=== PATIENT | male | born 1950 | race Caucasian/White ===

== ENCOUNTER → 2017-11-30 | Outpatient (CLI) | payer OTHER ==
[~2017-11-30] MED LIST: ALBU3IS INH; ALBU90OI INH; ALLO300 PO; ALLOPURINOL PO; ASPI81CH PO; ASPI81EC; ASPI81EC PO; BACL10 PO; BACL20; CARV3.125 PO; CEPH500 PO; CHOL10002 PO; CLIN300 PO; CLOP75; CLOP75 PO; FENO145 PO; FENO160; FENO54 PO; FERR325 PO; FLUO10; FLUO10 PO; FLUO20 PO; FURO20 PO; FURO40 PO; Flomax0.4 MG PO; GEMF600 PO; HYDACE5 PO; HYDMOR2 PO; INSU100I6 SC; INSULANPEN; KETO10 PO; LEVEMIR FL100 UNIT/1 SC; Lacri-Lube S.O3.5 GM OD; Lasix40 MG PO; METF500; METF850 PO; METPRE4DP PO; MULVITMINF PO; Norco 10-325 T1 EACH PO; Norco 5-325 Ta1 EACH PO; OXYACE5T PO; POTCHL10ER PO; POTCHL20ER PO; PROM25 PO; RXHYDMOR2 PO; RXOXYACE PO; SPACER IH; SULTRIDS PO; TAMS.4ER PO; THEO300ER PO; THEO300ERA PO; TIZA4 PO; TRIM250 PO; VALS80; VALS80 PO; ZANAFLEX; Zofran Odt4 MG SL; Zovirax800 MG PO; [UNRECOGNIZED DRUG - OTHER]; [UNRECOGNIZED DRUG - REMARK] PO
[2017-11-30 22:43] LABS: Source, Urine Clean Catch
[2017-11-30 22:46] LABS: Bilirubin, Urine Neg (Neg); Blood, Urine 5+ (Neg); Glucose Qualitative, Urine Neg (Neg); Ketones, Urine Neg (Neg); Leukocyte Esterase, Urine 1+ (Neg); Nitrite, Urine Neg (Neg); Protein, Urine Neg (Neg); Urobilinogen, Urine 1+ (Normal)
[2017-11-30 22:51] LABS: Appearance, Urine Clear (Clear); Color, Urine Yellow (P-Yellow)
[2017-11-30 22:52] LABS: Bacteria Mod /hpf; Red Blood Cells, Urine 25-50 /hpf (0-2); Squamous Epithelial Cells Rare /hpf (Few); White Blood Cells, Urine 0-2 /hpf (0-5)
== END | disposition home or self-care (01) ==
LOC: EDSTATUS 15:24 → LAB RH 22:39
PROVIDERS: Family Medicine
DX: N20.2 Calculus of kidney with calculus of ureter (principal); M54.5 Low back pain
CPT/HCPCS: 81001; 87086

== ENCOUNTER 2017-12-02 05:22 | Emergency (ER) | payer OTHER ==
[~2017-12-02] VITALS: Ht 167.6 cm; Wt 99.8 kg
[~2017-12-02 05:22] MED LIST changes: -ALBU3IS INH; -Flomax0.4 MG PO; -Zofran Odt4 MG SL
[2017-12-02] MEDS ORDERED: ALBU3IS INH (05:54)
[2017-12-02 06:07] LABS: BASOPHILS ABSOLUTE AUTO 0.04 K/mm3 (0.00-0.23); BASOPHILS PERCENT AUTO 0 % (0-2); EOSINOPHILS ABSOLUTE AUTO 0.08 K/mm3 (0.00-0.68); EOSINOPHILS PERCENT AUTO 1 % (0-6); Hematocrit 44.8 % (37.0-53.0); Hemoglobin 14.7 g/dL (13.5-17.5); IMMATURE GRAN ABSOLUTE AUTO 0.03 K/mm3 (0.00-0.10); IMMATURE GRAN PERCENT AUTO 0 % (0-1); LYMPHOCYTES ABSOLUTE AUTO 1.88 K/mm3 (0.84-5.20); LYMPHOCYTES PERCENT AUTO 19 % (21-46); MONOCYTES ABSOLUTE AUTO 0.57 K/mm3 (0.16-1.47); MONOCYTES PERCENT AUTO 6 % (4-13); Mean Corpuscular HGB 30.5 pg (26.0-34.0); Mean Corpuscular HGB Conc 32.8 g/dL (31.5-36.5); Mean Corpuscular Volume 93 fL (80-100); Mean Platelet Volume 9.8 fL (9.1-12.4); NEUTROPHILS ABSOLUTE AUTO 7.07 K/mm3 (1.96-9.15); NEUTROPHILS PERCENT AUTO 73 % (41-73); Platelet Count 179 K/mm3 (150-400); RDW Coefficient Variation 14.9 % (11.7-14.2); RDW Standard Deviation 50.7 fL (35.1-46.3); Red Blood Cell Count 4.82 M/mm3 (4.30-5.90); White Blood Cell Count 9.67 K/mm3 (4.00-11.30)
[2017-12-02 06:26] LABS: Alanine Aminotransfer (ALT/SGP 51 U/L (12-78); Albumin/Globulin Ratio 1.1 (0.8-1.8); Alk Phos 59 U/L (50-136); Anion Gap 9 mmol/L (6-16); Aspartate Aminotrans (AST/SGOT 27 U/L (12-37); Bilirubin, Total 0.9 mg/dL (0.1-1.0); Blood Urea Nitrogen 23 mg/dL (8-24); Bun/Creatinine Ratio 25.7 (12.0-20.0); CO2, Blood 22 mmol/L (21-32); Calcium, Blood 9.1 mg/dL (8.5-10.1); Chloride, Blood 112 mmol/L (98-108); Globulin, Blood 3.5 g/dL (2.2-4.0); Glomerular Filtration Rate >60 (60-); Glucose, Blood 121 mg/dL (70-99); Potassium, Blood 4.1 mmol/L (3.5-5.5); Sodium, Blood 143 mmol/L (136-145); Total Protein, Blood 7.5 g/dL (6.4-8.2)
[2017-12-02] MEDS ORDERED: Norco 5-325 Ta1 EACH PO (08:37)
[2017-12-02] MEDS ORDERED: Flomax0.4 MG PO (08:56)
[2017-12-02] MEDS ORDERED: Zofran Odt4 MG SL (08:56)
== END 2017-12-02 09:12 | disposition home or self-care (01) ==
LOC: ER 05:22
PROVIDERS: Emergency Medicine
DX: N13.2 Hydronephrosis with renal and ureteral calculous obstruction (principal); I10 Essential (primary) hypertension; Z79.899 Other long term (current) drug therapy; Z79.82 Long term (current) use of aspirin; Z79.4 Long term (current) use of insulin; Z87.442 Personal history of urinary calculi; Z87.891 Personal history of nicotine dependence; Z86.73 Personal history of transient ischemic attack (TIA), and cerebral infarction without residual deficits
CPT/HCPCS: 36415; 74176; 80053; 83690; 85025; J1885; J2405; J7030

== ENCOUNTER → 2018-03-27 | Outpatient (CLI) | payer OTHER ==
[~2018-03-27] MED LIST changes: +ALBU3IS INH; +Flomax0.4 MG PO; +Zofran Odt4 MG SL
[2018-03-27 14:27] LABS: Bilirubin, Urine Neg (Neg); Blood, Urine 3+ (Neg); Glucose Qualitative, Urine Neg (Neg); Ketones, Urine Neg (Neg); Leukocyte Esterase, Urine 1+ (Neg); Nitrite, Urine Neg (Neg); Protein, Urine 2+ (Neg); Specific Gravity, Urine 1.025 (1.003-1.022); Urobilinogen, Urine 1+ (Normal)
[2018-03-27 14:54] LABS: Appearance, Urine Hazy (Clear); Color, Urine Yellow (P-Yellow)
[2018-03-27 14:55] LABS: Calcium Oxalate Crystals Few /hpf
[2018-03-27 14:57] LABS: Bacteria Rare /hpf; Mucus Light (0-Heavy); Squamous Epithelial Cells Few /hpf (Few)
== END ==
LOC: EDSTATUS 11:34 → LAB RH 14:15
PROVIDERS: Registered Nurse
DX: N39.0 Urinary tract infection, site not specified (principal)
CPT/HCPCS: 81001; 87086

== ENCOUNTER 2018-06-17 02:26 | Emergency (ER) | payer OTHER ==
[~2018-06-17] VITALS: Ht 175.3 cm; Wt 99.8 kg
[~2018-06-17 02:26] MED LIST changes: +ATOR20 PO; +LOSA50 PO; +ONDA4ODT MM; +Roxicodone5 MG PO
[2018-06-17 04:15] LABS: BASOPHILS ABSOLUTE AUTO 0.03 K/mm3 (0.00-0.23); BASOPHILS PERCENT AUTO 0 % (0-2); EOSINOPHILS ABSOLUTE AUTO 0.07 K/mm3 (0.00-0.68); EOSINOPHILS PERCENT AUTO 1 % (0-6); Hematocrit 41.4 % (37.0-53.0); Hemoglobin 13.7 g/dL (13.5-17.5); IMMATURE GRAN ABSOLUTE AUTO 0.03 K/mm3 (0.00-0.10); IMMATURE GRAN PERCENT AUTO 0 % (0-1); LYMPHOCYTES ABSOLUTE AUTO 1.96 K/mm3 (0.84-5.20); LYMPHOCYTES PERCENT AUTO 22 % (21-46); MONOCYTES ABSOLUTE AUTO 0.64 K/mm3 (0.16-1.47); MONOCYTES PERCENT AUTO 7 % (4-13); Mean Corpuscular HGB 30.9 pg (26.0-34.0); Mean Corpuscular HGB Conc 33.1 g/dL (31.5-36.5); Mean Corpuscular Volume 94 fL (80-100); Mean Platelet Volume 9.9 fL (9.1-12.4); NEUTROPHILS ABSOLUTE AUTO 6.26 K/mm3 (1.96-9.15); NEUTROPHILS PERCENT AUTO 70 % (41-73); Platelet Count 177 K/mm3 (150-400); RDW Coefficient Variation 13.9 % (11.7-14.2); RDW Standard Deviation 47.6 fL (35.1-46.3); Red Blood Cell Count 4.43 M/mm3 (4.30-5.90); White Blood Cell Count 8.99 K/mm3 (4.00-11.30)
[2018-06-17 04:34] LABS: Alanine Aminotransfer (ALT/SGP 33 U/L (12-78); Albumin, Blood 3.5 g/dL (3.4-5.0); Albumin/Globulin Ratio 0.9 (0.8-1.8); Alk Phos 66 U/L (50-136); Anion Gap 11 mmol/L (6-16); Aspartate Aminotrans (AST/SGOT 22 U/L (12-37); Bilirubin, Total 1.2 mg/dL (0.1-1.0); Blood Urea Nitrogen 21 mg/dL (8-24); Bun/Creatinine Ratio 22.2 (12.0-20.0); CO2, Blood 24 mmol/L (21-32); Calcium, Blood 8.7 mg/dL (8.5-10.1); Chloride, Blood 111 mmol/L (98-108); Creatinine, Blood 0.95 mg/dL (0.60-1.20); Globulin, Blood 3.8 g/dL (2.2-4.0); Glomerular Filtration Rate >60 (60-); Glucose, Blood 130 mg/dL (70-99); Potassium, Blood 3.5 mmol/L (3.5-5.5); Sodium, Blood 146 mmol/L (136-145); Total Protein, Blood 7.3 g/dL (6.4-8.2)
[2018-06-17 05:38] LABS: Source, Urine Clean Catch
[2018-06-17 05:40] LABS: Appearance, Urine Clear (Clear); Bilirubin, Urine Neg (Neg); Blood, Urine 5+ (Neg); Color, Urine Amber (P-Yellow); Glucose Qualitative, Urine Neg (Neg); Ketones, Urine 2+ (Neg); Leukocyte Esterase, Urine 1+ (Neg); Nitrite, Urine Neg (Neg); Protein, Urine 3+ (Neg); Specific Gravity, Urine 1.025 (1.003-1.022); Urobilinogen, Urine 2+ (Normal)
[2018-06-17 05:49] LABS: Bacteria Mod /hpf; Granular Casts Rare /lpf (0); Mucus Light (0-Heavy); Red Blood Cells, Urine 50-100 /hpf (0-2); Squamous Epithelial Cells Few /hpf (Few)
[2018-06-17] MEDS ORDERED: IBUP600 PO (06:15)
[2018-06-17] MEDS ORDERED: Percocet 7.5-31 EACH PO (06:15)
== END 2018-06-17 06:22 | disposition home or self-care (01) ==
LOC: ER 02:26
PROVIDERS: Emergency Medicine
DX: N23 Unspecified renal colic (principal); Z79.899 Other long term (current) drug therapy; Z79.82 Long term (current) use of aspirin; Z79.01 Long term (current) use of anticoagulants; Z79.4 Long term (current) use of insulin; I10 Essential (primary) hypertension; Z87.891 Personal history of nicotine dependence
CPT/HCPCS: 36415; 80053; 81001; 85025; 87077; 87086; 87186; 96374; 96375; 99284-25; J1170; J1885

== ENCOUNTER → 2018-10-17 | Outpatient (CLI) | payer OTHER ==
[~2018-10-17] MED LIST changes: +IBUP600 PO; +Percocet 7.5-31 EACH PO
[2018-10-25 07:11] LABS: BRUSHITE 3.81 ratio (0.00-3.00); CALCIUM OXALATE 7.58 ratio (0.00-6.00); CALCIUM, URINE 411.2 mg/24 hr (100.0-300.0); CALCIUM, URINE 51.4 mg/dL (Not Estab.); CHLORIDE URINE 81 (110-250); CITRIC ACID (CITRATE) 977 mg/L (Not Estab.); CITRIC ACID(CITRATE) 782 mg/24 hr (320-1240); CREATININE, URINE 1440.8 mg/24 hr (1000.0-2000.0); CREATININE, URINE 180.1 mg/dL (Not Estab.); MAGNESIUM, URINE 11.7 mg/dL (Not Estab.); MONOSODIUM URATE 2.87 ratio (0.00-4.00); OSMOLALITY, URINE 795 (300-900); SODIUM, URINE 67 (58-337); SODIUM, URINE 84 mmol/L (Not Estab.); STRUVITE 0.02 ratio (0.00-1.00); URIC ACID 5.45 ratio (0.00-1.20); URINE VOLUME 800 mL/24 hr (800-1800); URINE VOLUME (PRESERVATIVE) 800 mL/24 hr (800-1800)
== END | disposition home or self-care (01) ==
LOC: LAB RH 09:46 → EDSTATUS 11:34
PROVIDERS: Family Medicine
DX: N40.0 Benign prostatic hyperplasia without lower urinary tract symptoms (principal)
CPT/HCPCS: 81003; 82131; 82140; 82340; 82436; 82507; 82570; 83735; 83935; 83945; 84105; 84133; 84300; 84392; 84560

== ENCOUNTER 2020-09-28 08:01 | Emergency (ER) | payer OTHER ==
[~2020-09-28] VITALS: Ht 175.3 cm; Wt 95.2 kg
[2020-09-28 09:41] LABS: BASOPHILS ABSOLUTE AUTO 0.05 K/mm3 (0.00-0.23); BASOPHILS PERCENT AUTO 1 % (0-2); EOSINOPHILS ABSOLUTE AUTO 0.17 K/mm3 (0.00-0.68); EOSINOPHILS PERCENT AUTO 3 % (0-6); Hematocrit 43.4 % (37.0-53.0); Hemoglobin 14.9 g/dL (13.5-17.5); IMMATURE GRAN ABSOLUTE AUTO 0.02 K/mm3 (0.00-0.10); IMMATURE GRAN PERCENT AUTO 0 % (0-1); LYMPHOCYTES ABSOLUTE AUTO 2.02 K/mm3 (0.84-5.20); LYMPHOCYTES PERCENT AUTO 34 % (21-46); MONOCYTES ABSOLUTE AUTO 0.46 K/mm3 (0.16-1.47); MONOCYTES PERCENT AUTO 8 % (4-13); Mean Corpuscular HGB Conc 34.3 g/dL (31.5-36.5); Mean Corpuscular Volume 90 fL (80-100); Mean Platelet Volume 9.9 fL (9.1-12.4); NEUTROPHILS ABSOLUTE AUTO 3.19 K/mm3 (1.96-9.15); NEUTROPHILS PERCENT AUTO 54 % (41-73); Platelet Count 184 K/mm3 (150-400); RDW Coefficient Variation 14.2 % (11.7-14.2); RDW Standard Deviation 46.8 fL (35.1-46.3); White Blood Cell Count 5.91 K/mm3 (4.00-11.30)
[2020-09-28 09:55] LABS: Alanine Aminotransfer (ALT/SGP 58 U/L (12-78); Albumin, Blood 3.5 g/dL (3.4-5.0); Albumin/Globulin Ratio 1.1 (0.8-1.8); Alk Phos 65 U/L (50-136); Anion Gap 7 mmol/L (6-16); Aspartate Aminotrans (AST/SGOT 22 U/L (12-37); Bilirubin, Total 0.6 mg/dL (0.1-1.0); Blood Urea Nitrogen 20 mg/dL (8-24); Bun/Creatinine Ratio 32.6 (12.0-20.0); CO2, Blood 26 mmol/L (21-32); Calcium, Blood 8.7 mg/dL (8.5-10.1); Chloride, Blood 106 mmol/L (98-108); Creatinine, Blood 0.61 mg/dL (0.60-1.20); Globulin, Blood 3.3 g/dL (2.2-4.0); Glomerular Filtration Rate >60 (60-); Glucose, Blood 271 mg/dL (70-99); Potassium, Blood 3.9 mmol/L (3.5-5.5); Sodium, Blood 139 mmol/L (136-145); Total Protein, Blood 6.8 g/dL (6.4-8.2)
[2020-09-28] MEDS ORDERED: ALLOPURINOL100 M1 PO (10:07)
[2020-09-28] MEDS ORDERED: VALS80 PO (10:09)
[2020-09-28] MEDS ORDERED: Glucophage 850850 MG PO (10:09)
[2020-09-28] MEDS ORDERED: NYAMYC15 G1 TOP (10:09)
[2020-09-28] MEDS ORDERED: ERYT1OIN LEFTEYE (12:27)
== END 2020-09-28 12:49 | disposition home or self-care (01) ==
LOC: ER 08:01
PROVIDERS: Physician Assistant
DX: H10.9 Unspecified conjunctivitis (principal); Z79.82 Long term (current) use of aspirin; Z79.899 Other long term (current) drug therapy
CPT/HCPCS: 70450; 70481; 80053; 85025; 99284-25; A9270; J7030; Q9967

== ENCOUNTER 2020-10-01 11:31 | Emergency (ER) | payer OTHER ==
[~2020-10-01] VITALS: Ht 175.3 cm; Wt 95.2 kg
[~2020-10-01 11:31] MED LIST changes: +ALLOPURINOL100 M1 PO; +ERYT1OIN LEFTEYE; +Glucophage 850850 MG PO; +NYAMYC15 G1 TOP
[2020-10-01 12:43] LABS: BASOPHILS ABSOLUTE AUTO 0.04 K/mm3 (0.00-0.23); BASOPHILS PERCENT AUTO 1 % (0-2); EOSINOPHILS ABSOLUTE AUTO 0.14 K/mm3 (0.00-0.68); EOSINOPHILS PERCENT AUTO 2 % (0-6); Hematocrit 43.8 % (37.0-53.0); Hemoglobin 15.4 g/dL (13.5-17.5); IMMATURE GRAN ABSOLUTE AUTO 0.04 K/mm3 (0.00-0.10); IMMATURE GRAN PERCENT AUTO 1 % (0-1); LYMPHOCYTES ABSOLUTE AUTO 2.73 K/mm3 (0.84-5.20); LYMPHOCYTES PERCENT AUTO 39 % (21-46); MONOCYTES ABSOLUTE AUTO 0.48 K/mm3 (0.16-1.47); MONOCYTES PERCENT AUTO 7 % (4-13); Mean Corpuscular HGB 31.9 pg (26.0-34.0); Mean Corpuscular HGB Conc 35.2 g/dL (31.5-36.5); Mean Corpuscular Volume 91 fL (80-100); Mean Platelet Volume 10.1 fL (9.1-12.4); NEUTROPHILS ABSOLUTE AUTO 3.59 K/mm3 (1.96-9.15); NEUTROPHILS PERCENT AUTO 51 % (41-73); Platelet Count 206 K/mm3 (150-400); RDW Coefficient Variation 14.5 % (11.7-14.2); RDW Standard Deviation 48.2 fL (35.1-46.3); Red Blood Cell Count 4.83 M/mm3 (4.30-5.90); White Blood Cell Count 7.02 K/mm3 (4.00-11.30)
[2020-10-01 13:02] LABS: International Normalized Ratio 0.95; Prothrombin Time Results 10.2 Sec (9.7-11.5)
[2020-10-01 13:32] LABS: Alanine Aminotransfer (ALT/SGP 66 U/L (12-78); Albumin, Blood 3.5 g/dL (3.4-5.0); Alk Phos 71 U/L (50-136); Anion Gap 6 mmol/L (6-16); Aspartate Aminotrans (AST/SGOT 55 U/L (12-37); Bilirubin, Total 0.8 mg/dL (0.1-1.0); Blood Urea Nitrogen 18 mg/dL (8-24); Bun/Creatinine Ratio 27.7 (12.0-20.0); CO2, Blood 26 mmol/L (21-32); Calcium, Blood 8.6 mg/dL (8.5-10.1); Chloride, Blood 109 mmol/L (98-108); Creatinine, Blood 0.65 mg/dL (0.60-1.20); Globulin, Blood 3.5 g/dL (2.2-4.0); Glomerular Filtration Rate >60 (60-); Glucose, Blood 254 mg/dL (70-99); Potassium, Blood 4.7 mmol/L (3.5-5.5); Sodium, Blood 141 mmol/L (136-145)
== END 2020-10-01 15:37 | disposition home or self-care (01) ==
LOC: ER 11:31
PROVIDERS: Emergency Medicine
DX: H49.02 Third [oculomotor] nerve palsy, left eye (principal); I10 Essential (primary) hypertension; Z87.891 Personal history of nicotine dependence; Z79.4 Long term (current) use of insulin; Z79.899 Other long term (current) drug therapy
CPT/HCPCS: 36415; 70496; 70498; 80053; 85025; 85610; 85730; 99284-25; Q9967

== ENCOUNTER 2021-02-26 17:08 | Inpatient (IN) | payer OTHER ==
[~2021-02-26] VITALS: Ht 170.2 cm; Wt 83.5 kg
[~2021-02-26 17:08] MED LIST changes: +ALBU2.5V5 NEB; -ALBU3IS INH; -CHOL10002 PO; -MULVITMINF PO
[2021-02-26 18:06] LABS: BASOPHILS PERCENT AUTO 0 % (0-2); EOSINOPHILS ABSOLUTE AUTO 0.01 K/mm3 (0.00-0.68); EOSINOPHILS PERCENT AUTO 0 % (0-6); Hematocrit 40.7 % (37.0-53.0); Hemoglobin 13.8 g/dL (13.5-17.5); IMMATURE GRAN ABSOLUTE AUTO 0.02 K/mm3 (0.00-0.10); IMMATURE GRAN PERCENT AUTO 1 % (0-1); LYMPHOCYTES PERCENT AUTO 21 % (21-46); MONOCYTES ABSOLUTE AUTO 0.31 K/mm3 (0.16-1.47); MONOCYTES PERCENT AUTO 7 % (4-13); Mean Corpuscular HGB 29.9 pg (26.0-34.0); Mean Corpuscular HGB Conc 33.9 g/dL (31.5-36.5); Mean Corpuscular Volume 88 fL (80-100); NEUTROPHILS ABSOLUTE AUTO 2.96 K/mm3 (1.96-9.15); NEUTROPHILS PERCENT AUTO 71 % (41-73); Platelet Count 187 K/mm3 (150-400); RDW Coefficient Variation 13.6 % (11.7-14.2); Red Blood Cell Count 4.62 M/mm3 (4.30-5.90)
[2021-02-26 18:22] LABS: Alanine Aminotransfer (ALT/SGP 38 U/L (12-78); Albumin, Blood 2.8 g/dL (3.4-5.0); Albumin/Globulin Ratio 0.7 (0.8-1.8); Alk Phos 67 U/L (50-136); Anion Gap 10 mmol/L (6-16); Aspartate Aminotrans (AST/SGOT 38 U/L (12-37); Blood Urea Nitrogen 16 mg/dL (8-24); Bun/Creatinine Ratio 25.3 (12.0-20.0); CO2, Blood 22 mmol/L (21-32); Calcium, Blood 8.5 mg/dL (8.5-10.1); Chloride, Blood 109 mmol/L (98-108); Creatinine, Blood 0.63 mg/dL (0.60-1.20); Globulin, Blood 4.1 g/dL (2.2-4.0); Glomerular Filtration Rate >60 (60-); Glucose, Blood 254 mg/dL (70-99); Potassium, Blood 3.3 mmol/L (3.5-5.5); Sodium, Blood 141 mmol/L (136-145); Total Protein, Blood 6.9 g/dL (6.4-8.2); Troponin I 0.127 ng/mL (0.000-0.040)
[2021-02-27 06:40] LABS: Hematocrit 39.5 % (37.0-53.0); Hemoglobin 13.3 g/dL (13.5-17.5); Mean Corpuscular HGB 30.3 pg (26.0-34.0); Mean Corpuscular HGB Conc 33.7 g/dL (31.5-36.5); Mean Corpuscular Volume 90 fL (80-100); Mean Platelet Volume 10.3 fL (9.1-12.4); Platelet Count 203 K/mm3 (150-400); RDW Coefficient Variation 13.6 % (11.7-14.2); RDW Standard Deviation 45.2 fL (35.1-46.3); Red Blood Cell Count 4.39 M/mm3 (4.30-5.90); White Blood Cell Count 2.71 K/mm3 (4.00-11.30)
[2021-02-27 06:56] LABS: Anion Gap 8 mmol/L (6-16); Blood Urea Nitrogen 19 mg/dL (8-24); Bun/Creatinine Ratio 32.7 (12.0-20.0); CO2, Blood 22 mmol/L (21-32); Calcium, Blood 8.8 mg/dL (8.5-10.1); Chloride, Blood 110 mmol/L (98-108); Creatinine, Blood 0.58 mg/dL (0.60-1.20); Glomerular Filtration Rate >60 (60-); Glucose, Blood 341 mg/dL (70-99); Potassium, Blood 4.1 mmol/L (3.5-5.5); Sodium, Blood 140 mmol/L (136-145); Troponin I 0.051 ng/mL (0.000-0.040)
[2021-02-27 08:20] LABS: BAND PERCENT MAN 2 % (0-8); BASOPHILS PERCENT MAN 0 % (0-2); EOSINOPHILS PERCENT MAN 0 % (0-6); LYMPHOCYTES ABSOLUTE MAN 0.81 K/mm3 (0.84-5.20); LYMPHOCYTES PERCENT MAN 30 % (21-46); MONOCYTES PERCENT MAN 4 % (4-13); NEUTROPHILS ABSOLUTE MAN 1.78 K/mm3 (1.96-9.15); SEG NEUTROPHILS PERCENT MAN 64 % (41-73); TOTAL CELLS COUNTED 100
[2021-02-28 07:28] LABS: BASOPHILS ABSOLUTE AUTO 0.01 K/mm3 (0.00-0.23); BASOPHILS PERCENT AUTO 0 % (0-2); EOSINOPHILS ABSOLUTE AUTO 0.02 K/mm3 (0.00-0.68); EOSINOPHILS PERCENT AUTO 0 % (0-6); Hematocrit 43.5 % (37.0-53.0); Hemoglobin 14.1 g/dL (13.5-17.5); IMMATURE GRAN ABSOLUTE AUTO 0.05 K/mm3 (0.00-0.10); IMMATURE GRAN PERCENT AUTO 1 % (0-1); LYMPHOCYTES ABSOLUTE AUTO 1.03 K/mm3 (0.84-5.20); LYMPHOCYTES PERCENT AUTO 15 % (21-46); MONOCYTES ABSOLUTE AUTO 0.52 K/mm3 (0.16-1.47); MONOCYTES PERCENT AUTO 7 % (4-13); Mean Corpuscular HGB 29.4 pg (26.0-34.0); Mean Corpuscular HGB Conc 32.4 g/dL (31.5-36.5); Mean Corpuscular Volume 91 fL (80-100); Mean Platelet Volume 10.3 fL (9.1-12.4); NEUTROPHILS ABSOLUTE AUTO 5.39 K/mm3 (1.96-9.15); NEUTROPHILS PERCENT AUTO 77 % (41-73); Platelet Count 273 K/mm3 (150-400); RDW Coefficient Variation 13.5 % (11.7-14.2); RDW Standard Deviation 46.3 fL (35.1-46.3); Red Blood Cell Count 4.79 M/mm3 (4.30-5.90); White Blood Cell Count 7.02 K/mm3 (4.00-11.30)
[2021-02-28 07:32] LABS: Anion Gap 9 mmol/L (6-16); Blood Urea Nitrogen 26 mg/dL (8-24); Bun/Creatinine Ratio 43.5 (12.0-20.0); CO2, Blood 24 mmol/L (21-32); Calcium, Blood 8.9 mg/dL (8.5-10.1); Chloride, Blood 109 mmol/L (98-108); Glomerular Filtration Rate >60 (60-); Glucose, Blood 270 mg/dL (70-99); Magnesium, Blood 2.2 mg/dL (1.6-2.4); Potassium, Blood 3.7 mmol/L (3.5-5.5); Sodium, Blood 142 mmol/L (136-145)
[2021-02-28] MEDS ORDERED: BACLOFEN10 M4 PO (13:20)
[2021-02-28] MEDS ORDERED: TAMSULOSIN HCL0.4 M1 PO (13:23)
[2021-02-28] MEDS ORDERED: OMEGA-3 + VITA200 ML PO (13:26)
[2021-02-28] MEDS ORDERED: CENTRUM SILVER1 EAC2 PO (13:27)
[2021-02-28] MEDS ORDERED: VITAMIN D325 MC3 PO (13:27)
[2021-02-28 14:31] LABS: PCO2 Arterial 29.1 mmHg (35-45); PO2 Arterial 62.9 mmHg (80-100); pH Blood Arterial 7.47 (7.35-7.45)
--- NOTE | 2021-02-28 14:37 | NUR ---
Case Conference Note Spoke with Dr Garsia, ED RN, and [facility]. Discussed case and plan of care. Called and spoke with Pt's daughter Freida. Provided update, reviewed plan of care, and offered therapeutic listening. Freida reports Pt has been aspiration precautions since his stroke. Freida reports Pt does well on mechanical soft textures. Answered questions and continued therapeutic listening. Answered questions regarding reason for Pt not receiving his home medications. Discussed that Pt remains NPO and many of these medications are not available via IV. Freida is requesting that a waiver be signed by Pt allowing him to have mechanical soft foods. Suggested that his work of breathing and oxygen requirements may be contributing towards his ability to swallow safely. Continued therapeutic listening. Freida reports being under the impression that once Pt receives his full COVID regimen that he will be able to come home. Gentle education on trajectory and addresses some mis conceptions. freida expresses appreciation and reports no other concerns at this time. Freida appears to be struggling understanding Pt's current condition. Plan will be to continue supportive and therapeutic conversations. Palliative Care will remain available.
--- NOTE | 2021-02-28 17:00 | NUR ---
INITIAL ASSESSMENT: REPORT RECIEVED FROM ED RN. PT ARRIVED TO 227 VIA GURNEY AND WAS LIFTED TO THE BED. PT ALERT AND ORIENTED. GARBLED SPEECH, RIGHT SIDED WEAKNESS AND RIGHT HAND IS CONTRACTED- PT HAS A HISTORY OF A CVA 18 YEARS AGO PER DAUGHTER. HRR, SR IN THE 90S. LS DIM IN THE BASES, BIOX LOW 90S ON AIRVO 55L FIO2 85%. BT+. PPP. PT HAS SCATTERED SCRATCHES TO BLE. WOUND ON COCCYX, DAUGHTER STATES THIS IS CHRONIC, MEPLIEX PLACED AND PICTURES TAKEN. OTHER HISTORY OBTAINED VIA DAUGHTER OVER THE PHONE. PT REPOSITIONED TO THE RIGHT SIDE. CBG 313, 4 UNITS REGULAR INSULIN GIVEN PER LOW S/S. PT DENIES OTHER NEEDS AT THIS TIME. CALL LIGHT IN REACH. WILL CONTINUE TO MONITOR.
--- NOTE | 2021-02-28 19:18 | NUR ---
SUMMARY: PATIENT IS COVID POSITIVE ADMITTED TO 227 TODAY. OXYGEN SATURATIONS STABLE ON AIRVO 55L FIO2 85%. OTHER VSS. HISTORY OBTAINED VIA DAUGHTER, SHE IS HIS CAREGIVER. PT WAS REPOSITIONED TO RIGHT SIDE. NO ACUTE CHANGES THIS SHIFT. REPORT GIVEN TO NOC SHIFT RN.
[2021-03-01 05:10] LABS: BASOPHILS ABSOLUTE AUTO 0.02 K/mm3 (0.00-0.23); BASOPHILS PERCENT AUTO 0 % (0-2); EOSINOPHILS ABSOLUTE AUTO 0.02 K/mm3 (0.00-0.68); EOSINOPHILS PERCENT AUTO 0 % (0-6); Hematocrit 46.2 % (37.0-53.0); IMMATURE GRAN ABSOLUTE AUTO 0.05 K/mm3 (0.00-0.10); IMMATURE GRAN PERCENT AUTO 1 % (0-1); LYMPHOCYTES ABSOLUTE AUTO 0.72 K/mm3 (0.84-5.20); LYMPHOCYTES PERCENT AUTO 7 % (21-46); MONOCYTES ABSOLUTE AUTO 0.74 K/mm3 (0.16-1.47); MONOCYTES PERCENT AUTO 8 % (4-13); Mean Corpuscular HGB 29.5 pg (26.0-34.0); Mean Corpuscular HGB Conc 32.5 g/dL (31.5-36.5); Mean Corpuscular Volume 91 fL (80-100); Mean Platelet Volume 10.1 fL (9.1-12.4); NEUTROPHILS ABSOLUTE AUTO 8.33 K/mm3 (1.96-9.15); NEUTROPHILS PERCENT AUTO 84 % (41-73); Platelet Count 339 K/mm3 (150-400); RDW Coefficient Variation 13.5 % (11.7-14.2); RDW Standard Deviation 45.6 fL (35.1-46.3); Red Blood Cell Count 5.08 M/mm3 (4.30-5.90); White Blood Cell Count 9.88 K/mm3 (4.00-11.30)
--- NOTE | 2021-03-01 05:16 | NUR ---
shift summary pt did not rest much during night. alert, but not able to communicate effectively with staff. understands what is being said to him, but cant verbalize back, very difficult to understand d/t old stroke. tele nsr/sinus tach 99 at this time. sats >90% when on airvo 60L/95% fio2 + 15L nrb. pt is npo at this time per speech therapy d/t unsafe swallowing/high risk for aspiration. because pt is npo, we are doing q6 cbg's. requiring insuling should the patient need coverage. rn called daughter to help assist patient get comfortable, help with patients needs, help understand him, she expressed she is very concerned that he is not eating, and concerned that he is receiving insulin. rn told daughter that message will be relayed to day rn to pass to md and speech therapy/math tutor. daughter assisted patient to motorized wheelchair at about 0230, and pt seems to be more comfortable since that transition. vss. call light within reach, bed in lowest position. will continue to monitor.
[2021-03-01 05:48] LABS: Albumin, Blood 2.7 g/dL (3.4-5.0); Anion Gap 9 mmol/L (6-16); Blood Urea Nitrogen 30 mg/dL (8-24); Bun/Creatinine Ratio 52.2 (12.0-20.0); CO2, Blood 23 mmol/L (21-32); Calcium, Blood 8.9 mg/dL (8.5-10.1); Chloride, Blood 111 mmol/L (98-108); Creatinine, Blood 0.58 mg/dL (0.60-1.20); Glomerular Filtration Rate >60 (60-); Glucose, Blood 248 mg/dL (70-99); Magnesium, Blood 2.5 mg/dL (1.6-2.4); Potassium, Blood 3.3 mmol/L (3.5-5.5); Sodium, Blood 143 mmol/L (136-145)
--- NOTE | 2021-03-01 14:00 | NUR ---
UPDATE FAMILY UPDATED AT BEDSIDE. INFORMED PT CONTINUES TO REMOVE AIRVO AND NON-REBREATHER AND D/T THIS IS AT RISK FOR RAPIDLY DESATING. INFORMED FAMILY THE PT WILL NEED TO BE RESTRAINED PER PHYSICIAN VERBAL ORDERS D/T PT SAFETY. INFORMED FAMILY THAT PT HAS INCREASING OXYGEN REQUIRMENTS AND IS IN NEED OF CPAP OR BIPAP WHILE RESTRAINED AND WILL NEED PRECEDEX TO HELP CALM THE PATIENT WHILE ON CPAP D/T PT AGGITATION AND THAT THE PT WILL BE MOVED TO PCU 16 FOR D/T BECOMING ICU STATUS.FAMILY STATED UNDERSTANDING AT THIS TIME.
--- NOTE | 2021-03-01 14:00 | NUR ---
PT ARRIVAL TO PCU 16 (ICU STATUS) AT 1350. BEDSIDE REPORT FROM ERIC MORGAN. PT PLACED ON BIPAP, PRECEDEX INCREASED TO 0.4MCG/KG/HR. SOFT WRIST RESTRAINTS PLACED BILATERALLY. PULSES STRONG, LUNG SOUNDS CLEAR/DIMINISHED. RR 30-40. ABG BEING DRAWN IN APPROX 15MIN. SKIN INTACT, DRY. ABD SOFT. VILLANUEVA PLACED. URINE COLLECTED AND SENT TO LAB. PRN ATIVAN GIVEN FOR CONTINUED AGITATION. SEE ASSESSMENT.
[2021-03-01 14:19] LABS: Source, Urine Catheter
[2021-03-01 14:19] LABS: PCO2 Arterial 29.4 mmHg (35-45); PO2 Arterial 58.7 mmHg (80-100); pH Blood Arterial 7.47 (7.35-7.45)
--- NOTE | 2021-03-01 14:21 | NUR ---
REPORT GIVEN/PT TRANSFER/UPDATE PT TRANSFERRED TO ROOM PCU 16. NOW ICU STATUS. FAMILY AWARE OF PT TRANSFER AND NEED FOR RESTRAINTS/PRECEDEX/BIPAP.FAMILY AT BEDSIDE THIS AM. FAMILY AGGITATED WITH MILLER DISTILLERY. DETACHED PT'S RESTRAINTS WHILE THIS RN WAS NOT IN ROOM. STREET LIGHT INSPECTOR SPOKE WITH FAMILY REGARDING VISITING GUIDLINES AND ATTITUDE TOWARDS STAFF MEMBERS. PRECEDEX GTT STARTED PRIOR TO TRANSFER, SEE EHR. HYDRALAZINE GIVEN FOR HYPERTENSION, SEE EMAR. REPORT GIVEN TO EDDIE PEARL AT BEDSIDE. PT TRANSFERRED BY THIS RN AND 2 OTHER RN'S. PT TRANSFERRED WITH ALL BELONGINGS AND CHART.
[2021-03-01 14:33] LABS: Appearance, Urine Clear (Clear); Bilirubin, Urine Neg (Neg); Blood, Urine 1+ (Neg); Color, Urine Yellow (P-Yellow); Glucose Qualitative, Urine 4+ (Neg); Ketones, Urine 3+ (Neg); Leukocyte Esterase, Urine Neg (Neg); Nitrite, Urine Neg (Neg); Protein, Urine 3+ (Neg); Specific Gravity, Urine 1.015 (1.003-1.022); Urobilinogen, Urine 3+ (Normal)
[2021-03-01 14:52] LABS: Bacteria Not Seen /hpf; Red Blood Cells, Urine Rare /hpf (0-2); Squamous Epithelial Cells Rare /hpf (Few); White Blood Cells, Urine 0-2 /hpf (0-5)
--- NOTE | 2021-03-01 15:46 | NUR ---
Spiritual care visit conducted. Upon receiving a spiritual care referral, I visit patient. Patient is a bit aggitated when I went into the room, but calmed down quickly. He opened his eyes only a couple of times. I provide a calming presence and prayer. Patient responds well and shows signs of increased peace. I also contact patient's daughter, Freida, to check on her and let her know that I visited her father. She tells me that "this is rough, but we are getting along okay." I was mostly trying to establish any kind of therapeutic alliance with Freida but she gave short anwsers but was kind. I will continue to remain available to patient and family.
--- NOTE | 2021-03-01 18:55 | NUR ---
SHIFT SUMMARY PT RESTING COMFORTABLY, TOLERATING BIPAP 10/5/85%, SATS >90%. LUNG SOUNDS THE SAME. RR 25-32. SB-SR ON MONITOR. PRECEDEX INF AT 0.6MCG/KG/HR. CLINIMIX AND LIPIDS INF. CBG Q6, COVERAGE REQUIRED. BILATERAL SOFT WRIST RESTRAINTS SECURE. VILLANUEVA DRAINING ARCHIE/ORANGE URINE. POWERGLIDE TO VAUGHN, SITE WNL, DRESSING C/D/I. 20G TO LEFT WRIST, SITE WNL, DRESSING C/D/I. WILL REPORT TO ONCOMING SHIFT.
[2021-03-02 06:43] LABS: BASOPHILS ABSOLUTE AUTO 0.01 K/mm3 (0.00-0.23); BASOPHILS PERCENT AUTO 0 % (0-2); EOSINOPHILS ABSOLUTE AUTO 0.02 K/mm3 (0.00-0.68); EOSINOPHILS PERCENT AUTO 0 % (0-6); Hemoglobin 12.1 g/dL (13.5-17.5); IMMATURE GRAN ABSOLUTE AUTO 0.04 K/mm3 (0.00-0.10); IMMATURE GRAN PERCENT AUTO 1 % (0-1); LYMPHOCYTES ABSOLUTE AUTO 0.62 K/mm3 (0.84-5.20); LYMPHOCYTES PERCENT AUTO 9 % (21-46); MONOCYTES ABSOLUTE AUTO 0.37 K/mm3 (0.16-1.47); MONOCYTES PERCENT AUTO 5 % (4-13); Mean Corpuscular HGB Conc 32.7 g/dL (31.5-36.5); Mean Corpuscular Volume 92 fL (80-100); Mean Platelet Volume 9.9 fL (9.1-12.4); NEUTROPHILS ABSOLUTE AUTO 6.01 K/mm3 (1.96-9.15); NEUTROPHILS PERCENT AUTO 85 % (41-73); Platelet Count 292 K/mm3 (150-400); RDW Coefficient Variation 13.4 % (11.7-14.2); RDW Standard Deviation 45.7 fL (35.1-46.3); Red Blood Cell Count 4.04 M/mm3 (4.30-5.90); White Blood Cell Count 7.07 K/mm3 (4.00-11.30)
[2021-03-02 06:59] LABS: Alanine Aminotransfer (ALT/SGP 25 U/L (12-78); Albumin, Blood 2.1 g/dL (3.4-5.0); Albumin/Globulin Ratio 0.6 (0.8-1.8); Alk Phos 59 U/L (50-136); Anion Gap 8 mmol/L (6-16); Aspartate Aminotrans (AST/SGOT 16 U/L (12-37); Bilirubin, Total 0.6 mg/dL (0.1-1.0); Blood Urea Nitrogen 31 mg/dL (8-24); CO2, Blood 25 mmol/L (21-32); Calcium, Blood 7.8 mg/dL (8.5-10.1); Chloride, Blood 109 mmol/L (98-108); Creatinine, Blood 0.66 mg/dL (0.60-1.20); Globulin, Blood 3.5 g/dL (2.2-4.0); Glomerular Filtration Rate >60 (60-); Glucose, Blood 409 mg/dL (70-99); Magnesium, Blood 2.5 mg/dL (1.6-2.4); Phosphorus, Blood 3.9 mg/dL (2.5-4.9); Potassium, Blood 4.5 mmol/L (3.5-5.5); Sodium, Blood 142 mmol/L (136-145); Total Protein, Blood 5.6 g/dL (6.4-8.2)
--- NOTE | 2021-03-02 07:38 | NUR ---
SHIFT SUMMARY PT RESTED THROUGHOUT NIGHT, AROUSES TO VERBAL STIMULI, INITALLY ONLY MOANED AND DID NOT FOLLOW COMMANDS, PRECEDEX INFUSING FOR AGITATION AND BIPAP TOLERANCE, PRECEDEX TITRATED DOWN, PT NOW ABLE TO FOLLOW SOME COMMANDS AND NOD HEAD YES/NO TO QUESTIONS, ATTEMPTS TO VERBALLY COMMUNICATE BUT PT IS DIFFICULT TO UNDERSTAND, PT REMAINS DROWSY BUT TOLERATING CPAP. PT INITIALLY ON BIPAP SETTINGS 10/5 FiO2 85%, SETTINGS CHANGED PER RT TO CPAP 10 AND FiO2 TITRATED TO 70% THROUGHOUT NIGHT, RESPIRATORY RATE 25-30. MONITOR SHOWS SINUS RHYTHM WITH HR 60'S, HTN NOTED WITH SBP 140'S-150'S. PT NPO, IV NUTRITION WITH CLINIMIX AND FAT EMULSION, 1 BM THIS SHIFT. VILLANUEVA REMAINS IN PLACE WITH ORANGE TO ARCHIE OUTPUT. PRESSURE ULCER TO COCCYX, PT TURNED THROUGHOUT SHIFT, HEELS FLOATED ON PILLOWS. CBG TRENDING UP, REPORT GIVEN TO DAYSHIFT RN, UNABLE TO REPORT 0630 CBG OF 414 TO PROVIDER.
--- NOTE | 2021-03-02 13:14 | NUR ---
UPDATE: PT AGITATED, ATTEMPTING TO TAKE OFF CPAP MASK. PRECEDEX TITRATED UP TO 0.7MCG/KG/HR OF PRECEDEX. PT PLACED ON NONREABREATHER 15L/MIN. ORAL CARE PROVIDED. PT ABLE TO ANSWER YES/NO QUESTIONS. ABLE TO FOLLOW COMMANDS. SpO2 AT 92% RR 30'S.
--- NOTE | 2021-03-02 18:28 | NUR ---
SHIFT SUMMARY: SEE PREVIOUS NOTE. PT CONTINUES TO BE ON CPAP AT 10, FiO2 OF 40% , RR BETWEEN 20-40'S. ATTEMPTED TO TITRATE PRECEDEX, UNSUCCESSFUL DUE TO INCREASED AGITATION . PT IS ON 0.7MCG/KG/HR OF PRECEDEX, CONTINUES TO RESPOND TO VERBAL STIMULI. PT IS ABLE TO ANSWER YES/NO QUESTIONS. PT GIVEN ORAL EVERY 2-4HRS. PT PLACED ON ON NON-REABREATHER AT 15L/MIN FOR SHORT BREAKS DURING ORAL CARE. PT HAS BEEN IN IN SR WITH HR IN THE 60'S. BP ELEVATED, MEDS GIVEN PER EMAR. VILLANUEVA PATENT, DRAINING ARCHIE COLORED URINE TO GRAVITY, NO BM THIS SHIFT. PT GIVEN PRN ATIVAN NEEDED FOR AGITATION PER EMAR. WILL CONTINUE TO MONITOR PT UNTIL REPORT IS GIVEN TO ONCOMING SHIFT.
--- NOTE | 2021-03-03 07:23 | NUR ---
SHIFT SUMMARY PT REMAINS SEDATED THROUGHOUT SHIFT, CONTINUES TO HAVE PERIODS OF AGITATION AND ATTEMPTS TO PULL CPAP MASK OFF, PRN ATIVAN ADMINISTERED AND PRECEDEX TITRATED NECESSARY. PT CONTINUES TO NOD HEAD TO YES/NO QUESTIONS, FOLLOWS COMMANDS BUT IS DIFFICULT TO REDIRECT WHEN AGITATED. PT REMAINS ON CPAP, FiO2 INCREASED TO 75% THIS SHIFT. MONITOR SHOWS SINUS RHYTHM WITH HR 50'S-60'S, BP STABLE. PT NPO, IV NUTRITION WITH CLINIMIX AND FAT EMULSION. VILLANUEVA REMAINS IN PLACE WITH ADEQUATE OUTPUT. CONTRACTURE TO R ARM, PT MOVES ALL OTHER EXTREMETIES.
--- NOTE | 2021-03-03 07:30 | NUR ---
Assumed care of pt at 0700. Report received from Eve MORGAN.
--- NOTE | 2021-03-03 11:00 | NUR ---
Dr Maurer in room, states plan for patient to receive PICC line so he can receive CPN instead of TPN.
--- NOTE | 2021-03-03 11:15 | NUR ---
FiO2 decreased to 55%. SpO2 90% or greater.
--- NOTE | 2021-03-03 14:19 | NUR ---
Call placed to Dr Maurer to notify that pt cannot receive a PICC line today due to availability of PICC nurses. Provider states this is okay and plan to receive PICC line when PICC nurse is available.
--- NOTE | 2021-03-03 18:02 | NUR ---
SUMMARY At this time, pt is on 1 mcg/kg/hr precedex. Alert. Does not follow commands. Unabe to communicate needs. Pt is on V60 CPAP 8 cm H2O and 60% FiO2. RR 31. Lungs dim t/o. No cough noted this shift. SR per monitor, rate 60s. BP high normal. Recently increased precedex rate, will continue to reassess BP. Excellent urine output from simmons catheter today. No BM. Unable to get PICC line, so nutrition was not advanced to TPN. Update given to daughter, Freida, today. Will continue to closely monitor until care handoff and bedside report with oncoming RN.
--- NOTE | 2021-03-03 22:00 | NUR ---
ASSUMPTION OF CARE PT SEDATED, OPENS EYES TO VERBAL STIMULUS, FOLLOWS COMMANDS, PT CONTINUES TO HAVE PERIODS OF INCREASED AGITATION WHERE HE PULLS ON RESTRAINTS AND REACHES FOR CPAP MASK. PRECEDEX INF, SEE FLOWSHEET FOR RATES AND TITRATIONS. CPAP SETTINGS OF 8 AND FiO2 60%. MONITOR SHOWS SINUS RHYTHM WITH HR 60'S, PT HYPERTENSIVE, PRN HYDRALAZINE AVAILABLE. PT NPO, IV NUTRITION WITH CLINIMIX AND FAT EMULSION. VILLANUEVA REMAINS IN PLACE.
[2021-03-04 04:46] LABS: PCO2 Arterial 34.5 mmHg (35-45); PO2 Arterial 49.5 mmHg (80-100); pH Blood Arterial 7.45 (7.35-7.45)
--- NOTE | 2021-03-04 05:54 | NUR ---
SHIFT SUMMARY PT REMAINS ON CPAP AND SEDATED, ANXIETY AND AGITATION CONTINUE, PRECEDEX TITRATED TO 1.4mcg/kg/hr. PT WITH INCREASED WOB THROUGHOUT SHIFT, AM ABG SHOWED CRITICALLY LOW PaO2, RESULTS CALLED TO DR FLAHERTY, SETTINGS CHANGED TO CPAP 12 AND FiO2 95%. WOB IMPROVED AFTER CPAP SETTING CHANGES. MONITOR SHOWS SINUS RHYTHM WITH HR 50'S-60'S, BP STABLE. PT NPO, IV NUTRITION WITH CLINIMIX AND FAT EMULSION CONTINUE UNTIL PICC LINE CAN BE ESTABLISHED FOR TPN. NO BM THIS SHIFT. VILLANUEVA REMAINS IN PLACE.
[2021-03-04 06:28] LABS: BASOPHILS ABSOLUTE AUTO 0.01 K/mm3 (0.00-0.23); BASOPHILS PERCENT AUTO 0 % (0-2); EOSINOPHILS ABSOLUTE AUTO 0.13 K/mm3 (0.00-0.68); EOSINOPHILS PERCENT AUTO 2 % (0-6); Hematocrit 37.2 % (37.0-53.0); Hemoglobin 12.2 g/dL (13.5-17.5); IMMATURE GRAN ABSOLUTE AUTO 0.05 K/mm3 (0.00-0.10); IMMATURE GRAN PERCENT AUTO 1 % (0-1); LYMPHOCYTES PERCENT AUTO 8 % (21-46); MONOCYTES ABSOLUTE AUTO 0.41 K/mm3 (0.16-1.47); MONOCYTES PERCENT AUTO 6 % (4-13); Mean Corpuscular HGB 29.5 pg (26.0-34.0); Mean Corpuscular HGB Conc 32.8 g/dL (31.5-36.5); Mean Corpuscular Volume 90 fL (80-100); Mean Platelet Volume 10.3 fL (9.1-12.4); NEUTROPHILS ABSOLUTE AUTO 6.28 K/mm3 (1.96-9.15); NEUTROPHILS PERCENT AUTO 84 % (41-73); Platelet Count 302 K/mm3 (150-400); RDW Coefficient Variation 13.2 % (11.7-14.2); RDW Standard Deviation 43.3 fL (35.1-46.3); Red Blood Cell Count 4.14 M/mm3 (4.30-5.90); White Blood Cell Count 7.48 K/mm3 (4.00-11.30)
[2021-03-04 06:41] LABS: Alanine Aminotransfer (ALT/SGP 22 U/L (12-78); Albumin, Blood 1.9 g/dL (3.4-5.0); Albumin/Globulin Ratio 0.5 (0.8-1.8); Alk Phos 69 U/L (50-136); Anion Gap 7 mmol/L (6-16); Aspartate Aminotrans (AST/SGOT 19 U/L (12-37); Bilirubin, Total 0.6 mg/dL (0.1-1.0); Blood Urea Nitrogen 26 mg/dL (8-24); Bun/Creatinine Ratio 44.4 (12.0-20.0); CO2, Blood 25 mmol/L (21-32); Calcium, Blood 7.7 mg/dL (8.5-10.1); Chloride, Blood 114 mmol/L (98-108); Creatinine, Blood 0.59 mg/dL (0.60-1.20); Globulin, Blood 3.5 g/dL (2.2-4.0); Glomerular Filtration Rate >60 (60-); Glucose, Blood 239 mg/dL (70-99); Magnesium, Blood 2.3 mg/dL (1.6-2.4); Phosphorus, Blood 3.2 mg/dL (2.5-4.9); Potassium, Blood 3.8 mmol/L (3.5-5.5); Sodium, Blood 146 mmol/L (136-145); Total Protein, Blood 5.4 g/dL (6.4-8.2); Triglycerides 396 mg/dL (30-160)
--- NOTE | 2021-03-04 07:15 | NUR ---
Assumed care of pt at 0700, pt ICU status but presently in room PCU 16. Report received from Eve MORGAN.
--- NOTE | 2021-03-04 08:00 | NUR ---
Discussed AM ABG results with ICU resident Dr Rutherford. Discussed that action taken was increasing CPAP to from 8 to 12 and increasing FiO2 from 90-95%.
--- NOTE | 2021-03-04 18:19 | NUR ---
SUMMARY At this time, pt is responsive to verbal stimulus. Does not answer questions, follow commands, or verbalizes needs. Receiving precedex at 1.4 mcg/kg/hr. Dr Chan increased amount of ativan that patient can have. At this time, pt is on CPAP 12, with 60% FiO2. SpO2 93%. Lungs dim t/o. Dry, nonproductive cough noted. SR per monitor. Good output through simmons catheter. No BM this shift. ALENA nurse at bedside to place PICC line so pt's parenteral nutrition can be advanced.
--- NOTE | 2021-03-04 19:00 | NUR ---
REPORT RECEIVED-CARE ASSUMED. PT ON CPAP 12, 60%. SATS 92%. PRECEDEX INFUSING @ 1.4 MCG/KG/HR, CLINIMIX @ 100 ML/HR. CONTINUE ASSESSMENTS AND CARE.
--- NOTE | 2021-03-05 06:22 | NUR ---
END OF SHIFT NOTE PT REMAINS ON CPAP 12/60% OVERNIGHT. SHORT 2-3 MIN BRAKES TAKED Q2 HR FOR ORAL CARE-PT TOLERATED WELL. PT HAS A NON-PRODUCTIVE CONGESTED COUGH. BS: DECREASED T/O. HR REMAINED 55-65 OVERNIGHT, 1+ GENERLIZED PITTING EDEMA NOTED. VILLANUEVA WITH 1550ML OUT. PT REMAINED CALM FOR MOST THE NIGHT- ON PRECEDEX 1.4 MCG/KG/HR. 1 ATTEMPT MADE TO WEAN PRECEDEX-PT BECAME AGGITATED, PULLING AT RESTRAINT AND ATTEMPTING TO REMOVE CPAP MASK. Q2 TURNS DONE WITH PILLOW SUPPORT-NO CHANGE IN SKIN. CONTINUE ASSESSMENT AND CARE UNTIL REPORT OFF TO ONCOMING SHIFT RN.
--- NOTE | 2021-03-05 07:00 | NUR ---
Assumed care of pt at 0700. Report received from Grace MORGAN. Pt ICU status, currently in room PCU 16.
[2021-03-05 13:43] LABS: Anion Gap 7 mmol/L (6-16); Blood Urea Nitrogen 23 mg/dL (8-24); Bun/Creatinine Ratio 49.7 (12.0-20.0); CO2, Blood 24 mmol/L (21-32); Calcium, Blood 7.4 mg/dL (8.5-10.1); Chloride, Blood 112 mmol/L (98-108); Creatinine, Blood 0.46 mg/dL (0.60-1.20); Glomerular Filtration Rate >60 (60-); Glucose, Blood 210 mg/dL (70-99); Magnesium, Blood 1.9 mg/dL (1.6-2.4); Phosphorus, Blood 2.7 mg/dL (2.5-4.9); Sodium, Blood 143 mmol/L (136-145)
--- NOTE | 2021-03-05 17:09 | NUR ---
SUMMARY Overall, pt has improved this shift. Precedex remains at 1.4 mcg/kg/hr for anxiety management and CPAP tolerance. Pt remains in bilat soft wrist restraints to prevent removal of vital cords and lines and he desaturates doww to 70s without aid from CPAP. Pt is alert. Speech incomprehensible but he follows commands well and assists in activities like oral care. Lungs dim t/o. Dry, nonproductive cough noted. CPAP 12 with 35% FiO2. SpO2 92%. SB-SR per monitor. Intermittently goes in and out of bigeminy. Dr Maurer aware. Electrolytes checked- unremarkable. BP stable. Pt remains NPO. TPN started this shift through PICC line. Muir catheter in place, patent and draining clear, yellow urine. Will continue to closely monitor until care handoff and bedside report with oncoming RN.
--- NOTE | 2021-03-06 06:31 | NUR ---
END OF SHIFT NOTE PT REMAINS ON CPAP 12/ 50%, PRECEDEX GTT @ 1.4 OVERNIGHT. PT BECAME AGGITATED, X1 OVERNIGHT, WAS ABLE TO LOOSEN UP RESTRAINT AND REMOVED BIPAP. PLACED BACK ON. 1 MG ATIVAN GIVEN WITH IMPROVEMENT. PT DAUGHTER ZEV UPDATED OVERNIGHT. CONTINUE ASSESSMENTS AND CARE TILL REPORT OFF TO ONCOMING RN.
--- NOTE | 2021-03-06 18:10 | NUR ---
SHIFT SUMMARY PT ALERT AND FOLLOWS DIRECTIONS AT TIMES. RIGHT SIDED WEAKNESS NOTED PER HX. RIGHT ARM CONTRACTED, BUT GROSS MOVEMENT NOTED. O2 SATS HAVE REMAINED ABOVE 90% ON CPAP OF 12 AND 50% FIO2. PT DOES TEND TO MOVE HIS HEAD TO ATTEMPT TO PULL OFF CPAP AT TIMES. HR HAS BEEN NSR 60'S. BP STABLE. PT DENIES ANY PAIN. PT FREQUENTLY ASKS FOR WATER BUT EDUCATED ON ASPIRATION PRECAUTIONS. ORAL CARE PROVIDED Q2H. WRIST RESTRAINTS IN PLACE TO KEEP CPAP IN PLACE. VILLANUEVA PATENT AND DRAINING. TPN INFUSING PER ORDERS. PRECEDEX AT 1.4. WILL CONTINUE TO MONITOR AND REPORT TO ONCOMING RN.
[2021-03-07 04:19] LABS: BASOPHILS ABSOLUTE AUTO 0.01 K/mm3 (0.00-0.23); BASOPHILS PERCENT AUTO 0 % (0-2); EOSINOPHILS ABSOLUTE AUTO 0.04 K/mm3 (0.00-0.68); EOSINOPHILS PERCENT AUTO 1 % (0-6); Hematocrit 36.9 % (37.0-53.0); Hemoglobin 12.4 g/dL (13.5-17.5); IMMATURE GRAN ABSOLUTE AUTO 0.08 K/mm3 (0.00-0.10); IMMATURE GRAN PERCENT AUTO 1 % (0-1); LYMPHOCYTES ABSOLUTE AUTO 0.62 K/mm3 (0.84-5.20); LYMPHOCYTES PERCENT AUTO 7 % (21-46); MONOCYTES ABSOLUTE AUTO 0.79 K/mm3 (0.16-1.47); MONOCYTES PERCENT AUTO 9 % (4-13); Mean Corpuscular HGB 29.6 pg (26.0-34.0); Mean Corpuscular HGB Conc 33.6 g/dL (31.5-36.5); Mean Corpuscular Volume 88 fL (80-100); Mean Platelet Volume 10.4 fL (9.1-12.4); NEUTROPHILS ABSOLUTE AUTO 6.87 K/mm3 (1.96-9.15); NEUTROPHILS PERCENT AUTO 82 % (41-73); Platelet Count 290 K/mm3 (150-400); RDW Coefficient Variation 13.3 % (11.7-14.2); RDW Standard Deviation 42.8 fL (35.1-46.3); Red Blood Cell Count 4.19 M/mm3 (4.30-5.90); White Blood Cell Count 8.41 K/mm3 (4.00-11.30)
[2021-03-07 04:36] LABS: Anion Gap 4 mmol/L (6-16); Blood Urea Nitrogen 22 mg/dL (8-24); Bun/Creatinine Ratio 47.5 (12.0-20.0); CO2, Blood 27 mmol/L (21-32); Chloride, Blood 109 mmol/L (98-108); Creatinine, Blood 0.46 mg/dL (0.60-1.20); Glomerular Filtration Rate >60 (60-); Glucose, Blood 335 mg/dL (70-99); Potassium, Blood 3.8 mmol/L (3.5-5.5); Sodium, Blood 140 mmol/L (136-145)
--- NOTE | 2021-03-07 07:21 | NUR ---
SHIFT SUMMARY PATIENT FOUND TO BE A&0X2-3, FOLLOWING COMMANDS WITH R SIDE FLACID FROM PREVIOUS STROKE. COMPLIANT WITH CARE FROM START OF SHIFT SO WAS ABLE TO GET RESTRAINTS OFF. WEANED 02 TO AIRVO 50L, 70% FROM THE BIPAP AND SATING IN MID 90'S ALL SHIFT. BECAME MUCH MORE PLESANT AFTER THIS TRANSITION PATIENT GREATLY HATED THE MASK. NSR. NPO. [id number] AND ORAL CARE. NO ACUTE CONCERNS AT THIS TIME. REPORT HANDED OFF TO MITCHELL MORGAN.
--- NOTE | 2021-03-07 18:04 | NUR ---
SHIFT SUMMARY PT ALERT, BUT DIFFICULT TO UNDERSTAND. SPEECH IS GARBLED. PT AGITATED THIS AFTERNOON AND WOULD NOT KEEP HIS AIRVO OR CPAP ON. WRIST RESTRAINT PLACED TO LEFT WRIST. PRECEDEX TITRATED UP TO 0.7 AT THIS TIME. 02 SATS REMAIN ABOVE 90% ON CPAP OF 12 AND 50% FIO2 AT THIS TIME. HR SB 50'S. BP STABLE. PT SHOWS NO SIGNS OF PAIN. ORAL CARE PROVIDED Q2H. PT REPOSITIONED Q2H. TPN INFUSING PER ORDERS. WILL CONTINUE TO MONITOR AND REPORT TO ONCOMING RN.
--- NOTE | 2021-03-07 20:00 | NUR ---
PT IN LEFT WRIST RESTRAINT. PT FOLLOWS INSTRUCTIONS, AND IS ABLE TO SHAKE HIS HEAD YES/NO TO QUESTIONS ASKED. PT HAS GARBLED SPEECH, AND IS CURRENTLY WEARING A FACE MASK CPAP - SATS WNL. PT IN COVID ISOLATION PRECAUTIONS. TPN INFUSING WITHOUT DIFFICULTY TO L ARM PICC. PT HAS HYPO BT'S - PT IS NPO. PRECEDEX AT 1.2MG AT THE BEGINNING OF THIS SHIFT. PT'S RIGHT ARM IS CONTRACTED. PT HAS A PAST HISTORY OF A CVA - BRAIN STEM PER DAY SHIFT REPORT.
--- NOTE | 2021-03-08 01:01 | NUR ---
PT REFUSED HIS SUPPOSITORY - HE KEEPS SHAKING HIS HEAD NO - EDUCATED ON WHEN HE HAD HIS LAST BM - BUT KEEPS SHAKING HIS HEAD NO. HELD SUPPOSITORY.
[2021-03-08 04:16] LABS: BASOPHILS ABSOLUTE AUTO 0.01 K/mm3 (0.00-0.23); BASOPHILS PERCENT AUTO 0 % (0-2); EOSINOPHILS ABSOLUTE AUTO 0.04 K/mm3 (0.00-0.68); EOSINOPHILS PERCENT AUTO 1 % (0-6); Hematocrit 37.1 % (37.0-53.0); Hemoglobin 12.3 g/dL (13.5-17.5); IMMATURE GRAN PERCENT AUTO 2 % (0-1); LYMPHOCYTES ABSOLUTE AUTO 0.74 K/mm3 (0.84-5.20); LYMPHOCYTES PERCENT AUTO 11 % (21-46); MONOCYTES ABSOLUTE AUTO 0.62 K/mm3 (0.16-1.47); MONOCYTES PERCENT AUTO 10 % (4-13); Mean Corpuscular HGB 29.6 pg (26.0-34.0); Mean Corpuscular HGB Conc 33.2 g/dL (31.5-36.5); Mean Corpuscular Volume 89 fL (80-100); Mean Platelet Volume 10.6 fL (9.1-12.4); NEUTROPHILS ABSOLUTE AUTO 5.01 K/mm3 (1.96-9.15); NEUTROPHILS PERCENT AUTO 77 % (41-73); Platelet Count 281 K/mm3 (150-400); RDW Coefficient Variation 13.4 % (11.7-14.2); RDW Standard Deviation 43.3 fL (35.1-46.3); Red Blood Cell Count 4.16 M/mm3 (4.30-5.90); White Blood Cell Count 6.52 K/mm3 (4.00-11.30)
[2021-03-08 04:36] LABS: Anion Gap 3 mmol/L (6-16); Blood Urea Nitrogen 21 mg/dL (8-24); Bun/Creatinine Ratio 43.1 (12.0-20.0); CO2, Blood 28 mmol/L (21-32); Calcium, Blood 7.6 mg/dL (8.5-10.1); Chloride, Blood 108 mmol/L (98-108); Creatinine, Blood 0.49 mg/dL (0.60-1.20); Glomerular Filtration Rate >60 (60-); Glucose, Blood 346 mg/dL (70-99); Potassium, Blood 4.1 mmol/L (3.5-5.5); Sodium, Blood 139 mmol/L (136-145)
--- NOTE | 2021-03-08 06:36 | NUR ---
SHIFT SUMMARY - NO ACUTE CHANGES THIS SHIFT. PT SLEPT THROUGHOUT MOST OF THE NIGHT WITH HIS CPAP IN PLACE. PT WAS ABLE TO MAKE HIS NEEDS KNOWN, BY POINTING TO WHICH SIDE HE WANTED TO BE REPOSITIONED, AND REQUESTING WATER/ORAL CARE. SATS HAVE REMAINED STABLE ON CURRENT CPAP SETTINGS. HEART RATE HAS REMAINED STABLE IN MID 50'S THROUGHOUT THE NIGHT. PT IS NPO. PT CONTINUES IN LEFT WRIST RESTRAINT. CALL LIGHT WITHIN REACH. BED IN LOW POSITION.
--- NOTE | 2021-03-08 18:32 | NUR ---
SHIFT SUMMARY PATIENT ALERT TO SELF. THERE WAS A PATTERN OF PATIENT SLEEPING AND THEN WAKING UP AND APPEARING AGITATED. PATIENT HAS INCOHERANT SPEACH AND BECOMES FRUSTRATED W/ INABILITY TO COMMUNICATE. SBP RANGED FROM 126-173; SBP ABOVE 160 WAS TREATED PER EMAR ORDERS. PATIENT WAS ON AIRVO THIS AFTERNOON AT 55L, 70% FIO2 AND WAS TAPERED TO 55L 65% FIO2; SATURATIONS REMAINED IN MID 90'S. PATIENT IS NOW CPAP 12 @ 70% FIO2 AND SATURATIONS ARE 92%. UPON ATTENDS CHANGE AT APPROX. 1730; THIS NURSE ALONG W/ XIOMARA RN CLEANED WOUND ON COCCYX AND APPLIED MEPILEX DRESSING. JEFF PIC LINE IS INFUSING CPN AT 75ML/HR, PRECIDEX AT 1.4 PER ORDERS; WAS GIVEN ATIVAN X 1 AND WAS EFFECTIVE.
[2021-03-09 04:15] LABS: BASOPHILS ABSOLUTE AUTO 0.02 K/mm3 (0.00-0.23); BASOPHILS PERCENT AUTO 0 % (0-2); EOSINOPHILS ABSOLUTE AUTO 0.03 K/mm3 (0.00-0.68); EOSINOPHILS PERCENT AUTO 0 % (0-6); Hematocrit 36.8 % (37.0-53.0); Hemoglobin 12.1 g/dL (13.5-17.5); IMMATURE GRAN ABSOLUTE AUTO 0.14 K/mm3 (0.00-0.10); IMMATURE GRAN PERCENT AUTO 2 % (0-1); LYMPHOCYTES PERCENT AUTO 14 % (21-46); MONOCYTES ABSOLUTE AUTO 0.89 K/mm3 (0.16-1.47); MONOCYTES PERCENT AUTO 11 % (4-13); Mean Corpuscular HGB 29.2 pg (26.0-34.0); Mean Corpuscular HGB Conc 32.9 g/dL (31.5-36.5); Mean Corpuscular Volume 89 fL (80-100); Mean Platelet Volume 10.6 fL (9.1-12.4); NEUTROPHILS ABSOLUTE AUTO 5.88 K/mm3 (1.96-9.15); NEUTROPHILS PERCENT AUTO 73 % (41-73); Platelet Count 293 K/mm3 (150-400); RDW Coefficient Variation 13.6 % (11.7-14.2); RDW Standard Deviation 43.7 fL (35.1-46.3); Red Blood Cell Count 4.15 M/mm3 (4.30-5.90); White Blood Cell Count 8.06 K/mm3 (4.00-11.30)
[2021-03-09 04:32] LABS: Anion Gap 4 mmol/L (6-16); Blood Urea Nitrogen 21 mg/dL (8-24); Bun/Creatinine Ratio 44.3 (12.0-20.0); CO2, Blood 26 mmol/L (21-32); Calcium, Blood 7.7 mg/dL (8.5-10.1); Chloride, Blood 109 mmol/L (98-108); Creatinine, Blood 0.47 mg/dL (0.60-1.20); Glomerular Filtration Rate >60 (60-); Glucose, Blood 223 mg/dL (70-99); Potassium, Blood 3.6 mmol/L (3.5-5.5); Sodium, Blood 139 mmol/L (136-145); Triglycerides 328 mg/dL (30-160)
--- NOTE | 2021-03-09 06:25 | NUR ---
shift summary pt rested well through night. alert and oriented, but has very garbled speech - unable to clearly make needs known to staff. multiple attempts made to understand patient with some success, communication board somewhat helpful when pt attempts to use it. when pt not able to make needs known, pt agitation increases. precedex running at 1.4, plus prn ativan. pt was on cpap with facemask for half of the night @ 12/65%, but then pt took a break and was placed on airvo at 55l/80%. sats are 93% at this time. tele nsr, no evidence of chest pain. rate 74 at this time. simmons in place, draininig to gravity, anny care performed - 400ml uop. no bm. turned patient q2 hrs. changed sacral mepilex with wound cleanser/healer and skin barrier cream. previous mepilex that was changed appeared to have less drainage compared to dayshifts drainage report. l wrist restraint remains in place, still necessary for protecting patient and lines/tubing. cbg q6 hrs - 316 and 214 with humulin coverage. no evidence of pain noted. vss. call light within reach, bed in lowest position. will continue to monitor.
--- NOTE | 2021-03-09 15:50 | NUR ---
CARE NOTE PATIENT REMAINS ALERT TO SELF. HE HAS BEEN SLEEPING FOR MAJORITY OF SHIFT BUT WILL WAKE UPON VERBAL STIMULI OR DURING Q2 TURNS. SPEECH IS GARBBLED AND INCOHERANT. PATIENT BECOMES FRUSTRATED WITH INABILITY TO COMMUNICATE. THIS NURSE HAS TRIED PICTURES COMMUNICATION TOOL AND PATIENT SEEMED FRUSTRATED. IN AM, PATIENT WAS ON AIRVO AT 55L, 70% FIO2 AND WAS NOT TOLERATING WELL, SPO2 DROPPED TO 86% SO THIS NURSE PUT CPAP BACK ON, SETTINGS AT 12, 70% FIO2, SPO2 WAS BACK TO LOW/MID 90'S. DURING BED BATH/ORAL CARE PATIENT PUT BACK ON AIRVO 55L AT 70% FIO2; PATIENT TOLERATED WELL FOR APPROX. 1 HOUR AND THEN SATURATIONS WOULD BE BACK DOWN TO 86-88% SO PATIENT NOW ON CPAP SETTINGS ARE 12 AT 55% FIO2 AND SATURATIONS REMAIN 93-95%.
--- NOTE | 2021-03-09 18:39 | NUR ---
CARE NOTE/SHIFT SUMMARY PT WAS DESATURATING TO 87% SPO2 AT APPROX 1830 WELL BECOMING INCREASINGLY AGITATED. THIS NURSE TITRATED FIO2 FROM 45% TO 55%; PT NOW SATURATING AT 91% SPO2. THIS NURSE ALSO TITRATED PRECIDEX FROM 1.2 TO 1.4. PT RESTING NOW BUT AWAKES TO VERBAL STIMULI. THIS NURSE TRIED OTHER COMFORT MEASURES PRIOR TO TITRATING PRECIDEX SUCH REORIENTING WELL OXYGEN TITRATION. VITAL SIGNS REMAIN STABLE W/ EXCEPTION OF RR REMAINING AT 26. PATIENT REMAINS ON CPAP 12, FIO2 @ 55%. CALL LIGHT IS IN REACH. WILL CONTINUE TO MONITOR.
[2021-03-10 03:48] LABS: BASOPHILS ABSOLUTE AUTO 0.02 K/mm3 (0.00-0.23); BASOPHILS PERCENT AUTO 0 % (0-2); EOSINOPHILS ABSOLUTE AUTO 0.03 K/mm3 (0.00-0.68); EOSINOPHILS PERCENT AUTO 0 % (0-6); Hematocrit 35.2 % (37.0-53.0); Hemoglobin 11.6 g/dL (13.5-17.5); IMMATURE GRAN ABSOLUTE AUTO 0.09 K/mm3 (0.00-0.10); IMMATURE GRAN PERCENT AUTO 1 % (0-1); LYMPHOCYTES ABSOLUTE AUTO 1.11 K/mm3 (0.84-5.20); LYMPHOCYTES PERCENT AUTO 15 % (21-46); MONOCYTES ABSOLUTE AUTO 0.77 K/mm3 (0.16-1.47); MONOCYTES PERCENT AUTO 11 % (4-13); Mean Corpuscular HGB 29.4 pg (26.0-34.0); Mean Corpuscular Volume 89 fL (80-100); Mean Platelet Volume 10.6 fL (9.1-12.4); NEUTROPHILS ABSOLUTE AUTO 5.23 K/mm3 (1.96-9.15); NEUTROPHILS PERCENT AUTO 72 % (41-73); Platelet Count 259 K/mm3 (150-400); RDW Coefficient Variation 13.4 % (11.7-14.2); RDW Standard Deviation 43.5 fL (35.1-46.3); Red Blood Cell Count 3.94 M/mm3 (4.30-5.90); White Blood Cell Count 7.25 K/mm3 (4.00-11.30)
[2021-03-10 04:04] LABS: Anion Gap 4 mmol/L (6-16); Blood Urea Nitrogen 21 mg/dL (8-24); Bun/Creatinine Ratio 41.4 (12.0-20.0); CO2, Blood 27 mmol/L (21-32); Calcium, Blood 7.9 mg/dL (8.5-10.1); Chloride, Blood 107 mmol/L (98-108); Creatinine, Blood 0.51 mg/dL (0.60-1.20); Glomerular Filtration Rate >60 (60-); Glucose, Blood 279 mg/dL (70-99); Potassium, Blood 3.9 mmol/L (3.5-5.5); Sodium, Blood 138 mmol/L (136-145)
--- NOTE | 2021-03-10 06:29 | NUR ---
shift summary pt rested well through most of night. lethargic. appears comfortable. did get increasingly agitated a couple times throug hnight - see emar. tele sinus jesus 55. o2, switching between cpap and airvo. currently on airvo now 60l/55% fio2. cpap settings are 12 and 55%. q2 turns. mepilex on sacrum changed. q4 oral care. no bm. does not appear to be in distress at this time. simmons draining to gravity, anny care performed. vss. call light within reach, bed in lowest position. will continue to monitor.
--- NOTE | 2021-03-10 18:39 | NUR ---
no acute changes this shift, pt is very difficult to understand, has had an uneventful day, turned and changed regularly. continues on precedex gtt but is pretty awake. call light in reach.
--- NOTE | 2021-03-11 04:04 | NUR ---
SSUMED CARE OT PT AT 1900. PT DENIES ANY PAIN. ABLE TO ANSWER YES/NO QUESTIONS WITH NODS, UNDERSTANDING HIS GARBLED SPEECH CAN BE DIFFICULT (PICTURE BOARD WAS OF NO ASSISTANCE). LUNGS COARSE T/O, SATTING ABOVE 92% ON HHF AT 60LPM AND 75% FIO2. PUT PATIENT ON CPAP FOR A FEW HOURS IN THE NIGHT AND PATIENT BECAME MORE AGITATED (CPAP SETTINGS 12/75%). SINUS MANINDER ON TELE WITH PVC'S, OTHERWISE VSS. PATIENT WAS ORIGINALLY ON PRECEDEX 1MCG/KG/HR BUT WAS CONTINUALLY AGITATED, YELLING OUT, SQUIRMING. TITRATED TO 1.2 THEN EVENTUALLY 1.4. THAT ALONG WITH BREAKTHROUGH PRN ATIVAN HAS MADE PATIENT COMFORTABLE AND IMPROVED RESPIRATORY STATUS. STILL NO BM. VILLANUEVA DRAINING ARCHIE URINE WITH MODERATE AMOUNTS OF SEDIMENT. REPLACED MEPILEX ON COCCYX. PATIENT HAS USED THE CALL LIGHT THIS SHIFT, BUT WHEN VERY AGITATED JUST YELLS OUT. WILL REPORT TO ONCOMING NURSE.
--- NOTE | 2021-03-11 08:00 | NUR ---
Pt laying in bed with eyes closed, he will open eyes for a moment when spoke to but immed returns to sleep, he is on precedex gtt and one wrist restraint, to left arm, lungs are course t/o, resp even and unlabored, no cough noted, hrr, running sb in the 50's, on airvo, sats at 92-93%, no edema noted, ppp+1, cap reifill <3sec, vs stabe, afebrile, iv site is clear and patent, picc lint to roya, piv to lfa, btx4, abd flat soft nontender, voids via simmons cath at this time, draining clear joe urine, skin has a mepilex on coccyx with a wound from being wheelchair bound, right arm is contracted secondary to cva, chris, call light in reach.
--- NOTE | 2021-03-11 13:36 | NUR ---
no changes, insuling coverage given, turning regularly, call light in reach.
--- NOTE | 2021-03-11 14:00 | NUR ---
INSULIN DOSE UPDATE EDIT MADE TO INSULIN ADMINISTRATION. THIS RN VERIFIED THAT THE PT RECEIVED 12 UNITS AT 1348.
--- NOTE | 2021-03-11 18:35 | NUR ---
no acute changes this shift. continues on precedex, his rate is 1.2 at this time, has been turned through out the shift. call light in reach.
--- NOTE | 2021-03-12 06:13 | NUR ---
SHIFT SUMMARY NO ACUTE CHANGES THIS SHIFT. PT ALERT, ORIENTED TO SELF, FAMILY, FOLLOWING DIRECTIONS. PT COMMUNICATED W/ LETTER BOARD, SPELLING WORDS. PT'S DAUGHTER, ZEV, CALLED FOR UPDATE, SEE PREVIOUS NOTE. SP02>94% ON HUMIDIFIED HIFLO. TELEMETRY READS SINUS MANINDER W/ PACS, HR 50'S. VILLANUEVA CATHETER DRAINING TEA COLORED URINE W/ HEAVY SEDIMENT TO GRAVITY. PT REPOSITIONINED Q2H, CURRENTLY FLOATING ON PILLOWS TO RELIEVE PRESSURE ON COCCYX. PRECEDEX INFUSING AT 1.3, NS TKO. PT USES CALL LIGHT APPROPRIATELY. CALL LIGHT IN REACH. WILL GIVE REPORT TO ONCOMING NURSE.
--- NOTE | 2021-03-12 09:31 | NUR ---
pt laying in bed watching tv, calm, is on precedex, v.s.s stable. speech is very diff to understand. was reported had a good night, lungs are course dim in bases, continues on airvo and maintaining sats, hrr, tele in place running sb to sr per monitor, see strip, no edema noted, ppp+1, cap refill <3sec, vs stable, afebrile, iv site is clear and patent, btx4, abd flat soft nontender, voids via simmons cath at this time, skin has mepilex to coccyx, right arm is contracted, is bed rest at this time, attends in place, turning q2hrs, and as needed, call light in reach.
--- NOTE | 2021-03-12 15:30 | NUR ---
pt has been lethargic today, precedex ran out at one point and he did become agitated. has been turned, no change in condition. call light in reach.
--- NOTE | 2021-03-12 18:49 | NUR ---
pt had an uneventful day, has been repositioned, RT placed him on a high flow cannula, has been resting in bed. watching tv at times, call light in reach.
--- NOTE | 2021-03-13 06:23 | NUR ---
SHIFT SUMMARY PT ALERT, ORIENTED TO SELF, FAMILY. SP02>92% ON 15L HUMIDIFIED HIFLO AT START OF SHIFT. PT STARTED C/O OF DRY NOSE/MOUTH, SATS SLOWLY DECREASED TO 87% AT AROUND 0400. RT IN ROOM, INCREASED 02 TO 25L, 100%. SP02 NOW 95%. TELEMETRY READS SINUS MANINDER, HR 50'S. PT C/O OF COCCYX PAIN, REPOSITIONED Q2H. PT'S VILLANUEVA CATHETER BECAME CLOGGED W/ SEDIMENTED URINE AT APPROX 0500. PT C/O OF NOT BEING ABLE TO URINATE. BLADDER SCAN SHOWED >200. NEW VILLANUEVA CATHETER PLACED, DRAINING TO GRAVITY W/ PT ABLE TO ADQUATELY URINATE. L WRIST RESTRAINT IN PLACE D/T PT PULLING AT LINES, 02. PT'S FAMILY, ZEV, CALLED FOR UPATE THIS EVENING. USES CALL LIGHT APPROPRIATELY. CALL LIGHT IN REACH. WILL GIVE REPORT TO ONCOMING NURSE.
--- NOTE | 2021-03-13 18:48 | NUR ---
SHIFT SUMMARY: NO ACUTE CHANGES T/OUT SHIFT. PT ALERT, ORIENTED TO SELF AND SITUATION. PT SLIGHTLY AGITATED AND PRESSING CALL BUTTON OFTEN THIS AM, BUT CALMED DOWN MID DAY. PT PRESSING CALL BUTTON APPROPRIATELY, USING COMMUNICATION BOARD TO AID IN MAKING NEEDS KNOWN. PT MAINTAINING O2 SATS >90% ON HUMIDIFIED HI RAINA O2 AT 35 L/MIN AND 50% FIO2. SB/SR ON MONITOR. INDWELLING VILLANUEVA CONTINUES TO DRAIN DARK ARCHIE URINE. PRECEDEX GTT CONTINUES AT 1.4 MCG/KG/HR. WILL CONTINUE TO MONITOR AND TREAT ACCORDINGLY UNTIL CHANGE OF SHIFT.
[2021-03-14 04:44] LABS: BASOPHILS ABSOLUTE AUTO 0.02 K/mm3 (0.00-0.23); BASOPHILS PERCENT AUTO 0 % (0-2); EOSINOPHILS ABSOLUTE AUTO 0.07 K/mm3 (0.00-0.68); EOSINOPHILS PERCENT AUTO 1 % (0-6); Hemoglobin 11.2 g/dL (13.5-17.5); IMMATURE GRAN ABSOLUTE AUTO 0.06 K/mm3 (0.00-0.10); IMMATURE GRAN PERCENT AUTO 1 % (0-1); LYMPHOCYTES PERCENT AUTO 16 % (21-46); MONOCYTES ABSOLUTE AUTO 0.72 K/mm3 (0.16-1.47); MONOCYTES PERCENT AUTO 10 % (4-13); Mean Corpuscular HGB 29.3 pg (26.0-34.0); Mean Corpuscular HGB Conc 32.9 g/dL (31.5-36.5); Mean Corpuscular Volume 89 fL (80-100); Mean Platelet Volume 10.4 fL (9.1-12.4); NEUTROPHILS ABSOLUTE AUTO 5.52 K/mm3 (1.96-9.15); NEUTROPHILS PERCENT AUTO 73 % (41-73); Platelet Count 259 K/mm3 (150-400); RDW Coefficient Variation 13.5 % (11.7-14.2); RDW Standard Deviation 42.8 fL (35.1-46.3); Red Blood Cell Count 3.82 M/mm3 (4.30-5.90); White Blood Cell Count 7.59 K/mm3 (4.00-11.30)
[2021-03-14 05:02] LABS: Magnesium, Blood 1.7 mg/dL (1.6-2.4)
[2021-03-14 05:03] LABS: Alanine Aminotransfer (ALT/SGP 36 U/L (12-78); Albumin/Globulin Ratio 0.5 (0.8-1.8); Alk Phos 75 U/L (50-136); Anion Gap 4 mmol/L (6-16); Aspartate Aminotrans (AST/SGOT 10 U/L (12-37); Bilirubin, Total 0.7 mg/dL (0.1-1.0); Blood Urea Nitrogen 22 mg/dL (8-24); Bun/Creatinine Ratio 44.7 (12.0-20.0); CO2, Blood 29 mmol/L (21-32); Calcium, Blood 7.4 mg/dL (8.5-10.1); Chloride, Blood 105 mmol/L (98-108); Creatinine, Blood 0.49 mg/dL (0.60-1.20); Globulin, Blood 3.7 g/dL (2.2-4.0); Glomerular Filtration Rate >60 (60-); Glucose, Blood 255 mg/dL (70-99); Phosphorus, Blood 3.5 mg/dL (2.5-4.9); Potassium, Blood 4.1 mmol/L (3.5-5.5); Sodium, Blood 138 mmol/L (136-145); Total Protein, Blood 5.7 g/dL (6.4-8.2)
[2021-03-14 05:37] LABS: Base Excess Venous 4.6 mmol/L; Bicarbonate Venous 27.3 mmol/L (24.0-30.0); PCO2 Venous 45.2 mmHg (38-42); PO2 Venous 35.4 mmHg (38-42); pH Blood Venous 7.42 (7.34-7.37)
--- NOTE | 2021-03-14 05:56 | NUR ---
SHIFT SUMMARY NO ACUTE CHANGES THIS SHIFT. PT AWAKE W/ STIMULATION, ANSWERS QUESTIONS, THOUGH GARBLED SPEECH. ABLE TO MAKE NEEDS KNOWN, USES COMMUNICATION BOARD. SP02>90% ON 35L 65% HUMIDIFIED HIFLO. TELEMETRY READS SINUS MANINDER, HR 50'S. PT REPOSITIONED PER PROTOCOL, MAX ASSIST. VILLANUEVA CATHETER DRAINING ARCHIE, SEDEMINT URINE TO GRAVITY. PT C/O OF JAW PAIN, MEDICATED W/ TYLENOL PER EMAR X1. PRECEDEX INFUSING AT 1.3. TPN INFUSING. CALL LIGHT IN REACH. WILL GIVE REPORT TO ONCOMING NURSE.
--- NOTE | 2021-03-14 14:29 | NUR ---
INSPECTING THE PICC DRESSING, THERE WAS FLUID AND BLOOD, PATIENT IS ON ENOXAPARIN, DRESSING WAS NOT LEAKING, PERFORMED PICC DRESSING CHANGE UNDER SUPERVISION OF AN EXPERIENCED MAT MACHINE OPERATOR, NO COMPLICATIONS, LENGTH OF THE PICC IS NOW 7 CM VERSUS THE DOCUMENTED PAGE OF 4 RECOMMENDATION ABOVE. WILL CONTINUE TO MONITOR
--- NOTE | 2021-03-14 19:39 | NUR ---
SHIFT SUMMARY: ASSUMMED CARE OF PATIENT AT 07:30. LEFT WRIST RESTRAINT ON LEFT WRIST, DIAGNOSIS OF COVID, HISOTRY OF A CVA WITH RIGHT SIDED DEFICIET AND WEAKNESS. HE HAS GARBLED SPEECH AND USES THE CALL LIGHT BOTH APPROPRIATELY AND INAPPROPRAITELY. PATIENT HAS A WOUND ON HIS RIGHT COCCYX AND METIPLEX IN PLACE. AND NOSE WOUND FROM BIPAP IS OPEN TO AIR. PATIENT IS ON HUMIDIFIED HFT VIA AIRVO AT 35L AT 65% SPO02 >92 EXCEPT WHEN SLEEPING TENDS TO BREATH THROUGH HIS MOUTH. PATINET HAS BEEN SINUS RHYTHM TO SINUS MANINDER, MAINLY SINUS RHYTHM IN THE 60'S NEVER BELOW THE 50'S. Q6 CBG'S NPO GETTING CPN THROUGH PICC, WHICH DRESSING WAS CHANGED AND 3 CM DIFFERENCE FROM ORIGNINAL PLACEMENT WAS NOTED. CALL PLACED TO DR MCKNIGHT S. 1V CHEST XR ORDERED. DR MENA READ THE XR NO RADIOLOGY WAS AVAILABLE PICC PLACEMENT STILL LOOKS IN SITE. PRECEDEX STILL RUNNING AT 1.3, DID NOT CHANGE, ADJUNCT ATIVAN WAS USED AROUND 1600 WHICH HELPED SHORTLY, BUT AGITATION RETURNED HE WANTED FOOD BY MOUTH WHICH SPEECH DID AN EVALUATION AND HE FAILED. I ENCOURAGED THE USE OF SUPP TYLENOL WHICH HE DIRECTLY DECLINED ON MORE THAN 6 OCCASSIONS. PAIN WAS ON COCCYX AND RIGHT EAR, WARM COMPRESSES TO THE EAR HELPED, HE FREQUENTED THE CALL LIGHT AND WAS REPOSITIONED ALMOST ONCE EVERY 45 MINUTES DUE TO THIS.
--- NOTE | 2021-03-15 04:58 | NUR ---
SHIFT SUMMARY AOX2-SELF, PLACE, FOLLOWING DIRECTIONS. DIFFICULT TO UNDERSTAND @TIMES R/T GARBLED SPEECH. GETS IRRITATED & AGITATED R/T STAFF INABILITY TO UNDERSTAND HIM, ABLE TO COMMUNICATE USING COMMUNICATIVE PICTURE BOARD. PLEASENT, COOPERATIVE c CARE. VSS. TELE SR-SB HR 50-60. SPO2 95-98% ON AIRVO, 35L @65% FIO2. DENIES SOB. HASNT TRIED TO PULL @ANY LINES, REMOVE AIRVO & USED CALL LIGHT APPROPRIATE, THEREFORE REMOVED WRIST RESTRAINTS @0000. RECIEVING PRECEDEX GTT @1.3 MCG/KG/HR. REPOSITIONED & PO CARE PROVIDED PRN. VILLANUEVA PATENT & DRAINING CLOUDY YELLOW URINE c MOD AMOUNT WHITE SEDIMENT. CALL LIGHT & BED ALARM IN PLACE.
--- NOTE | 2021-03-15 18:45 | NUR ---
SHIFT SUMMARY PT IS ALERT AND ORIENTED X 4. HE WAS PLEASANT AND COOPERATIVE W/ CARE T/O SHIFT. PT REMAINS ON HHNC 35L/MIN, FIO2 NOW 52% AND SATURATIONS ARE 97%. SBP RANGED FROM 134-165 AND HR RANGED 52-61. PT DENIED CHEST PAIN/PRESSURE BUT COMPLAINED OF PAIN NEAR RIGHT EAR. UPON ASSESSMENT IN AM, AREA NEAR R EAR WAS SWOLLEN AND NON TENDER TO TOUCH. UP0N REASSESSMENT THIS AFTERNOON, AREA NEAR R EAR WAS TENDER TO TOUCH, FIRM AND SWOLLEN. DR NOTIFIED AND GAVE NEW ORDERS FOR WARM/WET COMPRESS Q4 AND PAIN MANAGEMENT PER EMAR. PT STATED THAT THE COMPRESS/MORPHINE RELIEVED PAIN. PT HAS TPN RUNNER PER ORDERS WELL PRECEDEX AT 1.3. BP AND HR HAVE REMAINED STABLE T/O SHIFT. VILLANUEVA CATHETER IS PATENT AND DRAINING W/ GRAVITY. ULCER ON COCCYX IS COVERED W/ MEPILEX DRESSING AND DRESSING IS DRY/CLEAN/INTACT. NO OTHER ACUTE CHANGES NOTED. WILL CONTINUE TO MONITOR.
[2021-03-16 04:05] LABS: Triglycerides 236 mg/dL (30-160)
--- NOTE | 2021-03-16 04:36 | NUR ---
SHIFT SUMMARY AOX3-SELF, PLACE, SITUATION, FOLLOWING DIRECTIONS. PLEASENT & COOPERATIVE T/O NIGHT. OCC GETS IRRITATED WHEN STAFF CAN'T UNDERSTAND NEEDS, HOWEVER ABLE TO COMMUNICATE VIA COMMUNICATION BOARD. GARBLED SPEECH R/T HX CVA. TEARFUL & EMOTIONAL TONIGHT ABOUT BEING IN HOSPITAL & STATES HE IS EAGER TO RETURN HOME, GAVE THERAPEUTIC COMMUNICATION & LISTENING. SPO2 >90% ON AIRVO, 35L @40% FIO2. DENIES DYSPNEA. REPORTS PAIN ON R CHEEK/JAW AREA, PLACED WARM COMPRESS & GAVE IV 0.5MG MORPHINE 1X. TELE SB c PVC'S HR 50-57. PRECEDEX TITRATED DOWN TO 1.2 MCG/KG/HR. RECIEVING TPN @75ML/HR SINCE PT NPO. RICH PATENT & DRAINING. PT REFUSED REPOSITIONING, ABLE TO TURN 1X. CALL LIGHT & BED ALARM IN PLACE.
--- NOTE | 2021-03-16 17:47 | NUR ---
SUMMARY PT A/O TO PERSON AND PLACE. SLURRED GARBLED SPEECH, HX OF CVA. USES COMMUNICATION BOARD APPROPRIATELY. PT IS ANXIOUS T/O THE DAY. WAS ABLE TO TITRATE PRECEDEX DOWN BUT ALSO USED ATIVAN IN CONJUNCTION WHEN PT FEELING EXTRA ANXIOUS. REMAINS ON AIRVO. OCC HARSH MOIST COUGH. NO OTHER CHANGES THIS SHIFT. CALL LIGHT IN REACH AND PT USES APPROPRIATELY.
--- NOTE | 2021-03-17 02:47 | NUR ---
SHIFT UPDATE ASSUMED CARE OF PT @ 1900. PT ALERT, UNABLE TO FULLY COMMUNICATE. WILL UTILIZE BOARD INCONSISTENTLY. UPON INITIAL ASSESSMENT PTS VILLANUEVA CATHETER WITH SEDIMENT IN LINE, LEAKING AROUND URETHRA. VILLANUEVA CATH REMOVED, 18 FR COUDE PLACED. PRECEDEX GTT INFUSING, TITRATING TO EFFECT. PT VERY TEMPERAMENTAL, MEDICATING c PRN ATIVAN. WILL CONTINUE TO MONITOR.
[2021-03-17 04:05] LABS: BASOPHILS ABSOLUTE AUTO 0.05 K/mm3 (0.00-0.23); BASOPHILS PERCENT AUTO 0 % (0-2); EOSINOPHILS ABSOLUTE AUTO 0.08 K/mm3 (0.00-0.68); EOSINOPHILS PERCENT AUTO 1 % (0-6); Hematocrit 41.3 % (37.0-53.0); Hemoglobin 13.5 g/dL (13.5-17.5); IMMATURE GRAN ABSOLUTE AUTO 0.18 K/mm3 (0.00-0.10); IMMATURE GRAN PERCENT AUTO 1 % (0-1); LYMPHOCYTES ABSOLUTE AUTO 2.22 K/mm3 (0.84-5.20); LYMPHOCYTES PERCENT AUTO 16 % (21-46); MONOCYTES ABSOLUTE AUTO 1.23 K/mm3 (0.16-1.47); MONOCYTES PERCENT AUTO 9 % (4-13); Mean Corpuscular HGB 29.3 pg (26.0-34.0); Mean Corpuscular HGB Conc 32.7 g/dL (31.5-36.5); Mean Corpuscular Volume 90 fL (80-100); Mean Platelet Volume 10.2 fL (9.1-12.4); NEUTROPHILS ABSOLUTE AUTO 9.83 K/mm3 (1.96-9.15); NEUTROPHILS PERCENT AUTO 72 % (41-73); Platelet Count 323 K/mm3 (150-400); RDW Coefficient Variation 14.1 % (11.7-14.2); RDW Standard Deviation 44.3 fL (35.1-46.3); White Blood Cell Count 13.59 K/mm3 (4.00-11.30)
[2021-03-17 04:37] LABS: Alanine Aminotransfer (ALT/SGP 60 U/L (12-78); Albumin, Blood 2.5 g/dL (3.4-5.0); Albumin/Globulin Ratio 0.6 (0.8-1.8); Alk Phos 92 U/L (50-136); Anion Gap 6 mmol/L (6-16); Aspartate Aminotrans (AST/SGOT 25 U/L (12-37); Bilirubin, Total 0.9 mg/dL (0.1-1.0); Blood Urea Nitrogen 28 mg/dL (8-24); Bun/Creatinine Ratio 40.3 (12.0-20.0); CO2, Blood 27 mmol/L (21-32); Calcium, Blood 8.9 mg/dL (8.5-10.1); Chloride, Blood 103 mmol/L (98-108); Creatinine, Blood 0.69 mg/dL (0.60-1.20); Globulin, Blood 4.1 g/dL (2.2-4.0); Glomerular Filtration Rate >60 (60-); Glucose, Blood 119 mg/dL (70-99); Magnesium, Blood 2.1 mg/dL (1.6-2.4); Phosphorus, Blood 4.2 mg/dL (2.5-4.9); Potassium, Blood 4.1 mmol/L (3.5-5.5); Sodium, Blood 136 mmol/L (136-145); Total Protein, Blood 6.6 g/dL (6.4-8.2)
--- NOTE | 2021-03-17 06:33 | NUR ---
SHIFT SUMMARY PT QUITE DIFFICULT TO COMMUNICATE WITH. WHEN PRECEDEX IS OFF, PT BECOMES VERY AGITATED, HYPERTENSIVE, AND TACHYPNEIC. CURRENTLY PRECEDEX IS @ 0.8MCG/KG/HR. RT IN ROOM WITH PT DURING THE NIGHT, WE ATTEMPTED CPAP BUT PT DID NOT TOLERATE, CURRENTLY ON AIRVO 50L/60% c O2 SATS >90%. VILLANUEVA CATH CONTINUES TO REQUIRE IRRIGATION, LOTS OF SEDIMENT. BLADDER SCAN PERFORMED THIS AM, <100CC. NO OTHER SIGNIFICANT CHANGES IN PT CONDITION. REPORT TO ONCOMING NURSE.
--- NOTE | 2021-03-17 14:05 | NUR ---
Daughter, Freida, stevie. Notified her that pt is up in chair. She asks if she can bring his motorized wheelchair in. Told her she can drop it off at screening station. She states she will also bring in his CPAP.
--- NOTE | 2021-03-17 15:24 | NUR ---
Pt remains in recliner, pt in good spirits. Precedex stopped. This RN instructed pt on oral care with suction swabs and pt did own oral care. Tolerated activity well.
--- NOTE | 2021-03-17 17:38 | NUR ---
Precedex restarted as pt tachycardic, hypertensive, tachypnic. Pt appears visibly uncomfortable but not able to communicate what problem is. Pt nods head "no" to shortness of breath, anxiety, and pain. Pt coughing, wet/moist/loose cough, much more after ST eval. Worked with pt to use flutter valve. Pt unable to expectorate.
--- NOTE | 2021-03-17 18:20 | NUR ---
Call placed to Dr Garsia to discuss that pt became tachycardic and hypertensive and failed wean from precedex. Plan to try again. IV metoprolol now available to manage hypertension and tachycardia.
--- NOTE | 2021-03-17 18:23 | NUR ---
SUMMARY Neuro: Pt answers questions by nodding head to indicate yes/no. Pt follows commands and is able to participate in care. Pt remains strict NPO per speech thearpy. To note, pt has had increased cough since eval. Pt mobilized using ceiling lift. Pt remains in recliner as he is much happier sitting up instead of in bed. Speech remains garbled and difficult to understand. Pt speaks in singular, often incomprehensible, words. Utilized communication board this shift, but this did not improve pt's ability to communicate needs. Pt is receiving 0.8 mcg/kg/hr precedex. Pt was off precedex for several hours today but required it to be restarted due to tachycardia, tachypnea, and hypertension with agitation. Respiratory: Pt receiving V60 high flow therapy with 40 LPM flow and 50% FiO2. Lungs coarse t/o, diminished in bases. Loose, moist, nonproductive cough. This RN worked with pt to use flutter valve but he was still unable to expectorate. Cardiac: SR per monitor, BP currently stable. Distant heart sounds. Capillary refill less than 3 seconds BUE and BLE. 1+ radial, pedal, and posttibial pulses. No edema. GI: Hypoactive BT. Abd not tender on palpation. Pt is strict NPO. Receiving TPN through PICC line. : Simmons catheter removed per verbal order from Dr Garsia. Pt had been leaking urine around simmons since previous shift. This RN bladder scanned pt and only 15 mL present prior to removing simmons. Pt has not voided urine since Simmons DC'd. Will report to oncoming shift to follow up. Skin: Scab present to bridge of nose. Red, but blanchable skin present to sacrum. Psych: Pt pleasant and cooperative with care for majority of shift. This RN updated daughter, Freida, who stated plan to drop off pt's wheelchair and CPAP, however these items have not yet arrived. Dr Garsia stated plan to update Freida, as well.
[2021-03-18 04:37] LABS: BASOPHILS ABSOLUTE AUTO 0.04 K/mm3 (0.00-0.23); BASOPHILS PERCENT AUTO 0 % (0-2); EOSINOPHILS ABSOLUTE AUTO 0.15 K/mm3 (0.00-0.68); EOSINOPHILS PERCENT AUTO 1 % (0-6); Hematocrit 42.7 % (37.0-53.0); Hemoglobin 14.1 g/dL (13.5-17.5); IMMATURE GRAN ABSOLUTE AUTO 0.13 K/mm3 (0.00-0.10); IMMATURE GRAN PERCENT AUTO 1 % (0-1); LYMPHOCYTES ABSOLUTE AUTO 2.83 K/mm3 (0.84-5.20); LYMPHOCYTES PERCENT AUTO 20 % (21-46); MONOCYTES ABSOLUTE AUTO 1.43 K/mm3 (0.16-1.47); MONOCYTES PERCENT AUTO 10 % (4-13); Mean Corpuscular HGB 29.4 pg (26.0-34.0); Mean Corpuscular Volume 89 fL (80-100); Mean Platelet Volume 10.1 fL (9.1-12.4); NEUTROPHILS ABSOLUTE AUTO 9.37 K/mm3 (1.96-9.15); NEUTROPHILS PERCENT AUTO 67 % (41-73); Platelet Count 355 K/mm3 (150-400); RDW Coefficient Variation 14.4 % (11.7-14.2); RDW Standard Deviation 45.8 fL (35.1-46.3); Red Blood Cell Count 4.79 M/mm3 (4.30-5.90); White Blood Cell Count 13.95 K/mm3 (4.00-11.30)
[2021-03-18 04:55] LABS: Anion Gap 8 mmol/L (6-16); Blood Urea Nitrogen 24 mg/dL (8-24); CO2, Blood 25 mmol/L (21-32); Calcium, Blood 8.7 mg/dL (8.5-10.1); Chloride, Blood 107 mmol/L (98-108); Creatinine, Blood 0.55 mg/dL (0.60-1.20); Glomerular Filtration Rate >60 (60-); Glucose, Blood 134 mg/dL (70-99); Potassium, Blood 3.9 mmol/L (3.5-5.5); Sodium, Blood 140 mmol/L (136-145)
--- NOTE | 2021-03-18 07:30 | NUR ---
SHIFT SUMMARY PT REMAINS ALERT AND ORIENTED, FOLLOWING COMMANDS. FOR MOST OF THE NIGHT PT WAS CALM AND COOPERATIVE, PRECEDEX WAS BEING TITRATED DOWN. PRECEDEX PLACED ON SB THIS STUDENT SUCCESS COUNSELOR, SHORTLY AFTER PT BECAME VERY ANXIOUS. THIS NURSE UNABLE TO CONSOLE, RR INCREASED TO THE 40'S, HR TO THE 130-150'S. PRECEDEX GTT BACK ON @ 0.5MCG/KG/HR. PT TRANSITIONED FROM HEATED HI-RAINA TO HFNC @ 8-10L, SATS REMAINED >90% UNTIL THE ABOVE EVENT. PT CONTINUES TO BE INCONTINENT OF STOOL AND URINE. ATTENDS IN PLACE. PTS DAUGHTER BROUGHT HOME WHEELCHAIR AND CPAP FOR USE IF POSSIBLE. REPORT GIVEN TO ONCOMING NURSE.
--- NOTE | 2021-03-18 13:30 | NUR ---
Pt wearing home CPAP with 15 LPM O2. Plan to transfer patient to his own electric wheelchair later today. Dr Garsia in to see patient. Plan to try IM zyprexa to increase success of titrating off precedex.
--- NOTE | 2021-03-18 16:38 | NUR ---
Call placed to Dr Garsia to notify provider of pt's high heart rate in 140s and 150s as well as high BP and persistent agitation. Orders given for IV lopressor.
[2021-03-18 18:51] LABS: Albumin, Blood 2.5 g/dL (3.4-5.0); Anion Gap 9 mmol/L (6-16); Blood Urea Nitrogen 21 mg/dL (8-24); Bun/Creatinine Ratio 35.5 (12.0-20.0); CO2, Blood 24 mmol/L (21-32); Calcium, Blood 8.5 mg/dL (8.5-10.1); Chloride, Blood 108 mmol/L (98-108); Creatinine, Blood 0.59 mg/dL (0.60-1.20); Glomerular Filtration Rate >60 (60-); Glucose, Blood 277 mg/dL (70-99); Phosphorus, Blood 3.6 mg/dL (2.5-4.9); Potassium, Blood 3.9 mmol/L (3.5-5.5); Sodium, Blood 141 mmol/L (136-145)
--- NOTE | 2021-03-18 19:15 | NUR ---
REPORT RECEIVED-CARE ASSUMED
--- NOTE | 2021-03-18 19:22 | NUR ---
SUMMARY Neuro: Pt answers questions by nodding head to indicate yes/no. Pt follows commands and is able to participate in care. Pt remains strict NPO per speech thearpy. To note, pt has had increased cough since eval. Pt mobilized using ceiling lift. Sat up in recliner and also in his personal electric wheelchair that his daughter dropped off from home. Speech remains garbled and difficult to understand. Pt speaks in singular, often incomprehensible, words. Utilized communication board this shift, but this did not improve pt's ability to communicate needs. Pt is receiving 0.5 mcg/kg/hr precedex. Pt was off precedex for several hours today but required it to be restarted due to tachycardia, tachypnea, and hypertension with agitation. Agitation did not respond to IM zyprexa or haldol. Tachycardia and hypertension did not resolve with IV metopropol or hydralyzine. Respiratory: Pt receiving 15 LPM with his home CPAP device. Lungs coarse t/o, diminished in bases. Loose, moist, nonproductive cough. This RN worked with pt to use flutter valve but he was still unable to expectorate. Cardiac: SR per monitor with several PVCs, BP currently stable. Distant heart sounds. Capillary refill less than 3 seconds BUE and BLE. 1+ radial, pedal, and posttibial pulses. No edema. Pending BMP and mag levels. Pt also had echocardiogram today. GI: Hypoactive BT. Abd not tender on palpation. Pt is strict NPO. Receiving TPN through PICC line. Three BMs today. : Multiple urine voids this shift. Attends CDI at this time. Skin: Scab present to bridge of nose. Red/purple skin to sacrum Daughter did not receive update from this RN today.
[2021-03-18 21:46] LABS: Source, Urine Catheter
[2021-03-18 21:48] LABS: Bilirubin, Urine Neg (Neg); Blood, Urine 2+ (Neg); Glucose Qualitative, Urine 2+ (Neg); Ketones, Urine Neg (Neg); Leukocyte Esterase, Urine 1+ (Neg); Nitrite, Urine Neg (Neg); Protein, Urine 2+ (Neg); Urobilinogen, Urine 1+ (Normal)
[2021-03-18 21:54] LABS: Appearance, Urine Clear (Clear); Color, Urine Yellow (P-Yellow)
[2021-03-18 21:55] LABS: Bacteria Mod /hpf; Red Blood Cells, Urine 0-2 /hpf (0-2); Squamous Epithelial Cells Not Seen /hpf (Few)
--- NOTE | 2021-03-18 22:44 | NUR ---
DISTRESS-INCREASED RR-30'S, GASPING, -CALLED RT AND SHOT BLASTER. ORAL SXN-SCANT WGITE SECTEATIONS, VERY WEAK GAG. INCREASED PRECEDEX FOR AGGITATION, REPOSITION PT HOB INCREASED, PT BEGAN SETTELING DOWN. BREATHING IMPROVED. BS REMAIN COURSE, DECREASED. SR WITH PVC'S ON MONITOR. SATS NEVER CHANGED-CONTINUE 92-95%. CONTINUE ASSESSMENTS AND CARE.
--- NOTE | 2021-03-19 00:56 | NUR ---
AGGITATION PT AGGITATED- PULLING OFF LEADS AND CPAP MASK-ATIVAN GIVEN PER MAR.
--- NOTE | 2021-03-19 01:37 | NUR ---
RESPIRATORY PT CONTINUES TO HAVE EPISODES OF INCREASED WOB- ON 10 L O2 ON HOME CPAP. - RT AND POLICE SHIFT COMMANDER NOTIFIED. REPOSITION PT, RT IN ROOM. ORAL CARE DONE- CONTINUE ASSESSMENT AND CARE
--- NOTE | 2021-03-19 01:54 | NUR ---
MD NOTIFIED-DR. KIM PT WITH RESPIRATORY DISTREE-ASSESSORY MUSCLE USAGE-RR >30, SATS 90% ON CPAP MASK-WITH 10 L IN OF O2.BS: UPPER AIRWAY STRIDOR WITH COURSE BILAT UPPER LOBES AND DECREASED BS T/O-MAYES APEARING SKIN- AUDIO PRODUCTION ENGINEER NOTIFIED RT IN ROOM-MD ORDER TO CHANGE PT TO BIPAP AT THIS TIME- GIVE ZYPREXA IM IF NEEDED FOR AGGITATION. CONTINUE ASSESSMENTS AND CARE.
--- NOTE | 2021-03-19 03:04 | NUR ---
MEDS PER MAR FOR AGGITATION-PT PULLING OFF BIPAP MASK.
[2021-03-19 03:41] LABS: BASOPHILS ABSOLUTE AUTO 0.04 K/mm3 (0.00-0.23); BASOPHILS PERCENT AUTO 0 % (0-2); EOSINOPHILS ABSOLUTE AUTO 0.11 K/mm3 (0.00-0.68); EOSINOPHILS PERCENT AUTO 1 % (0-6); Hematocrit 40.7 % (37.0-53.0); Hemoglobin 13.1 g/dL (13.5-17.5); IMMATURE GRAN ABSOLUTE AUTO 0.12 K/mm3 (0.00-0.10); IMMATURE GRAN PERCENT AUTO 1 % (0-1); LYMPHOCYTES ABSOLUTE AUTO 2.29 K/mm3 (0.84-5.20); LYMPHOCYTES PERCENT AUTO 16 % (21-46); MONOCYTES ABSOLUTE AUTO 1.34 K/mm3 (0.16-1.47); MONOCYTES PERCENT AUTO 9 % (4-13); Mean Corpuscular HGB 29.2 pg (26.0-34.0); Mean Corpuscular HGB Conc 32.2 g/dL (31.5-36.5); Mean Corpuscular Volume 91 fL (80-100); Mean Platelet Volume 10.3 fL (9.1-12.4); NEUTROPHILS ABSOLUTE AUTO 10.56 K/mm3 (1.96-9.15); NEUTROPHILS PERCENT AUTO 73 % (41-73); Platelet Count 290 K/mm3 (150-400); RDW Coefficient Variation 14.8 % (11.7-14.2); RDW Standard Deviation 47.9 fL (35.1-46.3); Red Blood Cell Count 4.49 M/mm3 (4.30-5.90); White Blood Cell Count 14.46 K/mm3 (4.00-11.30)
[2021-03-19 03:58] LABS: Alanine Aminotransfer (ALT/SGP 51 U/L (12-78); Albumin, Blood 2.5 g/dL (3.4-5.0); Albumin/Globulin Ratio 0.7 (0.8-1.8); Alk Phos 85 U/L (50-136); Anion Gap 6 mmol/L (6-16); Aspartate Aminotrans (AST/SGOT 11 U/L (12-37); Bilirubin, Total 0.7 mg/dL (0.1-1.0); Blood Urea Nitrogen 30 mg/dL (8-24); CO2, Blood 27 mmol/L (21-32); Calcium, Blood 8.6 mg/dL (8.5-10.1); Chloride, Blood 108 mmol/L (98-108); Creatinine, Blood 0.79 mg/dL (0.60-1.20); Globulin, Blood 3.7 g/dL (2.2-4.0); Glomerular Filtration Rate >60 (60-); Glucose, Blood 243 mg/dL (70-99); Magnesium, Blood 2.4 mg/dL (1.6-2.4); Potassium, Blood 4.4 mmol/L (3.5-5.5); Sodium, Blood 141 mmol/L (136-145); Total Protein, Blood 6.2 g/dL (6.4-8.2)
--- NOTE | 2021-03-19 06:07 | NUR ---
END OF SHIFT NOTE PT ON BIPAP, PRECEDEX GTT INFUSING-GTT RATES AND VITALS NOTED IN FLOWSHEET. ONGOING ASSESSMENT CHARTED Q4 IN SURGE SHIFT ASSESSMENTS. CHANGES OVERNIGHT-VILLANUEVA PLACED-400 DARK URINE OUT AND 1 LARGE UNMEASURED VOID. BM X 1-LRG, OPAL LOPEZ. PT AGGITATED AT TIMES-REQUIRED MEDS PER MAR AND RESTRAINT APPLIED TO LEFT WRIST DUE TO PT REMOVING MONITOR AND BIPAP MASK. CONTINUE ASSESSMENTS AND CARE TILL REPORT OFF TO ONCOMING RN.
--- NOTE | 2021-03-19 07:15 | NUR ---
Assumed care of this ICU patient at 0700. Report recevied from Grace Westbrook.
--- NOTE | 2021-03-19 10:01 | NUR ---
Update given to daughter, Freida. Questions answered to satisfaction. States she would like the doctor to call her today. Will pass this along to Dr Maurer.
--- NOTE | 2021-03-19 19:17 | NUR ---
SUMMARY Neuro: Pt answers questions by nodding head to indicate yes/no. Pt follows commands and is able to participate in care. Pt remains strict NPO. Speech remains garbled and difficult to understand. Pt speaks in singular, often incomprehensible, words. Utilized communication board this shift, but this did not improve pt's ability to communicate needs. Pt is receiving 0.8 mcg/kg/hr precedex. Respiratory: Lungs dim t/o. Loose, moist, nonproductive cough. Pt wearing V60 BiPAP 10/5 and 40% FiO2. Cardiac: Sinus, rate ranging from 55-65. Fewer PVCs noted this shift compared to and Sunday day shifts. Distant heart sounds. Capillary refill less than 3 seconds BUE and BLE. 1+ radial, pedal, and posttibial pulses. GI: Hypoactive BT. Abd not tender on palpation. Pt is strict NPO. Receiving TPN through PICC line. Smear BM this shift. : Muir catheter in place draining dark urine. No urine leakage around catheter. Skin: Scab present to bridge of nose. Red/purple skin to sacrum. Daughter updated by this RN today. Left message with Dr Maurer that daughter would like to hear from her as well.
--- NOTE | 2021-03-20 06:12 | NUR ---
LYING IN SEMI FOWLERS WITH EYES CLOSED, HAS RESTED OFF AND ON THIS SHIFT. ON BIPAP PER RT, MAINTAINING SATS >90%. REPOSITIONED AND ORAL CARE PERFORMED PER MD ORDERS. RESTRAINT TO LEFT WRIST REMAINS IN PLACE. REMOVED AND ROM AND REPOSITIONING PERFORMED PER PROTOCOL. DENIES PAIN, N/T, OR EDEMA TO ARM AT THIS TIME. INCONTINENT OF BOWEL AND BLADDER. NO BM NOTED THIS SHIFT. VILLANUEVA REMAIN PATENT, DRAINING ARCHIE URINE TO GRAVITY. DOUBLE LUMEN PICC LINE NOTED TO LEFT UPPER ARM REMAINS PATENT. INFUSING PRECEDEX TOP ONE LUMEN AND TPN TO THE OTHER. RIGHT FA PIV IS PATENT WHILE INFUSING TKO IVF AND ABX. CHEM VTE IN PROGRESS. CBG Q6 HRS, REGULAR INSULIN COVERAGE TO HIGH SS. DENIES FURTHER NEEDS OR WANTS AT THIS TIME. SAFETY MEASURES IN PLACE. WILL CONTINUE TO MONITOR AND ADDRESS NEEDS THEY ARISE. WILL GIVE HAND OFF TO ONCOMING SHIFT USING SBAR DURING BEDSIDE REPORT.
--- NOTE | 2021-03-20 17:10 | NUR ---
[id number]: HANDOFF REC'D, ASSUMED CARE OF PT. PT ADMITTED FOR ACUTE RESP FAILURE WITH COVID 19 INFECTION, HE IS CURRENTLY RESTING COMFORTABLY IN BED, USING BIPAP AT 30% FIO2, PRECEDEX GTT IN USE AT 0.8 MCG/KG/HR. TPN INFUSING VIA VAUGHN PICC LINE. 1000: PT INCONTINENT OF STOOL, SKIN TO COCCYX IS NOTED TO BE OPEN IN SEVERAL AREAS AND SIGNIFICANTLY RED, MEPILEX DSG APPLIED, VILLANUEVA CATH DRAINING ARCHIE COLORED URINE, PT CALM AND ABLE TO FOLLOW COMMANDS, SHAKES HEAD "NO" WHEN ASKED ABOUT PAIN. 1200: PT CONTINUES TO REST COMFORTABLY, CONTINUING TO MONITOR. [id number]: PT AWAKE, PLACED ONTO OXYMIZER CANNULA AT 10L BIPAP MASK IS CAUSING INCREASED SKIN BREAKDOWN TO BRIDGE OF NOSE. PT AWAKE AND ATTEMPTING TO SPEAK BUT SPEECH IS VERY DIFFICULT TO UNDERSTAND, PT DOES SEEM TO REPORT PAIN TO HIS BUTTOCKS/BOTTOM, REPOSITIONED AND MEDICATED W/PRN DOSE OF MORPHINE, WILL MONITOR. 1715: PT TOLERATING OXYMIZER AND MAINTAINING SPO2 IN THE LOW TO MID 90S, PT MORE COMFORTABLE FOLLOWING MORPHINE DOSE.
--- NOTE | 2021-03-20 20:00 | NUR ---
RECEIVED HAND OFF FROM DAY NURSE USING SBAR DURING BEDSIDE REPORT. LYING IN SEMI FOWLERS WITH EYES CLOSED. RESPIRATIONS EVEN AND UNLABORED ON HIGH FLOW AT 10L/CANULA. 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 BUE POSITIONED WITH PILLOWS UNDER THEM FOR COMFORT. PT'S BOTTOM FLOATED ON PILLOWS TO ALLOW RELIEF OF PAIN TO BREAKDOWN AREAS ON SACRUM. LEFT UPPER ARM PICC LINE IS PATENT, NS AT 10ML/HR INFUSING TO PORT WITH PRECEDEX AT 0.6MCG/KG/MIN. TPN WITH LIPIDS INFUSING TO OTHER PORT AT 70ML/HR VIA PUMP. HYPOACTIVE BOWEL TONES NOTED IN ALL QUADS. INCONTNENT OF BOWEL AND BLADDER. VILLANUEVA CATH IS PATENT DRAINING CONC ARCHIE URINE TO GRAVITY. SMALL BM REPORTED ON DAY SHIFT TODAY. DENEIS PAIN, DISCOMFORT, OR FURTHER NEEDS AT THIS TIME. SAFETY MEASUERS IN PLACE. WILL CONTINUE TO MONITOR AND ADDRESS NEEDS THEY ARISE.
--- NOTE | 2021-03-21 05:32 | NUR ---
LYING IN SEMI FOWLERS WITH EYES OPEN, HAS RESTED OFF AND ON THIS SHIFT. ON HIGH FLOW O2 AT 10L. MAINTAINING SATS >90%. REPOSITIONED AND ORAL CARE PERFORMED PER PT REQUEST. HAS REQUIRED MORE ORAL CARE THIS SHIFT. INCONTINENT OF BOWEL AND BLADDER. NO BM NOTED THIS SHIFT. VILLANUEVA REMAIN PATENT, DRAINING ARCHIE URINE TO GRAVITY. DOUBLE LUMEN PICC LINE NOTED TO LEFT UPPER ARM REMAINS PATENT WHILE INFUSING PRECEDEX AND TKO IVF TO ONE LUMEN AND TPN TO THE OTHER. CHEM VTE IN PROGRESS. CBG Q6 HRS, REGULAR INSULIN COVERAGE TO HIGH SS, LARGE SHIFT NOTED IN TREND WITH LAST CBG AT 152. DENIES FURTHER NEEDS OR WANTS AT THIS TIME. SAFETY MEASURES IN PLACE. WILL CONTINUE TO MONITOR AND ADDRESS NEEDS THEY ARISE. WILL GIVE HAND OFF TO ONCOMING SHIFT USING SBAR DURING BEDSIDE REPORT.
--- NOTE | 2021-03-21 06:45 | NUR ---
ORAL CARE PERFORMED AND NOTED THAT PT HAD SOB. WAS ABLE TO MAINTAIN SAT, BUT WAS STRUGGELING. BIPAP PLACED PER PREVIOUS SETTINGS OF 10/5 AND 30% FIO2. IMMEDIATE IMPROVEMENT IN RR AND WOB NOTED. ABLE TO MAINITAIN SAT LEVELS WITH EASE. WILL CONTINUE TO MONITOR AND ADDRESS NEEDS THEY ARISE.
--- NOTE | 2021-03-21 08:25 | NUR ---
pt laying in bed with bipap in place, while in room started pulling it off, placed him back on cannula, calmed down, lungs are dime t/o, resp even and unlabored, occ nonproductive cough, hrr, tele in place running sr with pvc's, picc line to roya site is clear and patent, btx4, abd flat soft nontender, simmons cath draining joe urine, skin has sore on bridge of nose, mepilex to coccyx, is wheelchair bound, right hand is contracted from cva, chris, call light in reach.
--- NOTE | 2021-03-21 18:58 | NUR ---
pt has had an uneventful day. precedex has been at 0.6 all day, pt wakes, and is able to participate in care but is calm. has been repositioned throughout the day. call light in reach.
--- NOTE | 2021-03-22 05:43 | NUR ---
EMD OF SHIFT FRANSICOAMTRINIDAD: PATIENT A/O X3-4 BUT HAS INTERMITTENT CONFUSION AT TIMES. HE IS VERY DIFFICULT TO UNDERSTAND AND GETS AGITATED AT TIMES BECAUSE OF IT. HE WAS ON 15L HIGH FLOW NC ON SHIFT ARRIVAL AND HE TOLERATED THAT UNTIL ABOUT 0100. HE STARTED SOUNDING VERY STRIDOROUS AND WAS USING ACCESSORY MUSCLES MORE THAN HE HAD BEEN. RT CALLED AND PATIENT WAS PLACED ON THE CPAP MASK THAT WILL NOT RUB ON HIS NOSE. 2MG ATIVAN GIVEN DURING THAT AND HE HAS BEEN TOLERATING SINCE. HE HAS REMAINED IN SR WITH OCCASIONAL PVC'S. BP HIGH AT TIMES BUT CAME DOWN WITH THE DOSE OF ATIVAN. PRECEDEX INFUSING AT 0.7 SPOKE WITH DAUGHTER ZEV ON PHONE AROUND MIDNIGHT. SHE WAS CONCERNED ABOUT THE STAFF GIVING HIM ATIVAN ONLY TO "SHUT HIM UP." RE-ASSURED HER THAT IS ABSOLUTELY NEVER THE CASE AND THAT HE ONLY IS RECEIVING WHEN HE GETS SO WORKED UP THAT HE IS DESATING
--- NOTE | 2021-03-22 08:08 | NUR ---
SP02 NOTED TO BE 49% ON BIOX MONITOR. THIS RN ENTERED ROOM AND REPLACED BIPAP MASK ON PT AND INITIATED 100% FI02, PT WAS ON 30% ON THE BIPAP SETTINGS. PT APPEARS TO BE IN RESP DISTRESS, MOANING, TACHIPINC, SP02 NOT RECOVERING PAST 85%. PRIMARY RN/RT/TEMPORARY STAFF ACCOUNTANT NOTIFIED AND AT BEDSIDE.
[2021-03-22 13:44] LABS: BASOPHILS ABSOLUTE AUTO 0.01 K/mm3 (0.00-0.23); BASOPHILS PERCENT AUTO 0 % (0-2); EOSINOPHILS ABSOLUTE AUTO 0.05 K/mm3 (0.00-0.68); EOSINOPHILS PERCENT AUTO 1 % (0-6); Hematocrit 37.6 % (37.0-53.0); Hemoglobin 12.2 g/dL (13.5-17.5); IMMATURE GRAN ABSOLUTE AUTO 0.05 K/mm3 (0.00-0.10); IMMATURE GRAN PERCENT AUTO 1 % (0-1); LYMPHOCYTES ABSOLUTE AUTO 0.91 K/mm3 (0.84-5.20); LYMPHOCYTES PERCENT AUTO 10 % (21-46); MONOCYTES ABSOLUTE AUTO 0.29 K/mm3 (0.16-1.47); MONOCYTES PERCENT AUTO 3 % (4-13); Mean Corpuscular HGB 29.3 pg (26.0-34.0); Mean Corpuscular HGB Conc 32.4 g/dL (31.5-36.5); Mean Corpuscular Volume 90 fL (80-100); Mean Platelet Volume 10.3 fL (9.1-12.4); NEUTROPHILS ABSOLUTE AUTO 7.89 K/mm3 (1.96-9.15); NEUTROPHILS PERCENT AUTO 86 % (41-73); Platelet Count 196 K/mm3 (150-400); RDW Coefficient Variation 14.7 % (11.7-14.2); RDW Standard Deviation 47.9 fL (35.1-46.3); Red Blood Cell Count 4.17 M/mm3 (4.30-5.90)
[2021-03-22 14:07] LABS: Anion Gap 6 mmol/L (6-16); Blood Urea Nitrogen 23 mg/dL (8-24); Bun/Creatinine Ratio 47.8 (12.0-20.0); CO2, Blood 26 mmol/L (21-32); Calcium, Blood 8.3 mg/dL (8.5-10.1); Chloride, Blood 106 mmol/L (98-108); Creatinine, Blood 0.48 mg/dL (0.60-1.20); Glomerular Filtration Rate >60 (60-); Glucose, Blood 291 mg/dL (70-99); Magnesium, Blood 2.3 mg/dL (1.6-2.4); Phosphorus, Blood 4.1 mg/dL (2.5-4.9); Potassium, Blood 4.8 mmol/L (3.5-5.5); Sodium, Blood 138 mmol/L (136-145)
--- NOTE | 2021-03-22 18:55 | NUR ---
SHIFT SUMMARY PT HAD NO SIGNIFICANT CHANGES TODAY. PT REMAINS SEDATED ON PRECEDEX AT 0.7MCG. PT ON BIPAP 16//40%. SATS >90%. PT TOOK OFF BIPAP MULT TIMES TODAY. PT DESATED, TOOK MANY HRS TO REACH NORMAL O2 SATS. PT HAS PICC LINE TO VAUGHN WITH TPNS INF, PRECEDEX INF AT 0.7MCG. SOFT WRIST RESTRAINT TO LEFT SECURE DUE TO PT REMOVING BIPAP MASK. ABD SOFT AND NONTENDER. VILLANUEVA DRAINING ARCHIE COLORED URINE. MULT STOOLS TODAY. WOUND TO COCCYX APPEARS TO BE IMPROVING SOME. NEW MEPILEX IN PLACE. LUNG SOUNDS COARSE. HR SINUS MANINDER. SBP WNL. NOW LABS IN PAST 3 DAYS, VO FOR SOME RECEIVED TODAY. WILL REPORT TO ONCOMING SHIFT.
[2021-03-23 04:10] LABS: BASOPHILS ABSOLUTE AUTO 0.02 K/mm3 (0.00-0.23); BASOPHILS PERCENT AUTO 0 % (0-2); EOSINOPHILS ABSOLUTE AUTO 0.15 K/mm3 (0.00-0.68); EOSINOPHILS PERCENT AUTO 1 % (0-6); Hematocrit 36.6 % (37.0-53.0); IMMATURE GRAN ABSOLUTE AUTO 0.07 K/mm3 (0.00-0.10); IMMATURE GRAN PERCENT AUTO 1 % (0-1); LYMPHOCYTES ABSOLUTE AUTO 2.14 K/mm3 (0.84-5.20); LYMPHOCYTES PERCENT AUTO 17 % (21-46); MONOCYTES ABSOLUTE AUTO 0.84 K/mm3 (0.16-1.47); MONOCYTES PERCENT AUTO 7 % (4-13); Mean Corpuscular HGB 29.3 pg (26.0-34.0); Mean Corpuscular HGB Conc 32.8 g/dL (31.5-36.5); Mean Corpuscular Volume 90 fL (80-100); Mean Platelet Volume 10.3 fL (9.1-12.4); NEUTROPHILS PERCENT AUTO 75 % (41-73); Platelet Count 226 K/mm3 (150-400); RDW Coefficient Variation 14.4 % (11.7-14.2); RDW Standard Deviation 46.1 fL (35.1-46.3); Red Blood Cell Count 4.09 M/mm3 (4.30-5.90); White Blood Cell Count 12.92 K/mm3 (4.00-11.30)
[2021-03-23 04:37] LABS: Anion Gap 6 mmol/L (6-16); Blood Urea Nitrogen 21 mg/dL (8-24); Bun/Creatinine Ratio 45.9 (12.0-20.0); CO2, Blood 28 mmol/L (21-32); Calcium, Blood 8.3 mg/dL (8.5-10.1); Chloride, Blood 107 mmol/L (98-108); Creatinine, Blood 0.46 mg/dL (0.60-1.20); Glomerular Filtration Rate >60 (60-); Glucose, Blood 196 mg/dL (70-99); Magnesium, Blood 2.1 mg/dL (1.6-2.4); Phosphorus, Blood 3.2 mg/dL (2.5-4.9); Potassium, Blood 3.8 mmol/L (3.5-5.5); Sodium, Blood 141 mmol/L (136-145); Triglycerides 191 mg/dL (30-160)
--- NOTE | 2021-03-23 07:10 | NUR ---
END OF SHIFT SUMMARY: NO ACUTE CHANGES OVERNIGHT. REMAINED ON BIPAP BUT TOOK A 3HR BREAK ON 15L HF AND TOLERATED WELL. HE HAS REMAINED IN SR WITH PVS. BP TENDS TO RUN HIGH. HYDRALAZINE GIVEN ONCE. ORIENTED FOR THE MOST PART BUT VERY DIFFICULT TO UNDERSTAND HIM MOST OF THE TIME. GOOD URINE OUTPUT. NO FAMILY CALLED FOR UPDATES
--- NOTE | 2021-03-23 15:44 | NUR ---
Spiritual care visit conducted. Patient is sitting on a chair and alert. Patient immediately starts pulling at his mask and pulls the front tube out, I replace it at then he pulls one of the side straps off and I refasten it. Once RN Debra comes in and gives calms him down and gives him some medication to help relax him. I ask him about gisella and God and he shakes his head "no." I then try to help him send a message to her via his old flip phone. I get his phone and glasses and try but the phone says something about the address and does not send the message. By this time patient is exhausted and begins to get sleepy. I provide companionship, a calming presence and an attempt at meeting his immediate needs. Patient responds well and therapeutic alliance is estableished. I will continue to remain available to patient and family.
--- NOTE | 2021-03-23 18:46 | NUR ---
SHIFT SUMMARY PT HAD GREAT DAY. PT ALERT TO SELF AND ABLE TO ANSWER SOME QUESTIONS. SPEECH GARBLED AND HARD TO UNDERSTAND MOST OF THE TIME. FAILED BEDSIDE SWALLOW EXAM TODAY. PT HAS GOOD PRODUCTIVE COUGH AND ABLE TO CLEAR SOME SECRETIONS. PT ON 15L HIGHFLOW OXYGEN MOST OF TODAY. SATS >90%. PT WILL SOMETIMES GET SOB AND TACHYPNEIC AND WILL BE PLACED ON BIPAP FOR AN HR OR SO. PT THEN REQUESTS A "BREAK". LUNG SOUNDS COARSE. SKIN TO LEGS DRY AND FLAKING. ULCER TO COCCYX HAS MEPILEX IN PLACE. PT HAD LARGE STOOL TODAY. PICC LINE TO VAUGHN WITH PRECEDEX INF AT 0.5MCG (DOWN FROM 0.7MCG), AND CPN INF @ 70ML/HR. SITE WNL, DRESSING C/D/I (CHANGED THIS AM). NEW 18G PLACED TO RIGHT WRIST, SITE WNL, DRESSING C/D/I, SITE FLUSHES AND DRAWS BLOOD. PT HAS BEEN OUT OF RESTRAINTS ALL DAY AND IS COOPERATIVE. CBG HIGH THIS AFTERNOON/EVENING, COVERAGE NEEDED. PT RECEIVED TWO DOSES OF IV ATIVAN FOR SOME ANXIETY. SPENT ALOT OF TIME DOING ORAL CARE AND REMOVING CASTS/SPUTUM. PT MARIAN WELL. WILL REPORT TO ONCOMING SHIFT.
--- NOTE | 2021-03-24 | NUR ---
AFTER UPDATING DAUGHTER ZEV SHE ASKED WHAT THE POC WAS. NURSING STATED THAT HE PT HAD INFORMED THIS NURSE THAT HE WAS GOING TO GET INTO HIS CHAIR AND DRIVE IT OUT OF THIS HOSPITAL. ZEV STATED THAT HE HAD LIVED 18YRS PAST HIS BRAIN STEM CVA, AND HIS LIFE EXPECTANCY WAS 6YRS AT THE TIME OF THE CVA AND HE HAS A VERY STRONG WILL TO LIVE. SHE ASKED THAT NURSING [facility] AND [facility]. WILL CONTINUE TO MONITOR AND ADDRESS NEEDS THEY ARISE.
[2021-03-24 04:16] LABS: Magnesium, Blood 2.3 mg/dL (1.6-2.4); Phosphorus, Blood 3.4 mg/dL (2.5-4.9)
--- NOTE | 2021-03-24 06:40 | NUR ---
LYING IN SEMI FOWLERS WITH EYES OPEN, HAS RESTED OFF AND ON THIS SHIFT. ON HIGH FLOW O2 AT 10L. MAINTAINING SATS >90%. REPOSITIONED AND ORAL CARE PERFORMED PER PT REQUEST. INCONTINENT OF BOWEL AND BLADDER. SMALL BM NOTED THIS SHIFT. VILLANUEVA REMAIN PATENT, DRAINING ARCHIE URINE TO GRAVITY. DOUBLE LUMEN PICC LINE NOTED TO LEFT UPPER ARM REMAINS PATENT WHILE INFUSING PRECEDEX AND TKO IVF TO ONE LUMEN AND TPN TO THE OTHER. CHEM VTE IN PROGRESS. CBG Q6 HRS, REGULAR INSULIN COVERAGE TO HIGH SS. DENIES FURTHER NEEDS OR WANTS AT THIS TIME. SAFETY MEASURES IN PLACE. WILL CONTINUE TO MONITOR AND ADDRESS NEEDS THEY ARISE. WILL GIVE HAND OFF TO ONCOMING SHIFT USING SBAR DURING BEDSIDE REPORT.
--- NOTE | 2021-03-24 18:24 | NUR ---
SHIFT SUMMARY PT HAD GOOD DAY. TRANSITIONED PT TO AIRVO ON V60, CURRENTLY 35L 35%, SATS >92%. LUNG SOUNDS CONTINUE TO BE COARSE/DIMINISHED. PT HAS GOOD COUGH, NEEDS SIGNIFICANT HELP WITH SUCTIONING. GOOD BM TODAY. NEW MEPILEX TO COCCYX. 20G TO RIGHT FA SL, DRESSING C/D/I, SITE WNL. PICC LINE TO VAUGHN, SITE WNL, DRESSING C/D/I. PRECEDEX INF @ 0.4MCG, CPN INF @ 70ML/HR. ABD SOFT, NONTENDER. BOWEL TONES ACTIVE. VILLANUEVA TO GRAVITY, URINE DARK YELLOW. SKIN RED/INTACT/DRY (OTHER THAN ULCER TO COCCYX). PT MOVES LEFT ARM WELL, LIFTS RIGHT ARM SLIGHTLY. ABLE TO NOD YES/NO TO QUESTIONS. SPEECH VERY GARBLED, DIFFICULT TO UNDERSTAND. PT GETS A LITTLE FRUSTRATED. NO SIGNIFICANT CHANGES FROM MORNING ASSESSMENT. WILL REPORT TO ONCOMING SHIFT.
--- NOTE | 2021-03-24 19:53 | NUR ---
ASSUMING PT CARE: PT RESTING IN BED W/ EYES CLOSED. AWAKES TO VERBAL STIMULI, HOWEVER VERY SOMNOLENT, TOLERATES NURSING CARE BUT UNABLE TO PARTICIPATE IN ASSESSMENTS. UNABLE TO RESPOND VERBALLY, ONLY MOANS. AIRVO @ 35% FiO2, SATS 96%. PRECEDEX GTT @ 0.4mcg/kg/hr. VS UPDATED. WILL CONTINUE TO MONITOR & REPORT APPROPRIATE.
--- NOTE | 2021-03-24 22:07 | NUR ---
UPDATE: FAMILY UPDATE PT's DAUGHTER CALLS FOR AN UPDATE. UPDATED ON PT's PROGRESSION T/O THE DAY. INFORMED PT WAS UP TO THE CHAIR. SHE EXPRESSES HER FRUSTRATION THAT THE PT WAS NOT PLACED IN HIS HOME WC IT HAS A GEL CUSHION & RECLINES TO A COMFORTABLE POSITION. INFORMED WE WILL DISCUSS THIS OPTION W/ THE TEAM. SHE SEEMED RECEPTIVE. ALSO INQUIRED ABOUT Q2hr TURNS & OTHER MEASURES FOR COMFORT, INCLUDING SEDATION. EXPLAINED PT IS BEING TURNED & RECEIVES PRECEDEX WELL PRN ATIVAN.
[2021-03-25 04:00] LABS: Magnesium, Blood 2.2 mg/dL (1.6-2.4); Phosphorus, Blood 4.1 mg/dL (2.5-4.9)
--- NOTE | 2021-03-25 06:12 | NUR ---
SHIFT SUMMARY: PT RESTED VERY WELL T/O THE NIGHT. SLEPT THROUGH NURSING CARE & REPOSITIONS. HOWEVER PT DID AWAKE AROUND 0400 & WAS ABLE TO NOD TO YES/NO QUESTIONS W/OUT AGITATION OR MOANING. AFTER WATCHING TV PT RETURNED TO SLEEPING. GTTs UNCHANGED T/O SHIFT. AIRVO REMAINS @ 35L W/ 35% FiO2, SATS >95%. NO BM THIS SHIFT. VILLANUEVA WAS FOUND TO BE LEAKING, AFTER REPOSITIONING IT APPEARS TO HAVE RESOLVED. NO SIGNIFICANT CHANGES. WILL CONTINUE TO MONITOR UNTIL REPORT OFF TO ONCOMING RN.
--- NOTE | 2021-03-25 11:59 | NUR ---
OXYGENATION IMPROVEMENT PT SWITCHED FROM AIRVO TO 15L [place] NC. PT TOLERATING WELL. PT ABLE TO BE TITRATED DOWN TO 5L VIA [place] NC. SPO2 REMAINS >90%. WILL CONTINUE TO MONITOR.
--- NOTE | 2021-03-25 17:51 | NUR ---
FAMILY MEMBER VISIT/EVENT PT DAUGHTER WHO IS THE PRIMARY [employer] POLICE OFFICER OF PT AT BEDSIDE AT THIS TIME AFTER RECIEVING APPROVAL FOR VISITATION FROM GOVERNMENT INSTRUCTOR. THIS RN AT BEDSIDE WHEN DAUGHTER FIRST ARRIVED AND PROVIDED EXTENSIVE UPDATE ON PT CURRENT CONDITION AND PLAN OF CARE. PT HAS REMAINED ON 5L O2 NC THROUGHOUT MOST OF THE SHIFT AND HAS DONE WELL. PT FAMILY MEMBER INSISTENT UPON PT BEING ON CPAP DESPITE IMPROVEMENTS THROUGHOUT THE DAY AND DISCUSSION ABOUT PLAN OF CARE. THIS RN EXPLAINED THAT RT WILL COME CHECK ON PT AND SET UP CPAP PRIOR TO USE. ABOUT 15 MINS LATER THIS RN RESPONDED TO CALL LIGHT AND HAD FOUND THAT PT DAUGHTER HAD ATTEMPTED TO SET UP PT HOME CPAP AND PUT IT ON PT DESPITE INSTRUCTIONS TO WAIT FOR RT TO DO SO. PT SPO2 MID 80'S WITH CPAP ON NOSE WITHOUT ANY O2 BLEED IN. PT IMMEDIATELY PLACED BACK ON 5L O2 NC AND RT CALLED TO ROOM. PT FAMILY MEMBER EDUCATED BY THIS RN AND RT RELATED TO CPAP USE AND EQUIPEMENT SET UP IN THE HOSPITAL NEEDING TO BE DONE BY HOSPITAL STAFF ONLY. PT DAUGHTER REMAINED INSISTENT THAT PT BE PLACED ON CPAP AT THIS TIME. RT CHECKED EQUIPMENT AND SET UP PT HOME CPAP WITH 5L O2 BLEED IN. PT SPO2 IMPROVED TO 90-91% AT THIS TIME. GOVERNMENT INSTRUCTOR UPDATED TO EVENTS. PT DAUGHTER REMAINS AT BEDSIDE. WILL CONTINUE TO MONITOR.
--- NOTE | 2021-03-25 18:07 | NUR ---
SHIFT SUMMARY SEE PRIOR NOTES FOR MOST SHIFT INFO. PT HAS DONE WELL THIS SHIFT OVERALL. PT WITH GREAT IMPROVEMENTS IN 02 REQUIREMENTS THROUGHOUT THE DAY. PT MENTATION UNCHANGED. PT WITH PERIODS OF RESTING, BUT REMAINED AWAKE FOR MOST OF THE SHIFT. PT ABLE TO MAKE NEEDS KNOWN. VITAL SIGNS HAVE REMAINED STABLE. PT REMAINS SEDATED WITH PRECEDEX AT 0.6 MCG/KG/HR. CPN INFUSING AT 70 ML/HR AND NS TKO. PICC TO VAUGHN REMAINS C/D/I. VILLANUEVA REMAINS IN PLACE WITH CLEAR/ORANGE URINE OUTPUT THIS SHIFT. ATTENDS IN PLACE. WILL CONTINUE TO MONITOR AND REPORT OFF TO ONCOMING RN.
--- NOTE | 2021-03-25 20:05 | NUR ---
PT HAS A HISTORY OF A BRAIN STEM STROKE, APPX 20 YEARS AGO. PT HAS A COMMUNICATION BOARD, IS ABLE TO COMMUNICATE WITH BOARD, BUT ALSO ATTEMPTS TO COMMUNICATE WITH VERBAL COMMUNICATION, BUT IS DIFFICULT TO UNDERSTAND. PT IS ABLE TO SHAKE HIS HEAD YES/NO TO QUESTIONS ASKED. PT REPORTS YES TO BEING COMFORTABLE IN BED. PT IS ON HIS HOME CPAP WITH A 5L O2 BLEED IN - SATS WNL ON CONTINUOUS BIOX. TOLU. PT IS ABLE TO FOLLOW INSTRUCTIONS. TPN INFUSING AT 70CC HOUR TO PICC TO L) UA. TKO INFUSING, PRECEDEX INFUSING AT 0.6MCG/KG/HOUR. BED IN LOW POSITION. PT IS NPO FOR ASPIRATION PRECAUTIONS - PER DAY SHIFT RN - PT FAILED HIS SWALLOW EVAL TODAY. MEPILEX TO COCCYX CD&I, ATTENDS IN PLACE - DRY. VILLANUEVA DRAINING YELLOW URINE.
--- NOTE | 2021-03-26 02:12 | NUR ---
PT IS AWAKE, REQUESTING ANOTHER PILLOW, AND REPORTS HE WANTS TO WEAR A FULL FACE MASK - CALLED RT FOR ASSISTANCE WITH FACE MASK. SATS WNL. PT HAS USED HIS CALL LIGHT APPROPRIATELY.
[2021-03-26 03:40] LABS: Hematocrit 34.6 % (37.0-53.0); Hemoglobin 10.9 g/dL (13.5-17.5); Mean Corpuscular HGB 28.7 pg (26.0-34.0); Mean Corpuscular HGB Conc 31.5 g/dL (31.5-36.5); Mean Corpuscular Volume 91 fL (80-100); Mean Platelet Volume 10.3 fL (9.1-12.4); Platelet Count 239 K/mm3 (150-400); RDW Coefficient Variation 14.7 % (11.7-14.2); RDW Standard Deviation 47.8 fL (35.1-46.3); White Blood Cell Count 7.57 K/mm3 (4.00-11.30)
[2021-03-26 04:12] LABS: Anion Gap 5 mmol/L (6-16); Blood Urea Nitrogen 22 mg/dL (8-24); Bun/Creatinine Ratio 42.5 (12.0-20.0); CO2, Blood 28 mmol/L (21-32); Calcium, Blood 8.6 mg/dL (8.5-10.1); Chloride, Blood 107 mmol/L (98-108); Creatinine, Blood 0.52 mg/dL (0.60-1.20); Glomerular Filtration Rate >60 (60-); Glucose, Blood 192 mg/dL (70-99); Potassium, Blood 4.1 mmol/L (3.5-5.5); Sodium, Blood 140 mmol/L (136-145)
--- NOTE | 2021-03-26 06:01 | NUR ---
SHIFT SUMMARY - NO ACUTE CHANGES THROUGHOUT THIS SHIFT. PT CURRENTLY ON HIS HOME CPAP WITH 5L O2 PLUMBED IN - CONTINOUS BIOX ON - SATS WNL THROUGHOUT THE NIGHT. NO CHANGES TO PRECEDEX DRIP THROUGHOUT THE NIGHT. NSR WITH 1 DEGREE, AND OCCASIONAL PVC'S NOTED - RHYTHM STRIP IN CHART. PT HAS BEEN ABLE TO MAKE HIS NEEDS KNOWN WITH COMMUNICATION BOARD OR RESPONDING TO YES/NO QUESTIONS. PT HAS SLEPT THROUGHOUT MOST OF THE NOC, WITH PERIODS OF ALERTNESS, REQUESTED HIS REMOTE CONTROL AND A CHANGE OF THE TV CHANNEL. CALL LIGHT WITHIN REACH. BED IN LOW POSITION. PT HAS BEEN APPROPRIATE WITH HIS BEHAVIOR THROUGHOUT THE NIGHT, NO SIGNS OF AGITATION.
--- NOTE | 2021-03-26 16:51 | NUR ---
SHIFT SUMMARY NO ACUTE CHANGES THIS SHIFT. PT HAS CONTINUED TO MAKE IMPROVEMENTS IN RESPIRATORY STATUS. PT ALTERNATED BETWEEN 2L O2 NC AND CPAP WITH 2L O2 BLEED IN. VITAL SIGNS HAVE REMAINED STABLE THIS SHIFT. PT HYPERTENSIVE AT TIMES. PRECEDEX HAS REMAINED ON STANDBY MOST OF THIS SHIFT. PT MED WITH ATIVAN PRN FOR SOME PERIODS OF MILD AGITATION. PT HAS REMAINED CALM AND COOPERATIVE OTHERWISE. PICC TO VAUGHN REMAINS C/D/I. TPN INFUSING AT 70 ML/HR. VILLANUEVA REMAINS IN PLACE WITH YELLOW OUTPUT NOTED. PT UP TO PERSONAL POWER CHAIR WITH THE LIFT THIS AFTERNOON. PT TOLERATED WELL FOR ABOUT 3 HOURS BEFORE PT ATTEMPTED TO DRIVE OFF IN CHAIR WHILE ATTACHED TO MONITOR AND IV'S. PT BACK TO BED AT THIS TIME. PT DAUGHTER ZEV UPDATED VIA PHONE TODAY. WILL CONTINUE TO MONITOR AND REPORT OFF TO ONCOMING RN.
--- NOTE | 2021-03-27 07:12 | NUR ---
SHIFT SUMMARY PT CHANGED FROM ICU TO PCU STATUS THIS SHIFT. HYPERTENSIVE THIS EVENING. MANAGED BY PRN LOPRESSOR AND HYDRALAZINE. ONE EPISODE OF VTACH, WITH HR LOW 200'S. RELIEVED BY LOPRESSOR IV PUSH. HR OTHERWISE ST W/ PVCS OR AFIB. PT ALERT AND CAN UNDERSTAND COMMUNICATION BUT STRUGGLES TO VERBALIZE IN RETURN. MUMBLES AND USES BOARD TO COMMUNICATE. O2 SATS OVER 93% ON NC. SKIN BREAKDOWN ON SACRUM. ALLEVYN DRESSING REPLACED. PT TACHYPNIC, WITH RR AT TIMES BETWEEN 40-60. RT ATTEMPTED TO NT SUCTION. PT APPEARS TO NEED TO COUGH SOMETHING UP. PT LEFT IN BED RESTING WITH CALL ALARM AT SIDE.
--- NOTE | 2021-03-27 12:26 | NUR ---
PT ALERT TO SELF. UNABLE TO VERBALLY MAKE NEEDS KNOWN THIS AM. OPENING EYES TO VERBAL STIMULI. UPON NEURO ASSESSMENT PATIENT ABLE TO MOVE ALL EXTREMITIES. STRONG LEFT AERIAL ERECTOR, WEAK RIGHT AERIAL ERECTOR. PUPILS EQUAL AND REACTIVE. SHAKING HEAD YES AND NO TO QUESTIONS. TELE SHOWING SINUS TACH WITH PVC'S AND HR 130-140'S, IV LOPRESSOR GIVEN HR NOW AT 110-120'S. BP STABLE. STRONG PULSES. NO SIGNS OF EDEMA. ON 2 L NASAL CANNULA ON START OF SHIFT. PATIENT MOUTH BREATHING AND SATS HANGING AROUND 88-89. BUMPED UP TO 5L NC. NASAL CANNULA IN MOUTH AND PATIENT SATING MID 90'S. LUNGS SOUNDING COARSE AND CRACKLY. PATIENT COUGHING OCCASIONAL WITH CONGESTED COUGH. NO SPUTUM AT THIS TIME. SUCTIONING NEEDED. RR DECREASED FROM 40-50'S TO 20-30'S AND RAPID BREATHS HAVE DECREASED. TEMP THIS AM 100.3. COOL WASH CLOTH AND ICE PACK APPLIED. TEMP MAINTAINED 100.2, TYLENOL GIVEN PER RECTUM. WILL CONTINUE TO MONITOR. BOWEL TONES PRESENT. ATTENDS IN PLACE. VILLANUEVA CATH DRAINING CLEAR/ARCHIE URINE TO GRAVITY. CPAP AT BEDSIDE. SKIN OVERALL C/D/I. COCCYX RED AND SLIGHT SKIN BREAK DOWN. CLEANED, CREAM APPLED AND MEPILEX IN PLACE. TPN INFUSING AT 70 ML/HR AT THIS TIME. Q2 TURNING. Q6 CBG. CHEST XRAY DONE THIS AFTERNOON. NEW LABS DRAWN. WILL CONTINUE TO MONITOR.
[2021-03-27 12:42] LABS: Hematocrit 44.7 % (37.0-53.0); Hemoglobin 14.1 g/dL (13.5-17.5); Mean Corpuscular HGB 28.9 pg (26.0-34.0); Mean Corpuscular HGB Conc 31.5 g/dL (31.5-36.5); Mean Corpuscular Volume 92 fL (80-100); Mean Platelet Volume 10.1 fL (9.1-12.4); Platelet Count 353 K/mm3 (150-400); RDW Coefficient Variation 15.9 % (11.7-14.2); RDW Standard Deviation 52.4 fL (35.1-46.3); Red Blood Cell Count 4.88 M/mm3 (4.30-5.90); White Blood Cell Count 17.16 K/mm3 (4.00-11.30)
[2021-03-27 12:57] LABS: Anion Gap 5 mmol/L (6-16); Blood Urea Nitrogen 29 mg/dL (8-24); Bun/Creatinine Ratio 47.2 (12.0-20.0); CO2, Blood 26 mmol/L (21-32); Calcium, Blood 9.2 mg/dL (8.5-10.1); Chloride, Blood 107 mmol/L (98-108); Creatinine, Blood 0.62 mg/dL (0.60-1.20); Glomerular Filtration Rate >60 (60-); Glucose, Blood 345 mg/dL (70-99); Potassium, Blood 4.7 mmol/L (3.5-5.5); Sodium, Blood 138 mmol/L (136-145)
--- NOTE | 2021-03-27 18:43 | NUR ---
SHIFT SUMMARY: NEURO REMAINS UNCHANGED. TELE SINUS TACH WITH PVC'S HR 110-120'S. DENIES CHEST PAIN. BP STABLE. ELEVATED BP THIS EVENING, HYDRALIZINE GIVEN X1. ON NC 3L SATING MID-HIGH 90'S. LUNGS SOUNDING COARSE, BUT MORE CLEAR FROM THIS AM. CHEST XRAY DONE THIS SHIFT. Q4 ORAL CARE AND SUCTIONING NEEDED. COUGH SOUNDING WET AND COARSE. BOWEL TONES PRESENT. SMALL BM EARLY IN SHIFT. ATTENDS CHECKED THROUGHOUT AND CLEAN AT THIS TIME. TEMP MAX 100.3. TYLENOL GIVEN X1 PER RECTUM. Q2 TURNING AND NEEDED. TPN INFUSING AT 70 ML/HR. NEW BAG AND TUBING CHANGED THIS SHIFT. PATIENT USING COMMUNICATION BOARD AND NODDING YES AND NO TO QUESTIONS. WILL REPORT OFF TO ONCOMING RN. CALL LIGHT IN REACH. USING CALL LIGHT APPROPRIATLY. ABLE TO PUSH CALL BUTTON WITH LEFT HAND. PT SLEEPING AT THIS TIME.
--- NOTE | 2021-03-28 06:19 | NUR ---
SHIFT SUMMARY PT IS ALERT AND ORIENTED. BP HYPERTENSIVE TO START SHIFT, MANAGED PER EMAR. ON CPAP CANNULA 3L BLEED IN SATS OVER 91%. REMAINS NPO. VILLANUEVA IN PLACE DRAINING DARK YELLOW URINE TO GRAVITY. Q2 POSITION CHANGES. BREAKDOWN OF SKIN ON SACRUM, ALLEVYN DRESSING IN PLACE. HR AND RR STABLE FROM PREVIOUS EVENING. DAUGHTER ZEV WANTS TO BE PRESENT FOR SWALLOW EVAL WITH WAREHOUSE TEAM MEMBER TODAY. PT LEFT IN BED RESTING WITH CALL ALARM AT SIDE
--- NOTE | 2021-03-28 16:56 | NUR ---
SHIFT SUMMARY PT ALERT AND ORIENTED. PT COMMUNICATES WITH PICTURE BOARD AND NODDING YES OR NO. O2 SATS HAVE REMAINED ABOVE 90% ON 3L NC OR CPAP WITH 3L BLEED IN ALL SHIFT. LS DIM THROUGHOUT. HR HAS BEEN NSR TO SINUS TACH WITH PVC. BP STABLE. PT COMPLAINED OF GENERAL PAIN AND WAS MEDICATED NEEDED. VILLANUEVA PATENT AND DRAINING DARK YELLOW URINE. NO BM THIS SHIFT. PT UP TO HIS CHAIR THIS AFTERNOON VIA LIFT. PT REPOSITIONED Q2H. ST UNABLE TO SEE PT THIS SHIFT AND PLANS TO EVALUATE TOMORROW. PT REMAINS NPO AND ORAL CARE PROVIDED Q2H. WILL CONTINUE TO MONITOR AND REPORT TO ONCOMING RN.
--- NOTE | 2021-03-28 20:00 | NUR ---
ASSUME CARE PT ALERT IN BED. BP ELEVATED AT 177/96. WILL MEDICATED PER ORDER. DENIES CHEST PAIN/PRESSURE OR SOB, DENIES GENERAL PAIN. VILLANUEVA IN PLACE AND DRAINING TO GRAVITY. CALL LIGHT WITHIN REACH. WILL CONTINUE TO MONITOR.
--- NOTE | 2021-03-29 01:00 | NUR ---
PT VERBALIZED SEVERAL TIMES "NO MORPHINE." THIS NURSE NOTIFIED HIM OF THE NEED TP ADMINISTRATE MEDICATION PER ORDER BUT PATIENT WAS VERY ADIMIT ABOUT "NO MORPHINE." MEPELEX WAS CHANGED AND PT REPOSITIONED, DUE TO DISCOMFORT.
--- NOTE | 2021-03-29 02:07 | NUR ---
PT CALLED WHEN THIS NURSE WENT IN ROOM PT SOUNDED AGITATED. PT DENIED PAIN. PT NODDED TO ANXIETY. WHEN ASKED IF HE WANTED SOMETHING FOR ANXIETY PT NODDED YES. CALL LIGHT IS WITHIN REACH. WILL CONTINUE TO MONITOR.
[2021-03-29 04:53] LABS: Magnesium, Blood 2.1 mg/dL (1.6-2.4); Phosphorus, Blood 3.5 mg/dL (2.5-4.9)
--- NOTE | 2021-03-29 06:28 | NUR ---
SHIFT SUMMARY PT IS ALERT AND HAS BEEN VERY RESTLESS T/O THE NIGHT. DENIES PAIN, DID NOD YES TO ANXIETY AT ONE POINT AND WAS MEDICATED PER ORDER. PT DID VERBALIZE "NO MORPHINE," LAST NIGHT WHEN HE WAS AGITATED. PT IS ABLE TO CALL WHEN NEEDING ASSISTANCE. HE IS ABLE TO USE THE BOARD AND ATTEMPTS TO VERBALIZE SOME WORDS. VILLANUEVA IN PLACE AND DRAINING DARK ODOROUS URINE. CALL LIGHT IS WITHIN REACH.
--- NOTE | 2021-03-29 18:42 | NUR ---
PT TITRATED TO RA AT 0830 AND TOLERATED WELL SATTING >95%, SINUS TACH IN LOW 100'S, VSS, SWALLOW STUDY PERFORMED BY ST AND RECOMMENDATIONS MADE; PT TRANSFERRED TO MOTORIZED WHEELCHAIR AT 1522 VIA CEILING LIFT AND BACK TO BED AT 1839; PT FED DINNER FOLLOWING ST RECOMMENDATIONS AND TOLERATED WELL; DR. KIM UPDATED AT BEDSIDE 2X; PT'S DAUGHTER UPDATED VIA PHONE AT 1425 AND AT 1750 AND DENIED FURTHER QUESTIONS OR CONCERNS AT THIS TIME; PT ABLE TO COMMUNICATE VIA COMMUNICATION BOARD AND DENIED ADDITIONAL CONCERNS AT THIS TIME
[2021-03-30 04:11] LABS: Triglycerides 211 mg/dL (30-160)
--- NOTE | 2021-03-30 06:17 | NUR ---
shift summary pt rested well through the night. alert and oriente, unable to verbalize to staff. uses commuication board. sats >90% while on cpap when sleeping, but can tolerate being on room air when awake. slightly anxious at times - see emar. tele reading nsr/sinus tach. iris lugo to gravity. tpn infusing via picc line. q2 turns. vss. call light within reach, bed in lowest position. will continue to monitor.
[2021-03-30 09:41] LABS: Source, Urine Catheter
[2021-03-30 09:50] LABS: Appearance, Urine Cloudy (Clear); Bilirubin, Urine Neg (Neg); Blood, Urine 4+ (Neg); Color, Urine Yellow (P-Yellow); Glucose Qualitative, Urine Neg (Neg); Ketones, Urine Neg (Neg); Leukocyte Esterase, Urine 3+ (Neg); Nitrite, Urine Pos (Neg); Protein, Urine 3+ (Neg); Specific Gravity, Urine 1.015 (1.003-1.022); Urobilinogen, Urine 3+ (Normal)
[2021-03-30 10:09] LABS: Bacteria Many /hpf; Squamous Epithelial Cells Mod /hpf (Few); Triple Phosphate Crystals Mod /hpf
--- NOTE | 2021-03-30 12:45 | NUR ---
[id number]: SAFE HANDOFF REC'D, ASSUMED CARE OF PT, ASSESSMENT COMPLETED. PT IS RESTING IN BED, WEARING CPAP WITH 2.5L O2 BLEED IN, SPO2 FLUCTUATES BETWEEN UPPER 80S-LOW 90S, PT IS RESTLESS AND MOANIMG, NOTED TO BE FEBRILE AND URINE IN VILLANUEVA CATH IS VERY CLOUDY WITH SEDIMENT. PT IS NOTED TO BE TACHYCARDIC WELL WITH HR UP TO THE 120-130S. DR KIM HERE ROUNDING AND INFORMED OF FEVER AND TACHYCARDIA, ORDER REC'D FOR UA. PT INCONTINENT OF LARGE AMOUNT OF SOFT STOOL, NOTED TO HAVE A REDENNED AREA ON HIS MEATUS, VILLANUEVA CATH TUBING RE-POSITIONED AND PADDED WITH GAUZE TO REDUCE PRESSURE. MEDICATED WITH KS ACETAMINOPHEN. 929: UA COLLECTED FROM VILLANUEVA. 1030: PT VERY RESTLESS, MEDICATED W/2 MG OF LORAZEPAM. 1100: PT APPEARING SOMEWHAT MORE COMFORTABLE FOLLOWING LORAZEPAM. [id number]: HR AND BP ELEVATED, SEE VS FLOWSHEET, MEDICATED W.5 MG OF METOPROLOL IV, CONTINUING TO MONITOR.
--- NOTE | 2021-03-30 15:17 | NUR ---
1515: PT FAILED SPEECH EVAL THIS AFTERNOON AND PLACED BACK ON NPO STATUS PER BUZZSAW OPERATOR. SPOKE WITH DR KIM SEVERAL TIMES REGARDING PT'S PAIN AND AGITATION AND INABILITY TO TAKE PO MEDS, ORDERS CHANGED TO IV MORPHINE WELL IV ANTIBIOTICS, UNASYN DOSE STARTED IV. PT MEDICATED W/0.5 MG OF MORPHINE FOR PAIN WHICH WAS MINIMALLY EFFECTIVE. PT WITH ORDER TO TRANSFER TO [facility], REPORT CALLED AND PT TO TRANSPORT VIA BED.
--- NOTE | 2021-03-30 18:43 | NUR ---
PT TRAMSFERRED FROM PCU 16 TO RM 350 ON MEDICAL FLOOR, REPORT TAKEN FROM DAYANA. PT FOLY NOT APPEARING TO BE PATENTS AND WAS CLOGGED WITH SEDIMENT. NEW FOLY PLACED AND HE SAOKED 2 ATTENDED AND CHUCKS IN THE MEANTIME. PICC LINE PORTS CLOGGED, CHANGED AND RECAPPED BY AUTHOR. PT HAD 100.6 FEVER, MEDICATED PER MAR. HR TACHY MEDICATED PER MAR. LINENS CHANGED. PT NOW NO LONGER AGITATED AND RESTING PEACEFUL.
[2021-03-31 05:22] LABS: BASOPHILS ABSOLUTE AUTO 0.02 K/mm3 (0.00-0.23); BASOPHILS PERCENT AUTO 0 % (0-2); EOSINOPHILS ABSOLUTE AUTO 0.01 K/mm3 (0.00-0.68); EOSINOPHILS PERCENT AUTO 0 % (0-6); Hematocrit 40.2 % (37.0-53.0); Hemoglobin 12.7 g/dL (13.5-17.5); IMMATURE GRAN ABSOLUTE AUTO 0.03 K/mm3 (0.00-0.10); IMMATURE GRAN PERCENT AUTO 1 % (0-1); LYMPHOCYTES PERCENT AUTO 16 % (21-46); MONOCYTES ABSOLUTE AUTO 0.41 K/mm3 (0.16-1.47); MONOCYTES PERCENT AUTO 8 % (4-13); Mean Corpuscular HGB 28.9 pg (26.0-34.0); Mean Corpuscular HGB Conc 31.6 g/dL (31.5-36.5); Mean Corpuscular Volume 92 fL (80-100); Mean Platelet Volume 10.7 fL (9.1-12.4); NEUTROPHILS ABSOLUTE AUTO 3.64 K/mm3 (1.96-9.15); NEUTROPHILS PERCENT AUTO 74 % (41-73); Platelet Count 171 K/mm3 (150-400); RDW Coefficient Variation 15.4 % (11.7-14.2); RDW Standard Deviation 51.6 fL (35.1-46.3); Red Blood Cell Count 4.39 M/mm3 (4.30-5.90); White Blood Cell Count 4.91 K/mm3 (4.00-11.30)
--- NOTE | 2021-03-31 05:39 | NUR ---
SHIFT SUMMARY PT HAS BEEN ANXIOUS AND ONLY SLEPT INTERMIT THIS SHIFT, 1X ORDER FOR LABET FOR HR 130'3-140'S, MEDICATED 2X FOR PAIN (MORPHINE) W/MINIMAL RELIEF, MEDICATED 1X FOR TEMP 101.2 (RELIEVED W/TYLENOL), PT APPEARS TO BE SLEEPING COMFORTABLY @ THIS TIME, CALL LIGHT IN REACH, WILL CONT TO MONITOR UNTIL REPORT GIVEN TO DAY RN.
[2021-03-31 05:41] LABS: Anion Gap 6 mmol/L (6-16); Blood Urea Nitrogen 37 mg/dL (8-24); Bun/Creatinine Ratio 58.6 (12.0-20.0); CO2, Blood 26 mmol/L (21-32); Calcium, Blood 8.5 mg/dL (8.5-10.1); Chloride, Blood 110 mmol/L (98-108); Creatinine, Blood 0.63 mg/dL (0.60-1.20); Glomerular Filtration Rate >60 (60-); Glucose, Blood 207 mg/dL (70-99); Magnesium, Blood 2.3 mg/dL (1.6-2.4); Phosphorus, Blood 4.6 mg/dL (2.5-4.9); Potassium, Blood 3.8 mmol/L (3.5-5.5); Sodium, Blood 142 mmol/L (136-145)
--- NOTE | 2021-03-31 12:03 | NUR ---
PT C/O ANX. ATIVAN ADMIN.
--- NOTE | 2021-03-31 18:07 | NUR ---
PT PLEASANT TODAY. DID MED FOR ANX TODAY. DID WELL. CONTINUES TO BE HARD TO UNDERSTAND. USING BOARD SOME. CPN RUNNING IN PICC LINE. NEW BAG HUNG PER EMAR. DID MED FOR PAIN THIS AFT. PT STATED DID HELP. DID PASS SWALLOW EVAL FOR SOME FOOD INTAKE. MIN INTAKE. HAS BEEN ON 5 L O2 T/O DAY, ATTEMPTING TO WEAN O2. PT PULLED OFF ANDHIS SATS DROPPED TO 85-87% TOOK 2-3 MIN TO GET BACK TO 91-92% AT 6L. DID TURN BACK TO 5L TO MAINTAIN >90%. NO OTHER NEW CONCERNS NOTED TODAY. BED IN LOW POSITION, CALL LITE IN REACH, BED ALARM ON FOR SAFETY
--- NOTE | 2021-04-01 04:56 | NUR ---
PT RESTING IN BED WITHOUT DISTRESS. CPAP IN PLACE SAT 93% SINUS TACH 116 ON TELE. PT DENIES CHEST PAIN. TPN INFUSING PATENTLY. VILLANUEVA PATENT. PT C/O OF GENERALIZED PAIN. MORPHINE GIVEN PRN WITH GOOD EFFECT. SAFETY AND COMFORT MEASURES MAINTAINED.
[2021-04-01 06:05] LABS: Magnesium, Blood 2.3 mg/dL (1.6-2.4); Phosphorus, Blood 3.6 mg/dL (2.5-4.9)
--- NOTE | 2021-04-01 11:55 | NUR ---
PHYSICIAN NOTIFIED CBG 400 THIS AFTERNOON, 15 UNITS GIVEN PER EMAR. PHYSICIAN UPDATE, NO NEW ORDERS AT THIS TIME.
--- NOTE | 2021-04-01 18:30 | NUR ---
SHIFT SUMMARY ORAL INTAKE HAS MUCH IMPROVED THIS SHIFT, PT IS ABLE TO TOLERATE SMALL BITES OF THICKENED LIQUIDS, PUREE TEXTURE, AND ORAL MEDS CRUSHED IN APPLESAUCE. PT REMAINS ON CPN UNTIL ORAL INTAKE IS ADEQUATE. CBG ELEVATED SINCE INCREASED INTAKE OF CBG, PROVIDER AWARE. TEMP WNL. REMAINS ON 5 L/MIN O2 SATING AT 92%. PT IS ALSO COMMUNICATING BETTER AND MAKING NEEDS KNOWN. POSSIBLE DC THIS WEEKEND PENDING ORAL INTAKE. PT IS CURRENTLY RESTING IN BED c CALL LIGHT WITHIN REACH AND BED ALARM ON.
--- NOTE | 2021-04-02 03:03 | NUR ---
PT IN BED ANXIOUS AT TIMES. ATIVAN GIVEN PRN FOR ANXIETY. C/O OF PAIN. ROXICODONE GIVEN WIH GOOD EFFECT. REMAINS WITH INTERMITTENT MOIST NON-PRODUCTIVE COUGH. ENCOURAGE DEEP BREATHING AND COUGH. O2 [address] TENDS TO DESAT WHEN REMOVING O2. MEDS GIVEN AND TOLERATED WELL. TPN INFUSING VIA PICC LINE. RICH PATENT. ASSISTED WITH NEEDS. SR 98 ON TELE. SAT 92-93%.
[2021-04-02 05:45] LABS: Phosphorus, Blood 8.6 mg/dL (2.5-4.9)
--- NOTE | 2021-04-02 06:05 | NUR ---
CRITICAL VALUE: CRITICAL PHOSPHORUS LEVEL 8.[address] CAGE. STAT ORDER GIVEN FOR REPEAT LAB. PT IS RESTING IN BED WITHOUT DISTRESS. NO CHANGE IN CONDITION. STAT BLOOD DRAWN BY LAB. AWAITING RESULT.
[2021-04-02 06:40] LABS: Magnesium, Blood 2.4 mg/dL (1.6-2.4)
[2021-04-02 07:26] LABS: Phosphorus, Blood 3.8 mg/dL (2.5-4.9)
--- NOTE | 2021-04-02 12:14 | NUR ---
CBG 429. NOTIFIED PROVIDER, RECEIVED TELEPHONE ORDER FOR ADDITIONAL 5 UNITS INSULIN SQ TO BE GIVEN NOW.
--- NOTE | 2021-04-02 17:45 | NUR ---
SHIFT SUMMARY: O2 @ 6 L/MIN, CHANGED TO OXYMIZER; SATS ARE MORE CONSISTENT NOW, 90-93%. WILL REMOVE OXYGEN SAT PROBE FROM FINGER TO CAUSE OXIMETRY ALARM WHEN HE WANTS SOMETHING. ABLE TO MAKE NEEDS KNOWN. NO EVENTS ON TELEMETRY, SR WITH PAC'S AT 88-102. LUNG SOUNDS DIMINISHED THROUGHOUT, WEAK COUGH. TOLERATING PO INTAKE, NO N/V, INTERMITTENT COUGHING, SO FAR IS ABLE TO CLEAR AIRWAY. C/O PAIN IN FEET; MEDICATED PER EMAR. STAGE 3 DECUBITUS ON COCCYX; COVERED WITH FOAM DRESSING, MOD SS DRAINAGE, NO ODOR, TURNING [id number]. NEURO EXAM REMAINS UNCHANGED.
--- NOTE | 2021-04-03 04:27 | NUR ---
PT REMAINS ANXIOUS AT TIMES. ATIVAN PRN GIVEN WITH GOOD EFFECT. TOLERATING PUREE DIET WELL. OCCASIONAL MOIST NON-PRODUCTIVE COUGH. SAT AT THE BEGINNING OF SHIFT @ 93% ON 6L. DESAT TO 85. O2 INCREASED BY RT TO 9L. PLACED ON CPAP AT NIGHT. SAT @ 93%. NO DYSPNEIC EPISODE WHILE ON CPAP. STILL C/O OF LEG PAIN. ROXICODONE GIVEN ONCE WITH GOOD EFFECT. TPN INFUSING TO LEFT PICC. VILLANUEVA PATENT. SAFETY AND COMFORT MEASURES MAINTAINED. NO EVENT ON TELE. SR 96 WITH [facility].
[2021-04-03 05:39] LABS: Hematocrit 37.7 % (37.0-53.0); Hemoglobin 11.9 g/dL (13.5-17.5); Mean Corpuscular HGB 28.7 pg (26.0-34.0); Mean Corpuscular HGB Conc 31.6 g/dL (31.5-36.5); Mean Corpuscular Volume 91 fL (80-100); Mean Platelet Volume 12.4 fL (9.1-12.4); Platelet Count 121 K/mm3 (150-400); RDW Coefficient Variation 15.1 % (11.7-14.2); RDW Standard Deviation 50.4 fL (35.1-46.3); Red Blood Cell Count 4.15 M/mm3 (4.30-5.90); White Blood Cell Count 6.68 K/mm3 (4.00-11.30)
[2021-04-03 06:11] LABS: Anion Gap 6 mmol/L (6-16); Blood Urea Nitrogen 41 mg/dL (8-24); Bun/Creatinine Ratio 75.8 (12.0-20.0); CO2, Blood 27 mmol/L (21-32); Calcium, Blood 8.5 mg/dL (8.5-10.1); Chloride, Blood 111 mmol/L (98-108); Creatinine, Blood 0.54 mg/dL (0.60-1.20); Glomerular Filtration Rate >60 (60-); Glucose, Blood 309 mg/dL (70-99); Potassium, Blood 4.2 mmol/L (3.5-5.5); Sodium, Blood 144 mmol/L (136-145)
--- NOTE | 2021-04-03 13:33 | NUR ---
PT/OT EVAL RECEIVED TELEPHONE ORDERS FOR PT/OT EVAL AND TREAT FROM DR. OSHEA.
--- NOTE | 2021-04-03 18:01 | NUR ---
SHIFT SUMMARY PT IS DOING UCH BETTER TODAY THAN WHEN TRANSFERRED TO THE FLOOR. HE ONLY RECIEVED ONE DOSE OF ANXIETY MEDICATION FOR TODAY AND HAS MAINTAINED CALM BREATHING AND INTERMITTENT NAPPING THROUGHOUT THE DAY. HE DID SPEND SOME TIME UP IN THE RECLINER IN HIS ROOM, BUT DID NOT TOLERATE IT FOR MORE THAN 45 MINUTES IT WAS PUTTING PRESSURE ON HIS BEDSORE. SPOKE WITH DAUGHTER THIS AM WHO WAS DISSATISFIED WITH CARE GIVEN. SHE QUESTIONED HIS O2 BEING INCREASED, WHY HIS TEETH WEREN'T IN, WHY HE WAS TAKING ANXIETY MEDICATIONS, AND WHY HE HAD NOT GOTTEN UP TO THE CHAIR. I ASSURED HER THAT ALL MEASURES WERE BEING TAKEN TO KEEP HIM COMFORTABLE AND WERE HIS DECISION TO REMAIN WITHOUT HIS TEETH, NOT UP IN A CHAIR, AND TO TAKE THE ANXIETY MEDICATIONS. DAUGHTER SPOKE WITH PT ADVOCATE AND CHARGE NURSE. SHE WAS SATISFIED THAT WE WOULD TRY TO GET HIM UP THIS PM AND ORDER PT AND OT FOR HIM. PT EVALUATED HIM AND STATED THAT TRANSFER BY SLING IS STILL RECCOMENDED AND UP IN THE CHAIR WIS GREAT LONG THE PT TOLERATES. WILL CONTINUE TO MONITOR.
--- NOTE | 2021-04-03 19:10 | NUR ---
ASSUMED CARE RECEIVED REPORT FROM EDDIE WILCOX. PT RESTING, IN NAD. NO ACUTE NEEDS ASSESSED AT THIS TIME. CALL LIGHT, POSSESSIONS IN REACH. BED IN LOW AND LOCKED POSITION WITH ALARMS ON. TPN INFUSING ORDERED.
--- NOTE | 2021-04-03 21:30 | NUR ---
PT O2 SATS IN LOW 80'S, TITRATED O2 TO 15L/OXYMIZER; O2 SATS HOLDING AT 90%. WCTM.
--- NOTE | 2021-04-03 22:00 | NUR ---
PT PLACED ON CPAP, WITH 15L/O2 BLEED IN. O2 SATS AVERAGING 88-93%. RT NOTIFIED. CONTINUE TO MONITOR.
--- NOTE | 2021-04-04 07:50 | NUR ---
SHIFT SUMMARY PT RESTING, IN NAD. APPEARED TO SLEEP ON AND OFF T/O NIGHT. VS REVIEWED,WNL. O2 SATS STABLE ON 13L/OXYMIZER. PT ABLE TO COMMUNICATE NEEDS C LETTER BOARD, ATTEMPTS TO MUMBLE WORDS. NO CARDIAC EVENTS REPORTED OVERNIGHT. NO OTHER ACUTE CONCERNS TO REPORT OVERNIGHT. CALL LIGHT, POSSESSIONS IN REACH, BED IN LOW AND LOCKED POSITION WITH ALARMS ON. REPORT GIVEN TO EDDIE WILCOX.
--- NOTE | 2021-04-04 19:21 | NUR ---
SHIFT SUMMARY PT HS BEEN IN BED ALL DAY, DID NOT FEEL LIKE GETTING UP TO THE CHAIR, EATING ANY OF HIS MEALS, AND REFUSED HIS MORNING MEDS. WILL CONTINUE TO MONITOR.
[2021-04-05 05:31] LABS: Hematocrit 37.6 % (37.0-53.0); Hemoglobin 11.7 g/dL (13.5-17.5); Mean Corpuscular HGB 28.3 pg (26.0-34.0); Mean Corpuscular HGB Conc 31.1 g/dL (31.5-36.5); Mean Corpuscular Volume 91 fL (80-100); Mean Platelet Volume 12.4 fL (9.1-12.4); Platelet Count 152 K/mm3 (150-400); RDW Coefficient Variation 15.3 % (11.7-14.2); RDW Standard Deviation 50.4 fL (35.1-46.3); Red Blood Cell Count 4.14 M/mm3 (4.30-5.90); White Blood Cell Count 9.45 K/mm3 (4.00-11.30)
[2021-04-05 05:40] LABS: Anion Gap 6 mmol/L (6-16); Blood Urea Nitrogen 39 mg/dL (8-24); CO2, Blood 29 mmol/L (21-32); Calcium, Blood 8.4 mg/dL (8.5-10.1); Chloride, Blood 111 mmol/L (98-108); Creatinine, Blood 0.62 mg/dL (0.60-1.20); Glomerular Filtration Rate >60 (60-); Glucose, Blood 255 mg/dL (70-99); Magnesium, Blood 2.6 mg/dL (1.6-2.4); Phosphorus, Blood 4.6 mg/dL (2.5-4.9); Potassium, Blood 3.3 mmol/L (3.5-5.5); Sodium, Blood 146 mmol/L (136-145)
--- NOTE | 2021-04-05 18:52 | NUR ---
SHIFT SUMMARY PTS IS UP AT THE SIDE OF BED WITH DAUGHTER IN RM ON 5L SATTING 90%. DENIES PAIN AND AHS BEEN WITHOUT ANXIETY THIS SHIFT. STILL ONLY TOLERATING PUDDING THICK FLUIDS. WAS ABLE TO EAT MORE OF HIS MEALS TODAY AND DID NOT DENY ANY MEDICATIONS. WILL CONTINUE TO MONITOR.
--- NOTE | 2021-04-05 20:05 | NUR ---
DTR Freida who is a RN is at bedside & very supportive. She has cared for PT for last 18 years since CVA. Up with lift to BSC x 2 large liquid BM brown on BSC. PT used CPAP with 4 l bled in then down to 2 l. DTR very attentive & will bring his electric WC battery back to promote mobility. PT able to recline in WC & has pressure relieving cushion to chair. PT requres feeding 100% & uses letter board to communicate. Support offered to DTR to be involved in plan of care & she is needed to help PT recover from Covid 19 as he is severly disabled from CVA.
[2021-04-06 05:28] LABS: Anion Gap 7 mmol/L (6-16); Blood Urea Nitrogen 38 mg/dL (8-24); Bun/Creatinine Ratio 63.8 (12.0-20.0); CO2, Blood 28 mmol/L (21-32); Calcium, Blood 8.8 mg/dL (8.5-10.1); Chloride, Blood 110 mmol/L (98-108); Glomerular Filtration Rate >60 (60-); Glucose, Blood 178 mg/dL (70-99); Magnesium, Blood 2.4 mg/dL (1.6-2.4); Phosphorus, Blood 3.6 mg/dL (2.5-4.9); Potassium, Blood 3.1 mmol/L (3.5-5.5); Sodium, Blood 145 mmol/L (136-145)
--- NOTE | 2021-04-06 06:11 | NUR ---
70 year old Male with Covid 19 in January making good improvement in weaning back oxygen with CPAP use with 2 l bled in. Up via liset lift to [facility] for xlarge BM. DTR in & supportive. Directing care as she has provided care x 18 years. Needs to use CPAP via nares when in bed due to KANDACE. BGs better controlled. PT fed Lunch & dineer per report of day RN.
--- NOTE | 2021-04-06 08:25 | NUR ---
TALKED TO ABOUT BLD SUGAR 153 AND RECEIVES 65 UNITS LANTUS. GIVE 50 UNITS FOR AM DOSE. IF EATTING BREAKFAST AND LUNCH D'C TPN.
--- NOTE | 2021-04-06 12:25 | NUR ---
DR. OSHEA AWARE BLD SUGAR 383. GIVE SCHEDULED 15 UNITS SHORT ACTING INSULIN NO EXTRA
--- NOTE | 2021-04-06 18:36 | NUR ---
ALERT.TPN D'C. PRESSURE ULCERS CHRISTOPHER BUTT CHEEKS.ATE 100% ALL MEALS. MEDS CRUSHED IN APPLESAUCE. FRANCK LIFT TO CHAIR.PICC DRESSING CHANGED.USES CPAPWHEN SLEEPING AND N/C WHEN EATTING. WCTM
--- NOTE | 2021-04-07 04:29 | NUR ---
SHIFT SUMMARY PATIENT HAD NO ACUTE CHANGES OBSERVED. ALERT TO SELF WITH GARBLED SPEECH AND BEDREST. VILLANUEVA PATENT AND DRAINING TO GRAVITY. PICC LINE VAUGHN. FRANCK LIFT. USES CPAP WITH 4L BLEED IN ON CONTINUOUS PULSE OXIMETRY. DAUGHTER PRESENT AT SHIFT CHANGE AND USED ELECTRIC W/C TO TAKE PATIENT DOWN HALLS AND BACK BEFORE SHE LEFT. VSS/AFEBRILE. DENIES PAIN, SOB, AND N/V. CALL LIGHT IN REACH. BED IN LOWEST POSITION. WILL CONTINUE TO MONITOR UNTIL DAY SHIFT NURSE ASSUMES CARE.
[2021-04-07 05:26] LABS: Hematocrit 36.7 % (37.0-53.0); Hemoglobin 11.6 g/dL (13.5-17.5); Mean Corpuscular HGB 28.7 pg (26.0-34.0); Mean Corpuscular HGB Conc 31.6 g/dL (31.5-36.5); Mean Corpuscular Volume 91 fL (80-100); Mean Platelet Volume 11.4 fL (9.1-12.4); Platelet Count 204 K/mm3 (150-400); RDW Coefficient Variation 15.5 % (11.7-14.2); RDW Standard Deviation 51.4 fL (35.1-46.3); Red Blood Cell Count 4.04 M/mm3 (4.30-5.90); White Blood Cell Count 9.79 K/mm3 (4.00-11.30)
[2021-04-07 05:36] LABS: Anion Gap 5 mmol/L (6-16); Blood Urea Nitrogen 42 mg/dL (8-24); Bun/Creatinine Ratio 66.5 (12.0-20.0); CO2, Blood 30 mmol/L (21-32); Calcium, Blood 8.8 mg/dL (8.5-10.1); Chloride, Blood 112 mmol/L (98-108); Creatinine, Blood 0.63 mg/dL (0.60-1.20); Glomerular Filtration Rate >60 (60-); Glucose, Blood 121 mg/dL (70-99); Magnesium, Blood 2.6 mg/dL (1.6-2.4); Phosphorus, Blood 4.5 mg/dL (2.5-4.9); Sodium, Blood 147 mmol/L (136-145)
--- NOTE | 2021-04-07 12:28 | NUR ---
P.Winston. TO TALK TO DAUGHTER, ZEV, ABOUT HER EXPECTATIONS. PATIENT CAN BEEN ELBOW, CAN NOT SIT ON SIDE OF BED WITHOUT ASSISTANCE AT THIS TIME AND APPEARS THIS IS HIS NORMAL.
--- NOTE | 2021-04-07 18:50 | NUR ---
ALERT. DYSPHASIA. USES WHITE BOARD FOR SOME COMMUNICATION. IN OWN W/C FOR MEALS. PER P.T. CAREGIVER WANTS DRESSINGS FOR BUTTOCK AND PATIENT TO HAVE SOME MUSCLE TONE IN ABD SO HE CAN USE SIT TO STAND AT HOME. WILL LET NIGHT RN KNOW. JOYCETM
--- NOTE | 2021-04-08 03:44 | NUR ---
SHIFT SUMMARY PATIENT HAD NO ACUTE CHANGES. ALERT TO SELF. DAUGHTER PRESENT AT SHIFT CHANGE AND LEFT FOR EVENING A FEW HOURS LATER. BEDREST AND ASPIRATION PRECAUTIONS. CBG 248. VILLANUEVA PATENT AND DRAINING. PICC VUAGHN INTACT. USES CPAP WITH 3L BLEED IN. ON CONTINUOUS PULSE OXIMETRY. NO S/SX OF PAIN, SOB, AND N/V. VSS/AFEBRILE. CALL LIGHT IN REACH. BED IN LOWEST POSITION. WILL CONTINUE TO MONITOR UNTIL DAY SHIFT NURSE ASSUMES CARE.
[2021-04-08 05:51] LABS: Anion Gap 4 mmol/L (6-16); Blood Urea Nitrogen 37 mg/dL (8-24); Bun/Creatinine Ratio 59.2 (12.0-20.0); CO2, Blood 29 mmol/L (21-32); Calcium, Blood 8.4 mg/dL (8.5-10.1); Chloride, Blood 113 mmol/L (98-108); Creatinine, Blood 0.63 mg/dL (0.60-1.20); Glomerular Filtration Rate >60 (60-); Glucose, Blood 114 mg/dL (70-99); Potassium, Blood 3.2 mmol/L (3.5-5.5); Sodium, Blood 146 mmol/L (136-145)
[2021-04-08] MEDS ORDERED: Lisinopril2.5 MG PO (11:32)
[2021-04-08] MEDS ORDERED: CARV3.125 PO (11:32)
[2021-04-08] MEDS ORDERED: POTA20LUD PO (11:33)
--- NOTE | 2021-04-08 16:58 | NUR ---
SUMMARY PT SITTING UP IN BED WATCHING TV, HAS BEEN UP TO HIS HOME WHEELCHAIR FOR LUNCH, PT GOING TO BE DISCHARGED, DAUGHTER WILL BE HERE AFTER 6, WILL GO OVER DC INSTRUCTIONS WITH HER WHEN SHE GETS HERE, PT HAS BEEN PLEASANT AND COOPERATIVE WITH CARE T/O THE DAY, VSS, WILL CONT TO MONITOR
--- NOTE | 2021-04-08 18:33 | NUR ---
SUMMARY/DISCHARGE PT DISCHARGED TO HOME WITH HOME HEALTH WITH THE DAUGHTER, BOTH PT AND DAUGHTER VERBALIZED UNDERSTANDING OF DISCHARGE INSTRUCTIONS REGARDING MEDS AND FOLLOW UP, PT IN HOME WHEELCHAIR, ABLE TO WHEEL SELF OUT
== END 2021-04-08 18:36 | disposition home health service (06) | DRG 177 ==
LOC: ER 17:08 → SURS 19:47 → PCU 19:47 → ERHOLD 19:47 → SURS 02-28 17:16 → PCU 03-01 13:57 → MEDS 03-30 15:41
PROVIDERS: Internal Medicine; Internal Medicine Critical Care Medicine; Physician Assistant; ADMIT Hospitalist
PROC: 8E0ZXY6 Isolation (ICD-10-PCS; 2021-02-26)
PROC: XW033E5 Introduction of Remdesivir Anti-infective into Peripheral Vein, Percutaneous Approach, New Technology Group 5 (ICD-10-PCS; 2021-02-27)
PROC: 5A0935A Assistance with Respiratory Ventilation, Less than 24 Consecutive Hours, High Flow/Velocity Cannula (ICD-10-PCS; 2021-03-01)
PROC: 5A09457 Assistance with Respiratory Ventilation, 24-96 Consecutive Hours, Continuous Positive Airway Pressure (ICD-10-PCS; 2021-03-02)
PROC: 3E0336Z Introduction of Nutritional Substance into Peripheral Vein, Percutaneous Approach (ICD-10-PCS; 2021-03-03)
PROC: 09JH8ZZ Inspection of Right Ear, Via Natural or Artificial Opening Endoscopic (ICD-10-PCS; 2021-03-15)
PROC: 3E0333Z Introduction of Anti-inflammatory into Peripheral Vein, Percutaneous Approach (ICD-10-PCS; principal; 2021-03-19)
DX: U07.1 COVID-19 (principal); J12.82 Pneumonia due to coronavirus disease 2019; J96.01 Acute respiratory failure with hypoxia; I21.A1 Myocardial infarction type 2; I69.354 Hemiplegia and hemiparesis following cerebral infarction affecting left non-dominant side; Z68.41 Body mass index [BMI] 40.0-44.9, adult; N39.0 Urinary tract infection, site not specified; E78.5 Hyperlipidemia, unspecified; E87.6 Hypokalemia; I10 Essential (primary) hypertension; E66.9 Obesity, unspecified; R13.10 Dysphagia, unspecified; D70.9 Neutropenia, unspecified; R45.1 Restlessness and agitation; E11.65 Type 2 diabetes mellitus with hyperglycemia; E83.39 Other disorders of phosphorus metabolism; N40.0 Benign prostatic hyperplasia without lower urinary tract symptoms; F41.9 Anxiety disorder, unspecified; R53.81 Other malaise; H92.01 Otalgia, right ear; K11.20 Sialoadenitis, unspecified; G47.33 Obstructive sleep apnea (adult) (pediatric); Z90.89 Acquired absence of other organs; Z98.890 Other specified postprocedural states; Z79.84 Long term (current) use of oral hypoglycemic drugs; Z79.899 Other long term (current) drug therapy; Z99.3 Dependence on wheelchair; Z87.820 Personal history of traumatic brain injury; Z79.4 Long term (current) use of insulin; Z87.891 Personal history of nicotine dependence; Z87.442 Personal history of urinary calculi; Z93.1 Gastrostomy status; I69.991 Dysphagia following unspecified cerebrovascular disease; Z78.1 Physical restraint status
CPT/HCPCS: 36415; 36600; 71045; 71260; 80048; 80053; 80069; 81001; 82607; 82746; 82803; 82947; 83735; 83880; 84100; 84145; 84478; 84484; 85025; 85027; 85379; 87077; 87086; 87186; 92526; 92610; 93005; 93010; 93306; 94640; 94660; 94762; 96365; 96375; 96376; 97161; 99285-25; A9270; C1751; J0295; J0360; J0690; J1100; J1630; J1650; J1815; J1940; J2060; J2270; J2405; J2543; J3411; J3480; J7030; J7050; J7060; Q9967

== ENCOUNTER → 2021-04-29 | Outpatient (CLI) | payer OTHER ==
[~2021-04-29] MED LIST changes: +BACLOFEN10 M4 PO; +CENTRUM SILVER1 EAC2 PO; +Lisinopril2.5 MG PO; +OMEGA-3 + VITA200 ML PO; +POTA20LUD PO; +TAMSULOSIN HCL0.4 M1 PO; +VITAMIN D325 MC3 PO
[2021-04-29 20:00] LABS: Appearance, Urine Hazy (Clear); Bilirubin, Urine Neg (Neg); Blood, Urine 3+ (Neg); Color, Urine Yellow (P-Yellow); Glucose Qualitative, Urine Neg (Neg); Ketones, Urine Neg (Neg); Leukocyte Esterase, Urine 3+ (Neg); Nitrite, Urine Pos (Neg); Protein, Urine 3+ (Neg); Urobilinogen, Urine 2+ (Normal)
[2021-04-29 20:06] LABS: Amorphous Heavy (0-Heavy); Bacteria Mod /hpf; Red Blood Cells, Urine Rare /hpf (0-2); Squamous Epithelial Cells Not Seen /hpf (Few); Triple Phosphate Crystals Mod /hpf
== END ==
LOC: LAB SHORT 17:31
PROVIDERS: Nurse Practitioner Family
DX: R30.0 Dysuria (principal)
CPT/HCPCS: 81001

== ENCOUNTER → 2021-05-16 | Outpatient (CLI) | payer OTHER ==
[~2021-05-16] MED LIST changes: +CEFTRIAXONE2 G1 IV; +NAPR220 PO; +TRAM50 PO
[2021-05-16 14:52] LABS: Appearance, Urine Cloudy (Clear); Bilirubin, Urine Neg (Neg); Blood, Urine 1+ (Neg); Color, Urine Yellow (P-Yellow); Glucose Qualitative, Urine Neg (Neg); Ketones, Urine Neg (Neg); Leukocyte Esterase, Urine 3+ (Neg); Nitrite, Urine Pos (Neg); Protein, Urine 3+ (Neg); Specific Gravity, Urine 1.015 (1.003-1.022); Urobilinogen, Urine 2+ (Normal)
[2021-05-16 15:10] LABS: Bacteria Many /hpf
[2021-05-16 15:11] LABS: Red Blood Cells, Urine 0-2 /hpf (0-2); Squamous Epithelial Cells Rare /hpf (Few)
[2021-05-16 15:12] LABS: Amorphous Mod (0-Heavy); Triple Phosphate Crystals Many /hpf
== END | disposition home or self-care (01) ==
LOC: LAB SHORT 13:34 → LAB 13:34
PROVIDERS: Nurse Practitioner Family
DX: R82.998 Other abnormal findings in urine (principal)
CPT/HCPCS: 81001; 87077; 87086; 87186

== ENCOUNTER 2021-05-20 03:19 | Day surgery (SDC) | payer OTHER ==
[~2021-05-20 03:19] MED LIST changes: -CEFTRIAXONE2 G1 IV; -NAPR220 PO; -TRAM50 PO
[2021-05-20] MEDS ORDERED: NAPR220 PO (11:09)
[2021-05-20] MEDS ORDERED: TRAM50 PO (11:09)
== END 2021-05-20 11:50 | disposition home or self-care (01) ==
LOC: ATC 03:19
DX: N39.0 Urinary tract infection, site not specified (principal)
CPT/HCPCS: 96365; J0696

== ENCOUNTER 2021-05-21 05:20 | Day surgery (SDC) | payer OTHER ==
[~2021-05-21 05:20] MED LIST changes: +NAPR220 PO; +TRAM50 PO
== END 2021-05-21 11:00 | disposition home or self-care (01) ==
LOC: ATC 05:20
DX: N39.0 Urinary tract infection, site not specified (principal)
CPT/HCPCS: 96365; J0696

== ENCOUNTER 2021-05-22 10:07 | Day surgery (SDC) | payer OTHER | END 2021-05-22 10:40 | disposition home or self-care (01) | LOC: ATC 10:07 | DX: N39.0 Urinary tract infection, site not specified (principal) | CPT/HCPCS: 96365; J0696 ==

== ENCOUNTER 2021-05-23 04:18 | Day surgery (SDC) | payer OTHER | END 2021-05-23 10:27 | disposition home or self-care (01) | LOC: ATC 04:18 | DX: N39.0 Urinary tract infection, site not specified (principal) | CPT/HCPCS: 96365; J0696 ==

== ENCOUNTER 2021-05-24 03:06 | Day surgery (SDC) | payer OTHER | END 2021-05-24 10:54 | disposition home or self-care (01) | LOC: ATC 03:06 | DX: N39.0 Urinary tract infection, site not specified (principal) | CPT/HCPCS: 96365; J0696 ==

== ENCOUNTER 2021-05-25 05:21 | Day surgery (SDC) | payer OTHER | END 2021-05-25 11:40 | disposition home or self-care (01) | LOC: ATC 05:21 | DX: N39.0 Urinary tract infection, site not specified (principal) | CPT/HCPCS: 96365; J0696 ==

== ENCOUNTER 2021-05-26 11:10 | Day surgery (SDC) | payer OTHER ==
--- NOTE | 2021-05-26 11:45 | NUR ---
PT IS NON-VERBAL BUT HE DOES SHAKE HIS HEAD YES AND NO.
== END 2021-05-26 11:57 | disposition home or self-care (01) ==
LOC: ATC 11:10
DX: N39.0 Urinary tract infection, site not specified (principal)
CPT/HCPCS: 96365; J0696

== ENCOUNTER 2021-05-27 01:46 | Day surgery (SDC) | payer OTHER | END 2021-05-27 11:55 | disposition home or self-care (01) | LOC: ATC 01:46 | DX: N39.0 Urinary tract infection, site not specified (principal) | CPT/HCPCS: 96365; J0696 ==

== ENCOUNTER 2021-05-28 11:08 | Day surgery (SDC) | payer OTHER | END 2021-05-28 12:00 | disposition home or self-care (01) | LOC: ATC 11:08 | DX: I12.9 Hypertensive chronic kidney disease with stage 1 through stage 4 chronic kidney disease, or unspecified chronic kidney disease (principal); N18.30 Chronic kidney disease, stage 3 unspecified; E11.22 Type 2 diabetes mellitus with diabetic chronic kidney disease; E11.51 Type 2 diabetes mellitus with diabetic peripheral angiopathy without gangrene; Z99.3 Dependence on wheelchair; J44.9 Chronic obstructive pulmonary disease, unspecified; F17.211 Nicotine dependence, cigarettes, in remission; Z86.73 Personal history of transient ischemic attack (TIA), and cerebral infarction without residual deficits; Z79.84 Long term (current) use of oral hypoglycemic drugs; Z79.899 Other long term (current) drug therapy | CPT/HCPCS: 96365; J0696 ==

== ENCOUNTER 2021-05-29 11:16 | Day surgery (SDC) | payer OTHER ==
[2021-05-30] MEDS ORDERED: CEFTRIAXONE2 G1 IV (11:09)
== END 2021-05-29 22:39 | disposition home or self-care (01) ==
LOC: ATC 11:16
DX: N39.0 Urinary tract infection, site not specified (principal)
CPT/HCPCS: 96365; J0696

== ENCOUNTER 2021-05-30 02:55 | Day surgery (SDC) | payer OTHER ==
[2021-05-30] MEDS ORDERED: CEFTRIAXONE2 G1 IV (11:09)
== END 2021-05-30 11:45 | disposition home or self-care (01) ==
LOC: ATC 02:55
DX: N39.0 Urinary tract infection, site not specified (principal)
CPT/HCPCS: 96365; J0696

== ENCOUNTER 2021-05-31 02:51 | Day surgery (SDC) | payer OTHER ==
[~2021-05-31 02:51] MED LIST changes: +CEFTRIAXONE2 G1 IV
== END 2021-05-31 11:28 | disposition home or self-care (01) ==
LOC: ATC 02:51
DX: N39.0 Urinary tract infection, site not specified (principal)
CPT/HCPCS: 96365; J0696

== ENCOUNTER 2021-06-01 02:20 | Day surgery (SDC) | payer OTHER | END 2021-06-01 11:36 | disposition home or self-care (01) | LOC: ATC 02:20 | DX: N39.0 Urinary tract infection, site not specified (principal) | CPT/HCPCS: 96365; J0696 ==

== ENCOUNTER 2021-06-02 01:01 | Day surgery (SDC) | payer OTHER | END 2021-06-02 12:05 | disposition home or self-care (01) | LOC: ATC 01:01 | DX: N39.0 Urinary tract infection, site not specified (principal) | CPT/HCPCS: 96365; J0696 ==

== ENCOUNTER 2021-09-10 12:20 | Inpatient (IN) | payer OTHER ==
[~2021-09-10] VITALS: Ht 177.8 cm; Wt 93.0 kg
[~2021-09-10 12:20] MED LIST changes: +Mucinex600 MG PO
[2021-09-10 13:08] LABS: Source, Urine Straight Cath
[2021-09-10 13:15] LABS: Appearance, Urine Cloudy (Clear); Bilirubin, Urine Neg (Neg); Blood, Urine 5+ (Neg); Color, Urine Yellow (P-Yellow); Glucose Qualitative, Urine Neg (Neg); Ketones, Urine Neg (Neg); Leukocyte Esterase, Urine 3+ (Neg); Nitrite, Urine Neg (Neg); Protein, Urine 3+ (Neg); Urobilinogen, Urine NORM (Normal)
[2021-09-10 13:32] LABS: Bacteria Mod /hpf; Red Blood Cells, Urine 25-50 /hpf (0-2); Squamous Epithelial Cells Mod /hpf (Few); White Blood Cells, Urine 50-100 /hpf (0-5)
[2021-09-10 13:33] LABS: Amorphous Heavy (0-Heavy)
[2021-09-10 13:36] LABS: BASOPHILS ABSOLUTE AUTO 0.05 K/mm3 (0.00-0.23); BASOPHILS PERCENT AUTO 0 % (0-2); EOSINOPHILS PERCENT AUTO 0 % (0-6); Hematocrit 47.3 % (37.0-53.0); Hemoglobin 14.9 g/dL (13.5-17.5); IMMATURE GRAN ABSOLUTE AUTO 0.18 K/mm3 (0.00-0.10); IMMATURE GRAN PERCENT AUTO 1 % (0-1); LYMPHOCYTES ABSOLUTE AUTO 1.81 K/mm3 (0.84-5.20); LYMPHOCYTES PERCENT AUTO 9 % (21-46); MONOCYTES ABSOLUTE AUTO 1.24 K/mm3 (0.16-1.47); MONOCYTES PERCENT AUTO 6 % (4-13); Mean Corpuscular HGB 25.7 pg (26.0-34.0); Mean Corpuscular HGB Conc 31.5 g/dL (31.5-36.5); Mean Corpuscular Volume 82 fL (80-100); Mean Platelet Volume 9.5 fL (9.1-12.4); NEUTROPHILS PERCENT AUTO 84 % (41-73); Platelet Count 267 K/mm3 (150-400); RDW Coefficient Variation 19.3 % (11.7-14.2); RDW Standard Deviation 54.4 fL (35.1-46.3); White Blood Cell Count 21.08 K/mm3 (4.00-11.30)
[2021-09-10 13:51] LABS: Alanine Aminotransfer (ALT/SGP 32 U/L (12-78); Albumin, Blood 3.9 g/dL (3.4-5.0); Albumin/Globulin Ratio 0.8 (0.8-1.8); Alk Phos 73 U/L (50-136); Anion Gap 10 mmol/L (6-16); Aspartate Aminotrans (AST/SGOT 18 U/L (12-37); Bilirubin, Total 1.3 mg/dL (0.1-1.0); Blood Urea Nitrogen 22 mg/dL (8-24); Bun/Creatinine Ratio 21.8 (12.0-20.0); CO2, Blood 22 mmol/L (21-32); Calcium, Blood 9.7 mg/dL (8.5-10.1); Chloride, Blood 105 mmol/L (98-108); Creatinine, Blood 1.01 mg/dL (0.60-1.20); Globulin, Blood 4.7 g/dL (2.2-4.0); Glomerular Filtration Rate >60 (60-); Glucose, Blood 242 mg/dL (70-99); Sodium, Blood 137 mmol/L (136-145); Total Protein, Blood 8.6 g/dL (6.4-8.2)
--- NOTE | 2021-09-10 18:09 | NUR ---
SHIFT SUMMARY PATIENT WAS ADMITTED TO MEDICAL FLOOR AT 1700. PATIENTS DAUGHTER WAS WITH PATIENT WHEN ADMITTED. PATIENT IS A PARAPLEGIC AND IS A POOR HISTORIAN. DAUGHTER IS COMING WITH MEDICATION LIST AND CPAP FOR TONIGHT. LACTIC ACID WAS A CRITICAL VALUE, TRENDING DOWN FROM 4.8 TO 3.8. NOTIFJUS. WILL MONITOR UNTIL SHIFT CHANGE.
[2021-09-10] MEDS ORDERED: Norco 5-325 Ta1 EACH PO (20:16)
[2021-09-10] MEDS ORDERED: GABA300 PO (20:19)
[2021-09-10 23:27] LABS: Influenza A, PCR NEGATIVE (NEGATIVE); Influenza B, PCR NEGATIVE (NEGATIVE); Resp Syncytial Virus, PCR NEGATIVE (NEGATIVE); SARS-Cov-2 (COVID-19) PCR, MMC NEGATIVE (NEGATIVE)
[2021-09-11 05:09] LABS: BASOPHILS ABSOLUTE AUTO 0.05 K/mm3 (0.00-0.23); BASOPHILS PERCENT AUTO 0 % (0-2); EOSINOPHILS PERCENT AUTO 0 % (0-6); Hematocrit 41.2 % (37.0-53.0); Hemoglobin 12.9 g/dL (13.5-17.5); IMMATURE GRAN ABSOLUTE AUTO 0.08 K/mm3 (0.00-0.10); IMMATURE GRAN PERCENT AUTO 1 % (0-1); LYMPHOCYTES ABSOLUTE AUTO 1.63 K/mm3 (0.84-5.20); LYMPHOCYTES PERCENT AUTO 13 % (21-46); MONOCYTES ABSOLUTE AUTO 0.62 K/mm3 (0.16-1.47); MONOCYTES PERCENT AUTO 5 % (4-13); Mean Corpuscular HGB 25.3 pg (26.0-34.0); Mean Corpuscular HGB Conc 31.3 g/dL (31.5-36.5); Mean Corpuscular Volume 81 fL (80-100); Mean Platelet Volume 9.8 fL (9.1-12.4); NEUTROPHILS ABSOLUTE AUTO 9.79 K/mm3 (1.96-9.15); NEUTROPHILS PERCENT AUTO 80 % (41-73); Platelet Count 227 K/mm3 (150-400); RDW Coefficient Variation 19.4 % (11.7-14.2); RDW Standard Deviation 55.1 fL (35.1-46.3); Red Blood Cell Count 5.09 M/mm3 (4.30-5.90); White Blood Cell Count 12.17 K/mm3 (4.00-11.30)
--- NOTE | 2021-09-11 05:28 | NUR ---
MD NOTIFICATION DR. HAMMOND NOTIFIED AT 2245 ON 09/10/21 THAT PT'S B/P WAS 182/105, HR TACHY IN THE LOW 100'S AND IRREGULAR. NEW ORDERS RECEIEVED FOR AN EKG AND ONE TIME ORDER OF LABETALOL. PT'S B/P IMPROVED AND WNL THE REMAINDER OF SHIFT. ST/SR WITH PAC'S NOTED ON TELEMETRY DURING THE SHIFT. SPOKE WITH PT'S DAUGHTER, ZEV, WHO STATED THAT PT DID HAVE SOME AFIB DURING HIS PREVIOUS ADMIT.
[2021-09-11 05:47] LABS: Alanine Aminotransfer (ALT/SGP 20 U/L (12-78); Albumin, Blood 3.1 g/dL (3.4-5.0); Albumin/Globulin Ratio 0.8 (0.8-1.8); Alk Phos 55 U/L (50-136); Anion Gap 11 mmol/L (6-16); Aspartate Aminotrans (AST/SGOT 19 U/L (12-37); Blood Urea Nitrogen 30 mg/dL (8-24); Bun/Creatinine Ratio 27.3 (12.0-20.0); CO2, Blood 22 mmol/L (21-32); Calcium, Blood 9.4 mg/dL (8.5-10.1); Chloride, Blood 107 mmol/L (98-108); Globulin, Blood 4.1 g/dL (2.2-4.0); Glomerular Filtration Rate >60 (60-); Glucose, Blood 272 mg/dL (70-99); Potassium, Blood 3.7 mmol/L (3.5-5.5); Sodium, Blood 140 mmol/L (136-145); Total Protein, Blood 7.2 g/dL (6.4-8.2)
--- NOTE | 2021-09-11 06:39 | NUR ---
SHIFT SUMMARY Pt alert, unable to assess orientation, has garbled speech at baseline due to prior CVA. Pt's R arm contractured, does not move BLE's. Pt incontinent of urine, anny care done and pt repositioned for comfort and to prevent skin breakdown. Skin intact, IVF's infusing per orders x 1 liter. Pt uzma nectar thick, ice cold liquids. Pt's daughter, Freida, reported that she did not feel a speech eval was necessary this admit because pt's baseline diet is nectar thick liquids (ice cold) and [facility] soft diet. Med per aug x 1 for elevated B/P. B/P wnl after receiving medication. SR/ST noted on tele with PAC's per telecommunications linesworker. Anticipate d/c when medically stable.
--- NOTE | 2021-09-11 11:52 | NUR ---
NOTIFIED [facility]. PATIENT GOT BREAKFAST TRAY AFTER 10AM.
--- NOTE | 2021-09-11 16:02 | NUR ---
ALERT. DIFFICULT TO TELL ORIENTATION SPEECH GARBLED. ABLE TO MAKE NEEDS KNOWN WILL NOD OR SHAKE HEAD WHEN ASKED QUESTIONS. RT ARM CONTRACTURE WITH IV PATENT RT F.A. TELE ON AND PER TECH AFIB UNDER 100. TAKES MEDS WHOLE IN APPLESAUCE OR YOGURT AND TOLERATES WELL. TAKES NECTAR THICKENED WATER IN ICE. DAUGHTER BRINGS IN CREAM FOR BOTTOM AND FOR LEFT SHLDR. SKIN INTACT. LEAVES NASAL CPAP ON ALL DAY. TURNED Q 2 HOURS. WCTM
--- NOTE | 2021-09-12 05:38 | NUR ---
SHIFT KOSTAS Received patient alert, not in acute distress. Able to comunicate his needs. Patient take his pills whole with apple sauce. He slept most of the night. Bed in low position, call light within reach. We will continue to monitor for any acute changes.
--- NOTE | 2021-09-12 15:57 | NUR ---
PATIENT IS REFUSING TO BE MOVED AND IS NOT WANTING TO BE MOVED UNTIL HIS DAUGHTER GETS HERE THIS EVENING. EXPLAINED TO PATIENT THAT WE NEED TO CHANGE SATURATED PAD AND CHECK WOUND ON BUTTOCK. PATIENT ADAMANT THAT HE DOES NOT WANT TO BE MOVED.
[2021-09-12 17:37] LABS: Source, Urine Condom Cath
[2021-09-12 17:46] LABS: Bilirubin, Urine Neg (Neg); Blood, Urine 5+ (Neg); Glucose Qualitative, Urine 3+ (Neg); Ketones, Urine Neg (Neg); Leukocyte Esterase, Urine 3+ (Neg); Nitrite, Urine Neg (Neg); Protein, Urine 3+ (Neg); Urobilinogen, Urine NORM (Normal)
[2021-09-12 18:04] LABS: Appearance, Urine Cloudy (Clear); Color, Urine Pale Yellow (P-Yellow); Red Blood Cells, Urine 25-50 /hpf (0-2)
[2021-09-12 18:05] LABS: Bacteria Mod /hpf; Squamous Epithelial Cells Rare /hpf (Few); Yeast/Fungi Urine Rare /hpf
--- NOTE | 2021-09-12 18:45 | NUR ---
SHIFT SUMMARY PATIENT UP IN WHEELCHAIR ALL OF SHIFT. PATIENT'S DAUGHTER AT BEGINNING OF SHIFT GOT PATIENT UP TO WHEELCHAIR AND PATIENT REFUSED TO BE MOVED UNTIL DAUGHTER CAME BACK. NOTED SKIN BREAKDOWN ON BUTTOCK AND REDNESS ON HIPS THIS AM. CREAM APPLIED TO SKIN BREAKDOWN. COVERAGE FOR CBG PER AUG. CHEST X-RAY DONE AND UA SENT. DAUGHTER BACK AT END OF SHIFT AND GETTING PATIENT BACK INTO BED. WILL CONTINUE TO MONITOR.
[2021-09-13 04:45] LABS: Hematocrit 38.4 % (37.0-53.0); Mean Corpuscular HGB 25.5 pg (26.0-34.0); Mean Corpuscular HGB Conc 31.3 g/dL (31.5-36.5); Mean Corpuscular Volume 82 fL (80-100); Platelet Count 180 K/mm3 (150-400); RDW Coefficient Variation 18.6 % (11.7-14.2); RDW Standard Deviation 55.4 fL (35.1-46.3); Red Blood Cell Count 4.71 M/mm3 (4.30-5.90)
--- NOTE | 2021-09-13 05:01 | NUR ---
SHIFT SUMMARY Patient laying confortably in bed. No pain or disconfort voices. He has the nazal cpap on. He is able to comunicate his needs. Vital stable, Bed in low position, call light within reach. We will continue to monitor for any acute changes.
[2021-09-13 05:07] LABS: Anion Gap 7 mmol/L (6-16); Blood Urea Nitrogen 28 mg/dL (8-24); Bun/Creatinine Ratio 36.7 (12.0-20.0); CO2, Blood 25 mmol/L (21-32); Calcium, Blood 9.2 mg/dL (8.5-10.1); Chloride, Blood 108 mmol/L (98-108); Creatinine, Blood 0.76 mg/dL (0.60-1.20); Glomerular Filtration Rate >60 (60-); Glucose, Blood 220 mg/dL (70-99); Potassium, Blood 3.4 mmol/L (3.5-5.5); Sodium, Blood 140 mmol/L (136-145)
--- NOTE | 2021-09-13 17:01 | NUR ---
NO ACUTE CHANGES PT IS ALERT AND COOPERATIVE OF CARE. PT DOES NOT TALK MUCH, BUT WILL NOT AND GET HIS NEEDS MET. PT REFUSED MACHINE SETUP OPERATOR TO GET HIM UP, BUT DAUGHTER CAME IN THE AM AND GOT HIM UP IN HIS CHAIR. PT DOING WELL AND IS COOPERATIVE OF CARE. WILL CONTINUE TO MONITOR.
[2021-09-14] MEDS ORDERED: CARV6.25 PO (12:05)
[2021-09-14] MEDS ORDERED: VISBIOME 112.51 EACH PO (12:06)
[2021-09-14] MEDS ORDERED: LEVO750 PO (12:07)
--- NOTE | 2021-09-14 18:28 | NUR ---
SHIFT SUMMARY A&O X4 AND IN PLEASENT MOOD T/O SHIFT. RESTED COMFORTABLY IN CHAIR T/O SHIFT. TOLERATING PO INTAKE WELL. DENIES PAIN & NAUSEA T/O SHIFT. DISCHARGE ORDER IN PLACE AND COMPLETE MEDS FAXED TO [facility] @ 2126. AWAITING ARRIVAL OF DAUGHTER @ THIS TIME FOR TRANSPORT. PT BELONGINGS GATHERED AND IN BAGS. TELE DC'ED, PLAN TO DC IV WHEN TRANSPORT ARRIVES. VSS. CALL LIGHT W/IN REACH. BLOOD GLUCOSE MEDICATED PER EMAR.
--- NOTE | 2021-09-14 20:58 | NUR ---
pt left without notifying nurse on duty. his daughter came up to the room and left with him w/o notifying nurse or going through discharge instructions. this nurse does not know if the daughter removed the pt's iv or if he left with it still in place. daughter later called to state that she had not received discharge instructions and arrangements were made for her to pick them up at a later time.
== END 2021-09-14 19:50 | disposition home or self-care (01) | DRG 871 ==
LOC: ER 12:20 → MEDS 15:55
PROVIDERS: Emergency Medicine; Family Medicine; ADMIT Internal Medicine
DX: A41.9 Sepsis, unspecified organism (principal); J69.0 Pneumonitis due to inhalation of food and vomit; G93.41 Metabolic encephalopathy; I69.351 Hemiplegia and hemiparesis following cerebral infarction affecting right dominant side; R65.20 Severe sepsis without septic shock; N40.0 Benign prostatic hyperplasia without lower urinary tract symptoms; I10 Essential (primary) hypertension; E11.9 Type 2 diabetes mellitus without complications; G47.33 Obstructive sleep apnea (adult) (pediatric); Z20.822 Contact with and (suspected) exposure to COVID-19; E78.5 Hyperlipidemia, unspecified; Z87.820 Personal history of traumatic brain injury; Z98.890 Other specified postprocedural states; Z79.899 Other long term (current) drug therapy; Z79.02 Long term (current) use of antithrombotics/antiplatelets; Z79.84 Long term (current) use of oral hypoglycemic drugs; Z87.891 Personal history of nicotine dependence; Z99.3 Dependence on wheelchair; Z86.16 Personal history of COVID-19
CPT/HCPCS: 0241U; 36415; 71045; 80048; 80053; 81001; 82947; 83605; 84145; 85025; 85027; 87040; 87086; 87106; 93005; 93010; 94762; 96374; 99285-25; A9270; J0696; J1650; J7030

== ENCOUNTER → 2021-10-12 | Outpatient (CLI) | payer OTHER ==
[~2021-10-12] MED LIST changes: +CARV6.25 PO; +GABA300 PO; +LEVO750 PO; +VISBIOME 112.51 EACH PO
[2021-10-12 12:35] LABS: Appearance, Urine Turbid (Clear); Bilirubin, Urine Neg (Neg); Blood, Urine 2+ (Neg); Color, Urine Yellow (P-Yellow); Glucose Qualitative, Urine 2+ (Neg); Ketones, Urine Neg (Neg); Leukocyte Esterase, Urine 3+ (Neg); Nitrite, Urine Neg (Neg); Protein, Urine 3+ (Neg); Urobilinogen, Urine NORM (Normal)
[2021-10-12 13:15] LABS: Bacteria Mod /hpf; Calcium Oxalate Crystals Few /hpf; Granular Casts 0-2 /lpf (0); Red Blood Cells, Urine 25-50 /hpf (0-2); Squamous Epithelial Cells Rare /hpf (Few); Transitional Epithelial Cells Few /hpf (0-Rare); WBC Cast 0-2 /lpf (0); White Blood Cells, Urine TNTC /hpf (0-5)
== END ==
LOC: LAB SHORT 11:04
PROVIDERS: Nurse Practitioner Family
DX: N39.0 Urinary tract infection, site not specified (principal)
CPT/HCPCS: 81001

== ENCOUNTER → 2021-12-15 | Outpatient (CLI) | payer OTHER ==
[2021-12-15 19:03] LABS: BASOPHILS ABSOLUTE AUTO 0.03 K/mm3 (0.00-0.23); BASOPHILS PERCENT AUTO 0 % (0-2); EOSINOPHILS ABSOLUTE AUTO 0.16 K/mm3 (0.00-0.68); EOSINOPHILS PERCENT AUTO 2 % (0-6); Hematocrit 42.7 % (37.0-53.0); Hemoglobin 14.3 g/dL (13.5-17.5); IMMATURE GRAN ABSOLUTE AUTO 0.02 K/mm3 (0.00-0.10); IMMATURE GRAN PERCENT AUTO 0 % (0-1); LYMPHOCYTES ABSOLUTE AUTO 2.22 K/mm3 (0.84-5.20); LYMPHOCYTES PERCENT AUTO 33 % (21-46); MONOCYTES ABSOLUTE AUTO 0.38 K/mm3 (0.16-1.47); MONOCYTES PERCENT AUTO 6 % (4-13); Mean Corpuscular HGB 29.4 pg (26.0-34.0); Mean Corpuscular HGB Conc 33.5 g/dL (31.5-36.5); Mean Corpuscular Volume 88 fL (80-100); Mean Platelet Volume 10.7 fL (9.1-12.4); NEUTROPHILS ABSOLUTE AUTO 3.87 K/mm3 (1.96-9.15); NEUTROPHILS PERCENT AUTO 58 % (41-73); Platelet Count 269 K/mm3 (150-400); RDW Coefficient Variation 16.2 % (11.7-14.2); RDW Standard Deviation 51.9 fL (35.1-46.3); Red Blood Cell Count 4.86 M/mm3 (4.30-5.90); White Blood Cell Count 6.68 K/mm3 (4.00-11.30)
[2021-12-15 19:11] LABS: Albumin, Blood 3.2 g/dL (3.4-5.0); Albumin/Globulin Ratio 0.8 (0.8-1.8); Bilirubin, Total 0.6 mg/dL (0.1-1.0); Bun/Creatinine Ratio 29.1 (12.0-20.0); Calcium, Blood 9.3 mg/dL (8.5-10.1); Creatinine, Blood 0.59 mg/dL (0.60-1.20); Globulin, Blood 3.8 g/dL (2.2-4.0); Phosphorus, Blood 3.2 mg/dL (2.5-4.9); Potassium, Blood 3.8 mmol/L (3.5-5.5)
== END | disposition home or self-care (01) ==
LOC: LAB 15:15 → LAB SHORT 15:15
PROVIDERS: Nurse Practitioner Family
DX: E11.22 Type 2 diabetes mellitus with diabetic chronic kidney disease (principal); I12.9 Hypertensive chronic kidney disease with stage 1 through stage 4 chronic kidney disease, or unspecified chronic kidney disease; N18.9 Chronic kidney disease, unspecified
CPT/HCPCS: 80053; 83036; 84100; 85025

== ENCOUNTER → 2021-12-15 | Outpatient (CLI) | payer OTHER ==
[2021-12-15 20:03] LABS: Creatinine, Urine Random 32.9 mg/dL (27.00-270.00)
[2021-12-15 20:31] LABS: Microalb/Creat Ratio UR, Rand 6443.77 mg/g (0.000-30.000)
== END | disposition home or self-care (01) ==
LOC: LAB SHORT 15:30 → LAB 15:30
PROVIDERS: Nurse Practitioner Family
DX: E11.22 Type 2 diabetes mellitus with diabetic chronic kidney disease (principal); N18.9 Chronic kidney disease, unspecified
CPT/HCPCS: 82043; 82570

== ENCOUNTER 2022-02-27 22:17 | Emergency (ER) | payer OTHER ==
[~2022-02-27] VITALS: Ht 172.7 cm; Wt 86.2 kg
[2022-02-27 23:51] LABS: Source, Urine Straight Cath
[2022-02-27 23:56] LABS: Appearance, Urine Cloudy (Clear); Bilirubin, Urine Neg (Neg); Blood, Urine 5+ (Neg); Color, Urine Yellow (P-Yellow); Glucose Qualitative, Urine 3+ (Neg); Ketones, Urine Neg (Neg); Leukocyte Esterase, Urine 3+ (Neg); Nitrite, Urine Neg (Neg); Protein, Urine 4+ (Neg); Specific Gravity, Urine 1.015 (1.003-1.022); Urobilinogen, Urine NORM (Normal)
[2022-02-27 23:57] LABS: BASOPHILS ABSOLUTE AUTO 0.05 K/mm3 (0.00-0.23); BASOPHILS PERCENT AUTO 0 % (0-2); EOSINOPHILS ABSOLUTE AUTO 0.03 K/mm3 (0.00-0.68); EOSINOPHILS PERCENT AUTO 0 % (0-6); Hematocrit 41.3 % (37.0-53.0); Hemoglobin 13.6 g/dL (13.5-17.5); IMMATURE GRAN ABSOLUTE AUTO 0.07 K/mm3 (0.00-0.10); IMMATURE GRAN PERCENT AUTO 1 % (0-1); LYMPHOCYTES ABSOLUTE AUTO 1.11 K/mm3 (0.84-5.20); LYMPHOCYTES PERCENT AUTO 8 % (21-46); MONOCYTES ABSOLUTE AUTO 0.73 K/mm3 (0.16-1.47); MONOCYTES PERCENT AUTO 5 % (4-13); Mean Corpuscular HGB 29.4 pg (26.0-34.0); Mean Corpuscular HGB Conc 32.9 g/dL (31.5-36.5); Mean Corpuscular Volume 89 fL (80-100); Mean Platelet Volume 10.5 fL (9.1-12.4); NEUTROPHILS ABSOLUTE AUTO 11.99 K/mm3 (1.96-9.15); NEUTROPHILS PERCENT AUTO 86 % (41-73); Platelet Count 231 K/mm3 (150-400); Red Blood Cell Count 4.63 M/mm3 (4.30-5.90); White Blood Cell Count 13.98 K/mm3 (4.00-11.30)
[2022-02-28 00:10] LABS: Albumin, Blood 3.3 g/dL (3.4-5.0); Albumin/Globulin Ratio 0.8 (0.8-1.8); Bilirubin, Total 0.9 mg/dL (0.1-1.0); Bun/Creatinine Ratio 29.3 (12.0-20.0); Creatinine, Blood 0.61 mg/dL (0.60-1.20); Potassium, Blood 4.1 mmol/L (3.5-5.5); Total Protein, Blood 7.3 g/dL (6.4-8.2)
[2022-02-28 00:19] LABS: White Blood Cells, Urine TNTC /hpf (0-5)
[2022-02-28 00:20] LABS: Bacteria Many /hpf; Squamous Epithelial Cells Not Seen /hpf (Few)
[2022-02-28] MEDS ORDERED: SULTRIDS PO (03:52)
== END 2022-02-28 05:20 | disposition home or self-care (01) ==
LOC: ER 22:17
PROVIDERS: Student in an Organized Health Care Education/Training Program
DX: A41.9 Sepsis, unspecified organism (principal); N39.0 Urinary tract infection, site not specified; I10 Essential (primary) hypertension; Z79.899 Other long term (current) drug therapy; Z79.02 Long term (current) use of antithrombotics/antiplatelets
CPT/HCPCS: 36415; 80053; 81001; 83605; 85025; 96361; 96365; 99285-25; A9270; J2543; J7030

== ENCOUNTER 2022-04-13 08:42 | Emergency (ER) | payer OTHER ==
[~2022-04-13] VITALS: Ht 177.8 cm; Wt 95.2 kg
[2022-04-13] MEDS ORDERED: IBUP800 PO (09:44)
[2022-04-13] MEDS ORDERED: AMLO5 PO (09:45)
[2022-04-13] MEDS ORDERED: OXYC10TA19 PO (09:45)
[2022-04-13] MEDS ORDERED: DIPH50 PO (09:46)
== END 2022-04-13 10:42 | disposition home or self-care (01) ==
LOC: ER 08:42
DX: M25.552 Pain in left hip (principal); I10 Essential (primary) hypertension; Z79.02 Long term (current) use of antithrombotics/antiplatelets; Z79.84 Long term (current) use of oral hypoglycemic drugs; Z79.899 Other long term (current) drug therapy; Z86.73 Personal history of transient ischemic attack (TIA), and cerebral infarction without residual deficits; Z86.16 Personal history of COVID-19
CPT/HCPCS: 99283

== ENCOUNTER → 2022-05-19 | Outpatient (CLI) | payer OTHER ==
[~2022-05-19] MED LIST changes: +AMLO5 PO; +DIPH50 PO; +IBUP800 PO; +OXYC10TA19 PO
[2022-05-19 10:46] LABS: Appearance, Urine Turbid (Clear); Bilirubin, Urine Neg (Neg); Blood, Urine 3+ (Neg); Color, Urine Yellow (P-Yellow); Glucose Qualitative, Urine Neg (Neg); Ketones, Urine Neg (Neg); Leukocyte Esterase, Urine 3+ (Neg); Nitrite, Urine Neg (Neg); Protein, Urine 3+ (Neg); Specific Gravity, Urine 1.025 (1.003-1.022); Urobilinogen, Urine NORM (Normal)
[2022-05-19 11:33] LABS: White Blood Cells, Urine TNTC /hpf (0-5)
[2022-05-19 11:36] LABS: Bacteria Mod /hpf; Red Blood Cells, Urine 0-2 /hpf (0-2); Squamous Epithelial Cells Rare /hpf (Few); Yeast/Fungi Urine Rare /hpf
== END | disposition home or self-care (01) ==
LOC: LAB SHORT 09:18 → LAB 09:18
PROVIDERS: Nurse Practitioner Family
DX: R30.0 Dysuria (principal)
CPT/HCPCS: 81001; 87086; 87106

== ENCOUNTER 2022-06-20 21:01 | Emergency (ER) | payer OTHER ==
[~2022-06-20] VITALS: Ht 175.3 cm; Wt 95.2 kg
[2022-06-20 22:32] LABS: BASOPHILS ABSOLUTE AUTO 0.05 K/mm3 (0.00-0.23); BASOPHILS PERCENT AUTO 1 % (0-2); EOSINOPHILS ABSOLUTE AUTO 0.17 K/mm3 (0.00-0.68); EOSINOPHILS PERCENT AUTO 2 % (0-6); Hematocrit 35.6 % (37.0-53.0); Hemoglobin 11.4 g/dL (13.5-17.5); IMMATURE GRAN ABSOLUTE AUTO 0.02 K/mm3 (0.00-0.10); IMMATURE GRAN PERCENT AUTO 0 % (0-1); LYMPHOCYTES ABSOLUTE AUTO 1.91 K/mm3 (0.84-5.20); LYMPHOCYTES PERCENT AUTO 20 % (21-46); MONOCYTES ABSOLUTE AUTO 0.56 K/mm3 (0.16-1.47); MONOCYTES PERCENT AUTO 6 % (4-13); Mean Corpuscular HGB 27.3 pg (26.0-34.0); Mean Corpuscular Volume 85 fL (80-100); Mean Platelet Volume 9.6 fL (9.1-12.4); NEUTROPHILS PERCENT AUTO 72 % (41-73); Platelet Count 294 K/mm3 (150-400); RDW Standard Deviation 49.9 fL (35.1-46.3); Red Blood Cell Count 4.18 M/mm3 (4.30-5.90); White Blood Cell Count 9.81 K/mm3 (4.00-11.30)
[2022-06-20 22:53] LABS: Albumin, Blood 3.2 g/dL (3.4-5.0); Albumin/Globulin Ratio 0.7 (0.8-1.8); Bilirubin, Total 0.4 mg/dL (0.1-1.0); Bun/Creatinine Ratio 29.7 (12.0-20.0); Calcium, Blood 9.5 mg/dL (8.5-10.1); Creatinine, Blood 0.91 mg/dL (0.60-1.20); Globulin, Blood 4.6 g/dL (2.2-4.0); Potassium, Blood 4.2 mmol/L (3.5-5.5); Total Protein, Blood 7.8 g/dL (6.4-8.2)
== END 2022-06-21 01:31 | disposition home or self-care (01) ==
LOC: ER 21:01
PROVIDERS: Physician Assistant
DX: R07.89 Other chest pain (principal); M16.12 Unilateral primary osteoarthritis, left hip; G82.20 Paraplegia, unspecified; I10 Essential (primary) hypertension; Z79.899 Other long term (current) drug therapy; Z79.84 Long term (current) use of oral hypoglycemic drugs
CPT/HCPCS: 71275; 73502; 80053; 83690; 84484; 85025; 93005; 93010; 96374-59; 96375-59; 99285-25; J2270; J2405; Q9967

== ENCOUNTER → 2022-06-29 | Outpatient (CLI) | payer OTHER | END | disposition home or self-care (01) | LOC: LAB 07:20 → LAB SHORT 07:20 | DX: R82.998 Other abnormal findings in urine (principal) | CPT/HCPCS: 87086 ==

== ENCOUNTER 2022-08-09 09:17 | Emergency (ER) | payer OTHER ==
[~2022-08-09] VITALS: Ht 177.8 cm; Wt 95.2 kg
[2022-08-09 10:03] LABS: BASOPHILS ABSOLUTE AUTO 0.04 K/mm3 (0.00-0.23); BASOPHILS PERCENT AUTO 1 % (0-2); EOSINOPHILS ABSOLUTE AUTO 0.14 K/mm3 (0.00-0.68); EOSINOPHILS PERCENT AUTO 2 % (0-6); Hematocrit 39.1 % (37.0-53.0); Hemoglobin 12.1 g/dL (13.5-17.5); IMMATURE GRAN ABSOLUTE AUTO 0.02 K/mm3 (0.00-0.10); IMMATURE GRAN PERCENT AUTO 0 % (0-1); LYMPHOCYTES ABSOLUTE AUTO 1.94 K/mm3 (0.84-5.20); LYMPHOCYTES PERCENT AUTO 23 % (21-46); MONOCYTES ABSOLUTE AUTO 0.54 K/mm3 (0.16-1.47); MONOCYTES PERCENT AUTO 6 % (4-13); Mean Corpuscular HGB 26.2 pg (26.0-34.0); Mean Corpuscular HGB Conc 30.9 g/dL (31.5-36.5); Mean Corpuscular Volume 85 fL (80-100); Mean Platelet Volume 9.8 fL (9.1-12.4); NEUTROPHILS ABSOLUTE AUTO 5.85 K/mm3 (1.96-9.15); NEUTROPHILS PERCENT AUTO 69 % (41-73); Platelet Count 290 K/mm3 (150-400); RDW Coefficient Variation 15.8 % (11.7-14.2); Red Blood Cell Count 4.62 M/mm3 (4.30-5.90); White Blood Cell Count 8.53 K/mm3 (4.00-11.30)
[2022-08-09 10:27] LABS: Albumin, Blood 3.2 g/dL (3.4-5.0); Albumin/Globulin Ratio 0.7 (0.8-1.8); Bilirubin, Total 0.5 mg/dL (0.1-1.0); Bun/Creatinine Ratio 41.5 (12.0-20.0); Calcium, Blood 9.8 mg/dL (8.5-10.1); Creatinine, Blood 0.87 mg/dL (0.60-1.20); Globulin, Blood 4.4 g/dL (2.2-4.0); Potassium, Blood 4.1 mmol/L (3.5-5.5); Total Protein, Blood 7.6 g/dL (6.4-8.2)
[2022-08-09 11:32] LABS: Source, Urine Clean Catch
[2022-08-09 11:41] LABS: Appearance, Urine Cloudy (Clear); Bilirubin, Urine Neg (Neg); Blood, Urine 5+ (Neg); Color, Urine Yellow (P-Yellow); Glucose Qualitative, Urine Neg (Neg); Ketones, Urine Neg (Neg); Leukocyte Esterase, Urine 3+ (Neg); Nitrite, Urine Neg (Neg); Protein, Urine 4+ (Neg); Urobilinogen, Urine NORM (Normal)
[2022-08-09 11:54] LABS: Bacteria Mod /hpf; Red Blood Cells, Urine TNTC /hpf (0-2); Squamous Epithelial Cells Not Seen /hpf (Few); White Blood Cells, Urine TNTC /hpf (0-5)
[2022-08-09] MEDS ORDERED: CEPH500 PO (12:16)
== END 2022-08-09 12:43 | disposition home or self-care (01) ==
LOC: ER 09:17
PROVIDERS: Physician Assistant
DX: R14.0 Abdominal distension (gaseous) (principal); N39.0 Urinary tract infection, site not specified; K59.00 Constipation, unspecified; I11.0 Hypertensive heart disease with heart failure; E11.9 Type 2 diabetes mellitus without complications; J44.9 Chronic obstructive pulmonary disease, unspecified; I50.9 Heart failure, unspecified; Z79.899 Other long term (current) drug therapy; Z79.84 Long term (current) use of oral hypoglycemic drugs; Z86.73 Personal history of transient ischemic attack (TIA), and cerebral infarction without residual deficits
CPT/HCPCS: 36415; 71045; 74018; 80053; 81001; 85025; 99284-25; A9270

== ENCOUNTER → 2022-08-28 | Outpatient (CLI) | payer OTHER ==
[2022-08-28 11:19] LABS: BASOPHILS ABSOLUTE AUTO 0.03 K/mm3 (0.00-0.23); BASOPHILS PERCENT AUTO 1 % (0-2); EOSINOPHILS ABSOLUTE AUTO 0.13 K/mm3 (0.00-0.68); EOSINOPHILS PERCENT AUTO 2 % (0-6); Hemoglobin 10.3 g/dL (13.5-17.5); IMMATURE GRAN ABSOLUTE AUTO 0.02 K/mm3 (0.00-0.10); IMMATURE GRAN PERCENT AUTO 0 % (0-1); LYMPHOCYTES ABSOLUTE AUTO 2.38 K/mm3 (0.84-5.20); LYMPHOCYTES PERCENT AUTO 36 % (21-46); MONOCYTES ABSOLUTE AUTO 0.52 K/mm3 (0.16-1.47); MONOCYTES PERCENT AUTO 8 % (4-13); Mean Corpuscular HGB 25.6 pg (26.0-34.0); Mean Corpuscular HGB Conc 31.2 g/dL (31.5-36.5); Mean Corpuscular Volume 82 fL (80-100); Mean Platelet Volume 9.4 fL (9.1-12.4); NEUTROPHILS ABSOLUTE AUTO 3.48 K/mm3 (1.96-9.15); NEUTROPHILS PERCENT AUTO 53 % (41-73); Platelet Count 310 K/mm3 (150-400); RDW Coefficient Variation 15.6 % (11.7-14.2); RDW Standard Deviation 46.7 fL (35.1-46.3); Red Blood Cell Count 4.02 M/mm3 (4.30-5.90); White Blood Cell Count 6.56 K/mm3 (4.00-11.30)
[2022-08-28 12:51] LABS: Albumin/Globulin Ratio 0.7 (0.8-1.8); Bilirubin, Total 0.4 mg/dL (0.1-1.0); Bun/Creatinine Ratio 44.4 (12.0-20.0); Calcium, Blood 9.4 mg/dL (8.5-10.1); Creatinine, Blood 0.61 mg/dL (0.60-1.20); Globulin, Blood 4.3 g/dL (2.2-4.0); Potassium, Blood 3.4 mmol/L (3.5-5.5); Total Protein, Blood 7.3 g/dL (6.4-8.2)
== END | disposition home or self-care (01) ==
LOC: LAB SHORT 10:10
PROVIDERS: Nurse Practitioner Family
DX: R41.82 Altered mental status, unspecified (principal)
CPT/HCPCS: 80053; 85025

== ENCOUNTER → 2022-12-05 | Outpatient (CLI) | payer OTHER ==
[2022-12-05 14:49] LABS: Source, Urine Clean Catch
[2022-12-05 16:36] LABS: Appearance, Urine Turbid (Clear); Bilirubin, Urine Neg (Neg); Blood, Urine 5+ (Neg); Color, Urine Yellow (P-Yellow); Glucose Qualitative, Urine Neg (Neg); Ketones, Urine Neg (Neg); Leukocyte Esterase, Urine 3+ (Neg); Nitrite, Urine Neg (Neg); Protein, Urine 3+ (Neg); Urobilinogen, Urine NORM (Normal)
[2022-12-05 17:00] LABS: White Blood Cells, Urine TNTC /hpf (0-5)
[2022-12-05 17:02] LABS: Red Blood Cells, Urine 50-100 /hpf (0-2)
[2022-12-05 17:03] LABS: Squamous Epithelial Cells Rare /hpf (Few)
[2022-12-05 17:04] LABS: Bacteria Mod /hpf
== END | disposition home or self-care (01) ==
LOC: LAB 14:47 → LAB SHORT 14:47
PROVIDERS: Nurse Practitioner Family
DX: R30.0 Dysuria (principal)
CPT/HCPCS: 81001; 87077; 87086; 87102; 87106; 87186

== ENCOUNTER → 2022-12-28 | Outpatient (CLI) | payer OTHER ==
[~2022-12-28] MED LIST changes: +BACTRIM DS TAB1 EAC6 PO; +POTA10T PO
[2022-12-28 16:04] LABS: Source, Urine Voided
[2022-12-28 17:47] LABS: Bacteria Mod /hpf; Squamous Epithelial Cells Rare /hpf (Few); White Blood Cells, Urine TNTC /hpf (0-5)
[2022-12-28 17:48] LABS: Calcium Oxalate Crystals Few /hpf; Granular Casts 0-2 /lpf (0); Hyaline Casts 0-2 /lpf (0-2)
== END ==
LOC: LAB SHORT 16:02 → LAB 16:02
PROVIDERS: Urology
DX: N39.0 Urinary tract infection, site not specified (principal)
CPT/HCPCS: 81015; 87086

== ENCOUNTER 2023-04-09 18:44 | Inpatient (IN) | payer OTHER ==
[~2023-04-09] VITALS: Ht 157.5 cm; Wt 90.0 kg
[2023-04-09 19:38] LABS: BASOPHILS ABSOLUTE AUTO 0.04 K/mm3 (0.00-0.23); BASOPHILS PERCENT AUTO 0 % (0-2); EOSINOPHILS ABSOLUTE AUTO 0.07 K/mm3 (0.00-0.68); EOSINOPHILS PERCENT AUTO 1 % (0-6); Hematocrit 38.8 % (37.0-53.0); Hemoglobin 12.3 g/dL (13.5-17.5); IMMATURE GRAN ABSOLUTE AUTO 0.03 K/mm3 (0.00-0.10); IMMATURE GRAN PERCENT AUTO 0 % (0-1); LYMPHOCYTES ABSOLUTE AUTO 2.21 K/mm3 (0.84-5.20); LYMPHOCYTES PERCENT AUTO 21 % (21-46); MONOCYTES ABSOLUTE AUTO 0.59 K/mm3 (0.16-1.47); MONOCYTES PERCENT AUTO 6 % (4-13); Mean Corpuscular HGB 26.5 pg (26.0-34.0); Mean Corpuscular HGB Conc 31.7 g/dL (31.5-36.5); Mean Corpuscular Volume 84 fL (80-100); Mean Platelet Volume 9.4 fL (9.1-12.4); NEUTROPHILS PERCENT AUTO 73 % (41-73); Platelet Count 285 K/mm3 (150-400); RDW Coefficient Variation 17.6 % (11.7-14.2); RDW Standard Deviation 52.9 fL (35.1-46.3); Red Blood Cell Count 4.64 M/mm3 (4.30-5.90); White Blood Cell Count 10.74 K/mm3 (4.00-11.30)
[2023-04-09 20:05] LABS: Albumin/Globulin Ratio 0.9 (0.8-1.8); Bilirubin, Total 0.4 mg/dL (0.1-1.0); Bun/Creatinine Ratio 40.7 (12.0-20.0); Calcium, Blood 9.8 mg/dL (8.5-10.1); Creatinine, Blood 1.13 mg/dL (0.60-1.20); Globulin, Blood 4.6 g/dL (2.2-4.0); Potassium, Blood 4.9 mmol/L (3.5-5.5); Total Protein, Blood 8.6 g/dL (6.4-8.2)
[2023-04-09 21:32] LABS: Base Excess Venous -8.3 mmol/L; Bicarbonate Venous 18.1 mmol/L (24.0-30.0); PCO2 Venous 42.2 mmHg (38-42); pH Blood Venous 7.26 (7.34-7.37)
[2023-04-10] VITALS (9 sets, daily range): BP systolic 135–159; BP diastolic 71–92
--- NOTE | 2023-04-10 00:39 | NUR ---
PT ARRIVED TO THE FLOOR. ASSISTED PRIMARY RN SHIN Abreu TO SETTLE PT. DAUGHTER/CARGIVER AT BEDSIDE REQUEST VILLANUEVA CATHETER BE PLACED DUE TO PT GETTING LASIX. EDUCATED FAMILY THAT CATHETERS ARE NOT PUT IN PATIENTS PER REQUEST AND WE CAN WEIGH/MEASURE BRIEFS INDICATED OR PLACE A CONDOM CATHETER.
--- NOTE | 2023-04-10 02:24 | NUR ---
ASSUMED CARE PT IS A&O X3-4; SOMNULENT, BUT AWAKE AND WATCHING TV AT TIME OF THIS NOTE. SPEAKS IN ONE WORD ANSWERS. SPO2 >92% ON BIPAP, MAP >65, NSR. PT IS PARAPLEGIC W/ DAUGHTER AT BEDSIDE WHO IS MAIN CAREGIVER. PT RECEIVED ENEMA ON ADMIT AND IS HAVING FREQUENT SOFT BROWN BOWEL MOVEMENTS. ABDOMEN IS STILL SEVERELY DISTENDED AND FIRM TO TOUCH. DENIES CP, INCREASED SOB, OR NAUSEA. TOLERATING BIPAP WELL. PT SOUNDS GURGLY WITH BIPAP OFF.
[2023-04-10 04:48] LABS: BASOPHILS ABSOLUTE AUTO 0.01 K/mm3 (0.00-0.23); BASOPHILS PERCENT AUTO 0 % (0-2); EOSINOPHILS ABSOLUTE AUTO 0.01 K/mm3 (0.00-0.68); EOSINOPHILS PERCENT AUTO 0 % (0-6); Hematocrit 35.2 % (37.0-53.0); Hemoglobin 11.2 g/dL (13.5-17.5); IMMATURE GRAN ABSOLUTE AUTO 0.03 K/mm3 (0.00-0.10); IMMATURE GRAN PERCENT AUTO 0 % (0-1); LYMPHOCYTES ABSOLUTE AUTO 1.07 K/mm3 (0.84-5.20); LYMPHOCYTES PERCENT AUTO 15 % (21-46); MONOCYTES ABSOLUTE AUTO 0.08 K/mm3 (0.16-1.47); MONOCYTES PERCENT AUTO 1 % (4-13); Mean Corpuscular HGB 26.7 pg (26.0-34.0); Mean Corpuscular HGB Conc 31.8 g/dL (31.5-36.5); Mean Corpuscular Volume 84 fL (80-100); Mean Platelet Volume 9.2 fL (9.1-12.4); NEUTROPHILS ABSOLUTE AUTO 5.97 K/mm3 (1.96-9.15); NEUTROPHILS PERCENT AUTO 83 % (41-73); Platelet Count 236 K/mm3 (150-400); RDW Coefficient Variation 17.3 % (11.7-14.2); RDW Standard Deviation 52.9 fL (35.1-46.3); Red Blood Cell Count 4.19 M/mm3 (4.30-5.90); White Blood Cell Count 7.17 K/mm3 (4.00-11.30)
[2023-04-10 05:09] LABS: Albumin, Blood 3.6 g/dL (3.4-5.0); Anion Gap 7 mmol/L (6-16); Blood Urea Nitrogen 46 mg/dL (8-24); Bun/Creatinine Ratio 39.3 (12.0-20.0); CO2, Blood 20 mmol/L (21-32); Calcium, Blood 9.2 mg/dL (8.5-10.1); Chloride, Blood 114 mmol/L (98-108); Creatinine, Blood 1.17 mg/dL (0.60-1.20); Glomerular Filtration Rate 66 (60-); Glucose, Blood 205 mg/dL (70-99); Magnesium, Blood 2.6 mg/dL (1.6-2.4); Phosphorus, Blood 5.2 mg/dL (2.5-4.9); Potassium, Blood 4.2 mmol/L (3.5-5.5); Sodium, Blood 141 mmol/L (136-145)
--- NOTE | 2023-04-10 05:11 | NUR ---
SHIFT SUMMARY PT IS A&O X3-4; STILL SOMNULENT, BUT AROUSES SPONTANEOUSLY. PT HAD SEVERAL BM'S T/O NIGHT. TOLERATES BIPAP WELL; SPO2 >92%, MAP >65; NSR 70'S. ABDOMEN REMAINS DISTENDED AND FIRM; PAINFUL WHEN LAID SUPINE. NO ACUTE EVENTS OVERNIGHT.
[2023-04-10 05:22] LABS: Influenza A, PCR NEGATIVE (NEGATIVE); Influenza B, PCR NEGATIVE (NEGATIVE); Resp Syncytial Virus, PCR NEGATIVE (NEGATIVE); SARS-Cov-2 (COVID-19) PCR, MMC NEGATIVE (NEGATIVE)
--- NOTE | 2023-04-10 10:04 | NUR ---
ASSUMPTION OF CARE ASSUMED CARE AT APPROX 0700. PT AOX3-4. ABLE TO COMMUNICATE NEEDS W/ ONE WORD STATEMENTS, MUMBLED SOFT SPEECH ASSESSED. DIFFICULTY SPEAKING IN FULL SENTENCES NOTED. HX OF STROKE. VSS. TELEMETRY SHOWING SR 80'S-90'S. BP STABLE. ON BIPAP DURING INITIAL ENCOUNTER, SATS >92%. BIPAP RMVD FOR BREAKFAST, 2L VIA NC APPLIED, SATS >92%. INCREASED WORK OF BREATHING AND WET, GURGLE ASSESSED AT BACK OF THROAT ONCE OFF OF BIPAP. WEAK COUGH NOTED. PT IS CURRENTLY ON BIPAP. PT TOLERATING MECH SOFT DIET, THICKENED LIQUIDS. REQUIRING FEED ASSIST. ABDOMEN IS FIRM, DISTENDED. HYPOACTIVE BOWEL TONES. ENEMA ADMINISTERED BY NIGHT NURSE, MULTIPLE BM'S SINCE, REPORTED BY NIGHT NURSE. NO BM SINCE ASSUMPTION OF CARE. PT INCONTIENT OF URINE, ATTENDS AND WRAP IN PLACE. PT COOPERATIVE W/ ORAL CARE AND REGULAR REPOSITIONING. CALL LIGHT IN REACH.
[2023-04-10] MEDS ORDERED: ALLO100 PO (12:34)
[2023-04-10] MEDS ORDERED: ATOR40TA PO (12:34)
[2023-04-10] MEDS ORDERED: FISH OIL 1,0001 EA10 PO (12:36)
[2023-04-10] MEDS ORDERED: PREG50 PO (12:37)
[2023-04-10] MEDS ORDERED: OXYC10ER PO (12:39)
[2023-04-10] MEDS ORDERED: Flomax0.4 MG PO (12:40)
[2023-04-10] MEDS ORDERED: BENADRYL25 MG PO (12:41)
[2023-04-10] MEDS ORDERED: SENN187 PO (12:43)
[2023-04-10] MEDS ORDERED: DOC250 (12:43)
--- NOTE | 2023-04-10 17:10 | NUR ---
SHIFT SUMMARY NO ACUTE CHANGES SINCE ASSUMPTION OF CARE NOTE. PT REMAINED AOX3-4. COMMUNICATING THROUGH ONE WORD STATEMENTS, GARBLED SPEECH. VS REMAINED STABLE. TELEMETRY CONTINUING TO SHOW SR 70'S-80'S. BP STABLE. PT ON BIPAP WHILE SLEEPING OR WHEN WORK OF BREATHING INCREASES. INTERMITTENT COUGH IS BECOMING MORE PRODUCTIVE. PT WAS ABLE TO TOLERATE 2L VIA NC WHILE AWAKE, SATS >90%. LIFT TRANSFER. TOLERATED SITTING IN A CHAIR THIS AFTERNOON. VOIDING. X2 BM'S THIS SHIFT. ATTENDS AND WRAP IN PLACE. BEDBATH PERFORMED THIS MORNING AND REGULAR REPOSITIONING IMPLEMENTED THROUGHOUT SHIFT. USES CALL LIGHT PRN. CURRENTLY IN BED, EATING DINNER. FEED ASSIST PRN. WILL REPORT TO ONCOMING RN.
--- NOTE | 2023-04-10 17:41 | NUR ---
UPDATE WHILE PT WAS EATING DINNER, PT BECAME INCREASINGLY SHORT OF BREATH. TACHYPNEIC, INCREASED WORK OF BREATHING NOTED W/ AUDIBLE EXPIRATORY CORSE WHEEZE. PT ON 2L VIA NC, SATS >90%. REPOSITIONED IN BED, HEAD OF BED ELEVATED. WORK OF BREATHING STEADILY DECREASED. PT PLACED ON BIPAP, SATS >90%. WILL CONTINUE TO MONITOR AND REPORT TO ONCOMING RN.
[2023-04-11] VITALS (7 sets, daily range): BP systolic 124–165; BP diastolic 71–94
[2023-04-11 03:25] LABS: Base Excess Venous -4.9 mmol/L; Bicarbonate Venous 20.9 mmol/L (24.0-30.0); PCO2 Venous 33.6 mmHg (38-42); pH Blood Venous 7.39 (7.34-7.37)
[2023-04-11 03:40] LABS: BASOPHILS ABSOLUTE AUTO 0.02 K/mm3 (0.00-0.23); BASOPHILS PERCENT AUTO 0 % (0-2); EOSINOPHILS PERCENT AUTO 1 % (0-6); Hematocrit 33.7 % (37.0-53.0); Hemoglobin 10.4 g/dL (13.5-17.5); IMMATURE GRAN ABSOLUTE AUTO 0.04 K/mm3 (0.00-0.10); IMMATURE GRAN PERCENT AUTO 0 % (0-1); LYMPHOCYTES ABSOLUTE AUTO 2.55 K/mm3 (0.84-5.20); LYMPHOCYTES PERCENT AUTO 28 % (21-46); MONOCYTES ABSOLUTE AUTO 0.72 K/mm3 (0.16-1.47); MONOCYTES PERCENT AUTO 8 % (4-13); Mean Corpuscular HGB 26.1 pg (26.0-34.0); Mean Corpuscular HGB Conc 30.9 g/dL (31.5-36.5); Mean Corpuscular Volume 85 fL (80-100); Mean Platelet Volume 9.8 fL (9.1-12.4); NEUTROPHILS PERCENT AUTO 62 % (41-73); Platelet Count 240 K/mm3 (150-400); RDW Coefficient Variation 18.2 % (11.7-14.2); RDW Standard Deviation 55.7 fL (35.1-46.3); Red Blood Cell Count 3.98 M/mm3 (4.30-5.90); White Blood Cell Count 9.03 K/mm3 (4.00-11.30)
[2023-04-11 04:12] LABS: Bun/Creatinine Ratio 48.1 (12.0-20.0); Calcium, Blood 8.9 mg/dL (8.5-10.1); Creatinine, Blood 1.33 mg/dL (0.60-1.20); Potassium, Blood 3.8 mmol/L (3.5-5.5)
--- NOTE | 2023-04-11 05:51 | NUR ---
SHIFT SUMMARY PT ON BIPAP FOR THE MAJORITY OF THIS SHIFT 16/10 AND 30% FIO2. NO CHANGES TO NEURO THIS SHIFT. PT GIVEN PRN BREATHING TREATMENTS. PT ON 2L VIA NC WHILE SITTING UPRIGHT WITH PO INTAKE. PT EDUCATED ON NECTAR THICK LIQUIDS. BP STABLE. SR WITH PVC'S NOTED, HR 60-70'S. AFEBRILE. SPO2 >92%. REPOSITIONING Q2HRS. X2 BM'S DURING THIS SHIFT. BS+. BED IN LOWEST POSITION AND CALL LIGHT WITHIN REACH. THIS RN WILL REPORT TO ONCOMING RN.
--- NOTE | 2023-04-11 09:34 | NUR ---
ASSUMPTION OF CARE ASSUMED CARE AT APPROX 0700. PT AOX4. AT BASELINE NEURO STATUS. ABLE TO COMMUNICATE NEEDS VIA ONE WORD STATEMENTS AND COMMUNICATION BOARD IN ROOM. USES CALL LIGHT PRN. VSS. TELEMETRY SHOWING SR W/ PVC'S 70'S-80'S. BP STABLE. ON BIPAP WHILE SLEEPING AND 2L VIA NC WHILE AWAKE, SATS >90%. TOLERATING MECH SOFT DIET W/ THICKENED LIQUIDS. REQUIRES FEED ASSIST FOR SUPERVISION AND ASSIST PRN. HEAD OF BED ELEVATED WHILE EATING. MORNING MEDICATIONS ADMINISTERED IN APPLESAUCE. MULTIPLE BOWEL MOVEMENTS SINCE BEGINNING BOWEL CARE. ABDOMEN REMAINS DISTENDED, FIRM. NORMOACTIVE BOWEL TONES. INCONTINENT OF STOOL AND URINE AT TIMES. ATTENDS AND WRAP IN PLACE. PT COOPERATIVE W/ MORNING CARE. CALL LIGHT IN REACH.
--- NOTE | 2023-04-11 14:07 | NUR ---
UPDATE DAUGHTER AT BEDSIDE. CAME IN TO VISIT PT. ASKING FOR ICE TO PLACE IN THICKENED WATER. XIOMARA RN CAME INTO ROOM TO EDUCATE DAUGHTER REGARDING BEING COMPLIANT W/ NECTAR THICK LIQUIDS. DAUGHTER INSISTED TO PUT ICE IN THICKENED WATER. PT THEN TOOK A SIP AND STARTED COUGHING. DAUGHTER STATES "HE ALWAYS COUGHS LIKE THIS." DAUGHTER STATES "ONLY REASON FOR NECTAR THICK ORDER IS PER HER RECOMMENDATION." DAUGHTER STATES "HE CHOKES WORSE WITHOUT ICE TO KEEP LIQUID COLD BECAUSE HE CAN'T FEEL IT GOING DOWN." DAUGHTER REFUSING SPEECH THERAPY CONSULTATION FOR SWALLOW EVALUATION. SOCIAL WORK SUPERVISOR IN ROOM AT THIS TIME, PROVIDED FURTHER EDUCATION. RECOMMENDED PLACING CUP WITH THICKENED LIQUIDS IN A BIGGER CUP CONTAINING ICE TO KEEP COLD. DAUGHTER AND PT AGREES WITH PLAN.
--- NOTE | 2023-04-11 17:38 | NUR ---
SHIFT SUMMARY NO ACUTE CHANGES SINCE ASSUMPTION OF CARE NOTE. NO CHANGES IN NEURO STATUS. PT CONTINUING TO REPORT FRUSTRATION REGARDING MECH SOFT, NECTAR THICK LIQUID DIET. SEE EARLIER NOTE REGARDING DISCUSSION W/ DAUGHTER AND PT. THIS RN AND UNIT STAFF CONTINUING TO REINFORCE AND PROVIDE EDUCATION REGARDING ASPIRATION PRECAUTIONS. PT CONTINUES TO COUGH AFTER SWALLOWING, WITH AND WITHOUT A STRAW. HEAD OF BED ELEVATED 90 DEGREES DURING MEALS AND WITH DRINKING. PRN FEED ASSIST, SUPERVISION AT BEDSIDE WHILE EATING AND DRINKING. OBTAINED ADAPTIVE UTENSILS FROM [employer] TO HELP PT TO BETTER FEED HIMSELF. VS CONTINUING TO BE STABLE. TELEMETRY CONTINUING TO SHOW SR W/ PVC's. HR 60'S-80'S. BP STABLE. CURRENTLY ON 2L VIA NC, SATS >90%. USED BIPAP WHILE SLEEPING. VOIDING. MULTIPLE BM's THIS SHIFT. PT REFUSED TO SIT IN CHAIR FOR MEALS. FREQUENT REPOSITIONING IN BED PERFORMED. BEDBATH PERFORMED THIS SHIFT. CALL LIGHT IN REACH. WILL REPORT TO ONCOMING RN.
[2023-04-12] VITALS (8 sets, daily range): BP systolic 135–186; BP diastolic 67–90
[2023-04-12 03:51] LABS: Base Excess Venous -2.6 mmol/L; Bicarbonate Venous 22.4 mmol/L (24.0-30.0); PCO2 Venous 36.8 mmHg (38-42); pH Blood Venous 7.39 (7.34-7.37)
--- NOTE | 2023-04-12 04:17 | NUR ---
SHIFT SUMMARY THIS RN ASSUMED CARE OF PATIENT AT 1900. PT A&O X4. NO NEURO CHANGES NOTED. PT CALLING APPROPRIATELY. SR BBB WITH HR 60-70'S; PROLONGED QTC NOTED AT 0.51 DURING THIS NOC SHIFT. ON 2L VIA NC WHILE AWAKE, BIPAP 16/10 AND 21% FIO2 WHILE SLEEPING OR LYING FLAT; SPO2 >92%. BP STABLE. AFEBRILE. LR INFUSING PER EMAR. REPOSITIONING Q2HRS. MEDICATED PER EMAR FOR PAIN. BED IN LOWEST POSITION AND CALL LIGHT WITHIN REACH. THIS RN WILL REPORT TO ONCOMING RN.
[2023-04-12 04:23] LABS: Bun/Creatinine Ratio 41.9 (12.0-20.0); Calcium, Blood 8.3 mg/dL (8.5-10.1); Creatinine, Blood 0.91 mg/dL (0.60-1.20); Magnesium, Blood 2.3 mg/dL (1.6-2.4); Potassium, Blood 3.6 mmol/L (3.5-5.5)
[2023-04-12 15:18] LABS: Thyroid Stimulating Hormone 0.742 uIU/mL (0.360-4.800)
--- NOTE | 2023-04-12 19:24 | NUR ---
ASSUMED CARE OF PT AT 0700 THIS AM. NO ACUTE CHANGES T/O THE SHIFT. PT ON AND OFF BIPAP T/O THE DAY. PT TO ABD CT SCAN, RESULTS SHOW LARGE STOOL BURDEN AND LARGE GAS IN BOWELS. PT TREATED WITH BOWEL CARE PER ORDERS, ENEMA GIVEN THIS EVENING. VSS. SEE ASSESSMENT. PT NOW MEDICAL STATUS W/O TELE. PT OBSERVED TO COUGH AND HAVE DIFFICULTY BREATHING AFTER PO INTAKE. FULL SUPERVISION AND ASSISTANCE WITH MEALS. PREVIOUS RN NOTE STATES DTR REFUSED SPEECH EVAL THIS ADMISSION. PT IS INCONTENENT OF URINE/STOOL. Q 2 HR TURN. NO SKIN BREAKDOWN NOTED. PT IS ABLE TO USE CALL LIGHT FOR NEEDS, CALL LIGHT IN REACH, REPORT GIVEN TO NOC SHIFT RN.
[2023-04-13 03:29] VITALS: BP 144/66
[2023-04-13 03:42] LABS: BASOPHILS ABSOLUTE AUTO 0.03 K/mm3 (0.00-0.23); BASOPHILS PERCENT AUTO 1 % (0-2); EOSINOPHILS ABSOLUTE AUTO 0.16 K/mm3 (0.00-0.68); EOSINOPHILS PERCENT AUTO 3 % (0-6); Hematocrit 30.8 % (37.0-53.0); Hemoglobin 9.6 g/dL (13.5-17.5); IMMATURE GRAN ABSOLUTE AUTO 0.01 K/mm3 (0.00-0.10); IMMATURE GRAN PERCENT AUTO 0 % (0-1); LYMPHOCYTES ABSOLUTE AUTO 1.89 K/mm3 (0.84-5.20); LYMPHOCYTES PERCENT AUTO 30 % (21-46); MONOCYTES ABSOLUTE AUTO 0.55 K/mm3 (0.16-1.47); MONOCYTES PERCENT AUTO 9 % (4-13); Mean Corpuscular HGB 26.2 pg (26.0-34.0); Mean Corpuscular HGB Conc 31.2 g/dL (31.5-36.5); Mean Corpuscular Volume 84 fL (80-100); Mean Platelet Volume 9.9 fL (9.1-12.4); NEUTROPHILS ABSOLUTE AUTO 3.61 K/mm3 (1.96-9.15); NEUTROPHILS PERCENT AUTO 58 % (41-73); Platelet Count 209 K/mm3 (150-400); RDW Coefficient Variation 18.2 % (11.7-14.2); RDW Standard Deviation 55.8 fL (35.1-46.3); Red Blood Cell Count 3.66 M/mm3 (4.30-5.90); White Blood Cell Count 6.25 K/mm3 (4.00-11.30)
[2023-04-13 04:11] LABS: Albumin, Blood 3.1 g/dL (3.4-5.0); Albumin/Globulin Ratio 0.9 (0.8-1.8); Bilirubin, Total 0.5 mg/dL (0.1-1.0); Calcium, Blood 8.2 mg/dL (8.5-10.1); Creatinine, Blood 0.76 mg/dL (0.60-1.20); Globulin, Blood 3.3 g/dL (2.2-4.0); Potassium, Blood 3.3 mmol/L (3.5-5.5); Total Protein, Blood 6.4 g/dL (6.4-8.2)
--- NOTE | 2023-04-13 05:13 | NUR ---
SHIFT SUMMARY NO ACUTE CHANGES THIS SHIFT. VSS ASIDE FROM MILD HTN, MEDS PER EMAR TO EFFECT DESIRED. BP STABLE. PT OFF AND ON BIPAP TONIGHT, TOELRATES NC WELL. MULTIPLE BM'S. PT WITH MULTIPLE ATTENDS CHANGES WITH EXTERNAL MALE WICKING PADS. PT TOLERATING ORAL CARE WELL. BEING REPOSITIONED BY STAFF AND PATIENT COMMUNICATES WELL. DAUGHTER UPDATED. PT PLEASANT AND COOPERATIVE. BED IN LOW POSITION. CALL LIGHT WITHIN REACH.
[2023-04-13 08:09] VITALS: BP 150/77
[2023-04-13] MEDS ORDERED: SENN187 PO (11:36)
[2023-04-13] MEDS ORDERED: DOCU100 PO (11:36)
[2023-04-13] MEDS ORDERED: MIRALAX17 GM PO (11:37)
--- NOTE | 2023-04-13 14:57 | NUR ---
DISCHARGE: PT D/C FROM [facility] 11 @8797 VIA WHEECHAIR. DISCHARGE INSTRUCTIONS AND EDUCATION PROVIDED TO PT AND DAUGHTER. ALL BELONINGS WITH PT.
== END 2023-04-13 15:05 | disposition home or self-care (01) | DRG 391 ==
LOC: ER 18:44 → PCU 22:38
PROVIDERS: Emergency Medicine; Family Medicine; Internal Medicine; Physician Assistant; ADMIT Hospitalist
PROC: 5A09357 Assistance with Respiratory Ventilation, Less than 24 Consecutive Hours, Continuous Positive Airway Pressure (ICD-10-PCS; principal; 2023-04-10)
DX: K59.81 Ogilvie syndrome (principal); G92.8 Other toxic encephalopathy; J96.21 Acute and chronic respiratory failure with hypoxia; E87.21 Acute metabolic acidosis; I69.351 Hemiplegia and hemiparesis following cerebral infarction affecting right dominant side; G82.20 Paraplegia, unspecified; Z66 Do not resuscitate; R14.0 Abdominal distension (gaseous); G47.30 Sleep apnea, unspecified; E11.9 Type 2 diabetes mellitus without complications; N40.0 Benign prostatic hyperplasia without lower urinary tract symptoms; E78.5 Hyperlipidemia, unspecified; I50.9 Heart failure, unspecified; I11.0 Hypertensive heart disease with heart failure; K59.09 Other constipation; M25.559 Pain in unspecified hip; E87.6 Hypokalemia; J44.9 Chronic obstructive pulmonary disease, unspecified; M10.9 Gout, unspecified; Z20.822 Contact with and (suspected) exposure to COVID-19; Z79.899 Other long term (current) drug therapy; Z99.89 Dependence on other enabling machines and devices; Z87.442 Personal history of urinary calculi; Z79.84 Long term (current) use of oral hypoglycemic drugs; Z79.891 Long term (current) use of opiate analgesic; Z79.01 Long term (current) use of anticoagulants; Z98.890 Other specified postprocedural states; Z93.1 Gastrostomy status; Z93.0 Tracheostomy status; Z87.891 Personal history of nicotine dependence
CPT/HCPCS: 0241U; 36415; 71045; 74018; 74177; 80048; 80053; 80069; 82803; 82947; 83605; 83735; 83880; 84439; 84443; 84484; 85025; 93005; 93010; 94640; 94660; 94664; 94762; 96372; 96374; 96375; 99285-25; A9270; G0378; J0360; J1644; J1885; J1940; J2930; J3411; J7120; Q9967

== ENCOUNTER → 2023-06-28 | Outpatient (CLI) | payer OTHER ==
[~2023-06-28] MED LIST changes: +ALLO100 PO; +ATOR40TA PO; +BENADRYL25 MG PO; +BISA10S PR; +DOC250; +DOCU100 PO; +FISH OIL 1,0001 EA10 PO; +MIRALAX17 GM PO; +OXYC10ER PO; +PREG50 PO; +SENN187 PO
[2023-06-28 07:10] LABS: Source, Urine Clean Catch
[2023-06-28 09:40] LABS: Appearance, Urine Cloudy (Clear); Bilirubin, Urine Neg (Neg); Blood, Urine 5+ (Neg); Color, Urine Yellow (P-Yellow); Glucose Qualitative, Urine Neg (Neg); Ketones, Urine Neg (Neg); Leukocyte Esterase, Urine 3+ (Neg); Nitrite, Urine Neg (Neg); Protein, Urine 3+ (Neg); Urobilinogen, Urine NORM (Normal)
[2023-06-28 09:47] LABS: White Blood Cells, Urine TNTC /hpf (0-5)
[2023-06-28 09:48] LABS: Bacteria Few /hpf; Calcium Oxalate Crystals Rare /hpf; Red Blood Cells, Urine 25-50 /hpf (0-2); Squamous Epithelial Cells Rare /hpf (Few)
== END ==
LOC: LAB SHORT 07:06 → LAB 07:06
PROVIDERS: Urology
DX: N39.0 Urinary tract infection, site not specified (principal)
CPT/HCPCS: 81001; 87086

== ENCOUNTER 2023-07-04 20:01 | Emergency (ER) | payer OTHER ==
[~2023-07-04] VITALS: Ht 177.8 cm; Wt 86.2 kg
[~2023-07-04 20:01] MED LIST changes: -BISA10S PR
[2023-07-04 20:43] LABS: BASOPHILS ABSOLUTE AUTO 0.04 K/mm3 (0.00-0.23); BASOPHILS PERCENT AUTO 1 % (0-2); EOSINOPHILS ABSOLUTE AUTO 0.24 K/mm3 (0.00-0.68); EOSINOPHILS PERCENT AUTO 3 % (0-6); Hematocrit 35.4 % (37.0-53.0); Hemoglobin 11.4 g/dL (13.5-17.5); IMMATURE GRAN ABSOLUTE AUTO 0.04 K/mm3 (0.00-0.10); IMMATURE GRAN PERCENT AUTO 1 % (0-1); LYMPHOCYTES ABSOLUTE AUTO 2.15 K/mm3 (0.84-5.20); LYMPHOCYTES PERCENT AUTO 28 % (21-46); MONOCYTES ABSOLUTE AUTO 0.51 K/mm3 (0.16-1.47); MONOCYTES PERCENT AUTO 7 % (4-13); Mean Corpuscular HGB 28.5 pg (26.0-34.0); Mean Corpuscular HGB Conc 32.2 g/dL (31.5-36.5); Mean Corpuscular Volume 89 fL (80-100); Mean Platelet Volume 9.4 fL (9.1-12.4); NEUTROPHILS ABSOLUTE AUTO 4.68 K/mm3 (1.96-9.15); NEUTROPHILS PERCENT AUTO 61 % (41-73); Platelet Count 205 K/mm3 (150-400); RDW Coefficient Variation 16.5 % (11.7-14.2); RDW Standard Deviation 53.1 fL (35.1-46.3); White Blood Cell Count 7.66 K/mm3 (4.00-11.30)
[2023-07-04 21:16] LABS: Albumin, Blood 3.1 g/dL (3.4-5.0); Albumin/Globulin Ratio 0.8 (0.8-1.8); Bilirubin, Total 0.5 mg/dL (0.1-1.0); Bun/Creatinine Ratio 22.6 (12.0-20.0); Creatinine, Blood 0.84 mg/dL (0.60-1.20); Globulin, Blood 3.8 g/dL (2.2-4.0); Potassium, Blood 3.9 mmol/L (3.5-5.5); Total Protein, Blood 6.9 g/dL (6.4-8.2)
[2023-07-04 23:53] LABS: Source, Urine Straight Cath
[2023-07-05 00:24] LABS: Bilirubin, Urine Neg (Neg); Blood, Urine 4+ (Neg); Glucose Qualitative, Urine Neg (Neg); Ketones, Urine Neg (Neg); Leukocyte Esterase, Urine 3+ (Neg); Nitrite, Urine Neg (Neg); Protein, Urine 3+ (Neg); Specific Gravity, Urine 1.015 (1.003-1.022); Urobilinogen, Urine NORM (Normal); pH, Urine 6.5 (5.0-8.0)
[2023-07-05 00:32] LABS: Appearance, Urine Cloudy (Clear); Color, Urine Yellow (P-Yellow)
[2023-07-05 00:36] LABS: Bacteria Mod /hpf; Squamous Epithelial Cells Not Seen /hpf (Few); White Blood Cells, Urine 50-100 /hpf (0-5)
[2023-07-05] MEDS ORDERED: CEPH500 PO (04:21)
[2023-07-05] MEDS ORDERED: BISA10S PR (04:22)
[2023-07-05 04:30] VITALS: BP 148/72
== END 2023-07-05 04:50 | disposition home or self-care (01) ==
LOC: ER 20:01
PROVIDERS: Student in an Organized Health Care Education/Training Program
DX: N39.0 Urinary tract infection, site not specified (principal); N13.30 Unspecified hydronephrosis
CPT/HCPCS: 74177; 80053; 81001; 83690; 85025; 87086; 96360; 99284-25; A9270; J0696; Q9967

== ENCOUNTER 2023-07-24 22:26 | Inpatient (IN) | payer OTHER ==
[~2023-07-24] VITALS: Ht 175.3 cm; Wt 86.8 kg
[~2023-07-24 22:26] MED LIST changes: +AMLO10 PO; -AMLO5 PO; +BISA10S PR
[2023-07-24 22:59] LABS: BASOPHILS ABSOLUTE AUTO 0.03 K/mm3 (0.00-0.23); BASOPHILS PERCENT AUTO 0 % (0-2); EOSINOPHILS ABSOLUTE AUTO 0.17 K/mm3 (0.00-0.68); EOSINOPHILS PERCENT AUTO 2 % (0-6); Hemoglobin 11.6 g/dL (13.5-17.5); IMMATURE GRAN ABSOLUTE AUTO 0.04 K/mm3 (0.00-0.10); IMMATURE GRAN PERCENT AUTO 1 % (0-1); LYMPHOCYTES ABSOLUTE AUTO 1.81 K/mm3 (0.84-5.20); LYMPHOCYTES PERCENT AUTO 26 % (21-46); MONOCYTES ABSOLUTE AUTO 0.75 K/mm3 (0.16-1.47); MONOCYTES PERCENT AUTO 11 % (4-13); Mean Corpuscular HGB 28.3 pg (26.0-34.0); Mean Corpuscular HGB Conc 32.2 g/dL (31.5-36.5); Mean Corpuscular Volume 88 fL (80-100); Mean Platelet Volume 9.1 fL (9.1-12.4); NEUTROPHILS ABSOLUTE AUTO 4.29 K/mm3 (1.96-9.15); NEUTROPHILS PERCENT AUTO 61 % (41-73); Platelet Count 203 K/mm3 (150-400); RDW Standard Deviation 51.4 fL (35.1-46.3); White Blood Cell Count 7.09 K/mm3 (4.00-11.30)
[2023-07-24 23:23] LABS: Albumin, Blood 3.1 g/dL (3.4-5.0); Albumin/Globulin Ratio 0.8 (0.8-1.8); Bilirubin, Total 0.5 mg/dL (0.1-1.0); Calcium, Blood 9.4 mg/dL (8.5-10.1); Creatinine, Blood 0.86 mg/dL (0.60-1.20); Globulin, Blood 3.8 g/dL (2.2-4.0); Potassium, Blood 3.5 mmol/L (3.5-5.5); Total Protein, Blood 6.9 g/dL (6.4-8.2)
[2023-07-24 23:23] LABS: Source, Urine Clean Catch
[2023-07-24 23:25] LABS: Bilirubin, Urine Neg (Neg); Blood, Urine 5+ (Neg); Glucose Qualitative, Urine 4+ (Neg); Ketones, Urine Neg (Neg); Leukocyte Esterase, Urine 3+ (Neg); Nitrite, Urine Neg (Neg); Protein, Urine 3+ (Neg); Specific Gravity, Urine 1.015 (1.003-1.022); Urobilinogen, Urine NORM (Normal); pH, Urine 6.5 (5.0-8.0)
[2023-07-24 23:51] LABS: Appearance, Urine Turbid (Clear); Color, Urine Pale Yellow (P-Yellow)
[2023-07-24 23:54] LABS: Bacteria Mod /hpf; Red Blood Cells, Urine 25-50 /hpf (0-2); Squamous Epithelial Cells Not Seen /hpf (Few); White Blood Cells, Urine TNTC /hpf (0-5)
[2023-07-25] MEDS ORDERED: BACL10 PO (02:08)
[2023-07-25] MEDS ORDERED: Cipro500 MG PO (02:12)
[2023-07-25 02:46] VITALS: BP 183/98
[2023-07-25 05:20] LABS: BASOPHILS ABSOLUTE AUTO 0.04 K/mm3 (0.00-0.23); BASOPHILS PERCENT AUTO 1 % (0-2); EOSINOPHILS ABSOLUTE AUTO 0.21 K/mm3 (0.00-0.68); EOSINOPHILS PERCENT AUTO 3 % (0-6); Hematocrit 33.8 % (37.0-53.0); Hemoglobin 10.8 g/dL (13.5-17.5); IMMATURE GRAN ABSOLUTE AUTO 0.01 K/mm3 (0.00-0.10); IMMATURE GRAN PERCENT AUTO 0 % (0-1); LYMPHOCYTES PERCENT AUTO 25 % (21-46); MONOCYTES ABSOLUTE AUTO 0.82 K/mm3 (0.16-1.47); MONOCYTES PERCENT AUTO 11 % (4-13); Mean Corpuscular HGB 28.3 pg (26.0-34.0); Mean Corpuscular Volume 89 fL (80-100); Mean Platelet Volume 9.4 fL (9.1-12.4); NEUTROPHILS ABSOLUTE AUTO 4.73 K/mm3 (1.96-9.15); NEUTROPHILS PERCENT AUTO 62 % (41-73); Platelet Count 190 K/mm3 (150-400); RDW Coefficient Variation 15.9 % (11.7-14.2); RDW Standard Deviation 51.6 fL (35.1-46.3); Red Blood Cell Count 3.81 M/mm3 (4.30-5.90); White Blood Cell Count 7.71 K/mm3 (4.00-11.30)
[2023-07-25 07:08] LABS: Albumin, Blood 2.9 g/dL (3.4-5.0); Albumin/Globulin Ratio 0.8 (0.8-1.8); Bilirubin, Total 0.5 mg/dL (0.1-1.0); Bun/Creatinine Ratio 21.5 (12.0-20.0); Creatinine, Blood 0.79 mg/dL (0.60-1.20); Globulin, Blood 3.6 g/dL (2.2-4.0); Potassium, Blood 3.3 mmol/L (3.5-5.5); Total Protein, Blood 6.5 g/dL (6.4-8.2)
[2023-07-25 07:32] VITALS: BP 150/79
--- NOTE | 2023-07-25 08:22 | NUR ---
SHIFT SUMMARY PT ARRIVES TO ROOM 361 FROM ER AT 0235 VIA GURNEY WITH DAUGHTER AT BEDSIDE. SHE IS HIS CAREGIVER. PT IS THEN TRANSFERED TO HOSPITAL BED VIA SLIDE SHEET. PT IS A PARAPLEGIC AT BASELINE. ABLE TO MOVE LUE ONLY. PT IS ALERT, AND ORIENTED ALTHOUGH HARD TO ASSESS D/T MINIMAL VOCABULARY. HE DOES ANSWER APPROPRIATELY WITH YES AND NO ANSWERS. VSS, HYPERTENSIVE AT 183/98, ON RA. WEARS A CPAP AT NOC OR WHILE ASLEEP. NSR AT 70 PER TELEMETRY. PT IS TO BE ON A MECHANICAL SOFT DIET WITH NECTAR THICK LIQUIDS PER DAUGHTER. HE IS INCONTINENT OF URINE. BRIEF IN PLACE, AND CHANGED NEEDED. LARGE OUTPUTS OF PURULENT URINE. HE STRAINS SIGNIFICANTLY WHEN VOIDING. NO BM THIS SHIFT. ELECTRIC WHEELCHAIR AT BEDSIDE. PT IS ABLE TO MAKE NEEDS KNOWN. BED IN LOEST POSITION, CALL LIGHT WITHIN REACH. CONTACT PRECAUTIONS INITIATED FOR MRSA IN HIS URINE.
[2023-07-25 16:08] VITALS: BP 131/84
--- NOTE | 2023-07-25 18:30 | NUR ---
SUMMARY- PT A/O X3. INTERMITTANT NEURO CHANGES THIS SHIFT. THIS AM PT HAD EPISODE WHERE SHE COULDN'T TALK, HAD A DISTANT STARE, WAS ABLE TO FOLLOW COMMANDS. BECAME VERY PARANOID AND AGGITATED. REFUSED MEDS INITIALLY. HELD METHADONE AM DOSE PER DR CAGE RELATED TO LETHARGY. ALSO OBTAINED MED REC FROM PCP TO ADJUST DOSE ACCORDING TO HER REG SCHEDULE. PT WOKE UP AND BEGAN TO SPEAK NORMALLY AND WAS ABLE TO AMBULATE AGAIN. SBA TO BATHROOM. MIN APPETITE. MEDICATED X2 WITH ZOFRAN. BOWEL TONES NORMOACTIVE. CT COMPLETE OF HEAD RELATED TO ONGOING INTERMITTANT NEURO EPISODES OF DISTANT STARE AND ESPRESSIVE APHASIA. PT'S CAREGIVER CAME IN AT 1730 AND STATES PT DOES THIS AT HOME, BUT THE PT IS ADIMENT THAT IT IS WORSE THAN BEFORE. WILL REPORT TO NOC RN
--- NOTE | 2023-07-25 18:38 | NUR ---
SUMMARY- PT ALERT TO SELF AND FAMILY. NODS YES AND NO. HX CVA WITH R NEGLECT, PARAPLESIA. TREATING FOR UTI, STARTED ON PYRIDIUM TODAY. 1L IVF COMPLETE. TOLERATING FOOD AND SMALL AMT THICK FLUIDS. A FEW COUGHING EPISODES WHILE EATING, STRONG COUGH. PT USED CPAP ON/OFF ALL DAY WHILE NAPPING. BECOMES DYSPNIC EASILY IF HE CHOKES/COUGHS RECOVERS WITH CPAP WITHIN A FEW MINUTES. ROUTINE INCONT CARE. DENIED PAIN. WILL REPORT TO HARI RN.
[2023-07-25 20:35] VITALS: BP 179/107
[2023-07-26 03:28] VITALS: BP 132/100
--- NOTE | 2023-07-26 04:55 | NUR ---
SHIFT SUMMARY PT IS A&OX3, HARD TO ASSESS D/T LANGUAGE BARRIER. VSS ON RA, USES CPAP WHILE ASLEEP. SR AT 75 PER TELEMETRY. TOLERATING DIET. PT REQUESTED 2 HALF SANDWHICHES AROUND 0100. HE TOLERATED IT WELL AND WAS ABLE TO FEED HIMSELF. REPOSITIONED AND CHANGED FREQUENTLY. INCONTINENT OF BOWEL AND BLADDER. HAD MULTIPLE SMALL/SMEAR BM'S. VOIDS LARGE AMOUNTS. NOOB THIS SHIFT. BED IN LOWEST POSITION, CALL LIGHT WITHIN REACH.
[2023-07-26 05:06] LABS: BASOPHILS ABSOLUTE AUTO 0.04 K/mm3 (0.00-0.23); BASOPHILS PERCENT AUTO 1 % (0-2); EOSINOPHILS ABSOLUTE AUTO 0.27 K/mm3 (0.00-0.68); EOSINOPHILS PERCENT AUTO 4 % (0-6); Hematocrit 35.8 % (37.0-53.0); Hemoglobin 11.3 g/dL (13.5-17.5); IMMATURE GRAN ABSOLUTE AUTO 0.02 K/mm3 (0.00-0.10); IMMATURE GRAN PERCENT AUTO 0 % (0-1); LYMPHOCYTES PERCENT AUTO 27 % (21-46); MONOCYTES ABSOLUTE AUTO 0.66 K/mm3 (0.16-1.47); MONOCYTES PERCENT AUTO 9 % (4-13); Mean Corpuscular HGB 28.2 pg (26.0-34.0); Mean Corpuscular HGB Conc 31.6 g/dL (31.5-36.5); Mean Corpuscular Volume 89 fL (80-100); Mean Platelet Volume 9.5 fL (9.1-12.4); NEUTROPHILS ABSOLUTE AUTO 4.15 K/mm3 (1.96-9.15); NEUTROPHILS PERCENT AUTO 59 % (41-73); Platelet Count 198 K/mm3 (150-400); RDW Coefficient Variation 15.7 % (11.7-14.2); RDW Standard Deviation 51.8 fL (35.1-46.3); Red Blood Cell Count 4.01 M/mm3 (4.30-5.90); White Blood Cell Count 7.04 K/mm3 (4.00-11.30)
[2023-07-26 05:23] LABS: Bun/Creatinine Ratio 18.1 (12.0-20.0); Calcium, Blood 9.2 mg/dL (8.5-10.1); Creatinine, Blood 0.88 mg/dL (0.60-1.20); Potassium, Blood 3.4 mmol/L (3.5-5.5)
[2023-07-26 07:27] VITALS: BP 150/87
--- NOTE | 2023-07-26 09:00 | NUR ---
pt laying in bed awake a/ox3, pleasant and cooperative with care, follows commands well, denies any complaints of pain this am, lungs are clear in upper saleh, dim in bases, uses cpap when sleeping, no cough noted, hrr, tele in place running sr in the 70's, no edema noted, ppp+2, cap refill <3 sec, vs stable afebrile, piv to lhand and lfa, sites are clear and patent, btx4, abd flat soft nontender, incont of bowel and bladder, briefs in place, skin c/w/d, has a few scabs on toes, ext are contracted, is wheelchair bound, very stiff at this time, daughter was in to see him this am, took his po meds whole a few at a time with applesauce, call light in reach.
[2023-07-26 14:43] LABS: Source, Urine Foley catheter
[2023-07-26 15:11] LABS: Appearance, Urine Turbid (Clear); Blood, Urine 5+ (Neg); Glucose Qualitative, Urine Neg (Neg); Ketones, Urine Neg (Neg); Leukocyte Esterase, Urine 3+ (Neg); Nitrite, Urine Pos (Neg); Protein, Urine 3+ (Neg); Specific Gravity, Urine 1.015 (1.003-1.022); Urobilinogen, Urine 2+ (Normal)
[2023-07-26 15:23] LABS: Color, Urine Orange (P-Yellow)
[2023-07-26 15:24] LABS: Bilirubin, Urine 2+ (Neg)
[2023-07-26 15:38] LABS: Bacteria Many /hpf; Hyaline Casts 0-2 /lpf (0-2); Red Blood Cells, Urine TNTC /hpf (0-2); Squamous Epithelial Cells Rare /hpf (Few); White Blood Cells, Urine TNTC /hpf (0-5)
[2023-07-26 16:21] VITALS: BP 149/94
--- NOTE | 2023-07-26 18:19 | NUR ---
pt had an indwelling simmons cath placed without diff, pt tolerated well, has been turned and changed through out the day, no further changes this shift. call light in reach.
[2023-07-26 19:37] VITALS: BP 173/90
[2023-07-26 23:46] VITALS: BP 157/81
[2023-07-27 04:12] VITALS: BP 140/76
--- NOTE | 2023-07-27 05:09 | NUR ---
SHIFT SUMMARY THIS RN ASSUMED CARE OF PATIENT AT 1900. PT DESATTING AT BEGINNING OF SHIFT TO THE 70-80'S, WITH WHEEZING NOTED T/O. PT NOTED TO BE ON CPAP AT THIS TIME, HOWEVER, BLEED IN O2 WAS NOT CONNECTED. PT ABLE TO MAINTAIN SPO2 >92% WITH 3L BLEED IN. RT JOSHUA TO BEDSIDE TO ASSESS WHEEZING. ORDER FOR BD PROTOCOL PLACED. BREATING TREATMENT GIVEN. PT COMPLAINING OF ABDOMINAL CRAMPING, X2 BM'S THIS SHIFT. PT NOTED TO BE HOLDING BREATH WHILE BEARING DOWN. BM SOFT/FORMED. SR WITH HR 80'S PER TELE. BP STABLE. AFEBRILE. NO OTHER ACUTE EVENTS OCCURRED SINCE. REPOSITIONING Q2HRS PT ALLOWS. PT OCCASIONALLY REFUSING REPOSITIONING. BARRIER CREAM TO BUTTOCKS. HEELS FLOATED. BED IN LOWEST POSITION AND CALL LIGHT WITHIN REACH. THIS RN WILL REPORT TO ONCOMING DAYSHIFT RN.
[2023-07-27 06:20] LABS: Bun/Creatinine Ratio 20.5 (12.0-20.0); Creatinine, Blood 0.68 mg/dL (0.60-1.20); Potassium, Blood 3.1 mmol/L (3.5-5.5)
[2023-07-27 08:00] VITALS: BP 139/80
[2023-07-27 10:57] LABS: Source, Urine Foley catheter
[2023-07-27 11:08] LABS: Appearance, Urine Cloudy (Clear); Bilirubin, Urine Neg (Neg); Blood, Urine 5+ (Neg); Color, Urine Yellow (P-Yellow); Glucose Qualitative, Urine Neg (Neg); Ketones, Urine Neg (Neg); Leukocyte Esterase, Urine 3+ (Neg); Nitrite, Urine Pos (Neg); Protein, Urine 4+ (Neg); Specific Gravity, Urine 1.015 (1.003-1.022); Urobilinogen, Urine NORM (Normal); pH, Urine 6.5 (5.0-8.0)
[2023-07-27 11:16] LABS: Bacteria Many /hpf; Red Blood Cells, Urine 25-50 /hpf (0-2); Squamous Epithelial Cells Rare /hpf (Few); White Blood Cells, Urine TNTC /hpf (0-5)
[2023-07-27 17:20] VITALS: BP 163/85
--- NOTE | 2023-07-27 18:35 | NUR ---
DAYSHIFT SUMMARY Patient alert & oriented to self. Patient able to feed self meals, medications given 1 at a time in applesauce. MD instructed RN to change simmons cath this AM and collect urine for UA & Culture, lab sent, culture pending. Urine is orange d/t Azo Rx for dysuria. IV Zosyn administred. Patient OOB most of the day, independent when in motorized wheelchair. Patient had 2x BMs this shift. Vitals stable. Will continue plan of care.
[2023-07-27 19:36] VITALS: BP 137/102
--- NOTE | 2023-07-28 02:06 | NUR ---
IVS X 3 REMOVED VILLANUEVA REMOVED. PT BATHED.
[2023-07-28 03:24] VITALS: BP 144/83
--- NOTE | 2023-07-28 04:37 | NUR ---
TRE GAR, PT RESTING IN BED, PT HAS ON HIS CPAP. CALL LIGHT IN REACH PT APPEARS TO BE COMFORTABLE AND SEEMED TO SLEEP WELL MOST OF THE NIGHT.
[2023-07-28 05:57] LABS: Calcium, Blood 8.7 mg/dL (8.5-10.1); Creatinine, Blood 0.95 mg/dL (0.60-1.20); Magnesium, Blood 2.1 mg/dL (1.6-2.4); Potassium, Blood 3.3 mmol/L (3.5-5.5)
[2023-07-28 08:04] VITALS: BP 143/89
[2023-07-28 15:46] VITALS: BP 146/82
--- NOTE | 2023-07-28 15:49 | NUR ---
DAYSHIFT SUMMARY Patient alert & oriented x1-2, no acute changes this shift. Patient slept in late than ate breakfast, he declined to get dressed & OOB into wheelchair. Asked for CPAP and went back to sleep. Daughter at bedside, updated her on plan of care. Awaiting urine culture results, until then, continue to administer IV Zosyn ABX. Muir catheter in place, draining to gravity. Urine appears to have purulent exudate, urine is orange is color from Azo medication. Vitals stable. Will continue plan of care.
[2023-07-28 19:50] VITALS: BP 139/85
[2023-07-29 02:36] VITALS: BP 142/80
[2023-07-29 08:26] VITALS: BP 156/96
[2023-07-29] MEDS ORDERED: Diflucan100 MG PO (12:44)
[2023-07-29] MEDS ORDERED: Aldactone50 MG PO (12:52)
[2023-07-29] MEDS ORDERED: VISBIOME 112.51 EACH PO (12:54)
[2023-07-29] MEDS ORDERED: NITR100CA PO (12:55)
--- NOTE | 2023-07-29 16:53 | NUR ---
SHIFT SUMMARY PATIENT IS ALERT BUT NOT ORIENTED. PATIENT HAS HAD NO ACUTE EVENTS THIS SHIFT. VITAL SIGNS REVIEWED. PATIENT HAS DISCHARGE ORDERS AND IS AWAITING DAUGHTER PICKING PATIENT UP. PATIENT HAS HAD NO COMPLAINTS OF PAIN, NAUSEA, SOB OR VOMITTING THIS SHIFT. VILLANUEVA IS PATENT AND DRAINING ORANGISH URINE. BED IN LOCKED AND LOWEST POSITION. CALL LIGHT IN PLACE.
== END 2023-07-29 19:40 | disposition home or self-care (01) | DRG 689 ==
LOC: ER 22:26 → MEDS 22:27 → ENPENDDIS 07-29 13:14 → MEDS 07-29 19:40
PROVIDERS: Internal Medicine; Student in an Organized Health Care Education/Training Program; ADMIT Internal Medicine
PROC: 5A09357 Assistance with Respiratory Ventilation, Less than 24 Consecutive Hours, Continuous Positive Airway Pressure (ICD-10-PCS; principal; 2023-07-27)
PROC: 0T9B70Z Drainage of Bladder with Drainage Device, Via Natural or Artificial Opening (ICD-10-PCS; 2023-07-27)
DX: N13.6 Pyonephrosis (principal); J96.21 Acute and chronic respiratory failure with hypoxia; N30.00 Acute cystitis without hematuria; E87.0 Hyperosmolality and hypernatremia; G82.20 Paraplegia, unspecified; I69.351 Hemiplegia and hemiparesis following cerebral infarction affecting right dominant side; Z66 Do not resuscitate; J44.9 Chronic obstructive pulmonary disease, unspecified; K59.09 Other constipation; E87.6 Hypokalemia; G47.33 Obstructive sleep apnea (adult) (pediatric); N40.1 Benign prostatic hyperplasia with lower urinary tract symptoms; R33.8 Other retention of urine; E78.5 Hyperlipidemia, unspecified; I50.9 Heart failure, unspecified; I11.0 Hypertensive heart disease with heart failure; E86.0 Dehydration; E11.40 Type 2 diabetes mellitus with diabetic neuropathy, unspecified; Z87.820 Personal history of traumatic brain injury; Z79.899 Other long term (current) drug therapy; Z79.84 Long term (current) use of oral hypoglycemic drugs; Z87.442 Personal history of urinary calculi; Z98.890 Other specified postprocedural states; Z93.0 Tracheostomy status; Z79.891 Long term (current) use of opiate analgesic; Z79.2 Long term (current) use of antibiotics; I69.320 Aphasia following cerebral infarction; I69.391 Dysphagia following cerebral infarction
CPT/HCPCS: 36415; 51702; 74177; 76770; 80048; 80053; 81001; 83605; 83735; 83880; 85025; 87040; 87086; 94640; 94660; 94664; 94762; 96365; 96366; 96367; 96372; 96375; 99285-25; A9270; G0378; J0290; J0696; J1650; J2543; J7050; J7120; Q9967

== ENCOUNTER → 2023-08-21 | Outpatient (CLI) | payer OTHER ==
[~2023-08-21] MED LIST changes: +Aldactone50 MG PO; +Cipro500 MG PO; +Diflucan100 MG PO; +NITR100CA PO
[2023-08-21 18:36] LABS: Source, Urine Condom Cath
[2023-08-21 18:50] LABS: Appearance, Urine Cloudy (Clear); Bilirubin, Urine Neg (Neg); Blood, Urine 5+ (Neg); Color, Urine Yellow (P-Yellow); Glucose Qualitative, Urine 2+ (Neg); Ketones, Urine 1+ (Neg); Leukocyte Esterase, Urine 3+ (Neg); Nitrite, Urine Neg (Neg); Protein, Urine 4+ (Neg); Urobilinogen, Urine NORM (Normal)
[2023-08-21 19:05] LABS: Red Blood Cells, Urine 25-50 /hpf (0-2); Squamous Epithelial Cells Not Seen /hpf (Few); White Blood Cells, Urine TNTC /hpf (0-5)
[2023-08-21 19:06] LABS: Bacteria Mod /hpf
== END ==
LOC: LAB 18:34 → LAB SHORT 18:34
PROVIDERS: Registered Nurse
DX: N40.1 Benign prostatic hyperplasia with lower urinary tract symptoms (principal); N39.0 Urinary tract infection, site not specified
CPT/HCPCS: 81001; 87086; 87106

== ENCOUNTER 2023-10-28 23:37 | Inpatient (IN) | payer OTHER ==
[~2023-10-28] VITALS: Ht 177.8 cm; Wt 86.5 kg
[~2023-10-28 23:37] MED LIST changes: -Aldactone50 MG PO; -CARV6.25 PO; +Carvedilol12.5 MG PO; +SPIR25 PO
[2023-10-29 00:12] LABS: BASOPHILS ABSOLUTE AUTO 0.05 K/mm3 (0.00-0.23); BASOPHILS PERCENT AUTO 0 % (0-2); EOSINOPHILS ABSOLUTE AUTO 0.15 K/mm3 (0.00-0.68); EOSINOPHILS PERCENT AUTO 1 % (0-6); Hematocrit 37.8 % (37.0-53.0); Hemoglobin 11.9 g/dL (13.5-17.5); IMMATURE GRAN ABSOLUTE AUTO 0.06 K/mm3 (0.00-0.10); IMMATURE GRAN PERCENT AUTO 1 % (0-1); LYMPHOCYTES ABSOLUTE AUTO 2.26 K/mm3 (0.84-5.20); LYMPHOCYTES PERCENT AUTO 19 % (21-46); MONOCYTES ABSOLUTE AUTO 0.98 K/mm3 (0.16-1.47); MONOCYTES PERCENT AUTO 8 % (4-13); Mean Corpuscular HGB 26.6 pg (26.0-34.0); Mean Corpuscular HGB Conc 31.5 g/dL (31.5-36.5); Mean Corpuscular Volume 84 fL (80-100); Mean Platelet Volume 9.2 fL (9.1-12.4); NEUTROPHILS PERCENT AUTO 70 % (41-73); Platelet Count 273 K/mm3 (150-400); RDW Coefficient Variation 15.6 % (11.7-14.2); RDW Standard Deviation 47.8 fL (35.1-46.3); Red Blood Cell Count 4.48 M/mm3 (4.30-5.90)
[2023-10-29 00:34] LABS: Albumin, Blood 3.1 g/dL (3.4-5.0); Albumin/Globulin Ratio 0.7 (0.8-1.8); Bilirubin, Total 0.6 mg/dL (0.1-1.0); Bun/Creatinine Ratio 21.3 (12.0-20.0); Calcium, Blood 9.8 mg/dL (8.5-10.1); Creatinine, Blood 1.36 mg/dL (0.60-1.20); Globulin, Blood 4.6 g/dL (2.2-4.0); Potassium, Blood 4.3 mmol/L (3.5-5.5); Total Protein, Blood 7.7 g/dL (6.4-8.2)
[2023-10-29] MEDS ORDERED: Lactated Ringer's 1,000 ML IV ONE (01:50)
[2023-10-29 02:00] LABS: Magnesium, Blood 1.8 mg/dL (1.6-2.4)
[2023-10-29 02:16] LABS: Source, Urine Foley catheter
[2023-10-29 02:35] LABS: Bilirubin, Urine Neg (Neg); Blood, Urine 5+ (Neg); Glucose Qualitative, Urine 1+ (Neg); Ketones, Urine 1+ (Neg); Leukocyte Esterase, Urine 3+ (Neg); Nitrite, Urine Pos (Neg); Protein, Urine 4+ (Neg); Specific Gravity, Urine 1.015 (1.003-1.022); Urobilinogen, Urine NORM (Normal); pH, Urine 6.5 (5.0-8.0)
[2023-10-29 02:45] LABS: Appearance, Urine Turbid (Clear); Color, Urine Amber (P-Yellow)
[2023-10-29 02:46] LABS: Bacteria Many /hpf; Red Blood Cells, Urine 50-100 /hpf (0-2); Squamous Epithelial Cells Not Seen /hpf (Few); White Blood Cells, Urine TNTC /hpf (0-5)
[2023-10-29] MEDS ORDERED: CefTRIAXone Sodium 1,000 MG in NS 100 ML IV ONE (02:50)
[2023-10-29] MEDS ORDERED: NS 1,000 ML IV ONE ×2 (02:50→03:30)
[2023-10-29] MEDS ORDERED: Ondansetron HCl 2 MG / ML 2ML Vial IV PRN (03:25)
[2023-10-29 04:51] VITALS: BP 150/107
[2023-10-29 06:16] LABS: International Normalized Ratio 1.05; Prothrombin Time Results 11.2 Sec (9.7-11.5)
[2023-10-29] MEDS ORDERED: Bisacodyl 10 MG Supp PR PRN (06:35)
[2023-10-29] MEDS ORDERED: Baclofen 10 MG Tab PO PRN (06:35)
[2023-10-29 07:48] VITALS: BP 145/77
[2023-10-29] MEDS ORDERED: Carvedilol 6.25 MG Tab PO SCH ×2 (08:00→21:00)
[2023-10-29] MEDS ORDERED: Pregabalin 25 MG Capsule PO SCH (09:00)
[2023-10-29] MEDS ORDERED: Allopurinol 100 MG Tab PO SCH (09:00)
[2023-10-29] MEDS ORDERED: FLUoxetine HCl 10 MG Cap PO SCH (09:00)
[2023-10-29] MEDS ORDERED: Lactobacil 2-S.Thermo-Bifido 1 1 Cap PO SCH (09:00)
[2023-10-29] MEDS ORDERED: Docusate Sodium 100 MG Cap PO SCH (09:00)
[2023-10-29] MEDS ORDERED: Clopidogrel Bisulfate 75 MG Tab PO SCH (09:00)
[2023-10-29] MEDS ORDERED: Enoxaparin 40 MG/0.4 ML SYR SC SCH (09:00)
[2023-10-29 10:36] LABS: Influenza A, PCR NEGATIVE (NEGATIVE); Influenza B, PCR NEGATIVE (NEGATIVE); Resp Syncytial Virus, PCR NEGATIVE (NEGATIVE); SARS-Cov-2 (COVID-19) PCR, MMC NEGATIVE (NEGATIVE)
[2023-10-29] MEDS ORDERED: Ipratropium/Albuterol SulF 2.5-0.5MG/3 ML Amp INH PRN (10:50)
[2023-10-29] MEDS ORDERED: Spironolactone 50 MG Tab PO SCH (12:00)
[2023-10-29 15:42] VITALS: BP 155/67
[2023-10-29] MEDS ORDERED: Insulin Human Lispro 100 Units/ML 3ML Syringe SC SCH (16:30)
[2023-10-29 18:06] VITALS: BP 159/75
[2023-10-29 20:05] VITALS: BP 140/65
[2023-10-29] MEDS ORDERED: OxyCODONE HCL 5 MG TAB PO PRN (20:40)
[2023-10-29] MEDS ORDERED: Sennosides 8.6 MG Tab PO SCH (21:00)
[2023-10-29] MEDS ORDERED: AmLODIPine Besylate 5 MG Tab PO SCH (21:00)
[2023-10-29] MEDS ORDERED: CefTRIAXone Sodium 1,000 MG in NS 100 ML IV SCH (21:00)
[2023-10-29] MEDS ORDERED: Tamsulosin HCl 0.4 MG Cap PO SCH (21:00)
[2023-10-30 03:13] VITALS: BP 138/74
[2023-10-30 04:58] LABS: BASOPHILS ABSOLUTE AUTO 0.02 K/mm3 (0.00-0.23); BASOPHILS PERCENT AUTO 0 % (0-2); EOSINOPHILS ABSOLUTE AUTO 0.16 K/mm3 (0.00-0.68); EOSINOPHILS PERCENT AUTO 2 % (0-6); IMMATURE GRAN ABSOLUTE AUTO 0.03 K/mm3 (0.00-0.10); IMMATURE GRAN PERCENT AUTO 0 % (0-1); LYMPHOCYTES ABSOLUTE AUTO 1.93 K/mm3 (0.84-5.20); LYMPHOCYTES PERCENT AUTO 20 % (21-46); MONOCYTES ABSOLUTE AUTO 0.92 K/mm3 (0.16-1.47); MONOCYTES PERCENT AUTO 10 % (4-13); Mean Corpuscular HGB 26.7 pg (26.0-34.0); Mean Corpuscular HGB Conc 32.3 g/dL (31.5-36.5); Mean Corpuscular Volume 83 fL (80-100); Mean Platelet Volume 9.3 fL (9.1-12.4); NEUTROPHILS PERCENT AUTO 68 % (41-73); Platelet Count 229 K/mm3 (150-400); RDW Coefficient Variation 15.5 % (11.7-14.2); Red Blood Cell Count 3.74 M/mm3 (4.30-5.90); White Blood Cell Count 9.56 K/mm3 (4.00-11.30)
[2023-10-30 05:37] LABS: Bun/Creatinine Ratio 25.5 (12.0-20.0); Calcium, Blood 9.4 mg/dL (8.5-10.1); Creatinine, Blood 0.79 mg/dL (0.60-1.20); Potassium, Blood 3.3 mmol/L (3.5-5.5)
--- NOTE | 2023-10-30 06:50 | NUR ---
pATIENT SLEPT WELL OVERNIGHT WAKING TWICE WITH MEDIUM SOFT BOWEL MOVEMENTS. DRINKING WATER WELL. MUST BE NECTAR THICK AND VERY COLD. DOES WELL WITH IT.BOTTOM WITH SLIGHT REDNESS. BARRIER CREAM APPLIED ASA STOOL WAS VERY LOOSE THE 2ND TIME. PLEASE LEAVE CPAP ON EXCEPT DURING MEALS. OXYCODONE ORDERED FOR PATIENT. USUAL DOSE IS 5 MG IN AM AND 10MG IN PM. ORDER GIVEN WAS FOR 5MG Q4 HOURS PRN.
[2023-10-30 07:59] VITALS: BP 145/83
[2023-10-30] MEDS ORDERED: Potassium Chloride 20 MEQ/15 ML UDC PO ONE ×2 (08:25→11:05)
[2023-10-30] MEDS ORDERED: Clopidogrel Bisulfate 75 MG Tab PO SCH (09:00)
[2023-10-30 15:30] VITALS: BP 130/73
--- NOTE | 2023-10-30 15:39 | NUR ---
PT VSS, ALERT AND ORIENTED TIMES 3. PATIENT HAS SOME DIFFICULTY BREATHING AND IS ON CPAP. SPOKE WITH NARAYAN RESPIRATORY THERAPIST AND PLAN OF CARE IS TO CONTINUE TO MONITOR, IF PATIENT DESATS WILL ADD OXYGEN, MAY CHANGE TO BIPAP. NSR 67 NO EVENTS. METHICILLIN RES STAPH AUREUS VANYCOMYCIN TX Q8. BILATERAL STENTS, BLADDER SPASMS, OXYCODONE NOT GIVEN DUE TO PATEINT FOLLOW ASLEEP. DIABETIC TX HUMOLOG, RIGHT SIDED WEAKNESS, RIGHT HAND CONTRACTURES.
[2023-10-30] MEDS ORDERED: Insulin Human Lispro 100 Units/ML 3ML Syringe SC SCH (16:30)
[2023-10-30] MEDS ORDERED: LOSARTAN POTASS25 M2 PO (16:54)
[2023-10-30 19:37] VITALS: BP 100/70
[2023-10-31] MEDS ORDERED: Vancomycin HCL 1,250 MG in NS 250 ML IV SCH (01:00)
[2023-10-31 03:43] VITALS: BP 116/64
[2023-10-31 05:22] LABS: Bun/Creatinine Ratio 27.2 (12.0-20.0); Calcium, Blood 8.9 mg/dL (8.5-10.1); Creatinine, Blood 0.81 mg/dL (0.60-1.20); Magnesium, Blood 1.7 mg/dL (1.6-2.4)
--- NOTE | 2023-10-31 05:55 | NUR ---
Patient alert, cooperative with care, using call light appropriately. Patient using CPAP without issues, catheter draining appropriately. Patient complaining of bladder spasms but notes more comfort this shift than previously during hospital stay. PRN muscle spasm medication given x1 per patient request. No significant events overnight.
[2023-10-31] MEDS ORDERED: Potassium Chloride 20 MEQ/15 ML UDC PO ONE ×2 (07:50→10:05)
[2023-10-31 07:54] VITALS: BP 134/74
[2023-10-31] MEDS ORDERED: NITR100CA PO (11:40)
--- NOTE | 2023-10-31 13:57 | NUR ---
DISCHARGE SUMMARY PT DISCHARGED TO HOME WITH HOME HEALTH. PT'S SON IN LAW PICKED HIM UP. PT LEFT ROOM JUST PRIOR TO THIS NOTE VIA OWN POWER CHAIR. WHEN IV WAS DC'D, THIS NURSE NOTICED THAT IV HAD INFILTRATED WITH VANCO THAT WAS INFUSING. PHARMACY AND CHARGE NURSE NOTIFIED. HEAT COMPRESS APPLIED. PT'S SON IN LAW NOTIFIED TO "KEEP AND EYE ON IT." ZEV NOTIFIED AND ALSO ZEV AGREES TO BRING THE [employer] LIFT SLING BACK WHEN SHE COMES TO WORK ONE DAY. ALL DISCHARGE INSTRUCTIONS DISCUSSED WITH PATIENT AND SON IN LAW, ALL QUESTIONS ANSWERED. CPAP WENT HOME WITH PT.
--- NOTE | 2023-10-31 15:01 | NUR ---
THIS NURSE CALLED ZEV AND NOTIFIED HER THAT THE PATIENT HAD THE TELE UNIT ON AT TIME OF DISCHARGE AND ASKED IF SHE COULD BRING IT BACK SOON POSSIBLE. ZEV STATED THAT HER WOULD BRING IT BACK LATER TODAY.
== END 2023-10-31 13:55 | disposition home health service (06) | DRG 698 ==
LOC: ER 23:37 → MEDS 10-29 02:54 → ENPENDDIS 10-31 11:23 → MEDS 10-31 13:55
PROVIDERS: Emergency Medicine; Internal Medicine; ADMIT Internal Medicine
PROC: 3E03329 Introduction of Other Anti-infective into Peripheral Vein, Percutaneous Approach (ICD-10-PCS; principal; 2023-10-29)
PROC: 5A09357 Assistance with Respiratory Ventilation, Less than 24 Consecutive Hours, Continuous Positive Airway Pressure (ICD-10-PCS; 2023-10-29)
PROC: 0T2BX0Z Change Drainage Device in Bladder, External Approach (ICD-10-PCS; 2023-10-29)
DX: T83.511A Infection and inflammatory reaction due to indwelling urethral catheter, initial encounter (principal); A41.02 Sepsis due to Methicillin resistant Staphylococcus aureus; R65.20 Severe sepsis without septic shock; E87.20 Acidosis, unspecified; N17.9 Acute kidney failure, unspecified; G82.20 Paraplegia, unspecified; G93.49 Other encephalopathy; N39.0 Urinary tract infection, site not specified; N20.0 Calculus of kidney; E87.6 Hypokalemia; G47.33 Obstructive sleep apnea (adult) (pediatric); J44.9 Chronic obstructive pulmonary disease, unspecified; N40.0 Benign prostatic hyperplasia without lower urinary tract symptoms; G89.4 Chronic pain syndrome; K59.00 Constipation, unspecified; M10.9 Gout, unspecified; E78.5 Hyperlipidemia, unspecified; I11.0 Hypertensive heart disease with heart failure; E86.0 Dehydration; E11.65 Type 2 diabetes mellitus with hyperglycemia; I50.9 Heart failure, unspecified; Y84.6 Urinary catheterization as the cause of abnormal reaction of the patient, or of later complication, without mention of misadventure at the time of the procedure; Z98.890 Other specified postprocedural states; Z79.899 Other long term (current) drug therapy; Z99.89 Dependence on other enabling machines and devices; Z79.84 Long term (current) use of oral hypoglycemic drugs; Z79.891 Long term (current) use of opiate analgesic; Z93.0 Tracheostomy status; I69.391 Dysphagia following cerebral infarction; Z99.3 Dependence on wheelchair; Z93.1 Gastrostomy status; Z87.891 Personal history of nicotine dependence
CPT/HCPCS: 0241U; 36415; 51702; 51798; 71045; 74176; 80048; 80053; 81001; 82947; 83605; 83690; 83735; 83880; 84145; 85025; 85610; 87077; 87086; 87147; 87186; 94660; 94762; 96361-59; 96365-59; 99285-25; A9270; J0696; J1650; J3370; J7030; J7050; J7120

== ENCOUNTER 2023-11-30 06:10 | Inpatient (IN) | payer OTHER ==
[~2023-11-30] VITALS: Ht 180.3 cm; Wt 85.5 kg
[~2023-11-30 06:10] MED LIST changes: +Diflucan200 MG PO; +LOSARTAN POTASS25 M2 PO; +Pyridium200 MG PO
[2023-11-30 07:20] LABS: BASOPHILS ABSOLUTE AUTO 0.05 K/mm3 (0.00-0.23); BASOPHILS PERCENT AUTO 0 % (0-2); EOSINOPHILS ABSOLUTE AUTO 0.23 K/mm3 (0.00-0.68); EOSINOPHILS PERCENT AUTO 2 % (0-6); Hematocrit 36.2 % (37.0-53.0); Hemoglobin 11.1 g/dL (13.5-17.5); IMMATURE GRAN ABSOLUTE AUTO 0.06 K/mm3 (0.00-0.10); IMMATURE GRAN PERCENT AUTO 1 % (0-1); LYMPHOCYTES ABSOLUTE AUTO 1.94 K/mm3 (0.84-5.20); LYMPHOCYTES PERCENT AUTO 16 % (21-46); MONOCYTES ABSOLUTE AUTO 1.05 K/mm3 (0.16-1.47); MONOCYTES PERCENT AUTO 9 % (4-13); Mean Corpuscular HGB 26.3 pg (26.0-34.0); Mean Corpuscular HGB Conc 30.7 g/dL (31.5-36.5); Mean Corpuscular Volume 86 fL (80-100); Mean Platelet Volume 8.7 fL (9.1-12.4); NEUTROPHILS ABSOLUTE AUTO 8.72 K/mm3 (1.96-9.15); NEUTROPHILS PERCENT AUTO 72 % (41-73); Platelet Count 271 K/mm3 (150-400); RDW Coefficient Variation 16.6 % (11.7-14.2); RDW Standard Deviation 51.5 fL (35.1-46.3); Red Blood Cell Count 4.22 M/mm3 (4.30-5.90); White Blood Cell Count 12.05 K/mm3 (4.00-11.30)
[2023-11-30] MEDS ORDERED: NS 1,000 ML IV SCH ×2 (07:50→10:15)
[2023-11-30] MEDS ORDERED: FLUCONAZOLE IV ONE (07:55)
[2023-11-30] MEDS ORDERED: [UNRECOGNIZED DRUG - OTHER] IV ONE (07:55)
[2023-11-30 08:00] LABS: Albumin, Blood 3.1 g/dL (3.4-5.0); Albumin/Globulin Ratio 0.7 (0.8-1.8); Bilirubin, Total 0.6 mg/dL (0.1-1.0); Bun/Creatinine Ratio 19.3 (12.0-20.0); Calcium, Blood 10.1 mg/dL (8.5-10.1); Creatinine, Blood 1.09 mg/dL (0.60-1.20); Globulin, Blood 4.7 g/dL (2.2-4.0); Potassium, Blood 4.3 mmol/L (3.5-5.5); Total Protein, Blood 7.8 g/dL (6.4-8.2)
[2023-11-30] MEDS ORDERED: Fluconazole 400MG/Iso-Sod 200M 200 ML IV SCH (08:00)
[2023-11-30] MEDS ORDERED: Acetaminophen 325 MG TABLET PO PRN (10:15)
[2023-11-30 12:49] VITALS: BP 161/71
--- NOTE | 2023-11-30 14:20 | NUR ---
ADMIT SUMMARY: PT ADMITTED TO ROOM 352. REPORT RECEIVED FROM ER NURSE. PT ARRIVED VIA GURNEY ON CPAP WITH FLUCONAZOLE RUNNING VIA IV. PT APPEARED TO BE IN RR DISTRESS, VEWS OF 5 WITH VITALS. PT FEBRILE AT 101.5. PT ORIENTED TO ROOM AND CALL LIGHT. PT IS ORIENTED X 2-3, TRANSFER TO BED VIA SLIDE SHEET. 2 RN SKIN ASSESSMENT COMPLETED WITH SAGAR. PT HAS BLANCHABLE REDNESS AND PURPLE DISCOLORATION TO BILAT GLUTEAL CHEEKS. NO SKIN BREAKDOWN OR OPEN WOUNDS NOTED. PHOTOS TAKEN OF PRESSURE INJURY TO BOTTOM, MEPILEX APPLIED. PT R HAND HAS CONTRACTURE. BEDSIDE SWALLOW TEST COMPLETED AND PT ABLE TO SWALLOW APPLESAUCE. GAVE PT TYLENOL 650 MG ONE AT ATIME AND PT ABLE TO SWALLOW WITHOUT DIFFICULTY. PT DID CHOKE ON WATER WITH USING A STRAW. PT BP ELEVATED, DENIES CP/PRESSURE. PT DENIES PAIN AT THIS TIME. REPOSITIONED PT TO R SIDE. CALL LIGHT IN REACH BED LOW POSITION. ALARM SET.
[2023-11-30 14:37] VITALS: BP 146/114
[2023-11-30] MEDS ORDERED: Polyethylene Glycol 3350 17 gm PO PRN (15:05)
[2023-11-30] MEDS ORDERED: Insulin Human Lispro 100 Units/ML 3ML Syringe SC SCH (16:30)
[2023-11-30] MEDS ORDERED: Carvedilol 6.25 MG Tab PO SCH (17:00)
[2023-11-30] MEDS ORDERED: CefTRIAXone Sodium 1,000 MG in NS 100 ML IV SCH (17:15)
[2023-11-30] MEDS ORDERED: Bisacodyl 10 MG Supp PR PRN (17:15)
[2023-11-30 18:11] VITALS: BP 153/94
--- NOTE | 2023-11-30 18:40 | NUR ---
SHIFT SUMMARY: PT IS A/O X 2-3, PER DAUGHTER HE IS NOT AT HIS BASELINE MENTATION. NORMAL MENTATION IS FULLY ORIENTED, AT BASELINE HE IS ABLE TO USE SIT TO STAND FOR TRANSFERS, USES NECTAR THICK LIQUIDS. PER DAUGHTER SHE DOES NOT WANT PT HAVE A AWALLOW EVAL PT AT BASELINE DOES COUGH WITH FLUID INTAKE BUT IS ABLE TO CLEAR FLUIDS. PT AT BASELINE IS ALSO ABLE TO FEED SELF. AT THIS TIME HE IS NOT ABLE TO FEED SELF. PT CONTINUES TO BE ON CPAP DUE TO HIGH RR. TEMPERATURE HAS IMPROVED TO 99.4. BP HAS IMPROVED ALSO. PT AT BASELINE HAS SLURRED SPEECH.
[2023-11-30 18:49] LABS: Source, Urine Straight Cath
[2023-11-30 19:13] LABS: Appearance, Urine Cloudy (Clear); Bilirubin, Urine Neg (Neg); Blood, Urine 4+ (Neg); Glucose Qualitative, Urine 3+ (Neg); Ketones, Urine 1+ (Neg); Leukocyte Esterase, Urine 3+ (Neg); Nitrite, Urine Neg (Neg); Protein, Urine 3+ (Neg); Urobilinogen, Urine NORM (Normal)
[2023-11-30 19:26] LABS: Color, Urine Pale Yellow (P-Yellow)
[2023-11-30 19:28] LABS: White Blood Cells, Urine TNTC /hpf (0-5)
[2023-11-30 19:34] LABS: Bacteria Many /hpf; Hyaline Casts 0-2 /lpf (0-2); Red Blood Cells, Urine TNTC /hpf (0-2); Squamous Epithelial Cells Rare /hpf (Few)
[2023-11-30 20:31] VITALS: BP 164/78
[2023-11-30] MEDS ORDERED: Baclofen 10 MG Tab PO SCH (21:00)
[2023-11-30] MEDS ORDERED: AmLODIPine Besylate 5 MG Tab PO SCH (21:00)
[2023-11-30] MEDS ORDERED: Pregabalin 50 MG Capsule PO SCH (21:00)
[2023-11-30] MEDS ORDERED: Lactobacil 2-S.Thermo-Bifido 1 1 Cap PO SCH (21:00)
[2023-11-30] MEDS ORDERED: Acetaminophen 650 MG Supp PR PRN (21:20)
[2023-11-30 21:49] LABS: PCO2 Venous 25 mmHg (38-42); pH Blood Venous 7.51 (7.34-7.37)
[2023-11-30 21:50] LABS: Bicarbonate Venous 22.9 mmol/L (24.0-30.0)
[2023-11-30 21:51] LABS: Base Excess Venous 2.9 mmol/L
[2023-11-30 23:33] VITALS: BP 130/78
[2023-12-01] VITALS (25 sets, daily range): BP systolic 84–138; BP diastolic 45–98
[2023-12-01] MEDS ORDERED: NS 250 ML IV PRN (00:05)
[2023-12-01] MEDS ORDERED: Piperacillin/Tazobactam Sod 4.5 GM in NS 100 ML IV ONE (00:24)
[2023-12-01] MEDS ORDERED: NS 1,000 ML IV SCH (00:50)
[2023-12-01 00:59] LABS: Source, Urine Foley catheter
[2023-12-01] MEDS ORDERED: NS 500 ML IV ONE (01:00)
[2023-12-01] MEDS ORDERED: Naloxone HCl 0.4MG / ML 1ML Vial IV ONE (01:00)
--- NOTE | 2023-12-01 01:00 | NUR ---
ASSUMPTION OF CARE: ASSUMED CARE OF PATIENT AT 0010. PT TO ICU 3 VIA BED. PT ARRIVED ON ROOM AIR. RR 30s-40s. CPAP PLACED ON PATIENT. CPAP SET TO HOME SETTINGS. LUNG SOUNDS COARSE THROUGHOUT. SPO2 95%. PT A&O TO SELF, CAN FOLLLOW DIRECTIONS. PUPILS EQUAL, 2CM, BRISK REACTIONS TO LIGHT. TMAX 100.5. BP STABLE. HR 80s, NSR ON MONITOR. PULSES PRESENT IN ALL EXTREMITIES. ABD FIRM, BOWEL SOUNDS HYPERACTIVE. TEMP VILLANUEVA PLACED ON ARRIVAL, UA SENT TO LAB. PT HAD A SMALL BM. PT HAS A 20G IV TO LWR. FLUID BOLUS AND ZOYSN INFUSING. PT HAD EPISODES OF TENSING UP ALL EXTREMITIES, GRUNTING AND REPORTRED PAIN BUT UNABLE TO ASSESS WHERE. PT HAS A HX OF CVA AND RIGHT SIDED WEAKNESS. RIGHT ARM IS IN A FIXED POSITION CONTRACTED AND HOLDING A STRESS BALL.
--- NOTE | 2023-12-01 01:00 | NUR ---
SPOKE WITH DAUGHTER ZEV AND GAVE HER AN UPDATE THAT HE DAD HAS BEEN MOVED TO ICU PCU STATUS DUE TO RESPIRATORY EFFORT. TOLD HER THAT HIS TEMP MAX EARLIER IN THE SHIFT WAS 103.2 AND THAT HE'S BEEN TACHYCARDIC AND TACHYPNEIC DUE TO HIS UTI. EXPLAINED THAT WE WERE CHANGING HIS ANTIBIOTIC.
[2023-12-01 01:03] LABS: Appearance, Urine Cloudy (Clear); Bilirubin, Urine Neg (Neg); Blood, Urine 5+ (Neg); Color, Urine Yellow (P-Yellow); Glucose Qualitative, Urine 3+ (Neg); Ketones, Urine 1+ (Neg); Leukocyte Esterase, Urine 3+ (Neg); Nitrite, Urine Neg (Neg); Protein, Urine 4+ (Neg); Specific Gravity, Urine 1.015 (1.003-1.022); Urobilinogen, Urine NORM (Normal)
[2023-12-01 01:09] LABS: BASOPHILS ABSOLUTE AUTO 0.05 K/mm3 (0.00-0.23); BASOPHILS PERCENT AUTO 0 % (0-2); EOSINOPHILS PERCENT AUTO 0 % (0-6); Hematocrit 31.8 % (37.0-53.0); IMMATURE GRAN ABSOLUTE AUTO 0.17 K/mm3 (0.00-0.10); IMMATURE GRAN PERCENT AUTO 1 % (0-1); LYMPHOCYTES ABSOLUTE AUTO 2.07 K/mm3 (0.84-5.20); LYMPHOCYTES PERCENT AUTO 10 % (21-46); MONOCYTES ABSOLUTE AUTO 1.31 K/mm3 (0.16-1.47); MONOCYTES PERCENT AUTO 6 % (4-13); Mean Corpuscular HGB 26.4 pg (26.0-34.0); Mean Corpuscular HGB Conc 31.4 g/dL (31.5-36.5); Mean Corpuscular Volume 84 fL (80-100); Mean Platelet Volume 8.6 fL (9.1-12.4); NEUTROPHILS ABSOLUTE AUTO 16.88 K/mm3 (1.96-9.15); NEUTROPHILS PERCENT AUTO 83 % (41-73); Platelet Count 251 K/mm3 (150-400); RDW Coefficient Variation 16.8 % (11.7-14.2); RDW Standard Deviation 51.3 fL (35.1-46.3); Red Blood Cell Count 3.79 M/mm3 (4.30-5.90); White Blood Cell Count 20.48 K/mm3 (4.00-11.30)
[2023-12-01 01:23] LABS: International Normalized Ratio 1.22; Prothrombin Time Results 12.9 Sec (9.7-11.5)
[2023-12-01 01:23] LABS: White Blood Cells, Urine TNTC /hpf (0-5)
[2023-12-01 01:25] LABS: Bacteria Many /hpf; Yeast/Fungi Urine Rare /hpf
[2023-12-01 01:26] LABS: Squamous Epithelial Cells Not Seen /hpf (Few)
[2023-12-01 01:30] LABS: Albumin, Blood 2.7 g/dL (3.4-5.0); Albumin/Globulin Ratio 0.6 (0.8-1.8); Bilirubin, Total 0.9 mg/dL (0.1-1.0); Bun/Creatinine Ratio 18.3 (12.0-20.0); Calcium, Blood 9.5 mg/dL (8.5-10.1); Creatinine, Blood 1.09 mg/dL (0.60-1.20); Globulin, Blood 4.5 g/dL (2.2-4.0); Magnesium, Blood 1.4 mg/dL (1.6-2.4); Potassium, Blood 3.6 mmol/L (3.5-5.5); Total Protein, Blood 7.2 g/dL (6.4-8.2)
[2023-12-01] MEDS ORDERED: Insulin Glargine-Yfgn 100 Unit/mL 3 ML SYR SC SCH (02:20)
[2023-12-01] MEDS ORDERED: Magnesium Sulf 2 GM/Water 50ML 50 ML IV ONE (02:20)
[2023-12-01 02:56] LABS: Influenza A, PCR NEGATIVE (NEGATIVE); Influenza B, PCR NEGATIVE (NEGATIVE); Resp Syncytial Virus, PCR NEGATIVE (NEGATIVE); SARS-Cov-2 (COVID-19) PCR, MMC NEGATIVE (NEGATIVE)
[2023-12-01] MEDS ORDERED: Piperacillin/Tazobactam Sod 4.5 GM in NS 100 ML IV SCH (06:00)
--- NOTE | 2023-12-01 06:23 | NUR ---
SHIFT SUMMARY PT IS VERY SLEEPY BUT AWAKENS EASILY. PT ABLE TO ANSWER QUESTIONS AND FOLLOW COMMANDS. PT USES CALL LIGHT AND MAKES NEEDS KNOWN. DENIES CP. PT IS ON NECTAR THICK DIET, AND WAS ABLE TO TOLERATE THICKENED WATER. PT HAS BEEN ON ROOM AIR FOR MOST OF THE NIGHT. SPO2 >90%.BP STABLE. NSR ON MONITOR. PT HAD 3 BM THIS SHIFT. TEMP CAME DOWN TO 97-98 DEGREES. BED LOWERED, CALL LIGHT IN REACH
[2023-12-01 07:12] LABS: BASOPHILS ABSOLUTE AUTO 0.03 K/mm3 (0.00-0.23); BASOPHILS PERCENT AUTO 0 % (0-2); EOSINOPHILS ABSOLUTE AUTO 0.01 K/mm3 (0.00-0.68); EOSINOPHILS PERCENT AUTO 0 % (0-6); Hemoglobin 9.1 g/dL (13.5-17.5); IMMATURE GRAN ABSOLUTE AUTO 0.11 K/mm3 (0.00-0.10); IMMATURE GRAN PERCENT AUTO 1 % (0-1); LYMPHOCYTES ABSOLUTE AUTO 1.73 K/mm3 (0.84-5.20); LYMPHOCYTES PERCENT AUTO 12 % (21-46); MONOCYTES ABSOLUTE AUTO 0.91 K/mm3 (0.16-1.47); MONOCYTES PERCENT AUTO 7 % (4-13); Mean Corpuscular HGB 26.5 pg (26.0-34.0); Mean Corpuscular HGB Conc 31.4 g/dL (31.5-36.5); Mean Corpuscular Volume 85 fL (80-100); Mean Platelet Volume 8.8 fL (9.1-12.4); NEUTROPHILS ABSOLUTE AUTO 11.16 K/mm3 (1.96-9.15); NEUTROPHILS PERCENT AUTO 80 % (41-73); Platelet Count 218 K/mm3 (150-400); RDW Coefficient Variation 16.9 % (11.7-14.2); RDW Standard Deviation 52.2 fL (35.1-46.3); Red Blood Cell Count 3.43 M/mm3 (4.30-5.90); White Blood Cell Count 13.95 K/mm3 (4.00-11.30)
[2023-12-01 07:31] LABS: Calcium, Blood 9.1 mg/dL (8.5-10.1); Creatinine, Blood 1.13 mg/dL (0.60-1.20); Potassium, Blood 3.3 mmol/L (3.5-5.5)
[2023-12-01] MEDS ORDERED: MetFORMIN HCL 850 MG TAB PO SCH (08:00)
[2023-12-01] MEDS ORDERED: Docusate Sodium 100 MG Cap PO SCH (09:00)
[2023-12-01] MEDS ORDERED: Losartan Potassium 25 MG Tab PO SCH (09:00)
[2023-12-01] MEDS ORDERED: Tamsulosin HCl 0.4 MG Cap PO SCH (09:00)
[2023-12-01] MEDS ORDERED: Spironolactone 25 MG Tab PO SCH (09:00)
[2023-12-01] MEDS ORDERED: Cholecalciferol 1000 Unit Tablet (=25MCG) PO SCH (09:00)
[2023-12-01] MEDS ORDERED: Fenofibrate, Micronized 134 MG Capsule PO SCH (09:00)
[2023-12-01] MEDS ORDERED: Fluconazole 200MG/Iso-Sod 100M 100 ML IV SCH (09:00)
[2023-12-01] MEDS ORDERED: Multivitamins/Minerals 1 Tab PO SCH (09:00)
[2023-12-01] MEDS ORDERED: Aspirin 81 MG Chew PO SCH (09:00)
[2023-12-01] MEDS ORDERED: Allopurinol 100 MG Tab PO SCH (09:00)
[2023-12-01] MEDS ORDERED: Enoxaparin 40 MG/0.4 ML SYR SC SCH (09:00)
[2023-12-01] MEDS ORDERED: Clopidogrel Bisulfate 75 MG Tab PO SCH (09:00)
[2023-12-01] MEDS ORDERED: Vancomycin HCL 1,250 MG in NS 250 ML IV SCH (15:00)
--- NOTE | 2023-12-01 18:23 | NUR ---
SHIFT SUMMARY.... NO ACUTE NEGATIVE CHANGES NOTED THIS SHIFT. PT'S VS HAVE BEEN STABLE, PT HAS BEEN AFEBRILE T/O THIS SHIFT. PT HAS BEEN UP IN HIS CHAIR MOST OF THIS SHIFT AND HAS DONE WELL. PT HAS BEEN ON RA WHILE UP IN THE CHAIR. WHEN NOT IN THE CHAIR PT IS TO BE ON HIS CPAP PER . PT HAS HAD MULTIPLE, INCONT LOOSE STOOLS THIS SHIFT. PT'S VILLANUEVA IS PATENT AND DRAINING VERY CLOUDY YELLOW URINE TO GRAVITY. CALL LIGHT IN REACH WILL CONTINUE TO MONITOR UNTIL REPORT IS GIVEN TO ONCOMING RN.
--- NOTE | 2023-12-01 21:31 | NUR ---
ASSUMPTION OF CARE/ASSESSMENT: ASSUMED CARE OF PT AT 1900; REPORT RECIEVED FROM PEDRO MORGAN. PT IN BED, SLEEPING BUT WAKES EASILY TO VERBALS STIMULI. AT BASELINE SPEECH SLURRED AND DIFFICULT TO UNDERSTAND. PT WAS ABLE TO STATE BUT THIS RN UNABLE TO DECIPHER ANSWERS TO OTHER ORIENTING QUESTIONS; PT A&O X 2, PLEASANT AND FOLLOWING DIRECTIONS AT THIS TIME. PT TOTAL CARE WITH HX OF CVA WITH R. SIDED DEFICITS. PT CURRENTLY ON CPAP WITH HOME SETTINGS, LUNG CLEAR T/O WITH DIM BASES AND SPO2 94<; PT DENIES SOB AT THIS TIME. PT DENIES CHEST PAIN, MAP 64<. TEMP VILLANUEVA IN PLACE, PATENT AND DRAINING TO GRAVITY. ATTENDS IN PLACE AND PT HAVE FREQUENT BOWEL MOVEMENTS. PT'S DAUGHTER BY AT START OF SHIFT AND UPDATED ON PT'S CURRENT STATUS AND CARE PLAN. PIV TO LFA THAT IS SALINE LOCKED. PT USING CALL LIGHT APPROPRIATLY. BED LOWERED, CALL LIGHT IN REACH.
[2023-12-02] MEDS ORDERED: Melatonin 5 MG Tablet PO SCH (00:40)
[2023-12-02 04:45] LABS: Hematocrit 27.6 % (37.0-53.0); Hemoglobin 8.6 g/dL (13.5-17.5); Mean Corpuscular HGB 26.5 pg (26.0-34.0); Mean Corpuscular HGB Conc 31.2 g/dL (31.5-36.5); Mean Corpuscular Volume 85 fL (80-100); Mean Platelet Volume 8.7 fL (9.1-12.4); Platelet Count 199 K/mm3 (150-400); RDW Coefficient Variation 16.7 % (11.7-14.2); RDW Standard Deviation 51.8 fL (35.1-46.3); Red Blood Cell Count 3.25 M/mm3 (4.30-5.90); White Blood Cell Count 9.76 K/mm3 (4.00-11.30)
[2023-12-02 05:05] LABS: Albumin, Blood 2.3 g/dL (3.4-5.0); Anion Gap 12 mmol/L (3-11); Blood Urea Nitrogen 33 mg/dL (8-24); Bun/Creatinine Ratio 27.5 (12.0-20.0); CO2, Blood 22 mmol/L (21-32); Calcium, Blood 8.8 mg/dL (8.5-10.1); Chloride, Blood 115 mmol/L (98-108); Glomerular Filtration Rate 64 (60-); Glucose, Blood 178 mg/dL (70-99); Magnesium, Blood 1.7 mg/dL (1.6-2.4); Phosphorus, Blood 3.1 mg/dL (2.5-4.9); Potassium, Blood 3.1 mmol/L (3.5-5.5); Sodium, Blood 146 mmol/L (136-145)
[2023-12-02] MEDS ORDERED: Potassium Chloride 20 MEQ TabCR PO ONE (05:25)
[2023-12-02 05:45] VITALS: BP 112/59
--- NOTE | 2023-12-02 06:10 | NUR ---
SHIFT SUMMARY: NO ACUTE CHANGES OVERNIGHT; VSS THROUGHOUT THE SHIFT. PT REMAINS ON CPAP FOR ENTIRE NIGHT. PT HAD 3 BOWEL MOVEMENTS THIS SHIFT. AFEBRIL. PT'S DAUGHTER CAME IN TO SEE PT AT START OF SHIFT AND UPDATED ON PT'T STATUS AND CARE PLAN. PT USING CALL LIGHT APPROPRIATELY. BED LOWERED, CALL LIGHT IN REACH, WILL REPORT OFF TO ONCOMING RN.
[2023-12-02 08:24] VITALS: BP 114/77
[2023-12-02] MEDS ORDERED: Baclofen 10 MG Tab PO SCH (09:00)
[2023-12-02] MEDS ORDERED: Banana Flakes/Tos 1 EA Powder Pack PO SCH (09:00)
--- NOTE | 2023-12-02 15:50 | NUR ---
SHIFT SUMMARY PATIENT TRANSFERRED TO ROOM 311 VIA HOME W/C. PATIENT WAS IN WHEELCHAIR ALL SHIFT. ABLE TO USE LT HAND TO FEED SELF AND DRINK. TOLERATED BREAKFAST WELL, BUT DENIED LUNCH. ONE BM THIS SHIFT. GOOD URINE OUTPUT THROUGH VILLANUEVA CATHETER, YELLOW/SEDIMENT. PATIENT DENIED PAIN. REPORT GIVEN TO EDDIE JEFFERSON.
[2023-12-02] MEDS ORDERED: Insulin Human Lispro 100 Units/ML 3ML Syringe SC SCH (16:30)
[2023-12-02 17:32] VITALS: BP 175/72
--- NOTE | 2023-12-02 18:16 | NUR ---
RN NOTE MR PALMA WAS TRANSFERED FROM ICU TO MEDICAL FLOOR AT 1600HRS TODAY. HE ARRIVED VIA HIS PERSONAL ELECTRIC WHEELCHAIR. HE WAS LIFTED FROM THE WHEELCHAIR TO THE BED FOR A SKIN CHECK WITH HUYER LIFT WHICH HE TOLERATED WELL. BUTTOCKS ARE RED/PURPLE/DUSKY WITH 1MM OPEN AREA. CLEANSED AND NEW MEPILEX APPLIED. PHOTOGRAPH TAKEN WITH PT CONSENT. VILLANUEVA CARE DONE. SMALL GEL-LIKE RECTAL OUTPUT. VILLANUEVA URINE OUTPUT IS CLOUDY/SEDEMENT. MR PALMA PREFERS TO SIT UP IN HIS WHEELCHAIR, CAN MOVE HIS LEFT ARM AND CAN FEED HIMSELF WHEN FOOD AND DRINKS ARE SET UP TO ASSIST HIM. NECTAR THICK LIQUIDS PER PRECAUTIONS. IN W/C NOW WITH CALL LIGHT IN EASY REACH.
[2023-12-02 18:38] VITALS: BP 144/77
[2023-12-02 20:14] VITALS: BP 153/70
[2023-12-03 03:17] LABS: Bun/Creatinine Ratio 26.1 (12.0-20.0); Calcium, Blood 8.9 mg/dL (8.5-10.1); Potassium, Blood 3.4 mmol/L (3.5-5.5)
[2023-12-03 03:21] LABS: Vancomycin, Trough 16.2 ug/mL (5.0-10.0)
[2023-12-03 05:35] VITALS: BP 139/78
--- NOTE | 2023-12-03 06:07 | NUR ---
DIRECTOR OF INSTITUTIONAL GIVING SUMMARY NO ACUTE CHANGES. PT DAUGHTER AT BEDSIDE AT BEGINNNG OF SHIFT. CEILING LIFT TO XFER FROM CHAIR TO BED. PT HAD 2X BOWEL MOVEMENTS--SMALL CLEAR MUCOUS/JELLY CONSISTANCY. PT IS STRAINING WITH BOWEL MOVEMENTS. VILLANUEVA IN PLACE, PATENT AND DRAINING TO GRAVITY--URINE IS CLOUDY WITH SEDIMENT. PT AFEBRILE. USING CALLING LIGHT TO REQUEST ASSIST. CALL LIGHT ACCESSIBLE.
[2023-12-03 08:02] VITALS: BP 173/82
[2023-12-03 12:15] VITALS: BP 163/71
[2023-12-03] MEDS ORDERED: Potassium Chloride 20 MEQ/15 ML UDC PO ONE (13:50)
[2023-12-03 15:39] VITALS: BP 168/85
--- NOTE | 2023-12-03 16:39 | NUR ---
SHIFT SUMMARY PT AOX3, UNABLE TO ASSESS DUE TO COMMUNICATION BARRIERS. PT HAS SLURRED SPEECH BUT HAND GESTURES HELP IMPROVE COMMUNICATION. VILLANUEVA IN PLACE AND DRAINING. PT HAD A FORMED, BROWN STOOL THIS SHIFT. PT UP TO THE CHAIR MOST OF THE SHIFT, SLEEPING OFF AND ON. CPAP PLACED WHILE PT SLEEPS. NO C/O P/CP/PRESSURE/N/V/D. HE HAS A HEALTHY APPETITE AND IS DRINKING FLUIDS WELL WITH NECTAR THICK CONSISTENCY. PT IS A LIFT PT. CALL LIGHT WITHIN REACH, BED LOCKED AND IN THE LOWEST POSITION. WILL REPORT TO ONCOMING NURSE.
[2023-12-03 18:00] VITALS: BP 168/77
[2023-12-03 19:53] VITALS: BP 156/80
[2023-12-04 02:55] VITALS: BP 170/75
--- NOTE | 2023-12-04 05:06 | NUR ---
RIVER DRIVER SUMMARY NO ACUTE CHANGES. PT DAUGHTER AT BEDSIDE AT START OF SHIFT. EXPRESSED CONCERNS THAT PT BE UP OUT OF BED FOR ALL MEALS. CLEAN CLOTHES BROUGHT FROM HOME AND REQUESTING PT BE DRESSED WITH CLOTHES FROM HOME IN THE MORNING. PT ABLE TO COMMINICATE THIS WAS HIS REQUEST ALSO. ADVISED WOULD PASS ON TO DAY SHIFT NURSE. PT HAS LARGE SOFT BROWN BOWEL MOVEMENT. VILLANUEVA IN PLACE AND DRAINING TO GRAVITY--URINE IS CLOUDY WITH [id number] SEDIMENT. REGULAR INTERVALS WITH Q2 REPOSITIONING. PT ABLE TO USE CALL LIGHT IF PLACED IN REACH; ENSURED CALL LIGHT ACCESSIBLE TO PT T/O THE SHIFT.
[2023-12-04 06:07] LABS: Bun/Creatinine Ratio 21.5 (12.0-20.0); Calcium, Blood 9.3 mg/dL (8.5-10.1); Creatinine, Blood 0.84 mg/dL (0.60-1.20); Potassium, Blood 3.4 mmol/L (3.5-5.5)
[2023-12-04 08:37] VITALS: BP 157/86
[2023-12-04] MEDS ORDERED: Potassium Chloride 20 MEQ TabCR PO ONE (09:00)
[2023-12-04] MEDS ORDERED: Losartan Potassium 50 MG Tab PO SCH (09:00)
--- NOTE | 2023-12-04 10:15 | NUR ---
MD CALL: NOTIFIED PROVIDER OF INSULIN REFUSAL THIS AM. UNABLE TO RESTART ORAL DIABETIC MEDICATIONS DUE TO AN ANTIBIOTIC HE IS RECEIVING. PROVIDER SAID SHE WOULD ASSESS THE AMOUNT OF ABX AND SEE IF SHE COULD RESTART METFORMIN. PT EDUCATED ON THE RISK OF REFUSING INSULIN.
[2023-12-04 14:31] LABS: Vancomycin, Trough 14.9 ug/mL (5.0-10.0)
[2023-12-04 15:11] VITALS: BP 154/85
--- NOTE | 2023-12-04 18:10 | NUR ---
SHIFT SUMMARY PT AOX4 WITH APHASIA, DIFFICULT TO UNDERSTAND. UP IN THE CHAIR ALL DAY, BACK TO THE BED FOR BRIEF CHANGES. PERSONAL CLOTHES PUT ON THE PT ALONG WITH DENTURES AND GLASSES. PT HAS A VILLANUEVA AND IT IS DRAINING AND PATENT. USES THE CPAP WHEN IN BED. DAUGHTER AT THE BS TODAY. NO OTHER COMPLAINTS FROM THE PT. CALL LIGHT WITHIN REACH, BED LOCKED AND IN THE LOWEST POSITION. WILL REPORT TO ONCOMING NURSE.
[2023-12-04 21:06] VITALS: BP 158/82
[2023-12-05 02:48] VITALS: BP 155/81
--- NOTE | 2023-12-05 04:28 | NUR ---
SHIFT SUMMARY PATIENT HAD NO ACUTE CHANGES. AXOX 3 HARD TO UNDERSTAND HX ASPHAGIA AND BEDREST/LIFT ROOM. VILLANUEVA PATENT AND DRAINING TO GRAVITY FOR RETENTION. CBG 236. USES CPAP AT NIGHT SETUP BY RT. DENIES CHEST PAIN, SOB, AND N/V. VSS/AFEBRILE. CALL LIGHT IN REACH. BED IN LOWEST POSITION. WILL CONTINUE TO MONITOR UNTIL DAY SHIFT NURSE ASSUMES CARE.
[2023-12-05 05:15] LABS: BASOPHILS ABSOLUTE AUTO 0.05 K/mm3 (0.00-0.23); BASOPHILS PERCENT AUTO 1 % (0-2); EOSINOPHILS ABSOLUTE AUTO 0.24 K/mm3 (0.00-0.68); EOSINOPHILS PERCENT AUTO 3 % (0-6); Hematocrit 33.7 % (37.0-53.0); Hemoglobin 10.6 g/dL (13.5-17.5); IMMATURE GRAN ABSOLUTE AUTO 0.09 K/mm3 (0.00-0.10); IMMATURE GRAN PERCENT AUTO 1 % (0-1); LYMPHOCYTES ABSOLUTE AUTO 2.48 K/mm3 (0.84-5.20); LYMPHOCYTES PERCENT AUTO 33 % (21-46); MONOCYTES ABSOLUTE AUTO 0.48 K/mm3 (0.16-1.47); MONOCYTES PERCENT AUTO 6 % (4-13); Mean Corpuscular HGB 26.2 pg (26.0-34.0); Mean Corpuscular HGB Conc 31.5 g/dL (31.5-36.5); Mean Corpuscular Volume 83 fL (80-100); Mean Platelet Volume 9.3 fL (9.1-12.4); NEUTROPHILS ABSOLUTE AUTO 4.18 K/mm3 (1.96-9.15); NEUTROPHILS PERCENT AUTO 56 % (41-73); NRBC ABSOLUTE 0.02 K/mm3 (0.00-0.02); NRBC Auto 0.3 /100 WBC (0.0-0.2); Platelet Count 249 K/mm3 (150-400); RDW Coefficient Variation 16.2 % (11.7-14.2); RDW Standard Deviation 49.1 fL (35.1-46.3); Red Blood Cell Count 4.04 M/mm3 (4.30-5.90); White Blood Cell Count 7.52 K/mm3 (4.00-11.30)
[2023-12-05 05:46] LABS: Albumin, Blood 2.8 g/dL (3.4-5.0); Albumin/Globulin Ratio 0.6 (0.8-1.8); Bilirubin, Total 0.4 mg/dL (0.1-1.0); Bun/Creatinine Ratio 19.7 (12.0-20.0); Calcium, Blood 9.3 mg/dL (8.5-10.1); Creatinine, Blood 0.81 mg/dL (0.60-1.20); Globulin, Blood 4.4 g/dL (2.2-4.0); Potassium, Blood 3.4 mmol/L (3.5-5.5); Total Protein, Blood 7.2 g/dL (6.4-8.2)
[2023-12-05 07:21] VITALS: BP 147/84
[2023-12-05 15:13] VITALS: BP 172/81
[2023-12-05 17:09] VITALS: BP 160/85
--- NOTE | 2023-12-05 17:45 | NUR ---
SHIFT SUMMARY: PATIENT A/O TO SELF, PLACED AND PERSON, PRESSURED/SLURRED IN SPEECH. HX OF CVA. PATIENT INCON OF BOWEL, ATTENDS PLACED AND CHANGED PRN. PATIENT HAS CHRONIC VILLANUEVA, DRAINING CLOUDY YELLOW URINE c MOD SEDIMENTS. PATIENT UP IN CHAIR ALL DAY, TOLERATED WELL. PATIENT BS RANGES 175-246, RECEIVED INSULIN COVERAGE PER EMAR SLIDING SCALE. PATIENT RECEIVED SCHEDULED MEDS PER EMAR. VITAL SIGNS REVIEWED. CALL LIGHT IN REACH.
[2023-12-05 19:22] VITALS: BP 131/76
[2023-12-06 03:51] VITALS: BP 168/79
--- NOTE | 2023-12-06 05:14 | NUR ---
SHIFT SUMMARY THIS RN ASSUMED CARE OF PATIENT AT 1900. NO ACUTE CHANGES OVERNIGHT. PT A&O X3. ABLE TO MAKE NEEDS KNOWN. CALLING APPROPRIATELY. NO CHANGES TO NEURO. VSS. PT WEARING CPAP DURING THIS NOC SHIFT. X2 SMALL BM'S THIS SHIFT. VILLANUEVA CATHETER PATENT AND DRAINING TO GRAVITY. REPOSITIONING PT Q2HRS. BARRIER CREAM APPLIED TO COCCYX. POWDER APPLIED TO SARA/ABDOMINAL FOLDS. PT WITH PRODUCTIVE COUGH WITH WHITE SPUTUM NOTED. BED IN LOWEST POSITION AND CALL LIGHT WITHIN REACH. THIS RN WILL REPORT TO ONCOMING DAYSHIFT RN.
[2023-12-06 06:13] LABS: BASOPHILS ABSOLUTE AUTO 0.05 K/mm3 (0.00-0.23); BASOPHILS PERCENT AUTO 1 % (0-2); EOSINOPHILS ABSOLUTE AUTO 0.23 K/mm3 (0.00-0.68); EOSINOPHILS PERCENT AUTO 2 % (0-6); Hematocrit 34.4 % (37.0-53.0); Hemoglobin 10.5 g/dL (13.5-17.5); IMMATURE GRAN PERCENT AUTO 1 % (0-1); LYMPHOCYTES ABSOLUTE AUTO 2.46 K/mm3 (0.84-5.20); LYMPHOCYTES PERCENT AUTO 25 % (21-46); MONOCYTES ABSOLUTE AUTO 0.69 K/mm3 (0.16-1.47); MONOCYTES PERCENT AUTO 7 % (4-13); Mean Corpuscular HGB Conc 30.5 g/dL (31.5-36.5); Mean Corpuscular Volume 85 fL (80-100); Mean Platelet Volume 9.3 fL (9.1-12.4); NEUTROPHILS PERCENT AUTO 64 % (41-73); Platelet Count 271 K/mm3 (150-400); RDW Coefficient Variation 16.3 % (11.7-14.2); RDW Standard Deviation 49.1 fL (35.1-46.3); Red Blood Cell Count 4.04 M/mm3 (4.30-5.90); White Blood Cell Count 9.83 K/mm3 (4.00-11.30)
[2023-12-06 06:37] LABS: Albumin, Blood 2.8 g/dL (3.4-5.0); Albumin/Globulin Ratio 0.7 (0.8-1.8); Bilirubin, Total 0.5 mg/dL (0.1-1.0); Bun/Creatinine Ratio 20.1 (12.0-20.0); Calcium, Blood 9.1 mg/dL (8.5-10.1); Creatinine, Blood 0.99 mg/dL (0.60-1.20); Globulin, Blood 4.3 g/dL (2.2-4.0); Potassium, Blood 3.4 mmol/L (3.5-5.5); Total Protein, Blood 7.1 g/dL (6.4-8.2)
[2023-12-06 07:29] VITALS: BP 127/90
[2023-12-06] MEDS ORDERED: Potassium Chloride 20 MEQ TabCR PO ONE (08:00)
[2023-12-06 15:21] VITALS: BP 149/83
--- NOTE | 2023-12-06 16:15 | NUR ---
SHIFT SUMMARY Pt remains A&Ox3 this shift. Able to make needs known. Uses call light appropriately. Up in his reclining electric wheel chair. Postions self frequently. Lift used to move pt to bed. 3 BMs this shift. Cream applied to buttocks. Skin intact. VSS. Resp even nonlabored on RA. Cpap with sleep. Feeds self with set up. Chronic simmons intact with pale cloudy yellow output. Meds in applesauce. Pain and safety maintained. Will continue to monitor this shift.
[2023-12-06 19:16] VITALS: BP 171/83
[2023-12-06 20:49] LABS: Vancomycin, Trough 16.6 ug/mL (5.0-10.0)
[2023-12-07 03:06] VITALS: BP 145/77
--- NOTE | 2023-12-07 04:36 | NUR ---
SHIFT SUMMARY: BETZY IS A&OX3. VSS, PT REFUSED HS BLOOD SUGAR CHECK, CONTINOUS PULSE OX IN PLACE. HOME CPAP AT BEDSIDE, PT WORE IT FOR PART OF THE NIGHT BEFORE REMOVING IT, MAINTAINED SATS >90% THROUGHOUT THE NIGHT. IV TO RIGHT WRIST PATENT. HE IS TOLERATING PO INTAKE WELL, ASPIRATION PRECAUTIONS IN PLACE. PT IS A LIFT TRANSFER IN AND OUT OF HIS MOTORIZED WHEELCHAIR WHICH HE IS ABLE TO USE TO CHANGE POSITION. RICH PATENT, ATTENDS IN PLACE. SPEECH GARBLED, BUT PT IS ABLE TO MAKE HIS NEEDS KNOWN AND USES THE CALL LIGHT APPROPRAITELY. HE IS LYING IN BED WITH THE CALL LIGHT IN REACH. WILL GIVE REPORT TO DAY SHIFT RN.
[2023-12-07 05:22] LABS: BASOPHILS ABSOLUTE AUTO 0.06 K/mm3 (0.00-0.23); BASOPHILS PERCENT AUTO 1 % (0-2); EOSINOPHILS ABSOLUTE AUTO 0.21 K/mm3 (0.00-0.68); EOSINOPHILS PERCENT AUTO 2 % (0-6); Hemoglobin 10.3 g/dL (13.5-17.5); IMMATURE GRAN ABSOLUTE AUTO 0.07 K/mm3 (0.00-0.10); IMMATURE GRAN PERCENT AUTO 1 % (0-1); LYMPHOCYTES ABSOLUTE AUTO 2.73 K/mm3 (0.84-5.20); LYMPHOCYTES PERCENT AUTO 29 % (21-46); MONOCYTES ABSOLUTE AUTO 0.75 K/mm3 (0.16-1.47); MONOCYTES PERCENT AUTO 8 % (4-13); Mean Corpuscular HGB 26.2 pg (26.0-34.0); Mean Corpuscular HGB Conc 31.2 g/dL (31.5-36.5); Mean Corpuscular Volume 84 fL (80-100); Mean Platelet Volume 9.6 fL (9.1-12.4); NEUTROPHILS ABSOLUTE AUTO 5.64 K/mm3 (1.96-9.15); NEUTROPHILS PERCENT AUTO 60 % (41-73); Platelet Count 258 K/mm3 (150-400); RDW Coefficient Variation 17.1 % (11.7-14.2); RDW Standard Deviation 48.8 fL (35.1-46.3); Red Blood Cell Count 3.93 M/mm3 (4.30-5.90); White Blood Cell Count 9.46 K/mm3 (4.00-11.30)
[2023-12-07 05:45] LABS: Albumin, Blood 2.7 g/dL (3.4-5.0); Albumin/Globulin Ratio 0.6 (0.8-1.8); Bilirubin, Total 0.5 mg/dL (0.1-1.0); Bun/Creatinine Ratio 22.2 (12.0-20.0); Creatinine, Blood 0.9 mg/dL (0.60-1.20); Globulin, Blood 4.2 g/dL (2.2-4.0); Magnesium, Blood 2.2 mg/dL (1.6-2.4); Phosphorus, Blood 3.6 mg/dL (2.5-4.9); Potassium, Blood 3.7 mmol/L (3.5-5.5); Total Protein, Blood 6.9 g/dL (6.4-8.2)
[2023-12-07 07:43] VITALS: BP 148/82
--- NOTE | 2023-12-07 11:47 | NUR ---
MUSICAL INSTRUMENTS ASSEMBLER NOTE: PT DECLINED CBG CHECK FOR LUNCH.
--- NOTE | 2023-12-07 14:13 | NUR ---
PATIENT BACK TO BED AFTER BREAKFAST AND LUNCH, BM, CDI ATTENDS IN PLACE, PATIENT MAKES NEEDS KNOWN WITH VERY GARBLED SPEECH, REFUSED NOON BLOOD GLUCOSE CHECK AND AM LONG ACTING INSULING, EDUCATED PATIENT ON THE IMPORTANCE OF BLOOD SUGAR CHECKS AND INSULIN, PATIENT THEN REFUSED, COOPERATIVE TO CARE, CONTINENT WITH BM TODAY, PATIENT SWALLOWED MEDICATION WHOLE WITH YOGURT PER PATIENT REQUEST WITHOUT DIFFICULTY, DR PORRAS ROUNDED THIS AM, NO CHANGES IN CARE OR MEDICATIONS, CALL LIGHT WITH IN REACH
--- NOTE | 2023-12-07 14:56 | NUR ---
VANCO INFUSING, PATIENT RESTING, RESPS EVEN AND NONLABORED, NO S/S OF DISTRESS, CALL LIGHT WITH IN REACH
[2023-12-07 15:31] VITALS: BP 186/82
--- NOTE | 2023-12-07 15:53 | NUR ---
SUPPORTIVE PHONE CALL CM HAS ARRANGED FOR PT TO D/C TO [facility] TOMORROW 12/08/23. PT'S DTR/POA IS MENTALLY STRUGGLING WITH PT BEING SENT OUT OF TOWN WHERE HE HAS NO FAMILY SUPPORT. THIS PC RN PROVIDED THERAPUTIC LISTENING FOR PT'S DTR. SHE IS RELUCTANTLY AGREEABLE TO OUT OF TOWN PLACEMENT FOR 2 WEEKS OF ABX TX. HOWEVER, DTR BELIEVES PT WILL PHYSICALLY AND MENTALLY DECLINE W/O FAMILY SUPPORT. PT'S CARE NEEDS HAVE BECOME MORE INTENSE THAN HIS CURRENT CHIEF DEVELOPMENT OFFICER CAN PROVIDE. DTR WILL CONTINUE SEARCHING FOR PRISON PLACEMENT IN [facility]. PC TO REMAIN AVAILABLE NEEDED.
--- NOTE | 2023-12-07 17:51 | NUR ---
NO ACUTE CHANGES, PG TO BE PLACED FOR [facility] FOR ANTIBIOTIC INFUSIONS, PATIENT IS ABLE TO MAKE NEEDS KNOWN WITH GESTURES AND GARBLED VOICE, EASILY ANSWERS YES/NO, SWALLOWED MEDS WITH YOGURT WITHOUT DIFFICULTY, SATS 97% ON RA THROUGH OUT THE DAY. PATIENT REFUSED LONG ACTING INSULIN, LUNCH AND DINNER GLUCOSE CHECK. HTN, BP AND COREG MEDICATION GIVEN. A [facility] ACCEPTED PATIENT WITH POSSIBILITY OF TRANSFERRING TOMORROW, SENIOR FIELD ENGINEER AWARE OF THE NEED FOR A PG, CALL LIGHT WITH IN REACH, WILL RELAY TO PM RN
[2023-12-07 20:02] VITALS: BP 171/74
[2023-12-08 04:27] VITALS: BP 161/71
[2023-12-08 05:11] LABS: BASOPHILS ABSOLUTE AUTO 0.04 K/mm3 (0.00-0.23); BASOPHILS PERCENT AUTO 1 % (0-2); EOSINOPHILS ABSOLUTE AUTO 0.26 K/mm3 (0.00-0.68); EOSINOPHILS PERCENT AUTO 3 % (0-6); Hematocrit 33.1 % (37.0-53.0); Hemoglobin 10.3 g/dL (13.5-17.5); IMMATURE GRAN ABSOLUTE AUTO 0.07 K/mm3 (0.00-0.10); IMMATURE GRAN PERCENT AUTO 1 % (0-1); LYMPHOCYTES PERCENT AUTO 31 % (21-46); MONOCYTES ABSOLUTE AUTO 0.73 K/mm3 (0.16-1.47); MONOCYTES PERCENT AUTO 9 % (4-13); Mean Corpuscular HGB 26.1 pg (26.0-34.0); Mean Corpuscular HGB Conc 31.1 g/dL (31.5-36.5); Mean Corpuscular Volume 84 fL (80-100); Mean Platelet Volume 9.8 fL (9.1-12.4); NEUTROPHILS ABSOLUTE AUTO 4.37 K/mm3 (1.96-9.15); NEUTROPHILS PERCENT AUTO 55 % (41-73); Platelet Count 268 K/mm3 (150-400); RDW Coefficient Variation 17.2 % (11.7-14.2); RDW Standard Deviation 49.1 fL (35.1-46.3); Red Blood Cell Count 3.95 M/mm3 (4.30-5.90); White Blood Cell Count 7.97 K/mm3 (4.00-11.30)
--- NOTE | 2023-12-08 05:17 | NUR ---
SHIFT SUMMARY: BETZY IS A&OX3. VSS, BP ELEVATED, TRENDING DOWN. HE IS TOLERATING PO INTAKE WELL, ABLE TO MAKE HIS NEEDS KNOWN. VILLANUEVA PATENT, DRAINING CLOUDY, YELLOW URINE, COLLECTION BAG HANGING ABOVE THE FLOOR. IV TO RIGHT WIRST PATENT. ATTENDS IN PLACE, PT PRODUCED A SOFT BM EARLY IN THE SHIFT. PER PT'S DAUGHTER, PLAN TO DISCHARGE TO SNF THIS AFTERNOON. POWERGLIDE PLACEMENT REQUESTED BY DAY SHIFT YESTERDAY, PER REPORT, FOLLOWED UP [facility] CHARGE THIS SHIFT. PT IS A LIFT FOR TRANSFERS, USES HIS ELECTRIC WHEELCHAIR WITHOUT DIFFICULTY. PT DID WEAR HIS CPAP FOR THE DURATION OF THE SHIFT, REFUSED HS BLOOD SUGAR CHECK LAST NIGHT STATING THAT HIS FINGERS ARE SORE. HE IS LYING IN BED WITH THE CALL LIGHT IN REACH, BED IN LOWEST POSITION. WILL GIVE REPORT TO DAY SHIFT RN.
[2023-12-08 05:42] LABS: Albumin, Blood 2.8 g/dL (3.4-5.0); Albumin/Globulin Ratio 0.6 (0.8-1.8); Bilirubin, Total 0.6 mg/dL (0.1-1.0); Bun/Creatinine Ratio 20.4 (12.0-20.0); Calcium, Blood 9.3 mg/dL (8.5-10.1); Creatinine, Blood 0.98 mg/dL (0.60-1.20); Globulin, Blood 4.4 g/dL (2.2-4.0); Potassium, Blood 3.8 mmol/L (3.5-5.5); Total Protein, Blood 7.2 g/dL (6.4-8.2)
[2023-12-08 07:16] VITALS: BP 167/77
[2023-12-08] MEDS ORDERED: BANATROL PLUS1 EAC1 PO (09:07)
[2023-12-08] MEDS ORDERED: ACET325 PO (09:07)
[2023-12-08] MEDS ORDERED: ENOX40I SC (09:08)
[2023-12-08] MEDS ORDERED: INSULANI SC (09:08)
[2023-12-08] MEDS ORDERED: MICAFUNGIN100 MG IV (09:09)
[2023-12-08] MEDS ORDERED: VANCOMYCIN (09:10)
--- NOTE | 2023-12-08 14:24 | NUR ---
DISCHARGED 1410, LEFT VIA TRANSPORTATION TO [facility], FAMILY ACCOMPANIED, REPORT TO KI MORGAN, REPORTED TO CASE MANAGEMENT [facility] STATED THEY DID NOT GET ANY ORDERS
== END 2023-12-08 14:09 | DRG 862 ==
LOC: ER 06:10 → ERHOLD 06:11 → MEDS 12:44 → ICUE 12-01 00:05 → MEDS 12-01 10:10 → ICUE 12-01 10:15 → MEDS 12-02 15:52
PROVIDERS: Hospitalist; Internal Medicine; Student in an Organized Health Care Education/Training Program; ADMIT Internal Medicine
DX: T81.49XA Infection following a procedure, other surgical site, initial encounter (principal); A41.9 Sepsis, unspecified organism; J96.01 Acute respiratory failure with hypoxia; R65.20 Severe sepsis without septic shock; G93.41 Metabolic encephalopathy; B37.41 Candidal cystitis and urethritis; I69.351 Hemiplegia and hemiparesis following cerebral infarction affecting right dominant side; E87.20 Acidosis, unspecified; J44.9 Chronic obstructive pulmonary disease, unspecified; G47.33 Obstructive sleep apnea (adult) (pediatric); E11.9 Type 2 diabetes mellitus without complications; E66.9 Obesity, unspecified; N40.0 Benign prostatic hyperplasia without lower urinary tract symptoms; K59.09 Other constipation; E78.5 Hyperlipidemia, unspecified; I11.0 Hypertensive heart disease with heart failure; I50.9 Heart failure, unspecified; G89.4 Chronic pain syndrome; M10.9 Gout, unspecified; E87.6 Hypokalemia; E83.42 Hypomagnesemia; Z86.14 Personal history of Methicillin resistant Staphylococcus aureus infection; I69.391 Dysphagia following cerebral infarction; I69.328 Other speech and language deficits following cerebral infarction; Z99.3 Dependence on wheelchair; Z87.891 Personal history of nicotine dependence; Z79.02 Long term (current) use of antithrombotics/antiplatelets; Z79.84 Long term (current) use of oral hypoglycemic drugs; Z79.899 Other long term (current) drug therapy; Z68.34 Body mass index [BMI] 34.0-34.9, adult
CPT/HCPCS: 0241U; 36415; 51702; 51798; 71045; 80048; 80053; 80069; 80202; 81001; 82803; 82947; 83605; 83735; 83880; 84100; 84145; 85025; 85027; 85610; 87040; 87077; 87086; 87106; 87186; 94762; 96361; 96365; 96366; 96367; 96372; 96375; 99285-25; A9270; C1751; G0378; J0696; J1450; J1650; J1815; J2248; J2543; J3370; J3475; J7030; J7040; J7050

== ENCOUNTER 2024-05-02 14:06 | Inpatient (IN) | payer OTHER ==
[~2024-05-02] VITALS: Ht 177.8 cm; Wt 89.3 kg
[~2024-05-02 14:06] MED LIST changes: +ACET325 PO; +BANATROL PLUS1 EAC1 PO; +ENOX40I SC; +INSULANI SC; +MICAFUNGIN100 MG IV; +VANCOMYCIN
[2024-05-02 15:12] LABS: Source, Urine Straight Cath
[2024-05-02 15:32] LABS: Appearance, Urine Cloudy (Clear); Bilirubin, Urine Neg (Neg); Blood, Urine 4+ (Neg); Color, Urine Yellow (P-Yellow); Glucose Qualitative, Urine Neg (Neg); Ketones, Urine Neg (Neg); Leukocyte Esterase, Urine 3+ (Neg); Nitrite, Urine Neg (Neg); Protein, Urine 3+ (Neg); Specific Gravity, Urine 1.015 (1.003-1.022); Urobilinogen, Urine NORM (Normal)
[2024-05-02 15:44] LABS: White Blood Cells, Urine TNTC /hpf (0-5)
[2024-05-02 15:45] LABS: Bacteria Mod /hpf; Squamous Epithelial Cells Rare /hpf (Few)
[2024-05-02 15:46] LABS: Renal Epithelial Rare /hpf (0-Rare)
[2024-05-02 15:48] LABS: BASOPHILS ABSOLUTE AUTO 0.03 K/mm3 (0.00-0.23); BASOPHILS PERCENT AUTO 0 % (0-2); EOSINOPHILS ABSOLUTE AUTO 0.17 K/mm3 (0.00-0.68); EOSINOPHILS PERCENT AUTO 3 % (0-6); Hematocrit 32.1 % (37.0-53.0); Hemoglobin 9.9 g/dL (13.5-17.5); IMMATURE GRAN ABSOLUTE AUTO 0.02 K/mm3 (0.00-0.10); IMMATURE GRAN PERCENT AUTO 0 % (0-1); LYMPHOCYTES ABSOLUTE AUTO 1.53 K/mm3 (0.84-5.20); LYMPHOCYTES PERCENT AUTO 22 % (21-46); MONOCYTES ABSOLUTE AUTO 0.38 K/mm3 (0.16-1.47); MONOCYTES PERCENT AUTO 6 % (4-13); Mean Corpuscular HGB 27.6 pg (26.0-34.0); Mean Corpuscular HGB Conc 30.8 g/dL (31.5-36.5); Mean Corpuscular Volume 89 fL (80-100); Mean Platelet Volume 9.5 fL (9.1-12.4); NEUTROPHILS ABSOLUTE AUTO 4.72 K/mm3 (1.96-9.15); NEUTROPHILS PERCENT AUTO 69 % (41-73); Platelet Count 202 K/mm3 (150-400); RDW Coefficient Variation 18.7 % (11.7-14.2); RDW Standard Deviation 61.1 fL (35.1-46.3); Red Blood Cell Count 3.59 M/mm3 (4.30-5.90); White Blood Cell Count 6.85 K/mm3 (4.00-11.30)
[2024-05-02] MEDS ORDERED: NS 1,000 ML IV SCH (16:00)
[2024-05-02 16:12] LABS: Albumin, Blood 3.2 g/dL (3.4-5.0); Albumin/Globulin Ratio 0.9 (0.8-1.8); Bilirubin, Total 0.4 mg/dL (0.1-1.0); Bun/Creatinine Ratio 20.6 (12.0-20.0); Creatinine, Blood 2.48 mg/dL (0.60-1.20); Globulin, Blood 3.5 g/dL (2.2-4.0); Potassium, Blood 4.1 mmol/L (3.5-5.5); Total Protein, Blood 6.7 g/dL (6.4-8.2)
[2024-05-02] MEDS ORDERED: Vancomycin HCL 2,000 MG in NS 500 ML IV ONE (16:15)
[2024-05-02 16:20] LABS: Magnesium, Blood 2.1 mg/dL (1.6-2.4); Thyroid Stimulating Hormone 1.26 uIU/mL (0.360-4.800)
[2024-05-02] MEDS ORDERED: CefTRIAXone Sodium 1,000 MG in NS 100 ML IV ONE (17:50)
[2024-05-02] MEDS ORDERED: Ipratropium/Albuterol SulF 2.5-0.5MG/3 ML Amp INH ONE (18:20)
[2024-05-02] MEDS ORDERED: Albuterol 2.5 MG/3 ML VIAL INH ONE ×2 (18:20→20:00)
[2024-05-02 18:35] LABS: pH Blood Venous 7.19 (7.34-7.37)
[2024-05-02 18:36] LABS: Base Excess Venous -13.8 mmol/L; Bicarbonate Venous 14.2 mmol/L (24.0-30.0); PCO2 Venous 37.1 mmHg (38-42)
[2024-05-02] MEDS ORDERED: Ondansetron HCl 2 MG / ML 2ML Vial IV PRN (19:35)
[2024-05-02] MEDS ORDERED: Albuterol 2.5 MG/3 ML VIAL INH PRN (19:40)
[2024-05-02] MEDS ORDERED: Lactated Ringer's 1,000 ML IV SCH (19:40)
[2024-05-02] MEDS ORDERED: Lactated Ringer's 1,000 ML IV ONE (19:40)
[2024-05-02] MEDS ORDERED: Azithromycin 500 MG in NS 250 ML IV ONE (19:50)
[2024-05-02] MEDS ORDERED: Sodium Bicarb 8.4% 1 MEQ/ML 50 ML Vial IV ONE (19:50)
[2024-05-02] MEDS ORDERED: Sodium Bicarb 8.4% Inj 75 MEQ in Sodium Chloride 0.45% 1,000 ML IV SCH (20:10)
[2024-05-02] MEDS ORDERED: FLU VACC TS2024-25(6MOS UP)/PF 45 MCG/0.5 ML SYRINGE IM ONE (20:10)
[2024-05-02 22:07] LABS: Base Excess Venous -10.7 mmol/L; Bicarbonate Venous 16.3 mmol/L (24.0-30.0); PCO2 Venous 39.1 mmHg (38-42)
[2024-05-02 22:08] LABS: pH Blood Venous 7.24 (7.34-7.37)
[2024-05-02 22:33] VITALS: BP 125/67
--- NOTE | 2024-05-02 22:33 | NUR ---
PT TO ICU BED 5 VIA MANNIE WITH PCU STAFF, RT, AND DAUGHTER AT 2233. PT ON BIPAP WITH SETTINGS OF 17/7 AND 30% FiO2, O2 SATURATIONS > 92%. LS DIM WITH EXP WHEEZE T/O. RESPONDS TO PAINFUL STIMULI ONLY VIA WITHDRAWING, NO EYE OPENING RESPONSE. HOSPITALIST TO BEDSIDE, ORDERED NARCAN 0.4 MG IV X 1 WITH SLOW EYE OPENING RESPONSE TO VERBAL STIMULI. ADDITIONAL DOSE OF NARCAN 1 MG IV ORDERED BY HOSPITALIST WITH SLOW EYE OPENING RESPONSE TO VERBAL STIMULI AGAIN. D50 ORDERED AND ADMINISTERED BY HOSPITALIST. CONTINOUS CARDIAC MONITORING IN PLACE SB-SR WITH HR IN 50'S-60'S. BP STABLE WITH MAP > 65. VILLANUEVA IN PLACE DRAINING SEDIMENTOUS YELLOW URINE TO GRAVITY. PIV TO LFA AND L WRIST. SEE SHIFT ASSESSMENT FOR FULL DETAILS.
[2024-05-02 22:45] VITALS: BP 127/72
[2024-05-02] MEDS ORDERED: Dextrose 50% 50 ML Vial IV ONE (23:15)
[2024-05-02] MEDS ORDERED: Naloxone HCL 4 MG SPRAY (1 UNIT) ONE (23:15)
[2024-05-02] MEDS ORDERED: Naloxone HCl 0.4MG / ML 1ML Vial ONE ×2 (23:15→23:21)
[2024-05-02] MEDS ORDERED: Naloxone HCl 0.4MG / ML 1ML Vial IV ONE (23:20)
[2024-05-02] MEDS ORDERED: Naloxone HCl 1MG / ML 2ML SYR IV ONE (23:25)
--- NOTE | 2024-05-02 23:48 | NUR ---
PT ADMITTED TO PCU. UPON ARRIVAL PT WAS NOT RESPONISVE TO STIMULI, PUPILS STILL REACTIVE, GCS 8. CARDIAC ASSESSMENT SINUS RYTHM 60s, RESPIRTORY COURSE AND WHEEZING HEARD THROUGHOUT, PT WAS NOT ABLE TO PROTECT AIRWAY. DR. CORDERO CAME BEDSIDE AND NOTED VBG WAS INPROVING BUT PT DID NOT LOOK GOOD. PT THEN TRANSFERED TO ICU FOR A HIGHER LEVEL OF CARE WITH POSSIBLE INTUBATION. DAUGHTER WAS AT BEDSIDE AND UPDATED ON PLAN OF CARE.
[2024-05-02 23:58] LABS: Source, Urine Foley catheter
[2024-05-03] VITALS (7 sets, daily range): BP systolic 112–165; BP diastolic 56–67
[2024-05-03] MEDS ORDERED: Insulin Human Lispro 100 Units/ML 3ML Syringe SC SCH
[2024-05-03 00:26] LABS: Appearance, Urine Cloudy (Clear); Bilirubin, Urine Neg (Neg); Blood, Urine 5+ (Neg); Glucose Qualitative, Urine Neg (Neg); Ketones, Urine Neg (Neg); Leukocyte Esterase, Urine 3+ (Neg); Nitrite, Urine Neg (Neg); Protein, Urine 2+ (Neg); Specific Gravity, Urine 1.015 (1.003-1.022); Urobilinogen, Urine NORM (Normal)
[2024-05-03 00:35] LABS: Color, Urine Pale Yellow (P-Yellow)
[2024-05-03 00:36] LABS: Bacteria Mod /hpf; Red Blood Cells, Urine 25-50 /hpf (0-2); Squamous Epithelial Cells Few /hpf (Few); White Blood Cells, Urine 50-100 /hpf (0-5)
[2024-05-03 03:43] LABS: BASOPHILS ABSOLUTE AUTO 0.02 K/mm3 (0.00-0.23); BASOPHILS PERCENT AUTO 0 % (0-2); EOSINOPHILS ABSOLUTE AUTO 0.11 K/mm3 (0.00-0.68); EOSINOPHILS PERCENT AUTO 2 % (0-6); Hematocrit 32.1 % (37.0-53.0); IMMATURE GRAN ABSOLUTE AUTO 0.01 K/mm3 (0.00-0.10); IMMATURE GRAN PERCENT AUTO 0 % (0-1); LYMPHOCYTES ABSOLUTE AUTO 1.22 K/mm3 (0.84-5.20); LYMPHOCYTES PERCENT AUTO 21 % (21-46); MONOCYTES ABSOLUTE AUTO 0.48 K/mm3 (0.16-1.47); MONOCYTES PERCENT AUTO 8 % (4-13); Mean Corpuscular HGB 27.8 pg (26.0-34.0); Mean Corpuscular HGB Conc 31.2 g/dL (31.5-36.5); Mean Corpuscular Volume 89 fL (80-100); Mean Platelet Volume 9.8 fL (9.1-12.4); NEUTROPHILS ABSOLUTE AUTO 4.06 K/mm3 (1.96-9.15); NEUTROPHILS PERCENT AUTO 69 % (41-73); Platelet Count 176 K/mm3 (150-400); RDW Coefficient Variation 18.5 % (11.7-14.2); RDW Standard Deviation 60.9 fL (35.1-46.3)
[2024-05-03 04:03] LABS: Alanine Aminotransfer (ALT/SGP 28 U/L (12-78); Albumin/Globulin Ratio 0.9 (0.8-1.8); Alk Phos 33 U/L (50-136); Anion Gap 9 mmol/L (3-11); Aspartate Aminotrans (AST/SGOT 22 U/L (12-37); Bilirubin, Total 0.5 mg/dL (0.1-1.0); Blood Urea Nitrogen 44 mg/dL (8-24); Bun/Creatinine Ratio 23.4 (12.0-20.0); CO2, Blood 21 mmol/L (21-32); Calcium, Blood 8.6 mg/dL (8.5-10.1); Chloride, Blood 121 mmol/L (98-108); Creatinine, Blood 1.88 mg/dL (0.60-1.20); Globulin, Blood 3.4 g/dL (2.2-4.0); Glomerular Filtration Rate 37 (60-); Glucose, Blood 138 mg/dL (70-99); Phosphorus, Blood 3.7 mg/dL (2.5-4.9); Potassium, Blood 3.6 mmol/L (3.5-5.5); Sodium, Blood 147 mmol/L (136-145); Total Protein, Blood 6.4 g/dL (6.4-8.2); Vancomycin, Random 17.3 ug/mL
[2024-05-03 05:03] LABS: PCO2 Venous 45.1 mmHg (38-42); pH Blood Venous 7.27 (7.34-7.37)
[2024-05-03 05:04] LABS: Base Excess Venous -6.5 mmol/L
--- NOTE | 2024-05-03 06:10 | NUR ---
SHIFT SUMMARY PT BEGAN TO WAKE UP MORE TOWARDS THE END OF THE SHIFT. ABLE TO OPEN EYES MORE OFTEN AND WAS MORE QUICK TO RESPOND. SHAKES HEAD YES/NO APPROPRIATELY BUT STILL NONVERBAL. DENIES PAIN. COOPERATIVE WITH CARE. CONTINOUS CARDIAC MONITORING IN PLACE SHOWS SB-SR WITH HR IN 50'S-60'S. BP STABLE WITH MAP > 65. BIPAP REMAINS IN PLACE WITH SETTINGS OF 17/7 AND 30%. LS DIM WITH EXPIRATORY WHEEZES. NO BM THIS SHIFT. VILLANUEVA IN PLACE DRAINING THICK YELLOW URINE TO GRAVITY. SCATTERED BRUISING T/O. SODIUM BICARB INFUSING AT 100mL/HR. WILL CONTINUE TO MONITOR AND REPORT TO ONCOMING RN.
--- NOTE | 2024-05-03 07:00 | NUR ---
ASSUME CARE: I have assumed care of this patient.
[2024-05-03 08:32] LABS: Adenovirus Not Detected (NOT DETECT); Coronavirus 229E Not Detected (NOT DETECT); Coronavirus HKU1 Not Detected (NOT DETECT); Coronavirus NL63 Not Detected (NOT DETECT); Coronavirus OC43 Not Detected (NOT DETECT)
[2024-05-03 08:33] LABS: Bordetella pertussis Not Detected (NOT DETECT); Chlamydophila pneumoniae Not Detected (NOT DETECT); Human Metapneumovirus Not Detected (NOT DETECT); Human Rhinovirus/Enterovirus Not Detected (NOT DETECT); Influenza A/2009-H1 Not Detected (NOT DETECT); Influenza A/H1 Not Detected (NOT DETECT); Influenza A/H3 Not Detected (NOT DETECT); Influenza B Not Detected (NOT DETECT); Mycoplasma pneumoniae Not Detected (NOT DETECT); Parainfluenza Virus 1 Not Detected (NOT DETECT); Parainfluenza Virus 2 Not Detected (NOT DETECT); Parainfluenza Virus 3 Not Detected (NOT DETECT); Parainfluenza Virus 4 Not Detected (NOT DETECT); Respiratory Syncytial Virus Not Detected (NOT DETECT); SARS-Cov-2 (COVID-19), BioFire Not Detected (NOT DETECT)
[2024-05-03] MEDS ORDERED: Heparin Sodium,Porcine 5,000 UNIT/0.5 ML SDV SC SCH (09:00)
[2024-05-03] MEDS ORDERED: Clopidogrel Bisulfate 75 MG Tab PO SCH (09:00)
[2024-05-03] MEDS ORDERED: Insulin Glargine-Yfgn 100 Unit/mL 3 ML SYR SC SCH (09:00)
[2024-05-03] MEDS ORDERED: Vancomycin HCL 1,250 MG in NS 250 ML IV SCH (09:00)
[2024-05-03] MEDS ORDERED: CefTRIAXone Sodium 1,000 MG in NS 100 ML IV SCH (09:00)
[2024-05-03] MEDS ORDERED: Darbepoetin Alfa In Albumn Sol 40 MCG/0.4 ML SC SCH (12:00)
--- NOTE | 2024-05-03 13:08 | NUR ---
TRANSFER: Report called to Unique Pitts in PCU. Awaiting room clean. Gennaro is more alert now than he was this morning. He is up in the chair. He was able to taken a break from BIPAP on room air for approximately an hour before his oxygen saturation starting dipping. Freida Hernandez, was at bedside and states she will bring in his wheelchair for better positioning. She notes that Gennaro requires CPAP any time he is reclined. Plavix held due to AMS and NPO status.
--- NOTE | 2024-05-03 13:30 | NUR ---
PT TO PCU 11 FROM ICU 9 VIA RECLINER CHAIR. PT ARRIVES ON RA AND IS MAINTAING ON O2 SAT OF 90%. PT APPEARS TO BE TIRED BUT DOES NOT WANT TO GO BACK ON CPAP AT THIS TIME. PT ALERT AND KNODING YES AND NO WHEN QUESTIONS ARE ASKED BUT IS UNABLE TO FORM ANY WORDS JUST A ONE WORD MUMBLE. VSS. VILLANUEVA IN PLACE, DRAINING CLEAR YELLOW URINE.
--- NOTE | 2024-05-03 13:50 | NUR ---
PT CONINUES TO LOOK MORE TIRED AT THIS TIME AND O2 SATS HAVE DROPPED TO 89% ON RA. PT AGREEABLE TO GO BACK ON CPAP. CPAP PLACED BACK ON PT. VSS. DENIES ANY NEEDS. SOFT TOUCH CALL LIGHT PROVIDED TO PT AND WAS INSTRUCTED ON HOW TO USE.
--- NOTE | 2024-05-03 18:14 | NUR ---
SHIFT SUMMARY: PT CONTINUES TO SLEEP COMFORTABLY IN RECLINER CHAIR WITH CPAP ON. VILLANUEVA REMAINS IN PLACE AND IS DRAINING YELLOW URINE WITH A MODERAE AMOUNT OF SEDIMENT IN TUBING. SOD BICARB DRIP CONTINUES. NO ACUTE NEURO, CARDIAC, OR RESP CHANGES SINCE PREVIOUS ASSESSMENT. NO SIGNIFICANT EVENTS HAVE HAPPENED DURING SHIFT. WILL CONTINUE TO CARE FOR PT TILL END OF SHIFT.
[2024-05-03] MEDS ORDERED: Azithromycin 500 MG in NS 250 ML IV SCH (21:00)
[2024-05-03] MEDS ORDERED: Tamsulosin HCl 0.4 MG Cap PO SCH (21:00)
[2024-05-03] MEDS ORDERED: Pregabalin 50 MG Capsule PO SCH (21:00)
[2024-05-03] MEDS ORDERED: Sennosides 8.6 MG Tab PO SCH (21:00)
[2024-05-03] MEDS ORDERED: OxyCODONE HCL 5 MG TAB PO SCH (21:00)
[2024-05-03] MEDS ORDERED: Lactobacil 2-S.Thermo-Bifido 1 1 Cap PO SCH (21:00)
--- NOTE | 2024-05-03 21:46 | NUR ---
LATE ASSUMPTION OF CARE NOTE. PT IS THUS FAR NONVERBAL BUT ABLE TO NOD HIS HEAD YES/NO TO ANSWER QUESTIONS AND IS ABLE TO FOLLOW SIMPLE COMMANDS. LIFT PT, WHEELCHAIR/BED BOUND AT BASELINE. HAS BEEN RUNNING SINUS SINCE SHIFT START. WAS MAINTAINING ADEQUATE SATURATION ON ROOM AIR WHILE IN CHAIR, NOW ON CPAP IN BED AND MAINTAINING >90%. HAS DENIED PAIN THUS FAR THIS SHIFT. VITALS STABLE. DAUGHTER AT BEDSIDE TO HELP MAKE PT NEEDS KNOWN. SOFT TOUCH CALL LIGHT WITHIN REACH. HELD 2100 PO MEDICATIONS DUE TO ASPIRATION RISK. PT IS NPO FOR TIME BEING. BED LOCKED IN LOWEST POSITION. CALL LIGHT LEFT WITHIN REACH. CONTINUING TO MONITOR.
[2024-05-04 00:07] VITALS: BP 135/91
--- NOTE | 2024-05-04 00:45 | NUR ---
0000 NOTE. PT MORE ALERT, VOCALIZING MORE ALTHOUGH SPEECH IS INDISCERNABLE. ATTEMPTING TO VOCALIZE SOME NEED BUT STAFF IS UNABLE TO DECIPHER WHAT HE IS ATTEMPTING TO SAY. DENIED HAVING PAIN, NEEDING REPOSITIONED, NEEDING TO HAVE BOWEL MOVEMENT, FEELING SOB, ETC. APPEARS SOMEWHAT ANXIOUS. VITALS STABLE. CONTINUES TO MAINTAIN ADEQUATE SATURATION ON HOME CPAP. SOFT TOUCH CALL LIGHT IN REACH. BED LOCKED IN LOWEST POSITION. CONTINUING TO MONITOR.
--- NOTE | 2024-05-04 02:19 | NUR ---
pt o2 saturation has been sporadically dipping into mid-high 80s and maintaining for some time. primarily holding in the 88-90% range. attempted to switch home cpap for v60 on cpap settings that is in room, pt refused. educated on indication for switch but pt again refused. spoke with dr. leo, he is okay with pt remaining in 88-90% range for time being. continuing to monitor.
--- NOTE | 2024-05-04 03:05 | NUR ---
DISCUSSION WITH PT. PT HAS BEEN PRESSING CALL LIGHT VERY FREQUENTLY THROUGHOUT ENTIRETY OF SHIFT. ON EVERY VISIT FROM STAFF, PT IS ASKED YES OR NO QUESTIONS DUE TO INABILITY OF STAFF TO UNDERSTAND PT SPEECH. THROUGH YES OR NO QUESTIONS DENIED PAIN, BEING UNCOMFORTABLE, BEING SHORT OF BREATH, NEEDING REPOSITIONED, NEEDING BRIEF CHANGED, ANY OTHER NEEDS. WHEN ASKED IF THERE IS SOMETHING THAT HE NEEDS THAT STAFF IS ABLE TO ASSIST WITH, PT HAS CONSISTENTLY ANSWERED NO. ON MOST VISITS, PT REQUESTS CHANNEL ON TV TO BE CHANGED OR VOLUME TO BE INCREASED/DECREASED. UNCLEAR ON DEGREE OF PT ORIENTATION BUT HE DOES APPEAR ABLE TO ANSWER YES/NO QUESTIONS APPROPRIATELY. FREQUENT REPEATED EDUCATION ON USE OF CALL LIGHT AND THE FUTILITY OF REQUESTING STAFF ASSISTANCE VIA CALL LIGHT AND THEN DENYING NEEDING STAFF FOR ANYTHING ONCE THEY ARE IN ROOM. PT WILL MORE OFTEN THAN NOT PRESS CALL LIGHT EVEN WHILE STAFF IS IN ROOM AT BEDSIDE SPEAKING WITH PT. CONTINUING TO MONITOR.
[2024-05-04 03:12] VITALS: BP 171/77
[2024-05-04 03:26] VITALS: BP 162/84
[2024-05-04 03:51] LABS: BASOPHILS ABSOLUTE AUTO 0.03 K/mm3 (0.00-0.23); BASOPHILS PERCENT AUTO 1 % (0-2); EOSINOPHILS ABSOLUTE AUTO 0.12 K/mm3 (0.00-0.68); EOSINOPHILS PERCENT AUTO 2 % (0-6); Hematocrit 31.1 % (37.0-53.0); Hemoglobin 9.8 g/dL (13.5-17.5); IMMATURE GRAN ABSOLUTE AUTO 0.01 K/mm3 (0.00-0.10); IMMATURE GRAN PERCENT AUTO 0 % (0-1); LYMPHOCYTES ABSOLUTE AUTO 1.53 K/mm3 (0.84-5.20); LYMPHOCYTES PERCENT AUTO 30 % (21-46); MONOCYTES ABSOLUTE AUTO 0.35 K/mm3 (0.16-1.47); MONOCYTES PERCENT AUTO 7 % (4-13); Mean Corpuscular HGB 27.1 pg (26.0-34.0); Mean Corpuscular HGB Conc 31.5 g/dL (31.5-36.5); Mean Corpuscular Volume 86 fL (80-100); Mean Platelet Volume 9.6 fL (9.1-12.4); NEUTROPHILS ABSOLUTE AUTO 3.15 K/mm3 (1.96-9.15); NEUTROPHILS PERCENT AUTO 61 % (41-73); Platelet Count 190 K/mm3 (150-400); RDW Coefficient Variation 18.6 % (11.7-14.2); RDW Standard Deviation 58.2 fL (35.1-46.3); Red Blood Cell Count 3.61 M/mm3 (4.30-5.90); White Blood Cell Count 5.19 K/mm3 (4.00-11.30)
[2024-05-04 04:15] LABS: Albumin, Blood 3.1 g/dL (3.4-5.0); Albumin/Globulin Ratio 0.9 (0.8-1.8); Bilirubin, Total 0.6 mg/dL (0.1-1.0); Bun/Creatinine Ratio 25.7 (12.0-20.0); Calcium, Blood 9.1 mg/dL (8.5-10.1); Creatinine, Blood 0.93 mg/dL (0.60-1.20); Globulin, Blood 3.6 g/dL (2.2-4.0); Magnesium, Blood 1.9 mg/dL (1.6-2.4); Phosphorus, Blood 1.4 mg/dL (2.5-4.9); Potassium, Blood 2.8 mmol/L (3.5-5.5); Total Protein, Blood 6.7 g/dL (6.4-8.2)
--- NOTE | 2024-05-04 04:19 | NUR ---
SHIFT SUMMARY. PT CONDITION IS UNCHANGED FROM PREVIOUS NOTE. SEE PREVIOUS NOTE FOR EXPANDED DETAILS. CALLED DR. CORDERO TO NOTIFY OF MORNING POTASSIUM AND PHOSPHOROUS VALUES. DR. CORDERO INFORMED HE WOULD LOOK THROUGH CHART. PT CONTINUES TO PRIMARILY MAINTAIN O2 SATURATION IN 88-90% RANGE, DR. CORDERO AWARE. CONTINUES TO REFUSE V60 MASK. CONTINUES TO DENY PAIN. CONTINUES TO RUN SINUS ON TELE. NO BM THIS SHIFT. BED LOCKED IN LOWEST POSITION. CALL LIGHT LEFT WITHIN REACH. CONTINUING TO MONITOR.
[2024-05-04] MEDS ORDERED: Potassium Phosphate Dibasic 20 MM in Dextrose 5% 500 ML IV ONE (04:40)
[2024-05-04] MEDS ORDERED: Potassium Chloride 30 MEQ IV ONE (04:45)
[2024-05-04] MEDS ORDERED: Dextrose 5% 1,000 ML IV SCH (04:45)
--- NOTE | 2024-05-04 04:48 | NUR ---
CONVERSATION WITH DR. BECKER. ORDERED FOR SODIUM BICARB TO BE STOPPED IN FAVOR OF D5W @ 75 MLS/HR. ORDERED POTASSIUM PHOSPHATE 20 MMOL, POTASSIUM CHLORIDE 30 MEQ. ORDERED 1400 SODIUM, PHOSPHOROUS, AND POTASSIUM LAB DRAWS WITH RESULTS TO BE CALLED TO HIM BY 1500. ORDERS INPUT. CONTINUING TO MONITOR.
[2024-05-04] MEDS ORDERED: Potassium Chl 10MEQ/Water100ML 100 ML IV SCH (05:00)
[2024-05-04] MEDS ORDERED: NS 250 ML IV PRN (05:05)
[2024-05-04] MEDS ORDERED: Cholecalciferol 1000 Unit Tablet (=25MCG) PO SCH (09:00)
[2024-05-04] MEDS ORDERED: Fluconazole 100 MG Tab PO SCH (09:00)
[2024-05-04] MEDS ORDERED: Enoxaparin 40 MG/0.4 ML SYR SC SCH (09:00)
[2024-05-04] MEDS ORDERED: Docusate Sodium 100 MG Cap PO SCH ×2 (09:00→21:00)
[2024-05-04] MEDS ORDERED: Banana Flakes/Tos 1 EA Powder Pack PO SCH (09:00)
[2024-05-04] MEDS ORDERED: FLUoxetine HCl 10 MG Cap PO SCH (09:00)
[2024-05-04] MEDS ORDERED: Meropenem 1,000 MG in NS 100 ML IV SCH (11:30)
[2024-05-04] MEDS ORDERED: Baclofen 10 MG Tab PO SCH (12:00)
[2024-05-04] MEDS ORDERED: Clopidogrel Bisulfate 75 MG Tab PO SCH (12:00)
[2024-05-04 12:14] VITALS: BP 176/81
[2024-05-04 14:18] LABS: Phosphorus, Blood 1.4 mg/dL (2.5-4.9); Potassium, Blood 2.9 mmol/L (3.5-5.5)
[2024-05-04] MEDS ORDERED: Potassium Phosphate Dibasic 30 MM in Dextrose 5% 500 ML IV STA (17:35)
--- NOTE | 2024-05-04 17:50 | NUR ---
PATIENTS DAUGHTER ZEV WAS AT BEDSIDE THIS MORNING. ROUNDED WITH THE PROVIDER. WE UPDATED HER ON ALMANZA STATUS. DAUGHTER WAS AGREEABLE TO SPEECH THERAPY EVALUATING BETZY. SHE REPORTED THAT HE DOES BETTER WITH ICE COLD THICKENED LIQUID. WE DISCUSSED HIS HOME MEDICATIONS AND HOME MEDICATIONS WERE ADDED. PC WILL CONTINUE TO PROVIDE SUPPORT
--- NOTE | 2024-05-04 17:53 | NUR ---
SHIFT SUMMARY: PT ALERT IN HOME WHEELCHAIR AT THIS TIME. PT KNODS YES AND NO WHEN QUESTIONS ARE ASKED AND MUMBLES. PT IS VERY HARD TO UNDERSTAND. PT HAS BEEN ON RA MOST OF THE DAY AND HAS BEEN MAINTAINING O2 SATS <95%. PT WAS DEEP SUCTIONED BY RT TODAY. CHRISTIANSEN SPUTUM WAS COLLECTED AND SENT TO LAB. VILLANUEVA REMAINS IN PLACE AND IS DRAINING YELLOW URINE. NO SIGNIFICANT EVENTS HAVE HAPPENED DURING THIS SHIFT. WILL CONTINUE TO CARE FOR PT TILL END OF SHIFT.
[2024-05-04 20:23] VITALS: BP 160/85
[2024-05-05] VITALS (7 sets, daily range): BP systolic 140–184; BP diastolic 72–93
[2024-05-05 04:33] LABS: Hematocrit 29.7 % (37.0-53.0); Hemoglobin 9.4 g/dL (13.5-17.5)
[2024-05-05 05:11] LABS: Albumin, Blood 2.8 g/dL (3.4-5.0); Anion Gap 9 mmol/L (3-11); Blood Urea Nitrogen 14 mg/dL (8-24); Bun/Creatinine Ratio 19.5 (12.0-20.0); CO2, Blood 25 mmol/L (21-32); Calcium, Blood 8.2 mg/dL (8.5-10.1); Chloride, Blood 113 mmol/L (98-108); Creatinine, Blood 0.72 mg/dL (0.60-1.20); Glomerular Filtration Rate 96 (60-); Glucose, Blood 120 mg/dL (70-99); Magnesium, Blood 1.6 mg/dL (1.6-2.4); Phosphorus, Blood 2.6 mg/dL (2.5-4.9); Potassium, Blood 2.9 mmol/L (3.5-5.5); Sodium, Blood 144 mmol/L (136-145)
[2024-05-05] MEDS ORDERED: Mag Sulfate 1 GM/D5% 100ML 100 ML IV ONE (05:25)
[2024-05-05] MEDS ORDERED: Potassium Chloride 30 MEQ IV SCH (05:25)
[2024-05-05] MEDS ORDERED: Potassium Phosphate Dibasic 10 MM in Dextrose 5% 250 ML IV ONE ×2 (05:25→16:00)
[2024-05-05] MEDS ORDERED: Potassium Chl 10MEQ/Water100ML 100 ML IV SCH (05:35)
--- NOTE | 2024-05-05 06:45 | NUR ---
PT REMAINED STABLE THROUGHOUT THE SHIFT. PT ABLE TO ANSWER YES AND NO QUESTIONS BY NODDING AND SHAKING HEAD. PT ABLE TO USE COMMUNICATION BOARD EFFECTIVELY. PT CONTINUES TO HAVE VERY MUMBLE SPEECH. NO BM THIS SHIFT. PT IS ON SENNOKOT AND DOCUSATE FOR BOWEL CARE. PT FAMILY CONCERNED ABOUT LACK OF BM. PT REMAINED ON HOME CPAP SETTINGS WITH 3L O2 BLEED IN WITH GOOD O2 SAT. CBG REMAINED STABLE AND NO COVERAGE NEEDED. PT REPOSITIONED EVERY 2 HOURS, BARRIER CREAM APPLIED TO BUTTOCKS, NO SKIN BREAKDOWN NOTED. IV FLUIDS CONTINUE TO INFUSE W/O PROBLEM. PT TOLERATING IV ABX. PT NEURO STATUS APPEARS NEAR BASELINE WITH MENTATION, NEURO STATUS IS AT BASELINE WITH EXTREMITY WEAKNESS/PARESIS.
[2024-05-05] MEDS ORDERED: Potassium Chl 20MEQ/Water100ML 100 ML IV SCH (07:30)
[2024-05-05] MEDS ORDERED: Mag Sulfate 1 GM/D5% 100ML 100 ML IV STA (08:26)
[2024-05-05 08:33] LABS: Vancomycin, Trough 10.5 ug/mL (5.0-10.0)
[2024-05-05] MEDS ORDERED: Potassium Phosphate Dibasic 30 MM in Dextrose 5% 500 ML IV SCH (08:45)
[2024-05-05] MEDS ORDERED: MethylPREDNISolone Sod Succ 125 MG Vial IV ONE (08:50)
[2024-05-05] MEDS ORDERED: Ipratropium/Albuterol SulF 2.5-0.5MG/3 ML Amp INH SCH (08:55)
[2024-05-05] MEDS ORDERED: Lactulose 20 GM/30 ML UDC PO SCH ×2 (09:50→16:00)
[2024-05-05] MEDS ORDERED: Vancomycin HCL 1,000 MG in NS 250 ML IV SCH (10:00)
[2024-05-05] MEDS ORDERED: TOLT2ER PO (10:29)
[2024-05-05] MEDS ORDERED: Flonase 0.05% N16 GM (10:29)
[2024-05-05 14:50] LABS: Base Excess Venous 0 mmol/L; Bicarbonate Venous 24.7 mmol/L (24.0-30.0); PCO2 Venous 33.2 mmHg (38-42); pH Blood Venous 7.46 (7.34-7.37)
[2024-05-05 15:12] LABS: Albumin, Blood 3.2 g/dL (3.4-5.0); Anion Gap 9 mmol/L (3-11); Blood Urea Nitrogen 13 mg/dL (8-24); Bun/Creatinine Ratio 20.1 (12.0-20.0); CO2, Blood 24 mmol/L (21-32); Calcium, Blood 8.9 mg/dL (8.5-10.1); Chloride, Blood 112 mmol/L (98-108); Creatinine, Blood 0.65 mg/dL (0.60-1.20); Glomerular Filtration Rate 99 (60-); Glucose, Blood 172 mg/dL (70-99); Phosphorus, Blood 2.4 mg/dL (2.5-4.9); Potassium, Blood 3.4 mmol/L (3.5-5.5); Sodium, Blood 142 mmol/L (136-145)
[2024-05-05] MEDS ORDERED: Sodium Chloride 105 MEQ in Aa 4.25%/Calcium/Lytes/D5w 1,000 ML IV SCH (15:55)
[2024-05-05] MEDS ORDERED: MethylPREDNISolone Sod Succ 125 MG Vial IV SCH (16:00)
[2024-05-05] MEDS ORDERED: Potassium Chl 10MEQ/Water100ML 100 ML IV ONE (16:05)
[2024-05-05] MEDS ORDERED: D5W-NS 1,000 ML IV SCH (16:15)
[2024-05-05] MEDS ORDERED: HydrALAZINE HCl 20 MG / ML 1ML Vial IV PRN (17:45)
--- NOTE | 2024-05-05 17:58 | NUR ---
End of shift note. After assuming care this morning, Pt had noted increase in WOB while on CPAP. Speech therapy tried to evaluate him but his resp stat was too unstable. MD was phoned to discuss status and rounded early. New orders were given. Bowel care was increased. Pt has taken 3 doses of Lactalose. No BM yet. Pt continues to be distended. Active bowel tones. Electrolytes replaced multiple times today. Repeat labs in the morning. Orders for clindimix was given but pharmacy reported a shortage. Plan is for IV fluids overnight and reevaluate speech eval. If fails eval, dietary consult will be placed for PPN. Pt has been able to make needs known. Will use call light. Bed alarm is active.
[2024-05-06 00:42] VITALS: BP 156/83
[2024-05-06 04:07] LABS: Hematocrit 33.4 % (37.0-53.0); Hemoglobin 10.8 g/dL (13.5-17.5)
[2024-05-06 04:25] LABS: Albumin, Blood 3.1 g/dL (3.4-5.0); Calcium, Blood 8.5 mg/dL (8.5-10.1); Creatinine, Blood 0.74 mg/dL (0.60-1.20); Phosphorus, Blood 2.4 mg/dL (2.5-4.9)
[2024-05-06 05:00] VITALS: BP 160/86
[2024-05-06 05:10] LABS: BASOPHILS PERCENT AUTO 0 % (0-2); EOSINOPHILS PERCENT AUTO 0 % (0-6); IMMATURE GRAN ABSOLUTE AUTO 0.03 K/mm3 (0.00-0.10); IMMATURE GRAN PERCENT AUTO 1 % (0-1); LYMPHOCYTES ABSOLUTE AUTO 0.86 K/mm3 (0.84-5.20); LYMPHOCYTES PERCENT AUTO 25 % (21-46); MONOCYTES ABSOLUTE AUTO 0.12 K/mm3 (0.16-1.47); MONOCYTES PERCENT AUTO 3 % (4-13); Mean Corpuscular HGB 27.7 pg (26.0-34.0); Mean Corpuscular HGB Conc 32.4 g/dL (31.5-36.5); Mean Corpuscular Volume 86 fL (80-100); Mean Platelet Volume 9.8 fL (9.1-12.4); NEUTROPHILS ABSOLUTE AUTO 2.49 K/mm3 (1.96-9.15); NEUTROPHILS PERCENT AUTO 71 % (41-73); Platelet Count 207 K/mm3 (150-400); RDW Coefficient Variation 18.2 % (11.7-14.2); RDW Standard Deviation 56.6 fL (35.1-46.3); Red Blood Cell Count 3.93 M/mm3 (4.30-5.90)
[2024-05-06 05:21] LABS: Albumin/Globulin Ratio 0.8 (0.8-1.8); Bilirubin, Total 0.8 mg/dL (0.1-1.0); Globulin, Blood 3.8 g/dL (2.2-4.0); Total Protein, Blood 6.9 g/dL (6.4-8.2)
[2024-05-06] MEDS ORDERED: Potassium Phosphate Dibasic 20 MM IV SCH (05:30)
[2024-05-06] MEDS ORDERED: Potassium Chloride 30 MEQ IV SCH (05:30)
[2024-05-06] MEDS ORDERED: Dextrose 5% 1,000 ML IV SCH ×2 (05:30→08:50)
[2024-05-06] MEDS ORDERED: Potassium Phosphate Dibasic 20 MM in Dextrose 5% 500 ML IV STA (05:38)
[2024-05-06] MEDS ORDERED: Potassium Chl 10MEQ/Water100ML 100 ML IV SCH (05:40)
--- NOTE | 2024-05-06 07:05 | NUR ---
PT STABLE THROUGHOUT THE SHIFT, REMAINS AOX2. PT HAS MUMBLED SPEECH BUT IS ABLE TO USE THE COMMUNICATION BOARD AND OCCASSIONALY ABLE TO WRITE NEEDS. LEFT FOREARM PERIPHERAL IV IS DISLODGING FROM SITE AND HAS BEEN D/C'D WITH COBAN AND GAUZE TO DRESS SITE. POWER GLIDE PLACED TO LEFT UPPER ARM, GOOD BLOOD RETURN AND IS NOW IVF INFUSING W/O PROBLEM. PT HAS NOT HAD A BM THIS SHIFT DESPITE MULTIPLE DOSES OF LACTULOSE. BOWEL SOUNDS VERY ACTIVE AND TYMPANIC. PT HAS HAD GOOD URINARY OUTPUT BY VILLANUEVA.
[2024-05-06 08:00] VITALS: BP 178/92
[2024-05-06] MEDS ORDERED: Thiamine HCl 100 MG in Aa 4.25%/Calcium/Lytes/D5w 1,000 ML IV SCH (08:25)
[2024-05-06] MEDS ORDERED: Multivitamins 10 ML,ZINC SULF/CUSO4 P-HYD/MN/CR/SE 1 ML,Thiamine HCl 100 MG in Aa 4.25%... IV SCH (08:25)
[2024-05-06] MEDS ORDERED: TPN Consult Notification XX ONE (08:50)
[2024-05-06] MEDS ORDERED: Fat Emulsion 20 % IV 250 ML IV SCH (09:00)
[2024-05-06] MEDS ORDERED: Ketorolac Tromethamine 15mg Vial IV PRN (09:10)
--- NOTE | 2024-05-06 10:36 | NUR ---
UPDATE PT ALERT. SPEECH GARBLED & UNINTELLIGIBLE. PT HOWEVER, ABLE TO CLEARLY REFUSE CPAP REMOVAL FOR TRIAL WITHOUT. PT ALSO CLEARLY REFUSING ST EVAL, SHAKING HEAD NO REPITIVELY. PT RESPIRATIONS LABORED & PT MAKING GASPING SOUND. THIS RN NOT COMFORTABLE W/ PO MEDICATIONS AT THIS TIME. CALL TO PT DAUGHTER TO DISCUSS. PT DAUGHTER CONFIRMS IT IS BASELINE FOR PT TO ASPIRATE ON PO INTAKE, BUT STATES "HE'S USUALLY ABLE TO COUGH THROUGH IT." THIS RN STATING DISCOMFORT GIVING ANYTHING PO TO PT. PT DAUGHTER STATES SHE WILL COME IN A FEW HOURS TO ASSESS PT. PT VSS. SPO2 > 92% ON CPAP W/ 3L BLEED IN. MONITOR SHOWING SR W/ PVCs, HR 70s. PT ABD SEVERELY DISTENDED & FIRM. PT W/ MULTIPLE LOOSE BROWN BOWEL MOVEMENTS THIS AM. SARA CARE/ATTENDS CHANGES PROVIDED. D5 GTT INFUSING PER ORDERS. VILLANUEVA CATH PATENT & DRAINING YELLOW URINE W/ THICK SEDIMENT.
[2024-05-06 13:55] VITALS: BP 149/74
[2024-05-06 15:44] LABS: Albumin, Blood 2.9 g/dL (3.4-5.0); Anion Gap 11 mmol/L (3-11); Blood Urea Nitrogen 15 mg/dL (8-24); Bun/Creatinine Ratio 18.8 (12.0-20.0); CO2, Blood 23 mmol/L (21-32); Calcium, Blood 8.3 mg/dL (8.5-10.1); Chloride, Blood 116 mmol/L (98-108); Glomerular Filtration Rate 93 (60-); Glucose, Blood 153 mg/dL (70-99); Phosphorus, Blood 2.5 mg/dL (2.5-4.9); Potassium, Blood 3.1 mmol/L (3.5-5.5); Sodium, Blood 147 mmol/L (136-145)
[2024-05-06 16:42] VITALS: BP 150/65
[2024-05-06] MEDS ORDERED: Parenteral Electolytes 40 ML,Potassium Phosphate Dibasic 30 MM,Multivitamins 10 ML,ZINC... IV SCH (17:00)
--- NOTE | 2024-05-06 18:33 | NUR ---
SHIFT SUMMARY PT ALERT, ORIETNED TO SELF, PLACE. CALM, HE IS ABLE TO EXPRESS NEEDS. SR/SB, HR IN 50'S-60'S, DENIES CP/PRESSURE, NUMB/TINGLING. O2 >92% ON CPAP 3L O2 BLEED IN, TACHYPENIC, BREIF PERIODS OF INCREASED WOB, CAN TOLERATE SMALL PERIODS OFF OF CPAP. +BS, SEVERE DISTENTION NOTED, PT WITH ATLEAST THREE LARGE LIQUID BM THIS SHIFT. VILLANUEVA CATH IN PLACE, DRAINING TO GRAVITY, SEDIMENTATION NOTED IN URINE, MD NOTIFIED. ST TRIED TO WORK WITH HIM THIS AM BUT PT DECLINED TWICE. PT WAS ABLE TO TOLERATE PO MEDS WHOLE WITH APPLESAUCE THIS AFTERNOON, THICKENED LIQUIDS ARE TOLERATED OKAY WITH BREIF COUGHING. PPN STARTED THIS EVENING, D5W D/C. WILL CONTINUE TO MONITOR AND REPORT TO ASSISTANT SHIFT SUPERVISOR RN. PTS DAUGHTERS TO ROOM. PT DAUGHTER STATED "IT IS INHUMANE TO NOT FEED OR GIVE WATER TO PEOPLE, AND HE CHOKES AND GETS RED IN THE FACE WHILE EATING AND THAT IS BASELINE FOR HIM." PT/DAUGHTER REFUSING NPO STATUS. NOTIFIED, ORDERS FOR DIET PLACED AND NECTAR THICK FLUIDS.
[2024-05-06 19:41] VITALS: BP 154/90
[2024-05-06] MEDS ORDERED: AmLODIPine Besylate 5 MG Tab PO SCH (21:00)
[2024-05-06 22:21] LABS: Vancomycin, Trough 17.5 ug/mL (5.0-10.0)
[2024-05-07 01:28] LABS: Albumin, Blood 2.8 g/dL (3.4-5.0); Anion Gap 10 mmol/L (3-11); Blood Urea Nitrogen 16 mg/dL (8-24); Bun/Creatinine Ratio 21.6 (12.0-20.0); CO2, Blood 24 mmol/L (21-32); Calcium, Blood 7.9 mg/dL (8.5-10.1); Chloride, Blood 116 mmol/L (98-108); Creatinine, Blood 0.74 mg/dL (0.60-1.20); Glomerular Filtration Rate 96 (60-); Glucose, Blood 201 mg/dL (70-99); Phosphorus, Blood 2.4 mg/dL (2.5-4.9); Potassium, Blood 3.1 mmol/L (3.5-5.5); Sodium, Blood 147 mmol/L (136-145)
[2024-05-07] MEDS ORDERED: Potassium Chloride 30 MEQ IV SCH (02:00)
[2024-05-07] MEDS ORDERED: Potassium Phosphate Dibasic 20 MM IV SCH (02:05)
[2024-05-07] MEDS ORDERED: Potassium Chl 10MEQ/Water100ML 100 ML IV SCH (02:20)
[2024-05-07] MEDS ORDERED: Potassium Phosphate Dibasic 20 MM in Dextrose 5% 500 ML IV STA (02:23)
[2024-05-07 04:18] VITALS: BP 142/80
--- NOTE | 2024-05-07 06:46 | NUR ---
PT STABLE THROUGHOUT THE SHIFT. RESPIRATORY RATE AND EFFORT IMPROVED S/P BMS ON PREVIOUS SHIFT. PT CONTINUES TO PASS GAS. PT COMMUNICATES THAT HE IS ABLE TO TELL WHEN HE HAS A BM AND WILL LET STAFF KNOW. PT HAS BEEN TURNED Q2 AND TOLERATED WELL. PT HAS HAD GOOD URINARY OUTPUT THROUGH VILLANUEVA. URINE YELLOW WITH SEDIMENT. CPAP IN PLACE THROUGH THE NIGHT MAINTAINING GOOD SPO2. PT TOLERATING PPN AND IV ABX WELL. END OF SHIFT IV ELECTROLYTE REPLETION IN PROGRESS MORNING LAB DRAW HELD UNTIL INFUSIONS ARE COMPLETED. PT ABLE TO TAKE PO MEDICATIONS IN SUGAR FREE PUDDING W/O APPARENT PROBLEM, NO S/S ASPIRATION. HR SINUS RHYTHM TO SINUS MANINDER WITH OCCASIONAL PVCS, OTHER VITAL SIGNS REMAIN WNL. PT AOX2-3, SPEECH REMAINS MUMBLED/GARBLED. PT USES COMMUNICATION BOARD WELL.
[2024-05-07] MEDS ORDERED: Losartan Potassium 25 MG Tab PO SCH (09:00)
--- NOTE | 2024-05-07 09:12 | NUR ---
PO INTAKE PT AGREEABLE TO TRANSITION FROM CPAP TO NC. SPO2 > 92% ON 2L NC. RESPIRATIONS EVEN & UNLABORED. PT NOT COUGHING ON PUREED EGGS & CREAM OF WHEAT & NECTAR THICK MILK UNTIL END OF MEAL, PT THEN W/ WEAK/INEFFECTIVE COUGH & PO INTAKE DISCONTINUED.
[2024-05-07 09:44] VITALS: BP 124/75
[2024-05-07 11:11] LABS: BASOPHILS PERCENT AUTO 0 % (0-2); EOSINOPHILS PERCENT AUTO 0 % (0-6); Hematocrit 32.9 % (37.0-53.0); Hemoglobin 10.5 g/dL (13.5-17.5); IMMATURE GRAN ABSOLUTE AUTO 0.05 K/mm3 (0.00-0.10); IMMATURE GRAN PERCENT AUTO 1 % (0-1); LYMPHOCYTES PERCENT AUTO 17 % (21-46); MONOCYTES ABSOLUTE AUTO 0.31 K/mm3 (0.16-1.47); MONOCYTES PERCENT AUTO 5 % (4-13); Mean Corpuscular HGB 27.8 pg (26.0-34.0); Mean Corpuscular HGB Conc 31.9 g/dL (31.5-36.5); Mean Corpuscular Volume 87 fL (80-100); Mean Platelet Volume 9.2 fL (9.1-12.4); NEUTROPHILS ABSOLUTE AUTO 4.55 K/mm3 (1.96-9.15); NEUTROPHILS PERCENT AUTO 77 % (41-73); Platelet Count 175 K/mm3 (150-400); RDW Coefficient Variation 18.3 % (11.7-14.2); RDW Standard Deviation 57.3 fL (35.1-46.3); Red Blood Cell Count 3.78 M/mm3 (4.30-5.90); White Blood Cell Count 5.91 K/mm3 (4.00-11.30)
[2024-05-07 11:28] LABS: Albumin, Blood 2.9 g/dL (3.4-5.0); Anion Gap 13 mmol/L (3-11); Blood Urea Nitrogen 18 mg/dL (8-24); Bun/Creatinine Ratio 22.6 (12.0-20.0); CO2, Blood 22 mmol/L (21-32); Chloride, Blood 114 mmol/L (98-108); Glomerular Filtration Rate 93 (60-); Glucose, Blood 207 mg/dL (70-99); Magnesium, Blood 2.1 mg/dL (1.6-2.4); Potassium, Blood 3.5 mmol/L (3.5-5.5); Sodium, Blood 145 mmol/L (136-145)
[2024-05-07 11:56] LABS: Triglycerides 226 mg/dL (30-160)
[2024-05-07 15:48] VITALS: BP 149/64
--- NOTE | 2024-05-07 18:07 | NUR ---
SHIFT SUMMARY PT ALERT, ORIENTED TO SELF, PLACE, PERSON. CALM, COOPERATIVE TO CARE. HE USES CALL LIGHT APPROPRIALEY. HE IS ABLE TO EXPRESS HIS NEEDS VIA WORDS AND PICTURE CARD. PG TRACY INFUSING PER ORDERS. SINUS MANINDER, HR IN THE LOW 50'S, DENIES CP/PRESSURE, NUMB/TINGLING, SBP STABLE. O2 >94% ON 1L BLEED IN CPAP, PT TOLERATING WELL WITH 1L VIA NC AND CPAP. +BS, ABD REMAINS FIRM BUT IMPROVED FROM PRIOR SHIFT, PT WITH TWO BM THIS SHIFT. PT TOLERATED PO INTAKE TODAY. PPN D/C AROUND 1500 THIS AFTERNOON. PT POSSIBLE D/C TOMORROW. WILL CONTINUE TO MONITOR AND REPORT TO ASSISTANT COMMUNITY DIRECTOR RN.
[2024-05-07 20:21] VITALS: BP 159/84
--- NOTE | 2024-05-07 20:45 | NUR ---
ASSUMPTION OF CARE: PATIENT IS ALERT AND ORIENTED X 4, DIFFICULTY WITH SPEECH KNOWN HISTORY OF CVA. DECLINED REPOSITION AND ORAL CARE FOR THIS RN. VILLANUEVA PATENT AND DRAINING, SPEECH FOLLOWING AND DYSPHAGIA PROCAUTIONS. PATIENT IS SR TO SB 1'HB. PVCS. CONTINUOUS PULSE OX AND TELE IN PLACE. NO ACUTE CONCERNS. PATIENT ON RA FOR A BREAK FROM CPAP. SLIGHTY HYPERTENSIVE 150'S ON FIRST CHECK. TOLERATED MEDS WITH APPLESUACE AND NECTART THICKENED WATER.
[2024-05-07 23:06] VITALS: BP 141/64
--- NOTE | 2024-05-08 | NUR ---
CURRENLTY RESETING ON CPAP NO BLEED IN. HR MORE SB WITH TRIGEM, AND PVC'S. PATIENT ASYMPTOMATIC. VSS, PLAN OF CARE CONTINUES.
[2024-05-08 03:18] VITALS: BP 146/74
[2024-05-08 03:38] LABS: BASOPHILS PERCENT AUTO 0 % (0-2); EOSINOPHILS ABSOLUTE AUTO 0.01 K/mm3 (0.00-0.68); EOSINOPHILS PERCENT AUTO 0 % (0-6); Hematocrit 30.6 % (37.0-53.0); Hemoglobin 9.7 g/dL (13.5-17.5); IMMATURE GRAN ABSOLUTE AUTO 0.03 K/mm3 (0.00-0.10); IMMATURE GRAN PERCENT AUTO 1 % (0-1); LYMPHOCYTES ABSOLUTE AUTO 0.87 K/mm3 (0.84-5.20); LYMPHOCYTES PERCENT AUTO 17 % (21-46); MONOCYTES ABSOLUTE AUTO 0.21 K/mm3 (0.16-1.47); MONOCYTES PERCENT AUTO 4 % (4-13); Mean Corpuscular HGB 27.2 pg (26.0-34.0); Mean Corpuscular HGB Conc 31.7 g/dL (31.5-36.5); Mean Corpuscular Volume 86 fL (80-100); Mean Platelet Volume 9.6 fL (9.1-12.4); NEUTROPHILS PERCENT AUTO 78 % (41-73); Platelet Count 162 K/mm3 (150-400); RDW Coefficient Variation 18.2 % (11.7-14.2); RDW Standard Deviation 57.3 fL (35.1-46.3); Red Blood Cell Count 3.56 M/mm3 (4.30-5.90); White Blood Cell Count 5.12 K/mm3 (4.00-11.30)
[2024-05-08 03:57] LABS: Albumin, Blood 2.7 g/dL (3.4-5.0); Anion Gap 8 mmol/L (3-11); Blood Urea Nitrogen 21 mg/dL (8-24); Bun/Creatinine Ratio 29.8 (12.0-20.0); CO2, Blood 26 mmol/L (21-32); Chloride, Blood 115 mmol/L (98-108); Creatinine, Blood 0.71 mg/dL (0.60-1.20); Glomerular Filtration Rate 97 (60-); Glucose, Blood 145 mg/dL (70-99); Phosphorus, Blood 2.1 mg/dL (2.5-4.9); Potassium, Blood 3.5 mmol/L (3.5-5.5); Sodium, Blood 145 mmol/L (136-145)
[2024-05-08] MEDS ORDERED: Potassium Phosphate Dibasic 10 MM in Dextrose 5% 250 ML IV STA (05:37)
--- NOTE | 2024-05-08 06:29 | NUR ---
NO SIGNIFICANT CHANGES FROM ASSUMPTION OF CARE. HAS BEEN ON CPAP MOST OF THE NIGHT. Q2 REPOSITIONS. NO BM FOR THIS RN GREAT URINE OUTPUT 1100 FOR THE SHIFT. INFUSING KPHOS CURRENLTY PATIENT RESTING. NO ACUTE CONCERNS FROM THIS RN PATIENT IN NO DISTRESS.
[2024-05-08 08:56] VITALS: BP 132/81
[2024-05-08 09:51] LABS: Vancomycin, Trough 17.8 ug/mL (5.0-10.0)
--- NOTE | 2024-05-08 09:52 | NUR ---
ASSUMPTION OF CARE PT ALERT, ORIEMTED TO PLACE AND SELF, ANSWERS QUESTIONS VERBALLY BUT NO ALWAYS CLEAR, SHAKES HEAD YES OR NO, AND WITH PICTURE BOARD. USES CALL LIGHT APPROPRIATLEY. HR IN THE 50'S, SINUS PACED RYTHM, SBP STABLE, SHAKES HEAD WHEN ASKED ABOUT CP/PRESSURE, NUMB/TINGLING. O2 >94% ON RA-CPAP, PT DENIES SOB AT THIS TIME. +BS, SHAKES HAD NO WHEN ASKED IF ANY ABD PAIN/TENDERNESS, DISTENTION AND FIRM NOTED ON PLAPATION, PT HAS NOT HAD A BM THIS MORNING, BOWEL REGIMEN GIVEN PER EMAR. VAUGHN PG RUNNING PER ORDERS. BLOOD SAMPLE COLLECTED THIS AM AND SENT TO LAB. PT TOLERATING PO MEDS THIS AM WELL BREAKFEST. HE DENIES NEDDING ANY THING AT THIS TIME. PROVIDER TO BEDSIDE THIS AM. PLAN TO CONTINE TO MONITOR RESPIRATORY STATUS AND ABD FOR A FEW MORE DAYS. WILL CONTINUE TO MONITOR PT. CALL LIGHT IN REACH.
[2024-05-08] MEDS ORDERED: Ampicillin Sod/Sulbactam Sod 1.5 GM in NS 100 ML IV SCH (12:00)
--- NOTE | 2024-05-08 18:50 | NUR ---
SHIFT SUMMARY PT ALERT, OREINTED TO PERSON, PLACE, SELF. SINUS MANINDER, HR IN THE 50'S-60'S, SBP STABLE. O2 >94% ON RA, DENIES SOB, CPAP FOR NOC AND DURING THE DAY. VSS. NO ACUTE CHANGES T/O SHIFT. ABX SWITCHED THIS AFTERNOON. IV STERIODS CHANGED TO PO. PT STILL TOLERATING PO INTAKE. ABD STILL MODERATLEY DISTENDED, DENIES PAIN, PT RECEIVING BOWEL REGIMEN WITH 1 BM THIS SHIFT. NO ACUTE CHANGES T/O SHIFT. PT HAS A ROOM ON MEDICAL FLOOR. REPORT GIVEN TO MAURICE MORGAN ON MEDICAL FLOOR. WAITING TRANSFER. WILL MONITOR PT AD TRANSPORT TO MEDICAL FLOOR WHEN ROOM IS READY.
[2024-05-08 19:46] VITALS: BP 143/80
[2024-05-09 04:33] LABS: BASOPHILS ABSOLUTE AUTO 0.01 K/mm3 (0.00-0.23); BASOPHILS PERCENT AUTO 0 % (0-2); EOSINOPHILS PERCENT AUTO 2 % (0-6); Hematocrit 30.7 % (37.0-53.0); IMMATURE GRAN ABSOLUTE AUTO 0.07 K/mm3 (0.00-0.10); IMMATURE GRAN PERCENT AUTO 1 % (0-1); LYMPHOCYTES PERCENT AUTO 29 % (21-46); MONOCYTES ABSOLUTE AUTO 0.52 K/mm3 (0.16-1.47); MONOCYTES PERCENT AUTO 8 % (4-13); Mean Corpuscular HGB 28.2 pg (26.0-34.0); Mean Corpuscular HGB Conc 32.6 g/dL (31.5-36.5); Mean Corpuscular Volume 87 fL (80-100); Mean Platelet Volume 9.4 fL (9.1-12.4); NEUTROPHILS PERCENT AUTO 60 % (41-73); Platelet Count 161 K/mm3 (150-400); RDW Coefficient Variation 18.6 % (11.7-14.2); RDW Standard Deviation 57.6 fL (35.1-46.3); Red Blood Cell Count 3.54 M/mm3 (4.30-5.90)
[2024-05-09 04:43] VITALS: BP 131/68
[2024-05-09 04:51] LABS: Albumin, Blood 2.5 g/dL (3.4-5.0); Albumin/Globulin Ratio 0.8 (0.8-1.8); Bilirubin, Total 0.4 mg/dL (0.1-1.0); Bun/Creatinine Ratio 28.6 (12.0-20.0); Calcium, Blood 7.9 mg/dL (8.5-10.1); Creatinine, Blood 0.74 mg/dL (0.60-1.20); Globulin, Blood 3.1 g/dL (2.2-4.0); Total Protein, Blood 5.6 g/dL (6.4-8.2)
--- NOTE | 2024-05-09 05:23 | NUR ---
PCU TRANSFER TO MEDICAL @ 2100. SPENCER. UTI WITH MRSA IN URINE, CONTACT PRECAUTIONS. [id number], DIFFICULT TO COMMUNICATE WITH BUT PT WILL RESPOND TO SOME QUESTIONS, IF UNABLE TO UNDERSTAND PT POINTS TO A POINTER PAPER. ASPIRATION PRECAUTIONS, FAMILY AWARE AND DECLINES SWALLOW STUDY. BEDREST. TELE IN PLACE, MANINDER 52 WITH PVC. JEFFE POWERGLKEN,FOR MAITEO AND JOYN.
[2024-05-09] MEDS ORDERED: Potassium Chl 20MEQ/Water100ML 100 ML IV SCH (05:30)
[2024-05-09] MEDS ORDERED: Dextrose 5% 1,000 ML IV SCH ×2 (06:30)
[2024-05-09 07:51] VITALS: BP 156/71
[2024-05-09] MEDS ORDERED: PredniSONE 20 MG Tab PO SCH (09:00)
[2024-05-09 15:23] VITALS: BP 151/75
[2024-05-09 19:39] VITALS: BP 163/85
--- NOTE | 2024-05-10 05:17 | NUR ---
SHIFT SUMMARY: PT IS A 73 YO LIMITED CODE MALE. PT WAS ADMITTED FOR SPENCER. PT IS IN CONTACT PREC FOR MRSA IN URINE. PT LIVES AT [facility] AND IR MOSTLY NON VERBAL AND SOME MUMBLED LAUNGUAGE. PT HAS A VILLANUEVA AND INCONT-TO BOWEL. PT IS A Q2 TURN AND REPOSITION AND Q6 BS CHECK. PT IS A LIFT PT AND USES W/C AT TIMES. PT WILL ALSO USE PICTURE BOARD TO COMMUNICATE W/STAFF. PT HAS A VAUGHN PG AND CONT.D5@50 ML/HR. PT TAKES MEDS WHOLE W/APPLESAUCE BUT I AM WORRIED ABOUT ASPIRATION RISK BECAUSE HE SEEMS TO HAVE TROUBLE SWALLOWING MEDS BUT FAMILY REFUSES SWALLOW EVAL. PT HAS PUREE DIET ORDERED AND NECTAR THICK LIQUIDS BUT FAMILY BRINGS THE PATIENT SNACKS LIKE COOKIES TO EAT AND SAYS THE PT PREFERS ICE IN HIS THICKENED LIQUIDS. PT SEEMS TO HAVE TROUBLE SWALLOWING THIS AT TIMES EVEN WHEN SITTING UP. PT HAS CHRONIC UTI'S AND A VILLANUEVA THAT CATH CARE WAS DONE ON TONIGHT. PT IS ON TELE SINUS MANINDER W PVC'S AND BBB. XRAY OF ABDOMEN/PELVIS W/ORAL CONTRAST DONE 05/09. PY HAS BEEN WEARING CPAP TONIGHT WHILE SLEEPING AND HAS CALL LIGHT IN REACH. PT ALSO HAS WEAKNESS TO RIGHT SIDE OF UPPER ARM AND LEGS. PT HAS SOME CONTRACTURES IN RIGHT HAND WITH WASH CLOTH IN PLACE FOR PT TO HOLD ON TO.
[2024-05-10 07:11] LABS: Hematocrit 30.9 % (37.0-53.0); Hemoglobin 9.8 g/dL (13.5-17.5)
[2024-05-10 07:39] LABS: Albumin, Blood 2.5 g/dL (3.4-5.0); Anion Gap 7 mmol/L (3-11); Blood Urea Nitrogen 20 mg/dL (8-24); Bun/Creatinine Ratio 29.7 (12.0-20.0); CO2, Blood 31 mmol/L (21-32); Calcium, Blood 7.7 mg/dL (8.5-10.1); Chloride, Blood 110 mmol/L (98-108); Creatinine, Blood 0.67 mg/dL (0.60-1.20); Glomerular Filtration Rate 99 (60-); Glucose, Blood 116 mg/dL (70-99); Phosphorus, Blood 1.9 mg/dL (2.5-4.9); Sodium, Blood 145 mmol/L (136-145)
[2024-05-10 07:42] VITALS: BP 135/70
[2024-05-10] MEDS ORDERED: Potassium Chloride 20 MEQ TabCR PO ONE (08:00)
[2024-05-10] MEDS ORDERED: Potassium Phosphate Dibasic 20 MM IV ONE (08:35)
[2024-05-10] MEDS ORDERED: Potassium Phosphate Dibasic 20 MM in Dextrose 5% 500 ML IV STA (08:44)
[2024-05-10] MEDS ORDERED: Potassium Chl 10MEQ/Water100ML 100 ML IV SCH ×2 (08:45→13:00)
--- NOTE | 2024-05-10 10:33 | NUR ---
NURSING NOTE: THIS RN WENT INTO ROOM TO GIVE MORNING MEDS. WAS TOLD BY [facility] THAT PATIENT DOES HAVE ISSUES WITH SPEECH AND SOME ISSUES SWALLOWING. NO SPEECH EVALUATION ON FILE. THIS RN WAS NOT COMFORTABLE GIVEN MAJORITY OF MEDS WHOLE. MEDS THAT COULDNT BE CRUSHED GIVEN, BUT PT STRUGGLED WITH SOME OF THEM AND SPIT UP THE DOCUSATE. ATTEMPTED TO CRUSH MEDICATIONS AND GIVEN IN APPLESAUCE. PT REFUSED, REFUSING TO TAKE THE SPOON IN HIS MOUTH TURNING AWAY. INDICATED ON PICTURE BOARD THAT HE WAS ANGRY BUT REFUSED TO ELABORATE FURTHER USING THE BOARD. TOLD THIS RN TO GET OUT. CHARGE NURSE NOTIFIED. OTHER MEDICATIONS NOT GIVEN. REFUSED TO ALLOW THIS RN TO GIVE GLARGINE AND LOVONOX PER EMR. PT LEFT WITH BED IN LOWEST POSITION AND CALL LIGHT IN REACH. CONTINUING CARE.
[2024-05-10] MEDS ORDERED: MIRALAX17 GM PO (13:32)
[2024-05-10] MEDS ORDERED: PRED20 PO (14:59)
[2024-05-10 15:06] LABS: Influenza A, PCR NEGATIVE (NEGATIVE); Influenza B, PCR NEGATIVE (NEGATIVE); Resp Syncytial Virus, PCR NEGATIVE (NEGATIVE); SARS-Cov-2 (COVID-19) PCR, MMC NEGATIVE (NEGATIVE)
[2024-05-10] MEDS ORDERED: SULTRIDS PO (15:13)
[2024-05-10] MEDS ORDERED: BACTRIM DS TAB1 EAC6 PO (15:16)
--- NOTE | 2024-05-10 17:00 | NUR ---
DISCHARGE SUMMARY: PT DISCHARGED TO [facility], HAD MEDICAL TRANSPORT ORGANIZED WITH VOCATIONAL REHABILITATION TEACHER @1600. PT HAD POWER CHAIR IN [facility] SO THIS RN CALLED DAUGHTER @~1500, TO ASK WHEN SHE COULD SUBSTATION MAINTENANCE TECHNICIAN THE POWER CHAIR. DAUGHTER REFUSED MEDICAL TRANSPORTATION DESPITE BEING TOLD ABOUT THE SAFETY RISKS INVOLVED WITH BEING TAKEN IN HER PERSONAL VEHICLE. CASE MANAGEMENT MADE AWARE, AND MEDICAL TRANSPORT CANCELED. PT DAUGHTER TOLD THIS RN SHE WOULD BE THERE "IN ABOUT AN HOUR". THIS RN AND DESK ASSISTANT TOLD PATIENT ABOUT THE PLAN AND THAT WE WOULD CHANGE HIM AND GET HIM READY TO GO HOME. THIS RN AND DESK ASSISTANT CHANGED THE PATIENT, PATIENT HAD VOIDED AND HAD A DECENT SIZED BM. PT WAS CLEANED UP AND CHANGED, AND THEN PUT INTO LIFT SHEET AND TRNASFERRED INTO POWERCHAIR WITHOUT INCIDENT. @1530, PT LEFT IN ROOM WITH CALL LIGHT IN REACH, CLEAN BRIEFS AND CLOTHES ON. PATIENT ABLE TO EXPRESS COMPLAINTS WITH PICURE BOARD. PATIENT IS INDEPENDENT AROUND THE ROOM IN POWER CHAIR AND DOOR WAS LEFT OPEN IN CASE HE COULDNT REACH CALL LIGHT SO THEY COULD FIND HELP IN THE HALLWAY IF NECESSARY. PT DENIED ANY DISCOMFORT OR NEEDS BEFORE RN AND AID LEFT ROOM. THIS RN CALLED [facility] AND GAVE REPORT TO NURSE THERE. @1645 PT DAUGHTER ARRIVED TO THE ROOM EXPRESSING THAT HE HAS NOT BEEN CHANGED AND THAT HE SOAKED THROUGH HIS PANTS. THIS RN APOLOGIZED FOR THE MISUNDERSTANDING BUT INFORMED HER THAT HE HAD BEEN CHANGED AFTER OUR PHONE CALL. DAUGHTER CLAIMS THAT WE LIED. OFFERED TO RECHANGED THE PATIENT BEFORE THEY LEFT, DAUGHTER REFUSES CLAIMING THAT HE DOESNT HAVE CLEAN CLOTHES. OFFERED TO HER THAT WE HAD CLEAN PT PAJAMA BOTTOMS AND COULD CLEAN HIM UP. DAUGHTER REFUSED CHANGE AGAIN CLAIMING THAT SHE WOULD CHANGE HIM AT HOME. DAUGHTER CORRECTED THAT SHE IS SUPPOSED TO TAKE PT TO [facility] DISCUSSED ON THE PHONE. DAUGHTER REFUSED TO ALLOW THIS RN TO TAKE OUT THE POWER GLIDE ON THE PATIENT. DAUGHTER ASKED FOR CHARGE NURSE AND CONTINUED TO EXPRESS GRIEVENCES IN THE PARK WAY WHILE PATIENT WHEELED HIMSELF AWAY TO THE ELEVATOR DOORS. DAUGHTER EXPRESSED THAT THEY WERE LEAVING AND LEFT VIA THE ELEVATOR DOORS. CONTINUED TO GO TO THE NURSING NEON SIGN ERECTOR AND CLAIM WE REFUSED TO REMOVE HIS "CENTRAL LINE". PT DID NOT HAVE A CENTRAL LINE, AND NURSING NEON SIGN ERECTOR REMOVED THE POWERGLIDE.
--- NOTE | 2024-05-10 17:51 | NUR ---
THIS EXHIBIT CLEANER HAS REVIEWED AND AGREES WITH ALL NOTES AND ASSESSMENTS BY EDDIE MAHER.
== END 2024-05-10 17:01 | DRG 682 ==
LOC: ER 14:06 → ICUE 19:31 → MEDS 19:31 → PCU 19:31 → ICUE 22:30 → PCU 05-03 13:30 → MEDS 05-08 19:30
PROVIDERS: Hospitalist; Internal Medicine Nephrology; Nurse Practitioner Acute Care; Student in an Organized Health Care Education/Training Program; ADMIT Internal Medicine
PROC: 5A09457 Assistance with Respiratory Ventilation, 24-96 Consecutive Hours, Continuous Positive Airway Pressure (ICD-10-PCS; principal; 2024-05-02)
DX: N17.0 Acute kidney failure with tubular necrosis (principal); G92.8 Other toxic encephalopathy; J96.01 Acute respiratory failure with hypoxia; J18.9 Pneumonia, unspecified organism; E87.0 Hyperosmolality and hypernatremia; G82.20 Paraplegia, unspecified; I13.0 Hypertensive heart and chronic kidney disease with heart failure and stage 1 through stage 4 chronic kidney disease, or unspecified chronic kidney disease; E87.4 Mixed disorder of acid-base balance; Z74.01 Bed confinement status; N13.6 Pyonephrosis; N18.30 Chronic kidney disease, stage 3 unspecified; I50.9 Heart failure, unspecified; E11.22 Type 2 diabetes mellitus with diabetic chronic kidney disease; E78.5 Hyperlipidemia, unspecified; D63.1 Anemia in chronic kidney disease; Z28.21 Immunization not carried out because of patient refusal; E88.09 Other disorders of plasma-protein metabolism, not elsewhere classified; G47.33 Obstructive sleep apnea (adult) (pediatric); N40.0 Benign prostatic hyperplasia without lower urinary tract symptoms; M10.9 Gout, unspecified; K59.00 Constipation, unspecified; I69.391 Dysphagia following cerebral infarction; R13.10 Dysphagia, unspecified; E87.6 Hypokalemia; E83.39 Other disorders of phosphorus metabolism; Z87.442 Personal history of urinary calculi; Z79.4 Long term (current) use of insulin; Z79.899 Other long term (current) drug therapy; Z79.02 Long term (current) use of antithrombotics/antiplatelets
CPT/HCPCS: 0202U; 0241U; 36415; 51701; 51702; 70450; 70551; 71045; 74177; 80053; 80069; 80202; 81001; 82140; 82550; 82803; 82947; 83605; 83735; 83880; 84100; 84132; 84145; 84153; 84295; 84443; 84478; 84484; 85014; 85018; 85025; 87070; 87077; 87086; 87147; 87186; 87205; 93005; 93010; 94640; 94660; 94664; 94762; 96365; 96366; 96368; 99291-25; A9270; C1751; J0295; J0360; J0456; J0696; J0881; J1644; J1650; J1815; J2185; J2310; J2919; J3370; J3411; J3475; J3480; J7030; J7040; J7042; J7050; J7060; J7070; J7120; J7512; J7799; Q9967

== ENCOUNTER 2024-06-20 20:40 | Inpatient (IN) | payer OTHER ==
[~2024-06-20] VITALS: Ht 172.7 cm; Wt 76.3 kg
[~2024-06-20 20:40] MED LIST changes: +Flonase 0.05% N16 GM; +PRED20 PO; +TOLT2ER PO
[2024-06-20 21:56] LABS: Source, Urine Straight Cath
[2024-06-20 22:00] LABS: BASOPHILS ABSOLUTE AUTO 0.01 K/mm3 (0.00-0.23); BASOPHILS PERCENT AUTO 0 % (0-2); EOSINOPHILS ABSOLUTE AUTO 0.19 K/mm3 (0.00-0.68); EOSINOPHILS PERCENT AUTO 3 % (0-6); Hematocrit 33.3 % (37.0-53.0); Hemoglobin 10.5 g/dL (13.5-17.5); IMMATURE GRAN ABSOLUTE AUTO 0.03 K/mm3 (0.00-0.10); IMMATURE GRAN PERCENT AUTO 0 % (0-1); LYMPHOCYTES ABSOLUTE AUTO 1.57 K/mm3 (0.84-5.20); LYMPHOCYTES PERCENT AUTO 21 % (21-46); MONOCYTES ABSOLUTE AUTO 0.53 K/mm3 (0.16-1.47); MONOCYTES PERCENT AUTO 7 % (4-13); Mean Corpuscular HGB 27.5 pg (26.0-34.0); Mean Corpuscular HGB Conc 31.5 g/dL (31.5-36.5); Mean Corpuscular Volume 87 fL (80-100); Mean Platelet Volume 8.9 fL (9.1-12.4); NEUTROPHILS ABSOLUTE AUTO 5.21 K/mm3 (1.96-9.15); NEUTROPHILS PERCENT AUTO 69 % (41-73); Platelet Count 225 K/mm3 (150-400); RDW Coefficient Variation 15.4 % (11.7-14.2); RDW Standard Deviation 49.1 fL (35.1-46.3); Red Blood Cell Count 3.82 M/mm3 (4.30-5.90); White Blood Cell Count 7.54 K/mm3 (4.00-11.30)
[2024-06-20 22:04] LABS: Bilirubin, Urine Neg (Neg); Blood, Urine 4+ (Neg); Glucose Qualitative, Urine Neg (Neg); Ketones, Urine Neg (Neg); Leukocyte Esterase, Urine 3+ (Neg); Nitrite, Urine Neg (Neg); Protein, Urine 4+ (Neg); Urobilinogen, Urine NORM (Normal); pH, Urine 6.5 (5.0-8.0)
[2024-06-20 22:06] LABS: Appearance, Urine Turbid (Clear); Color, Urine Yellow (P-Yellow)
[2024-06-20 22:15] LABS: Bacteria Many /hpf; Squamous Epithelial Cells Not Seen /hpf (Few); White Blood Cells, Urine TNTC /hpf (0-5)
[2024-06-20 22:17] LABS: Albumin, Blood 2.9 g/dL (3.4-5.0); Albumin/Globulin Ratio 0.7 (0.8-1.8); Bilirubin, Total 0.5 mg/dL (0.1-1.0); Bun/Creatinine Ratio 18.4 (12.0-20.0); Calcium, Blood 9.3 mg/dL (8.5-10.1); Creatinine, Blood 1.52 mg/dL (0.60-1.20); Globulin, Blood 3.9 g/dL (2.2-4.0); Total Protein, Blood 6.8 g/dL (6.4-8.2)
[2024-06-20] MEDS ORDERED: NS 1,000 ML IV SCH (22:20)
[2024-06-20] MEDS ORDERED: CefTRIAXone Sodium 2,000 MG in NS 100 ML IV ONE (22:35)
[2024-06-20] MEDS ORDERED: FLU VACC TS2024-25(6MOS UP)/PF 45 MCG/0.5 ML SYRINGE IM ONE (22:50)
[2024-06-20] MEDS ORDERED: Ondansetron HCl 2 MG / ML 2ML Vial IV PRN (22:55)
[2024-06-20] MEDS ORDERED: Sodium Chloride 0.45% 1,000 ML IV ONE (22:55)
[2024-06-20] MEDS ORDERED: Acetaminophen 325 MG TABLET PO PRN (22:55)
[2024-06-20] MEDS ORDERED: Enoxaparin 40 MG/0.4 ML SYR SC SCH (23:00)
[2024-06-20 23:29] LABS: Influenza A, PCR NEGATIVE (NEGATIVE); Influenza B, PCR NEGATIVE (NEGATIVE); Resp Syncytial Virus, PCR NEGATIVE (NEGATIVE); SARS-Cov-2 (COVID-19) PCR, MMC NEGATIVE (NEGATIVE)
--- NOTE | 2024-06-20 23:30 | NUR ---
RECEIVED REPORT FROM JUANITO HERNANDEZ RN.
--- NOTE | 2024-06-20 23:50 | NUR ---
PT ARRIVED TO RM [id number]. ALERT TO NAME, NODS HEAD FOR YES OR NO QUESTIONS. ON RA. PT WAS TRANSFERRED TO AIRBED USING SLIDER SHEET. LINEN FROM ER REMOVED FROM UNDERNEATH PT. NEW BRIEF, GOWN, NONSKID SOCKS PLACED ON PT. FOAM HEEL PROTECTORS PLACED ON FEET, PILLOWS PLACED UNDERNEATH LEGS AND BOTH ARMS. MALE PUREWICK PLACED IN ER AND CONTINUED UPON MED FLOOR. WILL CONTINUE TO PROVIDE CARE T/O SHIFT.
[2024-06-21 00:15] VITALS: BP 148/73
[2024-06-21] MEDS ORDERED: Vancomycin HCL 2,000 MG in NS 500 ML IV ONE (00:25)
--- NOTE | 2024-06-21 02:15 | NUR ---
PT RESTING QUIETLY. IVF INFUSING WITHOUT DIFFICULTY.
--- NOTE | 2024-06-21 04:20 | NUR ---
PT REFUSED TO HAVE PICS TAKEN OF HIS SKIN TEARS. NEW MEPILEX PLACED TO LEFT OROPEZA AND LEFT FOREARM. SACRAL MEPILEX PLACED TO COCCYX FOR PREVENTION AND PROVIDE MORE CUSHIONING.
--- NOTE | 2024-06-21 05:30 | NUR ---
PT APPEARS MORE ALERT. SHAKES HEAD FOR YES OR NO QUESTIONS. MOVING HIS ARMS AND HANDS MORE.
--- NOTE | 2024-06-21 05:43 | NUR ---
SHIFT SUMMARY: ER ADMIT AT MIDNIGHT. LIFT PT. HX PARAPLEGIC. HAS BEEN MOSTLY NONVERBAL, WILL SHAKE HIS HEAD TO YES OR NO QUESTIONS. HX OF OLD TRACH AND PEG TUBES X 2. ON RA. CPAP AT HS. RECEIVED ROCEPHIN AND VANCO HS, RECEIVING 1 LITER 1/2 NS THEN STOP. MALE PUREWICK PLACED IN ER AND THEN REPLACED D/T LEAKING. PATENT NOW DRAINING YELLOW URINE. BLE VERY STIFF. PT ABLE TO MOVE LEFT ARM AND HAND BETTER THAN RIGHT. RIGHT HAND CONTRACTED, ROLLED UP WASHCLOTH PLACED IN R HAND. NPO AT THIS TIME. REPOSITIONED PT FOR COMFORT DURING SHIFT. FLOATED PT WITH PILLOWS, FEET PLACED IN FOAM HEEL PROTECTORS, LEGS ELEVATED WITH PILLOW. AWAITING ON MED LIST FAX FROM [facility]. WILL CONTINUE TO PROVIDE CARE UNTIL SHIFT REPORT TO ONCOMING NURSE.
[2024-06-21 06:02] VITALS: BP 154/74
[2024-06-21 06:50] LABS: BASOPHILS ABSOLUTE AUTO 0.03 K/mm3 (0.00-0.23); BASOPHILS PERCENT AUTO 1 % (0-2); EOSINOPHILS PERCENT AUTO 3 % (0-6); Hematocrit 31.9 % (37.0-53.0); Hemoglobin 9.9 g/dL (13.5-17.5); IMMATURE GRAN ABSOLUTE AUTO 0.01 K/mm3 (0.00-0.10); IMMATURE GRAN PERCENT AUTO 0 % (0-1); LYMPHOCYTES ABSOLUTE AUTO 1.57 K/mm3 (0.84-5.20); LYMPHOCYTES PERCENT AUTO 26 % (21-46); MONOCYTES PERCENT AUTO 8 % (4-13); Mean Corpuscular HGB 27.2 pg (26.0-34.0); Mean Corpuscular Volume 88 fL (80-100); Mean Platelet Volume 9.3 fL (9.1-12.4); NEUTROPHILS ABSOLUTE AUTO 3.71 K/mm3 (1.96-9.15); NEUTROPHILS PERCENT AUTO 62 % (41-73); Platelet Count 220 K/mm3 (150-400); RDW Coefficient Variation 15.3 % (11.7-14.2); RDW Standard Deviation 48.6 fL (35.1-46.3); Red Blood Cell Count 3.64 M/mm3 (4.30-5.90); White Blood Cell Count 6.02 K/mm3 (4.00-11.30)
[2024-06-21 07:29] LABS: Albumin, Blood 2.6 g/dL (3.4-5.0); Albumin/Globulin Ratio 0.7 (0.8-1.8); Bilirubin, Total 0.5 mg/dL (0.1-1.0); Calcium, Blood 8.7 mg/dL (8.5-10.1); Creatinine, Blood 1.39 mg/dL (0.60-1.20); Globulin, Blood 3.9 g/dL (2.2-4.0); Potassium, Blood 3.4 mmol/L (3.5-5.5); Total Protein, Blood 6.5 g/dL (6.4-8.2)
[2024-06-21 07:33] VITALS: BP 156/75
--- NOTE | 2024-06-21 09:47 | NUR ---
report received verified, a/o x 2-3 i am having difficult time understanding pt but he dies follow direction and is able to node yes or no when asked questions. turn q2, call light within reach. speech therapy into see pt with recommendations of npo but pt hx shows family are aware and understand risks of aspiration if fed. will keep npo until daughter is at bedside.
--- NOTE | 2024-06-21 11:37 | NUR ---
ORAL CARE PT MARIAN ORAL CARE WELL, DOESNT HAVE STRONG ENOUGH COUGH AT THE MOMENT TO CLEAR EXCESS FLUID FROM BACLK OF THROAT. PT WAS SUCTIONED.
--- NOTE | 2024-06-21 13:12 | NUR ---
SPOKE WITH DAUGHTER AND SHE IS AWARE OF PT SWALLOW, AND FOLLOWING ASPIRATION PRECAUTIONS, BOTH PT AND DAUGHTER AWARE. DAUGHTER STATES THAT PT CAN HAVE SOFT FOODS AND THICKENED LIQUIDS, THAT PT MUST BE SAT UP WHEN EATING OR DRINKING AND MUST BE REMINDED AT TIMES TO SWALLOW COMPLETLY.
[2024-06-21 15:27] VITALS: BP 165/78
--- NOTE | 2024-06-21 18:08 | NUR ---
SAT PT UP AT 90 DEGREE AND WAS ASSISTED WITH NECTAR CONSISTENT FLUIDS, PT MARIAN VERY WELL AND WAS ABLE TO TELL ME WHEN HE WAS DONE. I HAVE REPEATEDLY ASKED IF PT IS HUNGRY BUT HE HAS ONLY NODDED NO, PT MORE INTERESTED IN DRINKING FLUID. PT IS STILL Q2 TURNS AND HAS BEEN MARIAN WELL. PURWIC STILL DRAINING YELLOW FOAMY URINE WITH SEDIMENT. WILL CONT TO MONITOR .
[2024-06-21] MEDS ORDERED: NS 250 ML IV PRN (20:00)
[2024-06-21 20:12] VITALS: BP 161/79
[2024-06-21] MEDS ORDERED: CefTRIAXone Sodium 1,000 MG in NS 100 ML IV SCH (21:00)
[2024-06-21 22:28] LABS: Vancomycin, Random 12.9 ug/mL
[2024-06-22] MEDS ORDERED: Vancomycin HCL 1,500 MG in NS 250 ML IV SCH (01:00)
--- NOTE | 2024-06-22 04:31 | NUR ---
SHIFT SUMMARY PATIENT HAD NO ACUTE CHANGES. AXOX 2, BEDREST, NON-VERBAL NODDING TO YES/NO QUESTIONS. DENIES CHEST PAIN, SOB, AND N/V. VSS/AFEBRILE. PIV INTACT. IV ABXS INFUSED. TELE MONITOR NSR 70. PUREWICK IN PLACE. USES CPAP AT NIGHT. CALL LIGHT IN REACH. BED IN LOWEST POSITION. WILL CONTINUE TO MONITOR UNTIL DAY SHIFT NURSE ASSUMES CARE.
[2024-06-22 06:01] VITALS: BP 142/77
[2024-06-22 07:28] LABS: BASOPHILS ABSOLUTE AUTO 0.04 K/mm3 (0.00-0.23); BASOPHILS PERCENT AUTO 1 % (0-2); EOSINOPHILS ABSOLUTE AUTO 0.25 K/mm3 (0.00-0.68); EOSINOPHILS PERCENT AUTO 4 % (0-6); Hematocrit 31.7 % (37.0-53.0); Hemoglobin 9.9 g/dL (13.5-17.5); IMMATURE GRAN ABSOLUTE AUTO 0.04 K/mm3 (0.00-0.10); IMMATURE GRAN PERCENT AUTO 1 % (0-1); LYMPHOCYTES PERCENT AUTO 23 % (21-46); MONOCYTES ABSOLUTE AUTO 0.65 K/mm3 (0.16-1.47); MONOCYTES PERCENT AUTO 10 % (4-13); Mean Corpuscular HGB 26.9 pg (26.0-34.0); Mean Corpuscular HGB Conc 31.2 g/dL (31.5-36.5); Mean Corpuscular Volume 86 fL (80-100); Mean Platelet Volume 9.1 fL (9.1-12.4); NEUTROPHILS ABSOLUTE AUTO 4.26 K/mm3 (1.96-9.15); NEUTROPHILS PERCENT AUTO 62 % (41-73); Platelet Count 215 K/mm3 (150-400); RDW Coefficient Variation 15.4 % (11.7-14.2); RDW Standard Deviation 48.2 fL (35.1-46.3); Red Blood Cell Count 3.68 M/mm3 (4.30-5.90); White Blood Cell Count 6.84 K/mm3 (4.00-11.30)
[2024-06-22 07:47] LABS: Bun/Creatinine Ratio 17.9 (12.0-20.0); Calcium, Blood 8.8 mg/dL (8.5-10.1); Creatinine, Blood 1.23 mg/dL (0.60-1.20); Potassium, Blood 3.2 mmol/L (3.5-5.5)
[2024-06-22 07:48] VITALS: BP 159/78
[2024-06-22] MEDS ORDERED: Potassium Chloride 10 Meq Tablet SA PO SCH (17:00)
[2024-06-22] MEDS ORDERED: Albuterol 2.5 MG/3 ML VIAL INH PRN (17:30)
--- NOTE | 2024-06-22 18:33 | NUR ---
PATIENT IS ALERT AND ORIENTED. HE NODS HIS HEAD BUT CAN ALSO MUMBLE WORDS TO EXPRESS HIS NEEDS. PATIENT CAN USE THE CALL LIGHT. HE CAN DRINK THICKENED WATER INDEPENDENTLY. HE IS A FEEDER. ASPIRATION PRECAUTIONS. CONDOM CATH IN PLACE. ATTENDS IN PLACE. NO BM TODAY. REPOSTITIONED Q2H. OITMENT APPLIED TO COCCYX. CPAP AT THE BEDSIDE. PATIENT CAN TAKE PILLS WHOLE. ENSURES ADDED TO HIS DIET. WILL CONTINUE TO MONITOR
[2024-06-22 19:21] VITALS: BP 161/74
[2024-06-23 00:14] LABS: BASOPHILS ABSOLUTE AUTO 0.03 K/mm3 (0.00-0.23); BASOPHILS PERCENT AUTO 1 % (0-2); EOSINOPHILS ABSOLUTE AUTO 0.26 K/mm3 (0.00-0.68); EOSINOPHILS PERCENT AUTO 4 % (0-6); Hematocrit 32.8 % (37.0-53.0); Hemoglobin 10.3 g/dL (13.5-17.5); IMMATURE GRAN ABSOLUTE AUTO 0.02 K/mm3 (0.00-0.10); IMMATURE GRAN PERCENT AUTO 0 % (0-1); LYMPHOCYTES ABSOLUTE AUTO 1.69 K/mm3 (0.84-5.20); LYMPHOCYTES PERCENT AUTO 28 % (21-46); MONOCYTES ABSOLUTE AUTO 0.66 K/mm3 (0.16-1.47); MONOCYTES PERCENT AUTO 11 % (4-13); Mean Corpuscular HGB 26.8 pg (26.0-34.0); Mean Corpuscular HGB Conc 31.4 g/dL (31.5-36.5); Mean Corpuscular Volume 85 fL (80-100); Mean Platelet Volume 8.8 fL (9.1-12.4); NEUTROPHILS ABSOLUTE AUTO 3.47 K/mm3 (1.96-9.15); NEUTROPHILS PERCENT AUTO 57 % (41-73); Platelet Count 218 K/mm3 (150-400); RDW Coefficient Variation 15.1 % (11.7-14.2); RDW Standard Deviation 46.7 fL (35.1-46.3); Red Blood Cell Count 3.85 M/mm3 (4.30-5.90); White Blood Cell Count 6.13 K/mm3 (4.00-11.30)
[2024-06-23 00:37] LABS: Anion Gap 11 mmol/L (3-11); Blood Urea Nitrogen 28 mg/dL (8-24); Bun/Creatinine Ratio 21.7 (12.0-20.0); CO2, Blood 20 mmol/L (21-32); Calcium, Blood 8.9 mg/dL (8.5-10.1); Chloride, Blood 116 mmol/L (98-108); Creatinine, Blood 1.29 mg/dL (0.60-1.20); Glomerular Filtration Rate 58 (60-); Glucose, Blood 170 mg/dL (70-99); Potassium, Blood 3.6 mmol/L (3.5-5.5); Sodium, Blood 143 mmol/L (136-145); Vancomycin, Trough 14.2 ug/mL (5.0-10.0)
--- NOTE | 2024-06-23 04:01 | NUR ---
SHIFT SUMMARY PATIENT HAD NO ACUTE CHANGES. AXOX 2, BEDREST, AND MOSTLY NON-VERBAL WITH MUMBLE SPEECH AT TIMES. NODS TO YES/NO QUESTIONS. PIV INTACT. IV ABX'S INFUSED. CPAP ON DURING SHIFT. TELE MONITOR NSR 73. NO S/SX OF CHEST PAIN, SOB, AND N/V. USING PICTURE DIAGRAM TO ASSIST PATIENT WITH HIS REQUEST. TYLENOL 650 MG GIVEN WHEN PATIENT POINTED TO PAIN PICTURE. VSS/AFEBRILE. CONDOM CATH IN PLACE. AWAKE MOST OF THE SHIFT. CALL LIGHT IN REACH. BED IN LOWEST POSITION. WILL CONTINUE TO MONITOR UNTIL DAY SHIFT NURSE ASSUMES CARE.
[2024-06-23 06:14] VITALS: BP 126/72
[2024-06-23 07:22] VITALS: BP 157/76
[2024-06-23 11:57] LABS: CORONAVIRUS COVID-19 AG Negative (NEGATIVE)
--- NOTE | 2024-06-23 18:10 | NUR ---
REPORT RECEIVED VERIFIED. VERY PLEASENT NON VERBLE PT WITH A HX OF CVA, RIGHT SIDE CONTRACTION. DR BELTRAN INTO SEE PT AND DISCHARGE ORDERS GIVEN. PT ABLE TO UNDERSTAND AND RESPOND BY NODDING YES OR NO, PT ALSO HAS COMMUNICATION BOARD TO HELP IF NEEDED. NO C/O PAIN NO DISTRESS VILLANUEVA ATTACHED VIA CONDOM CATH DRAINING CLOUDY YELLOW URINE.
--- NOTE | 2024-06-23 18:16 | NUR ---
PT UP IN WHEEL CHAIR PT WAS CHANGED INTO OWN CLOTHS AND ASSISTED TO CHAIR USING A SIT TO STAND. PT MARIAN TRANSFER VERY WELL AND ONCE IN HIS OWN CHAIR PT HAD NO PROBLEM OPERATING WHEEL CHAIR. PT RODE IN PARK AND WAS ABLE TO FIND WAY BACK.
--- NOTE | 2024-06-23 18:18 | NUR ---
PT ASSISTED BACK TO BED BECAUSE DISCHARGE WAS CANCELLED FOR THIS EVENING, FAMILY AWARE WELL PT. WILL ASSIST PT WITH DINNER.
[2024-06-23 20:58] VITALS: BP 162/88
--- NOTE | 2024-06-24 00:18 | NUR ---
C/O PAIN AT IV SITE. IV REMOVED. NOTIFIED AND PT IS SCHEDULED TO BE DC'D LATER TODAY, DISCONTINUED IV NEED. PT RESTING QUIETLY AT THIS TIME
--- NOTE | 2024-06-24 03:00 | NUR ---
FIRER PORTABLE BOILER SUMMARY BP ELEVATED, OTHERWISE VSS. A/O X 4, SPEECH GARBLED, BUT USES OTHER WAYS TO COMMUNICATE. TOLERATING THISKENED LIQUIDS AND PUREED DIET. INCONT OF BOWEL AND URINE, PULLED OFF CONDOM CATH, REPLACED WITH MALE PUREWICK, LINEN CHANGED. IV SITE REMOVED AFTER PAIN AT SITE, PER MD ORDERS. HAS BEEN RESTING QUIETLY WITH FEW INTERRUPTIONS SINCE. REPOSITIONED FOR COMFORT. CALL LIGHT IN REACH, RAILS UP X 2 AND BED IN LOW POSITION FOR SAFETY. ON CONTACT PRECAUTIONS FOR MRSA IN THE URINE. WILL COT TO MONITOR
[2024-06-24 05:16] VITALS: BP 158/86
[2024-06-24 05:28] LABS: Calcium, Blood 9.3 mg/dL (8.5-10.1); Creatinine, Blood 1.08 mg/dL (0.60-1.20); Potassium, Blood 3.6 mmol/L (3.5-5.5)
[2024-06-24 07:49] VITALS: BP 156/85
[2024-06-24] MEDS ORDERED: ALBU2.5V5 INH (08:58)
--- NOTE | 2024-06-24 12:06 | NUR ---
PT DISCHARGED TO [facility] TODAY WITH DAUGHTER TO TRANSPORT IN ELECTRIC WHEEL CHAIR. DAUGHTER VERBALIZED PT WOULD SPEND DAY WITH HER AND THEN SHE WOULD TAKE HIM TO [facility] LATER TODAY. REPORT CALLED TO [facility]. PT AO AND COOPERATIVE OF HIS CARE. PT LIFTED INTO CHAIR USING A SIT TO STAND. ALL PERSONAL BELONGINGS COLLECTED AND TAKEN WITH THEM.
== END 2024-06-24 11:47 | DRG 871 ==
LOC: ER 20:40 → MEDS 23:11
PROVIDERS: Emergency Medicine; Hospitalist; Internal Medicine; Student in an Organized Health Care Education/Training Program; ADMIT Internal Medicine
DX: A41.9 Sepsis, unspecified organism (principal); G93.41 Metabolic encephalopathy; N17.0 Acute kidney failure with tubular necrosis; N39.0 Urinary tract infection, site not specified; G82.20 Paraplegia, unspecified; E87.0 Hyperosmolality and hypernatremia; Z28.21 Immunization not carried out because of patient refusal; I69.398 Other sequelae of cerebral infarction; E11.9 Type 2 diabetes mellitus without complications; E78.5 Hyperlipidemia, unspecified; J44.9 Chronic obstructive pulmonary disease, unspecified; I11.0 Hypertensive heart disease with heart failure; I50.9 Heart failure, unspecified; N40.0 Benign prostatic hyperplasia without lower urinary tract symptoms; F03.90 Unspecified dementia, unspecified severity, without behavioral disturbance, psychotic disturbance, mood disturbance, and anxiety; Z79.4 Long term (current) use of insulin; Z79.899 Other long term (current) drug therapy; Z79.84 Long term (current) use of oral hypoglycemic drugs; Z79.51 Long term (current) use of inhaled steroids
CPT/HCPCS: 0241U; 36415; 51701; 70450; 71045; 80048; 80053; 80202; 81001; 83605; 83880; 84484; 85025; 87040; 87086; 87426-QW; 92610; 93005; 93010; 94762; 99285-25; A9270; J0696; J1650; J3370; J7030; J7040; J7050